=== PATIENT | female | born 1960 | race Caucasian/White ===

== ENCOUNTER 2019-06-21 18:28 | Emergency (ER) | payer OTHER ==
[~2019-06-21] VITALS: Ht 167 cm; Wt 99.0 kg
[2019-06-21] MEDS ORDERED: NS IV 500 ML 500 ML IV ONE (18:52)
[2019-06-21 18:59] LABS: BILIRUBIN,URINE NEGATIVE (NEGATIVE); CLARITY,URINE CLEAR; COLOR,URINE YELLOW; GLUCOSE, URINE (UA) NEGATIVE (NEGATIVE); KETONES,URINE NEGATIVE (NEGATIVE); LEUKOCYTE ESTERASE ,URINE NEGATIVE (NEGATIVE); NITRITE,URINE NEGATIVE (NEGATIVE); PROTEIN,URINE NEGATIVE (NEGATIVE)
[2019-06-21 19:03] LABS: BASOPHILS % (AUTO) 1 % (0-10); EOSINOPHILS # (AUTO) 0.2 10^3/uL (0.0-0.3); EOSINOPHILS % (AUTO) 3 % (0-10); HEMATOCRIT 40 % (35-52); HEMOGLOBIN 13.4 G/DL (11.5-16.0); LYMPHOCYTES # (AUTO) 0.7 X 10^3 (1.0-4.0); LYMPHOCYTES % (AUTO) 17 % (12-44); MEAN CORPUSCULAR HEMOGLOBIN 32 PG (25-34); MEAN CORPUSCULAR HGB CONC 34 G/DL (32-36); MEAN CORPUSCULAR VOLUME 93 FL (80-99); MEAN PLATELET VOLUME 10.3 FL (7.4-10.4); MONOCYTES # (AUTO) 0.5 X 10^3 (0.0-1.0); MONOCYTES % (AUTO) 11 % (0-12); NEUTROPHILS % (AUTO) 68 % (42-75); PLATELET COUNT 88 10^3/uL (130-400); RED CELL DISTRIBUTION WIDTH 15.9 % (10.0-14.5); WHITE BLOOD COUNT 4.4 10^3/uL (4.3-11.0)
[2019-06-21 19:09] LABS: BACTERIA,URINE TRACE /HPF; RBC,URINE RARE /HPF; SQUAMOUS EPITHELIAL CELL,UR 0-2 /HPF
--- NOTE | 2019-06-21 19:09 | NUR ---
Report given to Krista MENDIOLA.
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
[2019-06-21 19:22] LABS: ALANINE AMINOTRANSFERASE 51 U/L (0-55); ALBUMIN 3.2 GM/DL (3.2-4.5); ALKALINE PHOSPHATASE 191 U/L (40-136); BILIRUBIN,TOTAL 1.2 MG/DL (0.1-1.0); BUN/CREATININE RATIO 13; CALCIUM 8.2 MG/DL (8.5-10.1); CARBON DIOXIDE 24 MMOL/L (21-32); CHLORIDE 106 MMOL/L (98-107); CREATININE SERUM 0.63 MG/DL (0.60-1.30); GFR ESTIMATED > 60; GLUCOSE 98 MG/DL (70-105); LIPASE 89 U/L (8-78); MAGNESIUM 1.9 MG/DL (1.6-2.4); POTASSIUM 3.9 MMOL/L (3.6-5.0); SODIUM 141 MMOL/L (135-145); TOTAL PROTEIN 7.9 GM/DL (6.4-8.2)
[2019-06-21] MEDS ORDERED: HOLD METFORMIN - RECEIVED CONTRAST 20 ML VIAL IV SCH (20:00)
[2019-06-21] MEDS ORDERED: IOHEXOL 350 MG/ML 100 ML (OMNIPAQUE 350) VIAL IV ONE (20:00)
[2019-06-21] MEDS ORDERED: NS 100 ML (IVPB) BAG IV ONE (20:00)
--- NOTE | 2019-06-21 20:33 | Diagnostic Imaging Report ---
PROCEDURE: CT abdomen and pelvis with contrast. TECHNIQUE: Multiple contiguous axial images were obtained through the abdomen and pelvis after administration of intravenous contrast. Auto Exposure Controls were utilized during the CT exam to meet ALARA standards for radiation dose reduction. INDICATION: Abdominal swelling and bloating for 2 weeks, excessive weight gain over the past 6 weeks. There is a diffuse nodular appearance to the liver consistent with cirrhosis. There is splenomegaly. No focal liver or spleen lesions are seen. The bile ducts are not dilated. The pancreas and adrenals are normal. The kidneys, ureters and bladder are normal. There is no pelvic mass. There is diverticulosis of the colon with no acute bowel abnormality evident. There is a moderate amount of ascites in the abdomen and pelvis. There is no free air. There is no acute bony abnormality. IMPRESSION: There are changes consistent with cirrhosis. There is splenomegaly. There is ascites. Dictated by: Dictated on workstation # [id number]
[2019-06-21] MEDS ORDERED: SPIR25TA5 PO (20:57)
[2019-06-21] MEDS ORDERED: SPIRONOLACTONE 25 MG (ALDACTONE) TAB PO ONE (21:00)
[2019-06-21 21:24] VITALS: BP 154/89
--- OUTSIDE RECORDS SUMMARY | 2019-06-23 15:02 | XMS REPORT ---
Author Author Shirley HEALY Organization [facility] Address [address] [place] [address] Care Team Providers Care Purchasing Buyer Name Role Phone ALFREDITO HEALY Unavailable PROBLEMS Type Condition ICD9-CM Code [id number] Code Onset Dates Condition S tatus SNOMED Code Problem Cutaneous horn L85.8 Active 69986 1001 Problem Colon cancer screening Z12.11 Active 710604873 Problem Skin tag L91.8 Active 360931402 Problem Psoriasis L40.9 Active 3632820 Problem Gynecologic exam normal Z01.419 Active 562336692 Problem Herpes simplex vulvovaginitis A60.04 Active 62265126 Problem Dysthymia F34.1 Active 71442401 Problem High risk medication use Z79.899 Activ e [id number] Problem Mary-rectal abscess K61.1 Active 79747674 Problem Essential hypertension with goal blood pressure less t schrader 140\/90 I10 Active 60215595 Problem Hypertension I10 Active 5538978 3 Problem Breast cancer screening Z12.39 Active 380251546 Problem Melanocytic nevus of trunk D22.5 Act ilia 349163586 Problem Mixed hyperlipidemia E78.2 Active 551569034 Problem Acute bronchitis, unspecified organism J20.9 Active 38581666 Problem External hemorrhoid K64.4 Active 70173941 ALLERGIES No Information ENCOUNTERS Encounter Location Date Diagnosis [facility] [address] [facility] [id number] [address] [place] [address] Nov, [facility] [address] [id number] [id number] Jul, Seborrheic keratoses, inflamed L82.0 ; S erous otitis media H65.90 and Hypertension I10 [facility] [address] [id number][place] [id number] May, [facility] [address] [id number] [place] [id number] Feb, [facility] [address] [id number] [place] [id number] Jan, Mary-rectal abscess K61.1 and External h emorrhoid K64.4 [facility] [address] [id number][place] [id number] Jan, Essential hypertension with goal blood p ressure less than 140\/90 I10 ; Dysthymia F34.1 and Noncompliance Z91.19 [facility] [address] [id number] [place] [id number] Dec, Dysthymia F34.1 [facility] [address] [facility] [id number] [address] [place] [address] Oct, Dysthymia F34.1 [facility] [address] [id number][place] [id number] August, Essential hypertension with goal blood p ressure less than 140\/90 I10 ; Mixed hyperlipidemia E78.2 and Acute bronchitis, unspecified organism J20.9 [facility] [address] [id number][place] [id number] Jul, Dental examination Z01.20 and Dental car ies K02.9 [facility] [address] [id number][place] [id number] Jun, Essential hypertension with goal blood p ressure less than 140\/90 I10 and Melanocytic nevus of trunk D22.5 [facility] [address] [id number][place] [id number] Jun, [facility] [address] [facility] [id number] [address] [place] [address] Jun, Dysthymia F34.1 [facility] [address] [id number][place] [id number] May, [facility] [address] [id number] [place] [id number] Mar, [facility] [address] [id number] [place] [id number] Mar, Herpes simplex vulvovaginitis A60.[address] [facility] [address] [id number] [place] [id number] Mar, [facility] [address] [id number] [place] [id number] Mar, High risk medication use Z79.899 ; Dysth ymia F34.1 and Essential hypertension with goal blood pressure less than 140\/90 I[address] [facility] [address] [id number] [place] [id number] Jan, Dysthymia F34.[address] [facility] [address] [id number] [place] [id number] Jan, High risk medication use Z79.899 and Dys thymia F34.[address] [facility] [address] [id number] [place] [id number] Dec, [facility] [address] [id number] [place] [id number] Dec, [facility] [address] [id number] [place] [id number] Dec, High risk medication use Z79.899 ; Dysth ymia F34.1 and Essential hypertension with goal blood pressure less than 140\/90 I[address] [facility] [address] [id number] [place] [id number] Nov, [facility] [address] [id number] [place] [id number] Feb, Herpes simplex vulvovaginitis A60.[address] [facility] [address] [id number] [place] [id number] Oct, [facility] [address] [id number] [place] [id number] Oct, Poison verónica L23.7 and Benign essential hy pertension I10 [address] [id number], [place] [id number] Sep, [facility] [address] [id number][place] [id number] August, [address] [id number][place] [id number] August, Gynecologic exam normal Z01.419 ; Breast cancer screening Z12.39 ; Colon cancer screening Z12.11 ; Essential hypertension with goal blood pressure less than 140\/90 I10 and Psoriasis L40.[id number] [place] [id number] Jul, [address] [id number][place] [id number] Jun, Skin tag L91.8 ; Cutaneous horn L85.8 an d Essential hypertension with goal blood pressure less than 140\/90 I10 [facility] [address] [id number][place] [id number] May, Ear ache H92.09 ; Upper respiratory infe ction J06.9 and Impacted cerumen of right ear H61.[address] [id number], [place] [id number] Feb, Rhinitis J31.0 ; Hoarseness or changing voice R49.9 and Sinusitis J32.[address] [id number], [place] [id number] Jan, [address] [id number] [place] [id number] Jan, Physical exam, pre-employment Z02.1 and Encounter for PPD test Z11.1 [facility] [address] [id number] [address] [place] [phone] Jul, [facility] [address] [id number] [address] [place] [address] Jul, [facility] [address] [id number] [address] [place] [address], [place] [address] Jan, [facility] [address] [id number] [address] [place] [address], [place] [address] Jan, [facility] [address] [id number] [address] [place] [address], [place] [address] Jan, [facility] [address] [id number] [address] [place] [address], [place] [address] Jan, [facility] [address] [id number] [address] [place] [address], [place] [address] 17 Dec, 2013 [facility] [address] [id number] [address] [place] [address], [place] [address] 17 Dec, 2013 [facility] [address] [id number] [address] [place] [address], [place] [address] 05 Dec, 2013 [facility] [address] [id number] [address] [place] [address], [place] [address] 05 Dec, 2013 [facility] [address] [id number] [address] [place] [address], [place] [address] 04 Dec, 2013 [facility] [address] [id number] [address] [place] [address], [place] [address] 04 Dec, 2013 [facility] [address] [id number] [address] [place] [address], [place] [address] 02 Dec, 2013 [facility] [address] [id number] [address] [place] [address], [place] [address] Dec, 2013 [facility] [address] [id number] [address] [place] [address], [place] [address] Nov, [facility] [address] [id number] [address] [place] [address], [place] [address] Nov, [facility] [address] [id number] [address] [place] [address], [place] [address] Nov, [facility] [address] [id number] [facility] [place] [address] Nov, [facility] [address] [id number] [address] [place] [address], [place] [address] [address], [address] [facility] [address] [id number] [address] [place] [address], [place] [address] 18 Jul, 2012 [facility] [address] [id number] [address] [place] [address], [place] [address] 08 Jul, 2012 [facility] [address] [id number] [address] [place] [address], [place] [address] 04 Jul, 2012 [facility] [address] [id number] [address] [place] [address], [place] [address] [address], [address] [facility] [address] [id number] [address] [place] [address], [place] [address] [address], [address] [facility] [address] [id number] [address] [place] [address], [place] [address] [address], [address] [facility] [address] [id number] [address] [place] [address], [place] [address] 19 Jun, 2012 [facility] [address] [id number] [address] [place] [address], [place] [address] [address], [address] [facility] [address] [id number] [address] [place] [address], [place] [address] [address], [address] [facility] [address] [id number] [address] [place] [address], [place] [address] [address], [address] [facility] [address] [id number] [address] [place] [address], [place] [address] 12 Jun, 2012 [facility] [address] [id number] [address] [place] [address], [place] [address] [address], [address] [facility] [address] [id number] [address] [place] [address], [place] [address] 22 Jun, 2011 [facility] [address] [id number] [address] [place] [address], [place] [address] Jun, [facility] [address] [facility] [id number] [address] [place] [address] Jun, [facility] [address] [facility] [id number] [address] [place] [phone] Jun, [facility] [address] [facility] [id number] [address] [place] [address] Mar, [facility] [address] [facility] [id number] [address] [place] [address] Mar, IMMUNIZATIONS No Known Immunizations SOCIAL HISTORY Never Assessed REASON FOR VISIT PLAN OF CARE VITAL SIGNS MEDICATIONS Unknown Medications RESULTS No Results PROCEDURES No Known procedures INSTRUCTIONS MEDICATIONS ADMINISTERED No Known Medications MEDICAL (GENERAL) HISTORY Type Description Date Medical History Gastrointestinal disorder- 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 Gaytan for this in 2005, pt has hx of IV drug use Medical History Gynecologic disorder Vaginal herpes, usually outbreaks every 3-4 months if not on medication routinely Medical History Hyperlipidemia Medical History Skin disorder- psoriasis Medical History Psychiatric disorder- major depression Medical History Cancer left breast, last marian mogram was normal, completed radiation Medical History diverticulitis Medical History hypertension Medical History uterine fibroid tumor Medical History 13.8% CVD risk-refuses statin Surgical History Laminectomy with disc removal L5 1989 Surgical History Orthopedic surgery right wrist and right finger Surgical History Tubal Ligation Surgical History Hysterectomy, ovaries remain 1994 Surgical History lumpectomy, left breast 2009 Hospitalization History diverticulitis 06/22 Hospitalization History Surgery(s)/Childbirth(s)
--- OUTSIDE RECORDS SUMMARY | 2019-06-23 15:02 | XMS REPORT ---
Author Author Shirley HEALY Organization [facility] Address [address] [place] [address] Care Team Providers Care Pressure Control Supervisor Name Role Phone ALFREDITO HEALY Unavailable PROBLEMS Type Condition ICD9-CM Code LZI31-[id number] Code Onset Dates Condition S tatus SNOMED Code Problem Cutaneous horn L85.8 Active 66374 1001 Problem Colon cancer screening Z12.11 Active 563637878 Problem Skin tag L91.8 Active 921113527 Problem Psoriasis L40.9 Active 7421122 Problem Gynecologic exam normal Z01.419 Active 871103802 Problem Herpes simplex vulvovaginitis A60.04 Active 37759701 Problem Dysthymia F34.1 Active 27880187 Problem High risk medication use Z79.899 Activ e [id number] Problem Mary-rectal abscess K61.1 Active 83274154 Problem Essential hypertension with goal blood pressure less t schrader 140\/90 I10 Active 69152823 Problem Hypertension I10 Active 0323201 3 Problem Breast cancer screening Z12.39 Active 179073577 Problem Melanocytic nevus of trunk D22.5 Act ilia 775332405 Problem Mixed hyperlipidemia E78.2 Active 695434112 Problem Acute bronchitis, unspecified organism J20.9 Active 82063469 Problem External hemorrhoid K64.4 Active 39661376 ALLERGIES No Information ENCOUNTERS Encounter Location Date Diagnosis [facility] [address] [id number] [address] [place] [address] Nov, [facility] [address] [id number][place] [id number] Jul, Seborrheic keratoses, inflamed L82.0 ; S erous otitis media H65.[address] [facility] [address] [id number], [place] [id number] May, [facility] [address] [id number] [place] [id number] Feb, [facility] [address] [id number] [place] [id number] Jan, Mary-rectal abscess K61.1 and External h emorrhoid K64.4 [facility] [address] [id number], [place] [id number] Jan, Essential hypertension with goal blood p ressure less than 140\/90 I10 ; Dysthymia F34.1 and Noncompliance Z91.19 [facility] [address] [id number] [place] [id number] Dec, Dysthymia F34.1 [facility] [address] [id number] [address] [place] [address] Oct, Dysthymia F34.1 [facility] [address] [id number], [place] [id number] August, Essential hypertension with goal blood p ressure less than 140\/90 I10 ; Mixed hyperlipidemia E78.2 and Acute bronchitis, unspecified organism J20.9 [facility] [address] [id number], [place] [id number] Jul, Dental examination Z01.20 and Dental car ies K02.9 [facility] [address] [id number], [place] [id number] Jun, Essential hypertension with goal blood p ressure less than 140\/90 I10 and Melanocytic nevus of trunk D22.5 [facility] [address] [id number], [place] [id number] Jun, [facility] [address] [id number] [address] [place] [address] Jun, Dysthymia F34.1 [facility] [address] [id number], [place] [id number] May, [facility] [address] [id number] [place] [id number] Mar, [facility] [address] [id number] [place] [id number] Mar, Herpes simplex vulvovaginitis A60.[address] [facility] [address] [id number] [place] [id number] Mar, [facility] [address] [id number] [place] [id number] Mar, High risk medication use Z79.899 ; Dysth ymia F34.1 and Essential hypertension with goal blood pressure less than 140\/90 [address] [facility] [address] [id number] [place] [id number] Jan, Dysthymia F34.[address] [facility] [address] [id number] [place] 913005079 Jan, High risk medication use Z79.899 and Dys thymia F34.[address] [facility] [address] [id number] [place] [id number] Dec, [facility] [address] [id number] [place] [id number] Dec, [facility] [address] [id number] [place] [id number] Dec, High risk medication use Z79.899 ; Dysth ymia F34.1 and Essential hypertension with goal blood pressure less than 140\/90 I[address] [facility] [address] [id number] [place] [id number] Nov, [facility] [address] [id number] [place] [id number] Feb, Herpes simplex vulvovaginitis A60.[address] [facility] [address] [id number] [place] [id number] Oct, [facility] [address] [id number] [place] [id number] Oct, Poison verónica L23.7 and Benign essential hy pertension I10 [address] [id number], [place] [id number] Sep, [facility] [address] [id number], [place] [id number] August, [address] [id number], [place] [id number] August, Gynecologic exam normal Z01.419 ; Breast cancer screening Z12.39 ; Colon cancer screening Z12.11 ; Essential hypertension with goal blood pressure less than 140\/90 I10 and Psoriasis L40.[address] [id number] [place] [id number] Jul, [address] [id number], [place] [id number] Jun, Skin tag L91.8 ; Cutaneous horn L85.8 an d Essential hypertension with goal blood pressure less than 140\/90 I10 [facility] [address] [id number], [place] [id number] May, Ear ache H92.09 ; Upper respiratory infe ction J06.9 and Impacted cerumen of right ear H61.[address] [id number], [place] [id number] Feb, Rhinitis J31.0 ; Hoarseness or changing voice R49.9 and Sinusitis J32.[address] [id number], [place] [id number] Jan, [address] [id number] [place] [id number] Jan, Physical exam, pre-employment Z02.1 and Encounter for PPD test Z11.1 [facility] [address] [id number] [address] [place] [phone] Jul, [facility] [address] [id number] [address] [place] [address] Jul, [facility] [address] [id number] [address] [place] [address], [place] [address] Jan, [facility] [address] [id number] [address] [place] [address], [place] [address] Jan, [facility] [address] [id number] [address] [place] [address], [place] [address] Jan, [facility] [address] [id number] [address] [place] [address], [place] [address] Jan, [facility] [address] [id number] [address] [place] [address], [place] [address] 17 Dec, 2013 [facility] [address] [id number] [address] [place] [address], [place] [address] 17 Dec, 2013 [facility] [address] [id number] [address] [place] [address], [place] [address] 05 Dec, 2013 [facility] [address] [id number] [address] [place] [address], [place] [address] 05 Dec, 2013 [facility] [address] [id number] [address] [place] [address], [place] [address] 04 Dec, 2013 [facility] [address] [id number] [address] [place] [address], [place] [address] 04 Dec, 2013 [facility] [address] [id number] [address] [place] [address], [place] [address] 02 Dec, 2013 [facility] [address] [id number] [address] [place] [address], [place] [address] Dec, 2013 [facility] [address] [id number] [address] [place] [address], [place] [address] Nov, [facility] [address] [id number] [address] [place] [address], [place] [address] Nov, [facility] [address] [id number] [address] [place] [address], [place] [address] Nov, [facility] [address] [id number] [facility] [place] [address] Nov, [facility] [address] [id number] [address] [place] [address], [place] [address] 09 Nov, 2012 [facility] [address] [id number] [address] [place] [address], [place] [address] 18 Jul, 2012 [facility] [address] [id number] [address] [place] [address], [place] [address] 08 Jul, 2012 [facility] [address] [id number] [address] [place] [address], [place] [address] 04 Jul, 2012 [facility] [address] [id number] [address] [place] [address], [place] [address] 28 Jun, 2012 [facility] [address] [id number] [address] [place] [address], [place] [address] 22 Jun, 2012 [facility] [address] [id number] [address] [place] [address], [place] [address] 19 Jun, 2012 [facility] [address] [id number] [address] [place] [address], [place] [address] 19 Jun, 2012 [facility] [address] [id number] [address] [place] [address], [place] [address] 18 Jun, 2012 [facility] [address] [id number] [address] [place] [address], [place] [address] 14 Jun, 2012 [facility] [address] [id number] [address] [place] [address], [place] [address] 13 Jun, 2012 [facility] [address] [id number] [address] [place] [address], [place] [address] 12 Jun, 2012 [facility] [address] [id number] [address] [place] [address], [place] [address] 16 Aug, 2011 [facility] [address] [id number] [address] [place] [address], [place] [address] 22 Jun, 2011 [facility] [address] [id number] [address] [place] [address], [place] [address] Jun, [facility] [address] [id number] [address] [place] [address] Jun, [facility] [address] [id number] [address] [place] [address] Jun, [facility] [address] [id number] [address] [place] [address] Mar, [facility] [address] [id number] [address] [place] [address] Mar, IMMUNIZATIONS No Known Immunizations SOCIAL HISTORY Never Assessed REASON FOR VISIT PLAN OF CARE VITAL SIGNS Height 67.75 in 2013-12-10 Weight 213.38 lbs 2013-12-10 Temperature 96.1 degrees Fahrenheit 2013-12-10 Heart Rate 88 bpm 2013-12-10 Respiratory Rate 18 2013-12-10 Blood pressure systolic 130 mmHg 2013-12-10 Blood pressure diastolic 92 mmHg 2013-12-10 MEDICATIONS Unknown Medications RESULTS No Results PROCEDURES [...]
--- OUTSIDE RECORDS SUMMARY | 2019-06-23 15:02 | XMS REPORT ---
Author Author Shirley [facility]ION [facility] Organization [facility] Address [address] [place] [address] Care Team Providers Care Medical Information Specialist Name Role Phone NIRAJ SALINASCHRIS Unavailable PROBLEMS Type Condition ICD9-CM Code YKJ02-PE Code Onset Dates Condition S tatus SNOMED Code Problem Skin tag L91.8 Active 182129478 Problem Cutaneous horn L85.8 Active 48631 1001 Problem Gynecologic exam normal Z01.419 Active 304038974 Problem Colon cancer screening Z12.11 Active 627949429 Problem Breast cancer screening Z12.39 Active 302456164 Problem Psoriasis L40.9 Active 1111628 Problem Dysthymia F34.1 Active 63324156 Problem High risk medication use Z79.899 Activ e 560599422452418 Problem Melanocytic nevus of trunk D22.5 Act ilia 306882322 Problem Hypertension I10 Active 6451024 3 Problem Herpes simplex vulvovaginitis A60.04 Active 62641845 Problem Major depressive disorder, recurrent, moderate F33 .1 Active 983152896 Problem Essential hypertension with goal blood pressure less t schrader 140\/90 I10 Active 48889830 Problem Mixed hyperlipidemia E78.2 Active 220538410 Problem Acute bronchitis, unspecified organism J20.9 Active 88987308 Problem External hemorrhoid K64.4 Active 37068911 Problem Mary-rectal abscess K61.1 Active 24912062 ALLERGIES No Information ENCOUNTERS Encounter Location Date Diagnosis [facility] [address] [facility] [id number] [address] [place] [address] Jan, [facility] [address] [facility] [id number] [address] [place] [address] Nov, Major depressive disorder, r ecurrent, moderate F33.1 [facility] [address] [facility] [id number] [address] [place] [address] Nov, Non-recurrent acute suppurat ilia otitis media of left ear without spontaneous rupture of tympanic membrane H66.002 [facility] [address] [id number] [place], [place] [id number] Jul, Seborrheic keratoses, inflamed L82.0 ; S erous otitis media H65.90 and Hypertension I10 [facility] [address] [id number] [place] [id number] May, [facility] [address] [id number] [place] [id number] Feb, [facility] [facility] [address] [id number] [place], [place] [id number] Jan, Mary-rectal abscess K61.1 and External h emorrhoid K64.4 [facility] [address] [id number] [place], [place] [id number] Jan, Essential hypertension with goal blood p ressure less than 140\/90 I10 ; Dysthymia F34.[address] [facility] [address] [id number] [place], [place] [id number] Dec, Dysthymia F34.1 [facility] [address] [facility] [id number] [address] [place] [address] Oct, Dysthym[address] F34.[address] [facility] [address] [id number] [place], [place] [id number] August, Essential hypertension with goal blood p ressure less than 140\/90 I10 ; Mixed hyperlipidemia E78.2 and Acute bronchitis, unspecified organism J20.[address] [id number] [place], [place] [id number] Jul, Dental examination Z01.20 and Dental car ies K02.[address] [id number] [place], [place] [id number] Jun, Essential hypertension with goal blood p ressure less than 140\/90 I10 and Melanocytic nevus of trunk D22.[address] [facility] [address] [id number] [place] [id number] Jun, [facility] [address] [facility] [id number] [address] [address] Jun, Dysthymia F34.[address] [facility] [address] [id number] [place] [id number] May, [facility] [address] [id number] [place] [id number] Mar, [facility] [address] [id number] [place] [id number] Mar, Herpes simplex vulvovaginitis A60.[address] [facility] [address] [id number] [place] [id number] Mar, [facility] [address] [id number] [place] 833[address] Mar, High risk medication use Z79.899 ; Dysth ymia F34.1 and Essential hypertension with goal blood pressure less than 140\/90 I[address] [facility] [address] [id number] [place] [id number] Jan, Dysthymia F34.[address] [facility] [address] [id number] [place] [id number] Jan, High risk medication use Z79.899 and Dys thymia F34.[address] [facility] [address] [id number] [place] [id number] Dec, [facility] [address] [id number] [place] [id number] Dec, [facility] [address] [id number] [place] [id number] Dec, High risk medication use Z79.899 ; Dysth ymia F34.1 and Essential hypertension with goal blood pressure less than 140\/90 I[address] [facility] [address] [id number] [place], [place] [id number] Nov, [facility] [address] [id number] [place], [place] [id number] Feb, Herpes simplex vulvovaginitis A60.04 [facility] [address] [id number] [place], [place] [id number] Oct, [facility] [address] [id number] [place], [place] 677655135 Oct, Poison verónica L23.7 and Benign essential hy pertension I10 [facility] [address] [id number] [place], [place] [id number] Sep, [facility] [address] [id number] [place], [place] [id number] August, [facility] [address] [id number] [place], [place] [id number] August, Gynecologic exam normal Z01.419 ; Breast cancer screening Z12.39 ; Colon cancer screening Z12.11 ; Essential hypertension with goal blood pressure less than 140\/90 I10 and Psoriasis L40.9 [facility] [address] [id number] [place], [place] [id number] Jul, [facility] [address] [id number] [place], [place] [id number] Jun, Skin tag L91.8 ; Cutaneous horn L85.8 an d Essential hypertension with goal blood pressure less than 140\/90 I10 [facility] [address] [id number] [place], [place] [id number] May, Ear ache H92.09 ; Upper respiratory infe ction J06.9 and Impacted cerumen of right ear H61.21 [facility] [address] [id number] [place], [place] [id number] Feb, Rhinitis J31.0 ; Hoarseness or changing voice R49.9 and Sinusitis J32.9 [facility] [address] [id number] [place], [place] [id number] Jan, [facility] [address] [id number] [place], [place] [id number] Jan, Physical exam, pre-employment Z02.1 and Encounter for PPD test Z11.1 [facility] [address] [id number] [address] [place] [address] Jul, [facility] [address] [id number] [address] [place] [address] Jul, [facility] [address] [id number] [address] [place] [address] Jan, [facility] [address] [id number] [address] [place] [address] Jan, [facility] [address] [id number] [address] [place] [address] Jan, [facility] [address] [id number] [address] [place] [address] Jan, [facility] [address] [id number] [address] [place] [address] Dec, [facility] [address] [id number] [address] [place] [address] Dec, [facility] [address] [id number] [address] [place] [phone] 05 Dec, 2013 [facility] [address] [id number] [address] [place] [phone] 05 Dec, 2013 [facility] [address] [id number] [address] [place] [address] Dec, [facility] [address] [id number] [address] [place] [address] Dec, [facility] [address] [id number] [address] [place] [address] Dec, 2013 [facility] [address] [id number] [address] [place] [address], [place] [id number] Dec, [facility] [address] [id number] [address] [place] [address], [place] [id number] Nov, [facility] [address] [id number] [address] [place] [address], [place] [id number] Nov, [facility] [address] [id number] [address] [place] [address], [place] [id number] Nov, [facility] [address] [id number] [address] [place] [address], [place] [id number] Nov, [facility] [address] [id number] [address] [place] [address], [place] [id number] Nov, [facility] [address] [id number] [address] [place] [address], [place] [id number] Jul, [facility] [address] [id number] [address] [place] [address], [place] [id number] 08 Jul, [address] [facility] [address] [id number] [address] [place] [address], [place] [phone] 04 Jul, [address] [facility] [address] [id number] [address] [place] [address], [place] [id number] 28 Jun, [address] [facility] [address] [id number] [address] [place] [address], [place] [id number] 22 Jun, [address] [facility] [address] [id number] [address] [place] [address], [place] [id number] 19 Jun, 2012 [facility] [address] [id number] [address] [place] [address], [place] [id number] 19 Jun, 2012 [facility] [address] [id number] [address] [place] [address], [place] [id number] 18 Jun, 2012 [facility] [address] [id number] [address] [place] [address], [place] [id number] 14 Jun, 2012 [facility] [address] [id number] [address] [place] [address], [place] [id number] 13 Jun, 2012 [facility] [address] [id number] [address] [place] [phone] Jun, [facility] [address] [id number] [address] [place] [phone] August, [facility] [address] [id number] [address] [place] [id number] Jun, [facility] [address] [id number] [address] [place] [id number] Jun, [facility] [address] [id number] [address] [place] [id number] Jun, [facility] [address] [facility] [id number] [address] [place] [phone] Jun, [facility] [address] [facility] [id number] [address] [place] [phone] Mar, [facility] [address] [facility] [id number] [address] [place] [id number] Mar, IMMUNIZATIONS No Known Immunizations SOCIAL HISTORY Never Assessed REASON FOR VISIT PLAN OF CARE VITAL SIGNS Height 68 in 2013-12-25 Weight 212.2 lbs 2013-12-25 Temperature 98.4 degrees Fahrenheit 2013-12-25 Heart Rate 88 bpm 2013-12-25 Respiratory Rate 18 2013-12-25 Blood pressure systolic 120 mmHg 2013-12-25 Blood pressure diastolic 76 mmHg 2013-12-25 MEDICATIONS Unknown Medications RESULTS No Results PROCEDURES [...] Orthopedic surgery right wrist and right finger 1989' Surgical History Tubal Ligation Surgical History Hysterectomy, ovaries remain 1994 Surgical History lumpectomy, left breast 2009 Surgical History abcess removed from bowel 2016 Hospitalization History diverticulitis 06/22 Hospitalization History Surgery(s)/Childbirth(s)
--- OUTSIDE RECORDS SUMMARY | 2019-06-23 15:03 | XMS REPORT ---
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 Name Role Phone Migration, Doctor Unavailable Unavailable PROBLEMS Type Condition ICD9-CM Code XII84-DO Code Onset Dates Condition S tatus SNOMED Code Problem Cutaneous horn L85.8 Active 52202 1001 Problem Colon cancer screening Z12.11 Active 418857806 Problem Skin tag L91.8 Active 541360412 Problem Psoriasis L40.9 Active 3312196 Problem Gynecologic exam normal Z01.419 Active 642520922 Problem Herpes simplex vulvovaginitis A60.04 Active 24325778 Problem Dysthymia F34.1 Active 17863103 Problem High risk medication use Z79.899 Activ e 143108427424405 Problem Mary-rectal abscess K61.1 Active 56483378 Problem Essential hypertension with goal blood pressure less t schrader 140\/90 I10 Active 00951851 Problem Hypertension I10 Active 4002999 3 Problem Breast cancer screening Z12.39 Active 973513781 Problem Melanocytic nevus of trunk D22.5 Act ilia 368346804 Problem Mixed hyperlipidemia E78.2 Active 344274702 Problem Acute bronchitis, unspecified organism J20.9 Active 97594521 Problem External hemorrhoid K64.4 Active 42878522 ALLERGIES No Information ENCOUNTERS Encounter Location Date Diagnosis [address] [id number] [place] [id number] Jul, Seborrheic keratoses, inflamed L82.0 ; S erous otitis media H65.90 and Hypertension I10 [facility] [address] [id number] [place] [address] May, [address] [id number] [place] [address] Feb, [facility]ITAL[facility] SystemsTER [address] [id number], [place] [address]9811[address] Jan, Mary-rectal abscess K61.1 and External h emorrhoid K64.4 [facility] [address] [id number], [place] 12[address]250[address] Jan, Essential hypertension with goal blood p ressure less than 140\/90 I10 ; Dysthymia F34.1 and Noncompliance Z91.19 [facility] [address] [id number], [place] 367009031 Dec, Dysthymia F34.1 [facility] [address] [facility] [id number] [address] [place] [address] Oct, Dysthymia F34.1 [facility] [address] [id number], [place] 778553066 August, Essential hypertension with goal blood p ressure less than 140\/90 I10 ; Mixed hyperlipidemia E78.2 and Acute bronchitis, unspecified organism J20.9 [facility] [address] [id number], [place] 45[address]17564 Jul, Dental examination Z01.20 and Dental car ies K02.9 [facility] [address] [id number], [place] 123061598 Jun, Essential hypertension with goal blood p ressure less than 140\/90 I10 and Melanocytic nevus of trunk D22.5 [facility] [address] [id number], [place] 68[address] Jun, [facility] [address] [facility] [id number] [address] [place] [address] Jun, Dysthymia F34.1 [facility] [address] [id number], [place] [address] May, [facility] [address] [id number], [place] [address] Mar, [facility] [address] [id number], [place] 568290692 Mar, Herpes simplex vulvovaginitis A60.[address] [facility] [address] [id number] [place] [address] Mar, [facility] [address] [id number] [place] [address] Mar, High risk medication use Z79.899 ; Dysth ymia F34.1 and Essential hypertension with goal blood pressure less than 140\/90 I[address] [facility] [address] [id number] [place] [address] Jan, Dysthymia F34.[address] [facility] [address] [id number] [place] [address] Jan, High risk medication use Z79.899 and Dys thymia F34.[address] [facility] [address] [id number] [place] [address] Dec, [facility] [address] [id number] [place] [address] Dec, [facility] [address] [id number] [place] [address] Dec, High risk medication use Z79.899 ; Dysth ymia F34.1 and Essential hypertension with goal blood pressure less than 140\/90 I[address] [facility] [address] [id number] [place] [address] Nov, [facility] [address] [id number] [place] [address] Feb, Herpes simplex vulvovaginitis A60.[address] [facility] [address] [id number] [place] [address] Oct, [facility] [address] [id number] [place] [address] Oct, Poison verónica L23.7 and Benign essential hy pertension I10 [facility] [address] [id number] [place] [address] Sep, [facility] [address] [id number], [place] 591748[address] August, [address] [id number], [place] [address]047[address] August, Gynecologic exam normal Z01.419 ; Breast cancer screening Z12.39 ; Colon cancer screening Z12.11 ; Essential hypertension with goal blood pressure less than 140\/90 I10 and Psoriasis L40.[address] [id number], [place] 395348951 Jul, [address] [id number], [place] 426767605 Jun, Skin tag L91.8 ; Cutaneous horn L85.8 an d Essential hypertension with goal blood pressure less than 140\/[address] [id number], [place] [address]22[address] May, Ear ache H92.09 ; Upper respiratory infe ction J06.9 and Impacted cerumen of right ear H61.[address] [id number], [place] [address]697[address] Feb, Rhinitis J31.0 ; Hoarseness or changing voice R49.9 and Sinusitis J32.[address] [id number], [place] [id number] Jan, [address] [id number] [place] [id number] Jan, Physical exam, pre-employment Z02.1 and Encounter for PPD test Z11.1 [facility] [address] [place] [id number] [address] [place] [address] Jul, [facility] [address] [id number] [address] [place] [address] Jul, [facility] [address] [place] [id number] [address] [place] [address] Jan, [facility] [address] [place] [address] [place] [address] Jan, [facility] [address] [id number] [address] [place] [address], [place] [address] Jan, [facility] [address] [id number] [address] [place] [address], [place] [address] Jan, [facility] [address] [id number] [address] [place] [address], [place] [address] 17 Dec, 2013 [facility] [address] [id number] [address] [place] [address], [place] [address] 17 Dec, 2013 [facility] [address] [id number] [address] [place] [address], [place] [address] 05 Dec, 2013 [facility] [address] [id number] [address] [place] [address], [place] [address] 05 Dec, 2013 [facility] [address] [id number] [address] [place] [address], [place] [address] 04 Dec, 2013 [facility] [address] [id number] [address] [place] [address], [place] [address] 04 Dec, 2013 [facility] [address] [id number] [address] [place] [address], [place] [address] 02 Dec, 2013 [facility] [address] [id number] [address] [place] [address], [place] [address] 02 Dec, 2013 [facility] [address] [id number] [address] [place] [address], [place] [address] Nov, [facility] [address] [id number] [address] [place] [address], [place] [address] Nov, [facility] [address] [id number] [address] [place] [address], [place] [address] Nov, [facility] [address] [id number] [address] [place] [address], [place] [address] Nov, [facility] [address] [id number] [address] [place] [address], [place] [address] Nov, [facility] [address] [id number] [facility] [place] [address] 18 Jul, 2012 [facility] [address] [id number] [address] [place] [address], [place] [address] 08 Jul, 2012 [facility] [address] [id number] [address] [place] [address], [place] [address] 04 Jul, 2012 [facility] [address] [id number] [address] [place] [address], [place] [address] 28 Jun, 2012 [facility] [address] [id number] [address] [place] [address], [place] [address] 22 Jun, 2012 [facility] [address] [id number] [address] [place] [address], [place] [address] 19 Jun, 2012 [facility] [address] [id number] [address] [place] [address], [place] [address] 19 Jun, 2012 [facility] [address] [id number] [address] [place] [address], [place] [address] 18 Jun, 2012 [facility] [address] [id number] [address] [place] [address], [place] [address] 14 Jun, 2012 [facility] [address] [id number] [address] [place] [address], [place] [address] 13 Jun, 2012 [facility] [address] [id number] [address] [place] [address], [place] [address] 12 Jun, 2012 [facility] [address] [id number] [address] [place] [address], [place] [address] 16 Aug, 2011 [facility] [address] [id number] [address] [place] [address], [place] [address] 22 Jun, 2011 [facility] [address] [id number] [address] [place] [address], [place] [address] 07 Jun, 2011 [facility] [address] [id number] [address] [place] [address], [place] [address] 05 Jun, 2011 [facility] [address] [id number] [address] [place] [address], [place] [address] Jun, [facility] [address] [facility] [id number] [place] [address] Mar, [facility] [address] [facility] [id number] [place], [place] [address] Mar, IMMUNIZATIONS No Known Immunizations SOCIAL HISTORY Never Assessed REASON FOR VISIT EMR-[facility] [place] PLAN OF CARE VITAL SIGNS MEDICATIONS Unknown Medications RESULTS No Results PROCEDURES No Known procedures INSTRUCTIONS MEDICATIONS ADMINISTERED No Known Medications MEDICAL (GENERAL) HISTORY Type Description Date Medical History Gastrointestinal disorder- 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 Gatyan for this in 2005, pt has hx [...]
--- OUTSIDE RECORDS SUMMARY | 2019-06-23 15:03 | XMS REPORT ---
Author Author Shirley Gil Doctor Organization [facility] Address Unknown Phone Unavailable Care Team Providers Care Grab Hooker Name Role Phone Migration, Doctor Unavailable Unavailable PROBLEMS Type Condition ICD9-CM Code IIL15-NB Code Onset Dates Condition S tatus SNOMED Code Problem Cutaneous horn L85.8 Active 80754 1001 Problem Colon cancer screening Z12.11 Active 478081580 Problem Skin tag L91.8 Active 613651521 Problem Psoriasis L40.9 Active 7794667 Problem Gynecologic exam normal Z01.419 Active 335350679 Problem Herpes simplex vulvovaginitis A60.04 Active 28473486 Problem Dysthymia F34.1 Active 16427501 Problem High risk medication use Z79.899 Activ e 224893630131590 Problem Mary-rectal abscess K61.1 Active 97655103 Problem Essential hypertension with goal blood pressure less t schrader 140\/90 I10 Active 89043312 Problem Hypertension I10 Active 5372745 3 Problem Breast cancer screening Z12.39 Active 692249637 Problem Melanocytic nevus of trunk D22.5 Act ilia 955330037 Problem Mixed hyperlipidemia E78.2 Active 378137622 Problem Acute bronchitis, unspecified organism J20.9 Active 19964818 Problem External hemorrhoid K64.4 Active 29536028 ALLERGIES No Information ENCOUNTERS Encounter Location Date Diagnosis [address] [id number] [place] [id number] Jul, Seborrheic keratoses, inflamed L82.0 ; S erous otitis media H65.90 and Hypertension I10 [facility] [id number] [place] [address] May, [address] [id number] [place] [id number] Feb, [facility] [address] [id number] [place] 06[address]48[address] Jan, Mary-rectal abscess K61.1 and External h emorrhoid K64.4 [facility] [address] [id number] [place] 234315[address] Jan, Essential hypertension with goal blood p ressure less than 140\/90 I10 ; Dysthymia F34.1 and Noncompliance Z91.19 [facility] [address] [id number] [place] 597380889 Dec, Dysthymia F34.1 [facility] [address] [facility] [id number] [address] [place] [address] Oct, Dysthymia F34.1 [facility] [address] [id number] [place] [id number] August, Essential hypertension with goal blood p ressure less than 140\/90 I10 ; Mixed hyperlipidemia E78.2 and Acute bronchitis, unspecified organism J20.9 [facility] [address] [id number] [place] [id number] Jul, Dental examination Z01.20 and Dental car ies K02.9 [facility] [address] [id number] [place] 108173114 Jun, Essential hypertension with goal blood p ressure less than 140\/90 I10 and Melanocytic nevus of trunk D22.5 [facility] [address] [id number] [place], [place] [id number] Jun, [facility] [address] [facility] [id number] [address] [place] [address] Jun, Dysthymia F34.1 [facility] [address] [id number] [place] [address]67409438 May, [facility] [address] [id number] [place] [id number] Mar, [facility] [address] [id number] [place] 914280[address] Mar, Herpes simplex vulvovaginitis A60.[address] [facility] [address] [id number] [place] [address] Mar, [facility] [address] [id number] [place] 9[address]572497 Mar, High risk medication use Z79.899 ; Dysth ymia F34.1 and Essential hypertension with goal blood pressure less than 140\/90 I[address] [facility] [address] [id number] [place] [address] Jan, Dysthymia F34.[address] [facility] [address] [id number] [place] [address] Jan, High risk medication use Z79.899 and Dys thymia F34.[address] [facility] [address] [id number] [place] [address] Dec, [facility] [address] [id number] [place] [address] Dec, [facility] [address] [id number] [place] [address] Dec, High risk medication use Z79.899 ; Dysth ymia F34.1 and Essential hypertension with goal blood pressure less than 140\/90 I[address] [facility] [address] [id number] [place] 196598973 Nov, [facility] [address] [id number] [place] [id number] Feb, Herpes simplex vulvovaginitis A60.[address] [facility] [address] [id number] [place] [address]48[address] Oct, [facility] [address] [id number] [place] [address] Oct, Poison verónica L23.7 and Benign essential hy pertension I10 [facility] [address] [id number] [place] [address] Sep, [facility] [address] [id number] [place] [id number] August, [address] [id number] [place] [address] August, Gynecologic exam normal Z01.419 ; Breast cancer screening Z12.39 ; Colon cancer screening Z12.11 ; Essential hypertension with goal blood pressure less than 140\/90 I10 and Psoriasis L40.[address] [id number] [place] [id number] Jul, [address] [id number] [place] 809173242 Jun, Skin tag L91.8 ; Cutaneous horn L85.8 an d Essential hypertension with goal blood pressure less than 140\/[address] [id number] [place] 313732259 May, Ear ache H92.09 ; Upper respiratory infe ction J06.9 and Impacted cerumen of right ear H61.[address] [id number] VALLEY[place] 837[address] Feb, Rhinitis J31.0 ; Hoarseness or changing voice R49.9 and Sinusitis J32.[address] [id number] [place]LEY[place] [id number] Jan, [address] [id number] [place] [id number] Jan, Physical exam, pre-employment Z02.1 and Encounter for PPD test Z11.1 [facility] [address] [place] [id number] [address] [place] [address] Jul, [facility] [address] [place] [id number] [address] [place] [address] Jul, [facility] [address] [id number] [address] [place] [address] Jan, [facility] [address] [place] [address] [place] [address] Jan, [facility] [address] [id number] [address] [place] [address], [place] [address] Jan, [facility] [address] [id number] [address] [place] [address], [place] [address] Jan, [facility] [address] [id number] [address] [place] [address], [place] [address] 17 Dec, 2013 [facility] [address] [id number] [address] [place] [address], [place] [address] 17 Dec, 2013 [facility] [address] [id number] [address] [place] [address], [place] [address] 05 Dec, 2013 [facility] [address] [id number] [address] [place] [address], [place] [address] 05 Dec, 2013 [facility] [address] [id number] [address] [place] [address], [place] [address] 04 Dec, 2013 [facility] [address] [id number] [address] [place] [address], [place] [address] 04 Dec, 2013 [facility] [address] [id number] [address] [place] [address], [place] [address] 02 Dec, 2013 [facility] [address] [id number] [address] [place] [address], [place] [address] 02 Dec, 2013 [facility] [address] [id number] [address] [place] [address], [place] [address] Nov, [facility] [address] [id number] [address] [place] [address], [place] [address] Nov, [facility] [address] [id number] [address] [place] [address], [place] [address] Nov, [facility] [address] [id number] [address] [place] [address], [place] [address] Nov, [facility] [address] [id number] [address] [place] [address], [place] [address] Nov, [facility] [address] [id number] [facility] [place] [address] 18 Jul, 2012 [facility] [address] [id number] [address] [place] [address], [place] [address] 08 Jul, 2012 [facility] [address] [id number] [address] [place] [address], [place] [address] 04 Jul, 2012 [facility] [address] [id number] [address] [place] [address], [place] [address] 28 Jun, 2012 [facility] [address] [id number] [address] [place] [address], [place] [address] 22 Jun, 2012 [facility] [address] [id number] [address] [place] [address], [place] [address] 19 Jun, 2012 [facility] [address] [id number] [address] [place] [address], [place] [address] 19 Jun, 2012 [facility] [address] [id number] [address] [place] [address], [place] [address] 18 Jun, 2012 [facility] [address] [id number] [address] [place] [address], [place] [address] 14 Jun, 2012 [facility] [address] [id number] [address] [place] [address], [place] [address] 13 Jun, 2012 [facility] [address] [id number] [address] [place] [address], [place] [address] 12 Jun, 2012 [facility] [address] [id number] [address] [place] [address], [place] [address] 16 Aug, 2011 [facility] [address] [id number] [address] [place] [address], [place] [address] 22 Jun, 2011 [facility] [address] [id number] [address] [place] [address], [place] [address] 07 Jun, 2011 [facility] [address] [id number] [address] [place] [address], [place] [address] 05 Jun, 2011 [facility] [address] [id number] [address] [place] [address], [place] [address] Jun, [facility] [address] [facility] [id number] [place] [address] Mar, [facility] [address] [facility] [id number] [place] [address] Mar, IMMUNIZATIONS No Known Immunizations SOCIAL HISTORY Never Assessed REASON FOR VISIT [place] [place] VITAL SIGNS MEDICATIONS Unknown [...]
--- OUTSIDE RECORDS SUMMARY | 2019-06-23 15:03 | XMS REPORT ---
Author Author Shirley HEALY Organization [facility] Address [address] [place] [address] Care Team Providers Care Electromedical Equipment Technician Name Role Phone ALFREDITO HEALY Unavailable PROBLEMS Type Condition ICD9-CM Code ZPP62-GC Code Onset Dates Condition S tatus SNOMED Code Problem Colon cancer screening Z12.11 Active 690085330 Problem Dysthymia F34.1 Active 37119099 Problem Herpes simplex vulvovaginitis A60.04 Active 61556732 Problem Mary-rectal abscess K61.1 Active 80446911 Problem External hemorrhoid K64.4 Active 60049371 Problem Melanocytic nevus of trunk D22.5 Act ilia 570884267 Problem High risk medication use Z79.899 Activ e 792794226793519 Problem Mixed hyperlipidemia E78.2 Active 567255863 Problem Acute bronchitis, unspecified organism J20.9 Active 22648128 Problem Essential hypertension with goal blood pressure less t schrader 140\/90 I10 Active 69866700 Problem Gynecologic exam normal Z01.419 Active 495064251 Problem Skin tag L91.8 Active 217737696 Problem Psoriasis L40.9 Active 2064822 Problem Cutaneous horn L85.8 Active 46423 1001 Problem Breast cancer screening Z12.39 Active 092531137 ALLERGIES No Information ENCOUNTERS Encounter Location Date Diagnosis [facility] [address] [id number] [place] [id number] Feb, [facility] [address] [id number] [place] [id number] Feb, [facility] [address] [id number], [place] [id number] Feb, [facility] [address] [id number], [place] [address]0137 Jan, Mary-rectal abscess K61.1 and External h emorrhoid K64.4 [facility] [address] [id number] [place] [id number] Jan, Essential hypertension with goal blood p ressure less than 140\/90 I10 ; Dysthymia F34.1 and Noncompliance Z91.19 [facility] [address] [id number], [place] [address] Dec, Dysthymia F34.1 [facility] [address] [facility] [id number] [address] [place] [address] Oct, Dysthymia F34.1 [facility] [address] [id number], [place] [address]77[address] August, Essential hypertension with goal blood p ressure less than 140\/90 I10 ; Mixed hyperlipidemia E78.2 and Acute bronchitis, unspecified organism J20.9 [facility] [address] [id number], [place] [id number] Jul, Dental examination Z01.20 and Dental car ies K02.9 [facility] [address] [id number], [place] [id number] Jun, Essential hypertension with goal blood p ressure less than 140\/90 I10 and Melanocytic nevus of trunk D22.5 [facility] [address] [id number], [place] [id number] Jun, [facility] [address] [facility] [id number] [address] [place] [address] Jun, Dysthymia F34.1 [facility] [address] [id number], [place] [id number] May, [facility] [address] [id number], [place] [address] Mar, [facility] [address] [id number], [place] [address]216[address] Mar, Herpes simplex vulvovaginitis A60.[address] [facility] [address] [id number] [place] [address] Mar, [facility] [address] [id number] [place] [address] Mar, High risk medication use Z79.899 ; Dysth ymia F34.1 and Essential hypertension with goal blood pressure less than 140\/90 I[address] [facility] [address] [id number] [place] [address] Jan, Dysthymia F34.[address] [facility] [address] [id number] [place] [address] Jan, High risk medication use Z79.899 and Dys thymia F34.[address] [facility] [address] [id number] [place] [id number] Dec, [facility] [address] [id number] [place] [id number] Dec, [facility] [address] [id number] [place] 529328883 Dec, High risk medication use Z79.899 ; Dysth ymia F34.1 and Essential hypertension with goal blood pressure less than 140\/90 I[address] [facility] [address] [id number] [place] [address] Nov, [facility] [address] [id number] [place] [address] Feb, Herpes simplex vulvovaginitis A60.[address] [facility] [address] [id number] [place] [address] Oct, [facility] [address] [id number] [place] [id number] Oct, Poison verónica L23.7 and Benign essential hy pertension I10 [facility] [address] [id number] [place] [id number] Sep, [facility] [address] [id number], [place] [address] August, [address] [id number], [place] [id number] August, Gynecologic exam normal Z01.419 ; Breast cancer screening Z12.39 ; Colon cancer screening Z12.11 ; Essential hypertension with goal blood pressure less than 140\/90 I10 and Psoriasis L40.[address] [id number], [place] [id number] Jul, [address] [id number], [place] 747341763 Jun, Skin tag L91.8 ; Cutaneous horn L85.8 an d Essential hypertension with goal blood pressure less than 140\/[address] [id number], [place] [id number] May, Ear ache H92.09 ; Upper respiratory infe ction J06.9 and Impacted cerumen of right ear H61.[address] [id number], [place] [address]376955 Feb, Rhinitis J31.0 ; Hoarseness or changing voice R49.9 and Sinusitis J32.[address] [id number], [place] 135917350 Jan, [address] [id number], [place] 645779348 Jan, Physical exam, pre-employment Z02.1 and Encounter for PPD test Z11.1 [facility] [address] [id number] [address] [place] [address] Jul, [facility] [address] [id number] [address] [place] [address] Jul, [facility] [address] [id number] [address] [place] [address] Jan, [facility] [address] [id number] [address] [place] [address] Jan, [facility] [address] [id number] [address] [place] [address], [place] [address] Jan, [facility] [address] [id number] [address] [place] [address], [place] [address] Jan, [facility] [address] [id number] [address] [place] [address], [place] [address] Dec, 2013 [facility] [address] [id number] [address] [place] [address], [place] [address] Dec, 2013 [facility] [address] [id number] [address] [place] [address], [place] [address] 05 Dec, 2013 [facility] [address] [id number] [address] [place] [address], [place] [address] 05 Dec, 2013 [facility] [address] [id number] [address] [place] [address], [place] [address] Dec, 2013 [facility] [address] [id number] [address] [place] [address], [place] [address] Dec, 2013 [facility] [address] [id number] [address] [place] [address], [place] [address] Dec, 2013 [facility] [address] [id number] [address] [place] [address], [place] [address] Dec, 2013 [facility] [address] [id number] [address] [place] [address], [place] [address] Nov, [facility] [address] [id number] [address] [place] [address], [place] [address] Nov, [facility] [address] [id number] [address] [place] [address], [place] [address] Nov, [facility] [address] [id number] [address] [place] [address], [place] [address] Nov, [facility] [address] [id number] [address] [place] [address], [place] [address] Nov, [facility] [address] [id number] [facility] [place] [address] 18 Jul, 2012 [facility] [address] [id number] [address] [place] [address], [place] [address] 08 Jul, 2012 [facility] [address] [id number] [address] [place] [address], [place] [address] 04 Jul, 2012 [facility] [address] [id number] [address] [place] [address], [place] [address] 28 Jun, 2012 [facility] [address] [id number] [address] [place] [address], [place] [address] 22 Jun, 2012 [facility] [address] [id number] [address] [place] [address], [place] [address] 19 Jun, 2012 [facility] [address] [id number] [address] [place] [address], [place] [address] 19 Jun, 2012 [facility] [address] [id number] [address] [place] [address], [place] [address] 18 Jun, 2012 [facility] [address] [id number] [address] [place] [address], [place] [address] 14 Jun, 2012 [facility] [address] [id number] [address] [place] [address], [place] [address] 13 Jun, 2012 [facility] [address] [id number] [address] [place] [address], [place] [address] 12 Jun, 2012 [facility] [address] [id number] [address] [place] [address], [place] [address] 16 Aug, 2011 [facility] [address] [id number] [address] [place] [address], [place] [address] 22 Jun, 2011 [facility] [address] [id number] [address] [place] [address], [place] [address] 07 Jun, 2011 [facility] [address] [id number] [address] [place] [address], [place] [address] 05 Jun, 2011 [facility] [address] [id number] [address] [place] [address], [place] [address] Jun, [facility] [address] [facility] [id number] [address] [place] [address] Mar, [facility] [address] [facility] [id number] [address] [place] [address] Mar, IMMUNIZATIONS No Known Immunizations SOCIAL HISTORY Never Assessed REASON FOR VISIT refill request PLAN OF CARE VITAL SIGNS MEDICATIONS Medication Instructions Dosage Frequency Start Date End Date Duration S tatus Acyclovir 200MG TAKE ONE CAPSULE BY MOUTH ONCE DAILY 90 days Active RESULTS No Results PROCEDURES No Known procedures [...]
--- OUTSIDE RECORDS SUMMARY | 2019-06-23 15:03 | XMS REPORT ---
Author Author Shirley Gil Doctor Organization [facility] Address Unknown Phone Unavailable Care Team Providers Care Shell Molder Name Role Phone Migration, Doctor Unavailable Unavailable PROBLEMS Type Condition ICD9-CM Code ZPW07-UV Code Onset Dates Condition S tatus SNOMED Code Problem Cutaneous horn L85.8 Active 24067 1001 Problem Skin tag L91.8 Active 572261449 Problem Gynecologic exam normal Z01.419 Active 514685170 Problem Essential hypertension with goal blood pressure less t schrader 140\/90 I10 Active 86537662 Problem Colon cancer screening Z12.11 Active 415044418 Problem Herpes simplex vulvovaginitis A60.04 Active 52357586 Problem Dysthymia F34.1 Active 75779344 Problem External hemorrhoid K64.4 Active 30142533 Problem Breast cancer screening Z12.39 Active 935918948 Problem Mary-rectal abscess K61.1 Active 01681747 Problem Psoriasis L40.9 Active 4608861 Problem High risk medication use Z79.899 Activ e 195282636376926 Problem Melanocytic nevus of trunk D22.5 Act ilia 322692245 Problem Acute bronchitis, unspecified organism J20.9 Active 15690293 Problem Mixed hyperlipidemia E78.2 Active 486754445 ALLERGIES No Information ENCOUNTERS Encounter Location Date Diagnosis [facility] [employer] [address] [id number] [place] [id number] Jul, [facility] [address] [id number] [place] [id number] May, [facility] [address] [id number] [place] [id number] Feb, [facility] [address] [id number] [place] [id number] Jan, Mary-rectal abscess K61.1 and External h emorrhoid K64.4 [facility] [address] [id number] RID[place] [id number] Jan, Essential hypertension with goal blood p ressure less than 140\/90 I10 ; Dysthymia F34.1 and Noncompliance Z91.[address] [facility] [address] [id number] [place] [id number] Dec, Dysthymia F34.1 [facility] [address] [facility] [id number] [place], [place] [address] Oct, Dysthymia F34.1 [facility] [address] [id number] RID[place] [id number] August, Essential hypertension with goal blood p ressure less than 140\/90 I10 ; Mixed hyperlipidemia E78.2 and Acute bronchitis, unspecified organism J20.9 [facility] [address] [id number] [place] [id number] Jul, Dental examination Z01.20 and Dental car ies K02.9 [facility] [address] [id number] RIDGE, [place] [id number] Jun, Essential hypertension with goal blood p ressure less than 140\/90 I10 and Melanocytic nevus of trunk D22.5 [facility] [address] [id number] RID[place], [place] [id number] Jun, [facility] [address] [facility] [id number] [place] [address] Jun, Dysthymia F34.1 [facility] [address] [id number] RID[place], [place] [id number] May, [facility] [address] [id number] RID[place], [place] [id number] Mar, [facility] [address] [id number] [place]ID[place], [place] [id number] Mar, Herpes simplex vulvovaginitis A60.04 [facility] [address] [id number] RID[place], [place] [id number] Mar, [facility] [address] [id number] [place] [id number] Mar, High risk medication use Z79.899 ; Dysth ymia F34.1 and Essential hypertension with goal blood pressure less than 140\/90 I[address] [facility] [address] [id number] [place] [id number] Jan, Dysthymia F34.[address] [facility] [address] [id number] [place] [id number] Jan, High risk medication use Z79.899 and Dys thymia F34.[address] [facility] [address] [id number] [place] [id number] Dec, [facility] [address] [id number] [place] [id number] Dec, [facility] [address] [id number] RIDGE, [place] [id number] Dec, High risk medication use Z79.899 ; Dysth ymia F34.1 and Essential hypertension with goal blood pressure less than 140\/90 I[address] [facility] [address] [id number] [place] 1479[address] Nov, [facility] [address] [id number] [place]IDGE, [place] [id number] Feb, Herpes simplex vulvovaginitis A60.[address] [facility] [address] [id number] [place] [id number] Oct, [facility] [address] [id number] [place] [id number] Oct, Poison verónica L23.7 and Benign essential hy pertension I10 [facility] [address] [id number] [place] [id number] Sep, [facility] [address] [id number] [place] [id number] August, [facility] [address] [id number] RIDGE, [place] 088686484 August, Gynecologic exam normal Z01.419 ; Breast cancer screening Z12.39 ; Colon cancer screening Z12.11 ; Essential hypertension with goal blood pressure less than 140\/90 I10 and Psoriasis L40.[address] [id number] RIDGE, [place] [id number] Jul, [address] [id number] RID[place], [place] 039025150 Jun, Skin tag L91.8 ; Cutaneous horn L85.8 an d Essential hypertension with goal blood pressure less than 140\/[address] [id number] RIDGE, [place] [id number] May, Ear ache H92.09 ; Upper respiratory infe ction J06.9 and Impacted cerumen of right ear H61.[address] [id number] RID[place], [place] 656120211 Feb, Rhinitis J31.0 ; Hoarseness or changing voice R49.9 and Sinusitis J32.[address] [id number] RIDGE, [place] [id number] Jan, [address] [id number] RIDGE, [place] [id number] Jan, Physical exam, pre-employment Z02.1 and Encounter for PPD test Z11.1 [facility] [address] [id number] [address] [place] [address] Jul, [facility] [address] [id number] [address] [place] [address] Jul, [facility] [address] [id number] [address] [place] [address] Jan, [facility] [address] [id number] [address] [place] [address] Jan, [facility] [address] [id number] [address] [place] [address] Jan, [facility] [address] [id number] [address] [place] [address], [place] [address] Jan, [facility] [address] [id number] [address] [place] [address], [place] [address] Dec, 2013 [facility] [address] [id number] [address] [place] [address], [place] [address] Dec, 2013 [facility] [address] [id number] [address] [place] [address], [place] [address] Dec, 2013 [facility] [address] [id number] [address] [place] [address], [place] [address] Dec, 2013 [facility] [address] [id number] [address] [place] [address], [place] [address] Dec, 2013 [facility] [address] [id number] [address] [place] [address], [place] [address] Dec, 2013 [facility] [address] [id number] [address] [place] [address], [place] [address] Dec, [facility] [address] [id number] [address] [place] [address], [place] [address] Dec, [facility] [address] [id number] [address] [place] [address], [place] [address] Nov, [facility] [address] [id number] [address] [place] [address], [place] [address] Nov, [facility] [address] [id number] [address] [place] [address], [place] [address] Nov, [facility] [address] [id number] [address] [place] [address], [place] [address] Nov, [facility] [address] [id number] [address] [place] [address], [place] [address] Nov, [facility] [address] [id number] [address] [place] [address], [place] [address] 18 Jul, 2012 [facility] [address] [id number] [facility] [address] 08 Jul, 2012 [facility] [address] [id number] [address] [place] [address], [place] [address] 04 Jul, 2012 [facility] [address] [id number] [address] [place] [address], [place] [address] 28 Jun, 2012 [facility] [address] [id number] [address] [place] [address], [place] [address] 22 Jun, 2012 [facility] [address] [id number] [address] [place] [address], [place] [address] 19 Jun, 2012 [facility] [address] [id number] [address] [place] [address], [place] [address] 19 Jun, 2012 [facility] [address] [id number] [address] [place] [address], [place] [address] 18 Jun, 2012 [facility] [address] [id number] [address] [place] [address], [place] [address] 14 Jun, 2012 [facility] [address] [id number] [address] [place] [address], [place] [address] 13 Jun, 2012 [facility] [address] [id number] [address] [place] [address], [place] [address] 12 Jun, 2012 [facility] [address] [id number] [address] [place] [address], [place] [address] 16 Aug, 2011 [facility] [address] [id number] [address] [place] [address], [place] [address] 22 Jun, 2011 [facility] [address] [id number] [address] [place] [address], [place] [address] 07 Jun, 2011 [facility] [address] [id number] [address] [place] [address], [place] [address] 05 Jun, 2011 [facility] [address] [id number] [address] [place] [address], [place] [address] 02 Jun, 2011 [facility] [address] [id number] [address] [place] [address], [place] [address] Mar, [facility] [address] [facility] [id number] [address] [address] Mar, IMMUNIZATIONS No Known Immunizations SOCIAL HISTORY Never Assessed REASON FOR VISIT [facility]MR[facility] [place] PLAN OF CARE VITAL SIGNS MEDICATIONS Medication Instructions Dosage Frequency Start Date End Date Duration S neftaly sertraline 100 mg 2 tablet by Oral route 1 time per day Dec, Active Triamcinolone Acetonide 0.1 % apply a th in layer to the affected area(s) by Topical route 2 times per day 454 gram jar, 2 weeks on, 2 weeks off Dec, Active ProAir HFA 90 mcg/actuation inhale 2 puf fs by Inhalation route every 4 hours as needed PRN shortness of breath/cough Dec, Active Metoprolol Tartrate 50 mg 1 Tablet by Oral route 2 daily Dec, Active Flonase 50 mcg/actuation 1 sprays by Momo al route 2 times per day for 7 days in each nostril Dec, Active Triamcinolone Acetonide 0.5 % apply 1 Cr eam a thin layer to the affected area(s) by Topical route 2 times per day for 14 days dispense 400 gram tub Jun, Active Lorazepam 0.5 mg 1 Tablet by Oral route 1 time per day PRN severe anxiety Jan, Active Acyclovir 200 mg 1 capsule by Oral route every 24 hours Dec, Active Zithromax Z-Garo 250 mg 2 tablet by Oral route 1 time per day for 1 days then take 1 tab daily on days 2-5 Dec, Active MethylPREDNISolone 4 mg by Oral route ev ki day for 6 days Take each days dose at the same time daily Dec, Activ e ZyrTEC 10 mg 1 tablet by Oral route 1 time per day 2013 Active RESULTS No Results PROCEDURES No Known [...]
--- OUTSIDE RECORDS SUMMARY | 2019-06-23 15:03 | XMS REPORT ---
Author Author Shirley Gil Doctor Organization [facility] Address Unknown Phone Unavailable Care Team Providers Care Public Health Worker Name Role Phone Migration, Doctor Unavailable Unavailable PROBLEMS Type Condition ICD9-CM Code OLM89-DV Code Onset Dates Condition S tatus SNOMED Code Problem Cutaneous horn L85.8 Active 12496 1001 Problem Skin tag L91.8 Active 792775286 Problem Gynecologic exam normal Z01.419 Active 170202203 Problem Essential hypertension with goal blood pressure less t schrader 140\/90 I10 Active 21232492 Problem Colon cancer screening Z12.11 Active 395830952 Problem Herpes simplex vulvovaginitis A60.04 Active 36620885 Problem Dysthymia F34.1 Active 24407405 Problem External hemorrhoid K64.4 Active 00317528 Problem Breast cancer screening Z12.39 Active 865405715 Problem Mary-rectal abscess K61.1 Active 48548289 Problem Psoriasis L40.9 Active 1459780 Problem High risk medication use Z79.899 Activ e 778324191447096 Problem Melanocytic nevus of trunk D22.5 Act ilia 994961657 Problem Acute bronchitis, unspecified organism J20.9 Active 42613051 Problem Mixed hyperlipidemia E78.2 Active 829935503 ALLERGIES No Information ENCOUNTERS Encounter Location Date [facility] [id number] [place] [id number] May, [facility] [address] [id number] [place] [address] Feb, [address] [id number] [place] [address] Jan, Mary-rectal abscess K61.1 and External h emorrhoid K64.4 [facility] [address] [id number] [place] [address] Jan, Essential hypertension with goal blood p ressure less than 140\/90 I10 ; Dysthymia F34.1 and Noncompliance Z91.19 [facility] [address] [id number] [place] [address] Dec, Dysthymia F34.1 [facility] [address] [facility]NOTE 3] [id number] 100KS [place] [address] Oct, Dysthymia F34.1 [facility] [address] [id number] [place] [id number] August, Essential hypertension with goal blood p ressure less than 140\/90 I10 ; Mixed hyperlipidemia E78.2 and Acute bronchitis, unspecified organism J20.9 [facility] [address] [id number] [place] [id number] Jul, Dental examination Z01.20 and Dental car ies K02.9 [facility] [address] [id number] [place] [id number] Jun, Essential hypertension with goal blood p ressure less than 140\/90 I10 and Melanocytic nevus of trunk D22.5 [facility] [address] [id number] [place] 606[address] Jun, [facility] [address] [facility][NOTE 3] [id number] [address] [place] [address] Jun, Dysthymia F34.1 [facility] [address] [id number] [place] [id number] May, [facility] [address] [id number] [place] [id number] Mar, [facility] [address] [id number] [place] [id number] Mar, Herpes simplex vulvovaginitis A60.04 [facility] [address] [id number] [place] [address] Mar, [facility] [address] [id number] [place] [address] Mar, High risk medication use Z79.899 ; Dysth ymia F34.1 and Essential hypertension with goal blood pressure less than 140\/90 [address] [facility] [address] [id number] [place] [id number] Jan, Dysthymia F34.[address] [facility] [address] [id number] [place] 6[address] Jan, High risk medication use Z79.899 and Dys thymia F34.[address] [facility] [address] [id number] [place] [address] Dec, [facility] [address] [id number] [place] [address] Dec, [facility] [address] [id number] [place], [place] 15[address] Dec, High risk medication use Z79.899 ; Dysth ymia F34.1 and Essential hypertension with goal blood pressure less than 140\/90 I[address] [facility] [address] [id number] [place] 3094[address] Nov, [facility] [address] [id number] [place], [place] [id number] Feb, Herpes simplex vulvovaginitis A60.[address] [facility] [address] [id number] [place] [id number] Oct, [facility] [address] [id number] [place] [address] Oct, Poison verónica L23.7 and Benign essential hy pertension I10 [facility] [address] [id number] [place] [address] Sep, [facility] [address] [id number] [place], [place] [address] August, [facility] [address] [id number] [place], [place] [address] August, Gynecologic exam normal Z01.419 ; Breast cancer screening Z12.39 ; Colon cancer screening Z12.11 ; Essential hypertension with goal blood pressure less than 140\/90 I10 and Psoriasis L40.[address] [id number] [place] [address] Jul, [address] [id number] [place] [address] Jun, Skin tag L91.8 ; Cutaneous horn L85.8 an d Essential hypertension with goal blood pressure less than 140\/[address] [id number] [place] [address] May, Ear ache H92.09 ; Upper respiratory infe ction J06.9 and Impacted cerumen of right ear H61.[address] [id number] [place] [id number] Feb, Rhinitis J31.0 ; Hoarseness or changing voice R49.9 and Sinusitis J32.[address] [id number] [place] [id number] Jan, [address] [id number] [place] [id number] Jan, Physical exam, pre-employment Z02.1 and Encounter for PPD test Z11.1 [facility] [address] [place] [place] [id number] [address] [place] [address] Jul, [facility] [address] [id number] [address] [place] [address] Jul, [facility] [address] [id number] [address] [place] [address] Jan, [facility] [address] [id number] [address] [place] [address] Jan, [facility] [address] [id number] [address] [place] [address] Jan, [facility] [address] [id number] [address] [place] [address] Jan, [facility] [address] [id number] [address] [place] [address], [place] [address] 17 Dec, 2013 [facility] [address] [id number] [address] [place] [address], [place] [address] 17 Dec, 2013 [facility] [address] [id number] [address] [place] [address], [place] [address] 05 Dec, 2013 [facility] [address] [id number] [address] [place] [address], [place] [address] 05 Dec, 2013 [facility] [address] [id number] [address] [place] [address], [place] [address] Dec, 2013 [facility] [address] [id number] [address] [place] [address], [place] [address] Dec, 2013 [facility] [address] [id number] [address] [place] [address], [place] [address] Dec, 2013 [facility] [address] [id number] [address] [place] [address], [place] [address] Dec, 2013 [facility] [address] [id number] [address] [place] [address], [place] [address] Nov, [facility] [address] [id number] [address] [place] [address], [place] [address] Nov, [facility] [address] [id number] [address] [place] [address], [place] [address] Nov, [facility] [address] [id number] [address] [place] [address], [place] [address] Nov, [facility] [address] [id number] [address] [place] [address], [place] [address] Nov, [facility] [address] [id number] [address] [place] [address], [place] [address] 18 Jul, 2012 [facility] [address] [id number] [address] [place] [address], [place] [address] 08 Jul, 2012 [facility] [address] [id number] [facility] [address] 04 Jul, 2012 [facility] [address] [id number] [facility] [address] 28 Jun, 2012 [facility] [address] [id number] [facility] [address] 22 Jun, 2012 [facility] [address] [id number] [address] [place] [address], [place] [address] 19 Jun, 2012 [facility] [address] [id number] [facility] [place] [address] 19 Jun, 2012 [facility] [address] [id number] [address] [place] [address], [place] [address] 18 Jun, 2012 [facility] [address] [id number] [address] [place] [address], [place] [address] 14 Jun, 2012 [facility] [address] [id number] [address] [place] [address], [place] [address] 13 Jun, 2012 [facility] [address] [id number] [address] [place] [address], [place] [address] 12 Jun, 2012 [facility] [address] [id number] [address] [place] [address], [place] [address] 16 Aug, 2011 [facility] [address] [id number] [address] [place] [address], [place] [address] 22 Jun, 2011 [facility] [address] [id number] [address] [place] [address], [place] [address] 07 Jun, 2011 [facility] [address] [id number] [address] [place] [address], [place] [address] 05 Jun, 2011 [facility] [address] [id number] [address] [place] [address], [place] [address] 02 Jun, 2011 [facility] [address] [id number] [address] [place] [address], [place] [address] 05 Mar, 2011 [facility] [address] [id number] [address] [place] [address], [place] [address] Mar, IMMUNIZATIONS No Known Immunizations SOCIAL HISTORY Never Assessed REASON FOR VISIT EMR-[facility] PLAN OF CARE VITAL SIGNS MEDICATIONS Unknown [...]
--- OUTSIDE RECORDS SUMMARY | 2019-06-23 15:03 | XMS REPORT ---
Author Author Shirley HEALY Organization [facility] Address [address] [place] [address] Care Team Providers Care Supervising Producer Name Role Phone ALFREDITO HEALY Unavailable PROBLEMS Type Condition ICD9-CM Code VBX47-CQ Code Onset Dates Condition S tatus SNOMED Code Problem Colon cancer screening Z12.11 Active 013723090 Problem Dysthymia F34.1 Active 53559269 Problem Herpes simplex vulvovaginitis A60.04 Active 77415647 Problem Mary-rectal abscess K61.1 Active 30823569 Problem External hemorrhoid K64.4 Active 14569236 Problem Melanocytic nevus of trunk D22.5 Act ilia 798238114 Problem High risk medication use Z79.899 Activ e 686143920335624 Problem Mixed hyperlipidemia E78.2 Active 873529149 Problem Acute bronchitis, unspecified organism J20.9 Active 60523285 Problem Essential hypertension with goal blood pressure less t schrader 140\/90 I10 Active 94861962 Problem Gynecologic exam normal Z01.419 Active 947188207 Problem Skin tag L91.8 Active 587428983 Problem Psoriasis L40.9 Active 4873554 Problem Cutaneous horn L85.8 Active 92120 1001 Problem Breast cancer screening Z12.39 Active 681827796 ALLERGIES Substance Reaction Event Type Date Status surgical tape Unknown Non Drug Allergy Jan, Active ENCOUNTERS Encounter Location Date [facility] [address] [id number] [place] [id number] Feb, [facility] [address] [id number] [place] [id number] Feb, [facility] [address] [id number] [place] [id number] Jan, Mary-rectal abscess K61.1 and External h emorrhoid K64.4 [facility] [address] [id number] [place] [id number] Jan, Essential hypertension with goal blood p ressure less than 140\/90 I10 ; Dysthymia F34.1 and Noncompliance Z91.[address] [facility] [address] [id number] [place] [id number] Dec, Dysthymia F34.1 [facility] [address] [facility] [id number] 100[place], [place] [address] Oct, Dysthymia F34.1 [facility] [address] [id number] [place] [id number] August, Essential hypertension with goal blood p ressure less than 140\/90 I10 ; Mixed hyperlipidemia E78.2 and Acute bronchitis, unspecified organism J20.9 [facility] [address] [id number] [place] [id number] Jul, Dental examination Z01.20 and Dental car ies K02.9 [facility] [address] [id number] [place]INT[place] [id number] Jun, Essential hypertension with goal blood p ressure less than 140\/90 I10 and Melanocytic nevus of trunk D22.5 [facility] [address] [id number] [place]INT, [place] [id number] Jun, [facility] [address] [facility] [id number] [place] [address] Jun, Dysthymia F34.1 [facility] [address] [id number] [place]INT[place] [id number] May, [facility] [address] [id number] [place]INT[place] [id number] Mar, [facility] [address] [id number] [place]INT, [place] [id number] 05 Mar, 2017 Herpes simplex vulvovaginitis A60.04 [facility] [address] [id number] [place], [place] [id number] Mar, [facility] [address] [id number] [place] [address] Mar, High risk medication use Z79.899 ; Dysth ymia F34.1 and Essential hypertension with goal blood pressure less than 140\/90 [address] [facility] [address] [id number] [place] [address] Jan, Dysthymia F34.[address] [facility] [address] [id number] [place] [address] Jan, High risk medication use Z79.899 and Dys thymia F34.[address] [facility] [address] [id number] [place] [address] Dec, [facility] [address] [id number] POINT, [place] [address]36[address]26[address] Dec, [facility] [address] [id number] POINT, [place] 405999617 Dec, High risk medication use Z79.899 ; Dysth ymia F34.1 and Essential hypertension with goal blood pressure less than 140\/90 I[address] [facility] [address] [id number] [place] [address] Nov, [facility] [address] [id number] [place] [address] Feb, Herpes simplex vulvovaginitis A60.[address] [facility] [address] [id number] [place] [id number] Oct, [facility] [address] [id number] [place] [address] Oct, Poison verónica L23.7 and Benign essential hy pertension I10 [facility] [address] [id number] [place] 978[address] Sep, [facility] [address] [id number] [place] [address] August, [facility] [address] [id number] [place]INT[place] 79[address] August, Gynecologic exam normal Z01.419 ; Breast cancer screening Z12.39 ; Colon cancer screening Z12.11 ; Essential hypertension with goal blood pressure less than 140\/90 I10 and Psoriasis L40.[address] [id number] POINT, [place] 133014089 Jul, [facility] [address] [id number] POINT[place] [address] Jun, Skin tag L91.8 ; Cutaneous horn L85.8 an d Essential hypertension with goal blood pressure less than 140\/90 I10 [facility] [address] [id number] POINT, [place] [address] May, Ear ache H92.09 ; Upper respiratory infe ction J06.9 and Impacted cerumen of right ear H61.21 [facility] [address] [id number] [place]INT, [place] 482609[address] Feb, Rhinitis J31.0 ; Hoarseness or changing voice R49.9 and Sinusitis J32.9 [facility] [address] [id number] POINT, [place] 3449[address] Jan, [facility] [address] [id number] [place]INT, [place] [address] Jan, Physical exam, pre-employment Z02.1 and Encounter for PPD test Z11.1 [facility] [address] [place] [address] Jul, [facility] [address] [place] [address] Jul, [facility] [address] [id number] [address] [place] [address] Jan, [facility] [address] [place] [address] Jan, [facility] [address] [id number] [address] [place] [address], [place] [address] Jan, [facility] [address] [id number] [address] [place] [address], [place] [address] Jan, [facility] [address] [id number] [address] [place] [address], [place] [address] 17 Dec, 2013 [facility] [address] [id number] [address] [place] [address], [place] [address] 17 Dec, 2013 [facility] [address] [id number] [address] [place] [address], [place] [address] 05 Dec, 2013 [facility] [address] [id number] [address] [place] [address], [place] [address] 05 Dec, 2013 [facility] [address] [id number] [address] [place] [address], [place] [address] 04 Dec, 2013 [facility] [address] [id number] [address] [place] [address], [place] [address] 04 Dec, 2013 [facility] [address] [id number] [address] [place] [address], [place] [address] 02 Dec, 2013 [facility] [address] [id number] [address] [place] [address], [place] [address] Dec, 2013 [facility] [address] [id number] [address] [place] [address], [place] [address] Nov, [facility] [address] [id number] [address] [place] [address], [place] [address] Nov, [facility] [address] [id number] [address] [place] [address], [place] [address] Nov, [facility] [address] [id number] [address] [place] [address], [place] [address] Nov, [facility] [address] [id number] [address] [place] [address], [place] [address] Nov, [facility] [address] [id number] [address] [place] [address], [place] [address] Jul, [facility] [address] [id number] [facility] [place] [address] 08 Jul, 2012 [facility] [address] [id number] [address] [place] [address], [place] [address] 04 Jul, 2012 [facility] [address] [id number] [address] [place] [address], [place] [address] 28 Jun, 2012 [facility] [address] [id number] [address] [place] [address], [place] [address] 22 Jun, 2012 [facility] [address] [id number] [address] [place] [address], [place] [address] 19 Jun, 2012 [facility] [address] [id number] [address] [place] [address], [place] [address] 19 Jun, 2012 [facility] [address] [id number] [address] [place] [address], [place] [address] 18 Jun, 2012 [facility] [address] [id number] [address] [place] [address], [place] [address] 14 Jun, 2012 [facility] [address] [id number] [address] [place] [address], [place] [address] 13 Jun, 2012 [facility] [address] [id number] [address] [place] [address], [place] [address] 12 Jun, 2012 [facility] [address] [id number] [address] [place] [address], [place] [address] August, [facility] [address] [id number] [address] [place] [address], [place] [address] 22 Jun, 2011 [facility] [address] [id number] [address] [place] [address], [place] [address] 07 Jun, 2011 [facility] [address] [id number] [address] [place] [address], [place] [address] 05 Jun, 2011 [facility] [address] [id number] [address] [place] [address], [place] [address] 02 Jun, 2011 [facility] [address] [id number] [address] [place] [phone] Mar, [facility] [address] [facility] [id number] [address] [place] [id number] Mar, IMMUNIZATIONS No Known Immunizations SOCIAL HISTORY Never Assessed REASON FOR VISIT possible hemorrhoid. [place] [facility] PLAN OF CARE Activity Details Follow Up 4 Weeks Reason:HTN VITAL SIGNS Height 68 in 2018-02-01 Weight 197.2 lbs 2018-02-01 Temperature 97.2 degrees Fahrenheit 2018-02-01 Heart Rate 90 bpm 2018-02-01 Respiratory Rate 18 2018-02-01 BMI 29.98 kg/m2 2018-02-01 Blood pressure systolic 150 mmHg 2018-02-01 Blood pressure diastolic 92 mmHg 2018-02-01 MEDICATIONS Medication Instructions Dosage Frequency Start Date End Date Duration S tatus Metoprolol Succinate ER 50 mg Orally Once a day 1 tablet 24h 20 Dec, 2016 Active Fetzima 80 MG Orally Once a day 1 capsule 24h Active Bactrim DS 800-160 MG Orally Twice a day 1 tablet 12h Jan, 018 4 Feb, 2018 10 day(s) Active Lisinopril 20 MG Orally Once a day 1 tablet 24h Mar, Active Acyclovir 200MG TAKE ONE CAPSULE BY MOUTH ONCE DAILY 30 Active Sertraline HCl 100 mg Orally Once a day 1 tablet 24h Nov, Active Lorazepam 0.5 mg Orally 2 times a day as needed for anxie ty-severe anxiety only 1 tablet Jan, 30 days Active RESULTS Name Result Date Reference Range HEMOCCULT/FOBT (IN HOUSE) 2018-02-01 RESULTS negative Control + Lot # [id number] Exp date 10/27 PROCEDURES Procedure Date Ordered Result Body Site TEST FOR BLOOD, FECES Feb 01, 2018 INSTRUCTIONS MEDICATIONS ADMINISTERED No Known Medications MEDICAL [...]
--- OUTSIDE RECORDS SUMMARY | 2019-06-23 15:03 | XMS REPORT ---
Author Author Shirley Gil Doctor Organization [facility] Address Unknown Phone Unavailable Care Team Providers Care Musical Engineer Name Role Phone Migration, Doctor Unavailable Unavailable PROBLEMS Type Condition ICD9-CM Code VDO05-FE Code Onset Dates Condition S tatus SNOMED Code Problem Cutaneous horn L85.8 Active 46376 1001 Problem Colon cancer screening Z12.11 Active 989447183 Problem Skin tag L91.8 Active 574366184 Problem Psoriasis L40.9 Active 2226064 Problem Gynecologic exam normal Z01.419 Active 537569663 Problem Herpes simplex vulvovaginitis A60.04 Active 33914086 Problem Dysthymia F34.1 Active 13291420 Problem High risk medication use Z79.899 Activ e 664134160086066 Problem Mary-rectal abscess K61.1 Active 04564564 Problem Essential hypertension with goal blood pressure less t schrader 140\/90 I10 Active 26411736 Problem Hypertension I10 Active 1298535 3 Problem Breast cancer screening Z12.39 Active 036692694 Problem Melanocytic nevus of trunk D22.5 Act ilia 422894443 Problem Mixed hyperlipidemia E78.2 Active 043148407 Problem Acute bronchitis, unspecified organism J20.9 Active 48255735 Problem External hemorrhoid K64.4 Active 30273564 ALLERGIES No Information ENCOUNTERS Encounter Location Date Diagnosis [address] [address] [id number] [place] [id number] Jul, Seborrheic keratoses, inflamed L82.0 ; S erous otitis media H65.90 and Hypertension I10 [facility] [id number] [place] [id number] May, [facility] [id number] [place] [id number] Feb, [facility] [id number], [place] [address]258[address] Jan, Mary-rectal abscess K61.1 and External h emorrhoid K64.[address] [facility] [address] [address] [id number], [place] [id number] Jan, Essential hypertension with goal blood p ressure less than 140\/90 I10 ; Dysthymia F34.1 and Noncompliance Z91.19 [facility] [address] [id number], [place] [id number] Dec, Dysthymia F34.1 [facility] [address] [facility] [id number] [address] [place] [address] Oct, Dysthymia F34.1 [facility] [address] [id number], [place] [id number] August, Essential hypertension with goal blood p ressure less than 140\/90 I10 ; Mixed hyperlipidemia E78.2 and Acute bronchitis, unspecified organism J20.9 [place] [facility] [address] [id number], [place] [address] Jul, Dental examination Z01.20 and Dental car ies K02.9 [facility] [address] [id number], [place] [address] Jun, Essential hypertension with goal blood p ressure less than 140\/90 I10 and Melanocytic nevus of trunk D22.[address] [facility] [address] [id number], [place] [id number] Jun, [facility] [address] [facility] [id number] [address] [place] [address] Jun, Dysthymia F34.1 [facility] [address] [id number], [place] [id number] May, [facility] [address] [id number], [place] [id number] Mar, [facility] [address] [id number], [place] [id number] Mar, Herpes simplex vulvovaginitis A60.[address] [facility] [address] [id number] [place] [address] Mar, [facility] [address] [id number] [place] [address] Mar, High risk medication use Z79.899 ; Dysth ymia F34.1 and Essential hypertension with goal blood pressure less than 140\/90 I[address] [facility] [address] [id number] [place] [id number] Jan, Dysthymia F34.[address] [facility] [address] [id number] [place] [address] Jan, High risk medication use Z79.899 and Dys thymia F34.[address] [facility] [address] [id number] [place] [address] Dec, [facility] [address] [id number] [place] [address] Dec, [facility] [id number] [place] [address] Dec, High risk medication use Z79.899 ; Dysth ymia F34.1 and Essential hypertension with goal blood pressure less than 140\/90 I[address] [facility] [address] [id number] [place] [id number] Nov, [facility] [address] [id number] [place] [id number] Feb, Herpes simplex vulvovaginitis A60.[address] [facility] [address] [id number] [place] [id number] Oct, [facility] [address] [id number] [place] [id number] Oct, Poison verónica L23.7 and Benign essential hy pertension I10 [facility] [address] [id number] [place] [id number] Sep, [facility] [address] [id number], [place] [id number] August, [address] [id number], [place] 314[address]37[address] August, Gynecologic exam normal Z01.419 ; Breast cancer screening Z12.39 ; Colon cancer screening Z12.11 ; Essential hypertension with goal blood pressure less than 140\/90 I10 and Psoriasis L40.[address] [id number], [place] [address] Jul, [address] [id number], [place] 578304686 Jun, Skin tag L91.8 ; Cutaneous horn L85.8 an d Essential hypertension with goal blood pressure less than 140\/[address] [id number], [place] [address]757760 May, Ear ache H92.09 ; Upper respiratory infe ction J06.9 and Impacted cerumen of right ear H61.[address] [id number], [place] [address]37685[address] Feb, Rhinitis J31.0 ; Hoarseness or changing voice R49.9 and Sinusitis J32.[address] [id number], [place] [id number] Jan, [address] [id number] [place] [id number] Jan, Physical exam, pre-employment Z02.1 and Encounter for PPD test Z11.1 [facility] [address] [place] [id number] [address] [place] [address] Jul, [facility] [address] [place] [id number] [address] [place] [address] Jul, [facility] [address] [place] [id number] [address] [place] [address] Jan, [facility] [address] [place] [address] [place] [address] Jan, [facility] [address] [id number] [address] [place] [address], [place] [address] Jan, [facility] [address] [id number] [address] [place] [address], [place] [address] Jan, [facility] [address] [id number] [address] [place] [address], [place] [address] 17 Dec, 2013 [facility] [address] [id number] [address] [place] [address], [place] [address] 17 Dec, 2013 [facility] [address] [id number] [address] [place] [address], [place] [address] 05 Dec, 2013 [facility] [address] [id number] [address] [place] [address], [place] [address] 05 Dec, 2013 [facility] [address] [id number] [address] [place] [address], [place] [address] 04 Dec, 2013 [facility] [address] [id number] [address] [place] [address], [place] [address] 04 Dec, 2013 [facility] [address] [id number] [address] [place] [address], [place] [address] 02 Dec, 2013 [facility] [address] [id number] [address] [place] [address], [place] [address] 02 Dec, 2013 [facility] [address] [id number] [address] [place] [address], [place] [address] Nov, [facility] [address] [id number] [address] [place] [address], [place] [address] Nov, [facility] [address] [id number] [address] [place] [address], [place] [address] Nov, [facility] [address] [id number] [address] [place] [address], [place] [address] Nov, [facility] [address] [id number] [address] [place] [address], [place] [address] Nov, [facility] [address] [id number] [facility] [place] [address] 18 Jul, 2012 [facility] [address] [id number] [address] [place] [address], [place] [address] 08 Jul, 2012 [facility] [address] [id number] [address] [place] [address], [place] [address] 04 Jul, 2012 [facility] [address] [id number] [address] [place] [address], [place] [address] 28 Jun, 2012 [facility] [address] [id number] [address] [place] [address], [place] [address] 22 Jun, 2012 [facility] [address] [id number] [address] [place] [address], [place] [address] 19 Jun, 2012 [facility] [address] [id number] [address] [place] [address], [place] [address] 19 Jun, 2012 [facility] [address] [id number] [address] [place] [address], [place] [address] 18 Jun, 2012 [facility] [address] [id number] [address] [place] [address], [place] [address] 14 Jun, 2012 [facility] [address] [id number] [address] [place] [address], [place] [address] 13 Jun, 2012 [facility] [address] [id number] [address] [place] [address], [place] [address] 12 Jun, 2012 [facility] [address] [id number] [address] [place] [address], [place] [address] 16 Aug, 2011 [facility] [address] [id number] [address] [place] [address], [place] [address] 22 Jun, 2011 [facility] [address] [id number] [address] [place] [address], [place] [address] 07 Jun, 2011 [facility] [address] [id number] [address] [place] [address], [place] [address] 05 Jun, 2011 [facility] [address] [id number] [address] [place] [address], [place] [address] Jun, [facility] [address] [facility] [id number] [place] [address] Mar, [facility] [address] [facility] [id number] [address] [address] Mar, IMMUNIZATIONS No Known Immunizations SOCIAL HISTORY Never Assessed REASON FOR VISIT EMR-[facility] PLAN OF CARE VITAL SIGNS MEDICATIONS Unknown [...]
--- OUTSIDE RECORDS SUMMARY | 2019-06-23 15:03 | XMS REPORT ---
Author Author Shirley HEALY [facility] Address [address] [place] [address] Care Team Providers Care Customer Sales Consultant Name Role Phone ALFREDITO HEALY Unavailable PROBLEMS Type Condition ICD9-CM Code OGQ05-KW Code Onset Dates Condition S tatus SNOMED Code Problem Psoriasis L40.9 Active 2481744 Problem Colon cancer screening Z12.11 Active 526788432 Problem Breast cancer screening Z12.39 Active 465089133 Problem Skin tag L91.8 Active 315881716 Problem Cutaneous horn L85.8 Active 54636 1001 Problem Essential hypertension with goal blood pressure less t schrader 140\/90 I10 Active 55683714 Problem Gynecologic exam normal Z01.419 Active 962811556 Problem Mixed hyperlipidemia E78.2 Active 059551602 Problem Acute bronchitis, unspecified organism J20.9 Active 51579627 Problem Dysthymia F34.1 Active 21495999 Problem Herpes simplex vulvovaginitis A60.04 Active 15343452 Problem Melanocytic nevus of trunk D22.5 Act ilia 914118942 Problem High risk medication use Z79.899 Activ e [id number] ALLERGIES Substance Reaction Event Type Date Status surgical tape Unknown Non Drug Allergy Jan, Active ENCOUNTERS Encounter Location Date Diagnosis [facility] [address] [id number] [id number] Feb, [facility] [address] [id number], [place] [address]3612[address] Jan, Essential hypertension with goal blood p ressure less than 140\/90 I10 ; Dysthymia F34.1 and Noncompliance Z91.[address] [facility] [address] [id number] [place] [id number] Dec, Dysthymia F34.1 [facility] [address] [facility] [id number] [address] [place] [address] Oct, Dysthymia F34.[address] [facility] [address] [id number], [place] [id number] August, Essential hypertension with goal blood p ressure less than 140\/90 I10 ; Mixed hyperlipidemia E78.2 and Acute bronchitis, unspecified organism J20.9 [facility] [address] [id number][place] [id number] Jul, Dental examination Z01.20 and Dental car ies K02.9 [facility] [address] [id number], [place] [id number] Jun, Essential hypertension with goal blood p ressure less than 140\/90 I10 and Melanocytic nevus of trunk D22.5 [facility] [address] [id number], [place] [address]45244886 Jun, [facility] [address] [facility] [id number] [address] [place] [address] Jun, Dysthymia F34.1 [facility] [address] [id number], [place] [id number] May, [facility] [address] [id number], [place] [id number] Mar, [facility] [address] [id number], [place] 7984426[address] Mar, Herpes simplex vulvovaginitis A60.04 [facility] [address] [id number], [place] [address]8225[address] Mar, [facility] [address] [id number] [address]30[address] Mar, High risk medication use Z79.899 ; Dysth ymia F34.1 and Essential hypertension with goal blood pressure less than 140\/90 I10 [facility] [address] [id number], [place] 623768914 Jan, Dysthymia F34.[address] [facility] [address] [id number] [place] [address] Jan, High risk medication use Z79.899 and Dys thymia F34.[address] [facility] [address] [id number] [place] [id number] Dec, [facility] [address] [id number] [place] [address]4038[address] Dec, [facility] [address] [id number], [place] 799983424 Dec, High risk medication use Z79.899 ; Dysth ymia F34.1 and Essential hypertension with goal blood pressure less than 140\/90 I[address] [facility] [address] [id number], [place] [id number] Nov, [facility] [address] [id number], [place] [id number] Feb, Herpes simplex vulvovaginitis A60.[address] [facility] [address] [id number], [place] 824808737 Oct, [facility] [address] [id number], [place] [id number] Oct, Poison verónica L23.7 and Benign essential hy pertension I10 [facility] [address] [id number], [place] 863948174 Sep, [facility] [address] [id number], [place] [id number] August, [facility] [address] [id number], [place] 752719247 August, Gynecologic exam normal Z01.419 ; Breast cancer screening Z12.39 ; Colon cancer screening Z12.11 ; Essential hypertension with goal blood pressure less than 140\/90 I10 and Psoriasis L40.[address] [facility] [address] [id number], [place] 582275234 Jul, [facility] [address] [id number], [place] 430630093 Jun, Skin tag L91.8 ; Cutaneous horn L85.8 an d Essential hypertension with goal blood pressure less than 140\/90 I10 [facility] [address] [address] [id number], [place] [id number] May, Ear ache H92.09 ; Upper respiratory infe ction J06.9 and Impacted cerumen of right ear H61.[address] [id number], [place] 383792307 Feb, Rhinitis J31.0 ; Hoarseness or changing voice R49.9 and Sinusitis J32.[address] [id number], [place] [address]79[address]60[address] Jan, [address] [id number], [place] 439964282 Jan, Physical exam, pre-employment Z02.1 and Encounter for PPD test Z11.1 [facility] [address] [place] [id number] [address] [place] [address] Jul, [facility] [address] [facility] [id number] [address] [place] [address] Jul, [facility] [address] [place] [address] [id number] [address] [place] [address] Jan, [facility] [address] [facility] [id number] [address] [place] [address] Jan, [facility] [address] [facility] [id number] [address] [place] [address] Jan, [facility] [address] [facility] [id number] [address] [place] [address] Jan, [facility] [address] [facility] [id number] [address] [place] [address] Dec, [facility] [address] [facility] [id number] [address] [place] [address] 17 Dec, 2013 [facility] [address] [id number] [address] [place] [address], [place] [address] 05 Sep, 2013 [facility] [address] [id number] [address] [place] [address], [place] [address] 05 Dec, 2013 [facility] [address] [id number] [address] [place] [address], [place] [address] 04 Dec, 2013 [facility] [address] [id number] [address] [place] [address], [place] [address] 04 Dec, 2013 [facility] [address] [id number] [address] [place] [address], [place] [address] 02 Dec, 2013 [facility] [address] [id number] [address] [place] [address], [place] [address] Dec, 2013 [facility] [address] [id number] [address] [place] [address], [place] [address] Nov, [facility] [address] [id number] [address] [place] [address], [place] [address] Nov, [facility] [address] [id number] [address] [place] [address], [place] [address] Nov, [facility] [address] [id number] [address] [place] [address], [place] [address] Nov, [facility] [address] [id number] [address] [place] [address], [place] [address] Nov, [facility] [address] [id number] [address] [place] [address], [place] [address] Jul, [facility] [address] [id number] [address] [place] [address], [place] [address] Jul, [facility] [address] [id number] [address] [place] [address], [place] [address] Jul, [facility] [address] [id number] [address] [place] [address], [place] [address] Jun, [facility] [address] [id number] [address] [place] [address] 22 Jun, 2012 [facility] [address] [id number] [address] [place] [address] 19 Jun, 2012 [facility] [address] [id number] [address] [place] [address] 19 Jun, 2012 [facility] [address] [id number] [address] [place] [address] 18 Jun, 2012 [facility] [address] [id number] [address] [place] [address] 14 Jun, 2012 [facility] [address] [id number] [address] [place] [address] 13 Jun, 2012 [facility] [address] [id number] [address] [place] [address] Jun, [facility] [address] [id number] [address] [place] [address] August, [facility] [address] [id number] [address] [place] [address] Jun, [facility] [address] [id number] [address] [place] [address] Jun, [facility] [address] [id number] [address] [place] [address] Jun, [facility] [address] [id number] [address] [place] [address] Jun, [facility] [address] [id number] [address] [place] [address] Mar, [facility] [address] [id number] [address] [place] [address] Mar, IMMUNIZATIONS No Known Immunizations SOCIAL HISTORY Never Assessed REASON FOR VISIT blood pressure. [facility], pt states she has not consistently taken her medicine . , pt states she has been having a lot of anxiety about work. PLAN OF CARE Activity Details Follow Up 6 Weeks Reason:HTN VITAL SIGNS Height 68 in 2018-01-18 Weight 196.6 lbs 2018-01-18 Temperature 98.6 degrees Fahrenheit 2018-01-18 Heart Rate 88 bpm 2018-01-18 Respiratory Rate 18 2018-01-18 Oximetry 99 % 2018-01-18 BMI 29.89 kg/m2 2018-01-18 Blood pressure systolic 162 mmHg 2018-01-18 Blood pressure diastolic 100 mmHg 2018-01-18 MEDICATIONS Medication Instructions Dosage Frequency Start Date End Date Duration S neftaly Metoprolol Succinate ER 50 mg Orally Once a day 1 tablet 24h 20 Dec, 2016 Active Acyclovir 200MG TAKE ONE CAPSULE BY MOUTH ONCE DAILY 30 Active Lisinopril 20 MG Orally Once a day 1 tablet 24h Mar, Active Fetzima 80 MG Orally Once a day 1 capsule 24h Active Sertraline HCl 100 mg Orally Once a day 1 tablet 24h Nov, Active Lorazepam 0.5 mg Orally 2 times a day as needed for anxie ty-severe anxiety only 1 tablet Jan, 30 days Active Tessalon Perles 100 mg Orally Three times a day 1 capsule as nee ded for cough 8h August, Active RESULTS No Results PROCEDURES No Known [...]
--- OUTSIDE RECORDS SUMMARY | 2019-06-23 15:04 | XMS REPORT ---
Author Author Shirley HEALY Organization [facility] Address [address] [place] [address] Care Team Providers Care Gift Basket Packer Name Role Phone ALFREDITO HEALY Unavailable PROBLEMS Type Condition ICD9-CM Code WOV37-TD Code Onset Dates Condition S tatus SNOMED Code Problem Psoriasis L40.9 Active 1493541 Problem Colon cancer screening Z12.11 Active 443294287 Problem Breast cancer screening Z12.39 Active 060711004 Problem Skin tag L91.8 Active 234628399 Problem Cutaneous horn L85.8 Active 23724 1001 Problem Essential hypertension with goal blood pressure less t schrader 140\/90 I10 Active 05133414 Problem Gynecologic exam normal Z01.419 Active 271671933 Problem Mixed hyperlipidemia E78.2 Active 513529845 Problem Acute bronchitis, unspecified organism J20.9 Active 53014437 Problem Dysthymia F34.1 Active 29924312 Problem Herpes simplex vulvovaginitis A60.04 Active 26038627 Problem Melanocytic nevus of trunk D22.5 Act ilia 924187317 Problem High risk medication use Z79.899 Activ e [id number] ALLERGIES Substance Reaction Event Type Date Status surgical tape Unknown Non Drug Allergy August, Active ENCOUNTERS Encounter Location Date Diagnosis [facility] [address] [facility] [id number] [address] [place] [address] Oct, Dysthymia F34.[address] [facility] [address] [id number] [place] [id number] August, Essential hypertension with goal blood p ressure less than 140\/90 I10 ; Mixed hyperlipidemia E78.2 and Acute bronchitis, unspecified organism J20.9 [facility] [address] [id number] [place] [id number] Jul, Dental examination Z01.20 and Dental car ies K02.[address] [facility] [address] [id number] [place] [id number] Jun, Essential hypertension with goal blood p ressure less than 140\/90 I10 and Melanocytic nevus of trunk D22.[address] [facility] [address] [id number] [place] [id number] Jun, [facility] [address] [facility] [id number] [address] [place] [address] Jun, Dysthymia F34.[address] [facility] [address] [id number] [place] [id number] May, [facility] [address] [id number] [place] [id number] Mar, [facility] [address] [id number] [place] [address] Mar, Herpes simplex vulvovaginitis A60.[address] [facility] [address] [id number] [place] [address] Mar, [facility] [address] [id number] [place] [address] Mar, High risk medication use Z79.899 ; Dysth ymia F34.1 and Essential hypertension with goal blood pressure less than 140\/90 I[address] [facility] [address] [id number] [place] [id number] Jan, Dysthymia F34.[address] [facility] [address] [id number] [place] [address] Jan, High risk medication use Z79.899 and Dys thymia F34.[address] [facility] [address] [id number] [place] [id number] Dec, [facility] [address] [id number] [place] [id number] Dec, [facility] [address] [id number] [place] [address] Dec, High risk medication use Z79.899 ; Dysth ymia F34.1 and Essential hypertension with goal blood pressure less than 140\/90 I10 [facility] [address] [id number] [id number] Nov, [facility] [address] [id number] [place] [id number] Feb, Herpes simplex vulvovaginitis A60.[address] [facility] [id number] [place] [address] Oct, [facility] [address] [id number] [place] [address] Oct, Poison verónica L23.7 and Benign essential hy pertension I10 [facility] [address] [id number] [place] [address] Sep, [facility] [address] [id number] [place] [id number] August, [facility] [address] [id number] [place] [address] August, Gynecologic exam normal Z01.419 ; Breast cancer screening Z12.39 ; Colon cancer screening Z12.11 ; Essential hypertension with goal blood pressure less than 140\/90 I10 and Psoriasis L40.9 [facility] [address] [id number] [place] [address] Jul, [facility] [address] [id number] [place] [id number] Jun, Skin tag L91.8 ; Cutaneous horn L85.8 an d Essential hypertension with goal blood pressure less than 140\/90 I[address] [facility] [address] [id number] [place] [address] May, Ear ache H92.09 ; Upper respiratory infe ction J06.9 and Impacted cerumen of right ear H61.[address] [facility] [address] [id number] [place] [id number] Feb, Rhinitis J31.0 ; Hoarseness or changing voice R49.9 and Sinusitis J32.[address] [facility] [address] [id number] [place] [address] Jan, [facility] [address] [id number] [place] [id number] Jan, Physical exam, pre-employment Z02.1 and Encounter for PPD test Z11.1 [facility] [address] [id number] [address] [place] [address] Jul, [facility] [address] [id number] [address] [place] [address] Jul, [facility] [address] [facility] [id number] [address] [place] [address] Jan, [facility] [address] [id number] [address] [place] [address] Jan, [facility] [address] [id number] [address] [place] [address] Jan, [facility] [address] [id number] [address] [place] [address] Jan, [facility] [address] [facility] [id number] [address] [place] [address] Dec, [facility] [address] [id number] [address] [place] [address] Dec, [facility] [address] [id number] [address] [place] [address] Dec, [facility] [address] [id number] [address] [place] [address] Dec, [facility] [address] [id number] [address] [place] [address] Dec, [facility] [address] [id number] [address] [place] [address] Dec, [facility] [address] [id number] [address] [place] [address] Dec, [facility] [address] [id number] [address] [place] [address], [place] [address] Dec, [facility] [address] [id number] [address] [place] [address], [place] [address] Nov, [facility] [address] [id number] [address] [place] [address], [place] [address] Nov, [facility] [address] [id number] [address] [place] [address], [place] [address] Nov, [facility] [address] [id number] [address] [place] [address], [place] [address] Nov, [facility] [address] [id number] [address] [place] [address], [place] [address] Nov, [facility] [address] [id number] [address] [place] [address], [place] [address] Jul, [facility] [address] [id number] [address] [place] [address], [place] [address] Jul, [facility] [address] [id number] [address] [place] [address], [place] [address] Jul, [facility] [address] [id number] [address] [place] [address], [place] [address] 28 Jun, 2012 [facility] [address] [id number] [address] [place] [address], [place] [address] Jun, [facility] [address] [id number] [address] [place] [address], [place] [address] Jun, [facility] [address] [id number] [address] [place] [address], [place] [address] Jun, [facility] [address] [id number] [address] [place] [address], [place] [address] 18 Jun, 2012 [facility] [address] [id number] [address] [place] [address] 14 Jun, 2012 [facility] [address] [id number] [address] [place] [address] 13 Jun, 2012 [facility] [address] [id number] [address] [place] [address] 12 Jun, 2012 [facility] [address] [id number] [address] [place] [address] August, [facility] [address] [id number] [address] [place] [address] Jun, [facility] [address] [id number] [address] [place] [address] Jun, [facility] [address] [id number] [address] [place] [address] Jun, [facility] [address] [id number] [address] [place] [address] Jun, [facility] [address] [id number] [address] [place] [address] Mar, [facility] [address] [id number] [address] [place] [address] Mar, IMMUNIZATIONS No Known Immunizations SOCIAL HISTORY Never Assessed REASON FOR VISIT HTN check up, cough causing incontinence, dry nose, sinus pressure, ears feel cl ogged but left is worse---castro, RN PLAN OF CARE Activity Details Follow Up 2 Months Reason:b/p VITAL SIGNS Height 68 in 2017-08-16 Weight 204.2 lbs 2017-08-16 Temperature 97.0 degrees Fahrenheit 2017-08-16 Heart Rate 92 bpm 2017-08-16 Respiratory Rate 16 2017-08-16 BMI 31.05 kg/m2 2017-08-16 Blood pressure systolic 144 mmHg 2017-08-16 Blood pressure diastolic 94 mmHg 2017-08-16 MEDICATIONS Medication Instructions Dosage Frequency Start Date End Date Duration S neftaly Metoprolol Succinate ER 50 mg Orally Once a day 1 tablet 24h 20 Dec, 2016 Active Lorazepam 0.5 mg Orally 2 times a day as needed for anxiety 1 table t Jan, Active Sertraline HCl 100 mg Orally Once a day 1 tablet 24h 24 Nov, 2016 Active Doxycycline Hyclate 100 mg Orally twice a day 1 capsule 12h 0 August, August, 10 day(s) Active Lisinopril 20 MG Orally Once a day 1 tablet 24h Mar, Active Fetzima 80 MG Orally Once a day 1 capsule 24h Active Acyclovir 200MG TAKE ONE CAPSULE BY MOUTH ONCE DAILY 30 Active Tessalon Perles 100 mg Orally Three [...]
--- OUTSIDE RECORDS SUMMARY | 2019-06-23 15:04 | XMS REPORT ---
Author Author Shirley HEALY Organization [facility] Address [address] [place] [address] Care Team Providers Care Coach Mechanic Name Role Phone ALFREDITO HEALY Unavailable PROBLEMS Type Condition ICD9-CM Code OZS25-AL Code Onset Dates Condition S tatus SNOMED Code Problem Psoriasis L40.9 Active 4023571 Problem Colon cancer screening Z12.11 Active 592685960 Problem Breast cancer screening Z12.39 Active 917119653 Problem Skin tag L91.8 Active 326402488 Problem Cutaneous horn L85.8 Active 46081 1001 Problem Essential hypertension with goal blood pressure less t schrader 140\/90 I10 Active 04293295 Problem Gynecologic exam normal Z01.419 Active 117918472 Problem Mixed hyperlipidemia E78.2 Active 590280106 Problem Acute bronchitis, unspecified organism J20.9 Active 47469901 Problem Dysthymia F34.1 Active 98137336 Problem Herpes simplex vulvovaginitis A60.04 Active 62578362 Problem Melanocytic nevus of trunk D22.5 Act ilia 673247508 Problem High risk medication use Z79.899 Activ e [id number] ALLERGIES Substance Reaction Event Type Date Status surgical tape Unknown Non Drug Allergy Jun, Active ENCOUNTERS Encounter Location Date Diagnosis [facility] [address] [facility] [address] [id number] [id number] Nov, [facility] [address] [facility] [id number] [address] [place] [address] Oct, Dysthymia F34.1 [facility] [address] [facility] [address] [id number][place] [id number] August, Essential hypertension with goal blood p ressure less than 140\/90 I10 ; Mixed hyperlipidemia E78.2 and Acute bronchitis, unspecified organism J20.[address] [facility] [address] [id number] [place] [id number] Jul, Dental examination Z01.20 and Dental car ies K02.9 [facility] [address] [id number] [place] [address] Jun, Essential hypertension with goal blood p ressure less than 140\/90 I10 and Melanocytic nevus of trunk D22.[address] [facility] [address] [id number], [place] [id number] Jun, [facility] [address] [facility] [id number] [address] [place] [address] Jun, Dysthymia F34.1 [facility] [address] [id number], [place] [id number] May, [facility] [address] [id number], [place] [id number] Mar, [facility] [address] [id number], [place] [id number] Mar, Herpes simplex vulvovaginitis A60.04 [facility] [address] [id number], [place] [address] Mar, [facility] [address] [id number], [place] [id number] Mar, High risk medication use Z79.899 ; Dysth ymia F34.1 and Essential hypertension with goal blood pressure less than 140\/90 I10 [facility] [address] [id number], [place] [id number] Jan, Dysthymia F34.[address] [facility] [address] [id number], [place] [id number] Jan, High risk medication use Z79.899 and Dys thymia F34.[address] [facility] [address] [id number], [place] [id number] Dec, [facility] [address] [id number] [facility] [id number] Dec, [facility] [address] [id number] [place] [address] Dec, High risk medication use Z79.899 ; Dysth ymia F34.1 and Essential hypertension with goal blood pressure less than 140\/90 I[address] [facility] [address] [id number] [place] [id number] Nov, [facility] [address] [id number] [place] [address] Feb, Herpes simplex vulvovaginitis A60.[address] [facility] [address] [id number] [place] [id number] Oct, [facility] [id number], [place] [id number] Oct, Poison verónica L23.7 and Benign essential hy pertension I10 [facility] [id number], [place] [id number] Sep, [facility] [id number], [place] [id number] August, [facility] [address] [id number], [place] [id number] August, Gynecologic exam normal Z01.419 ; Breast cancer screening Z12.39 ; Colon cancer screening Z12.11 ; Essential hypertension with goal blood pressure less than 140\/90 I10 and Psoriasis L40.[address] [facility] [address] [id number] [place] [id number] Jul, [facility] [id number] [place] [id number] Jun, Skin tag L91.8 ; Cutaneous horn L85.8 an d Essential hypertension with goal blood pressure less than 140\/90 I[address] [facility] [id number] [place] [id number] May, Ear ache H92.09 ; Upper respiratory infe ction J06.9 and Impacted cerumen of right ear H61.[address] [facility] [address] [id number], [place] [id number] Feb, Rhinitis J31.0 ; Hoarseness or changing voice R49.9 and Sinusitis J32.9 [facility] [address] [facility] [address] [id number], [place] [address] Jan, [facility] [address] [id number], [place] [id number] Jan, Physical exam, pre-employment Z02.1 and Encounter for PPD test Z11.1 [facility] [address] [facility] [id number] [address] [place] [address] Jul, [facility] [address] [facility] [id number] [address] [place] [address] Jul, [facility] [address] [facility] [id number] [address] [place] [address] Jan, [facility] [address] [facility] [id number] [address] [place] [address] Jan, [facility] [address] [facility] [id number] [address] [place] [address] Jan, [facility] [address] [facility] [id number] [address] [place] [address] Jan, [facility] [address] [id number] [address] [place] [address] Dec, [facility] [address] [facility] [id number] [address] [place] [address] Dec, [facility] [address] [facility] [id number] [address] [place] [address] Dec, [facility] [address] [id number] [address] [place] [address] Dec, [facility] [address] [facility] [id number] [address] [place] [address] Dec, [facility] [address] [id number] [address] [place] [address], [place] [address] Dec, [facility] [address] [id number] [address] [place] [address], [place] [address] Dec, [facility] [address] [id number] [address] [place] [address], [place] [address] Dec, [facility] [address] [id number] [address] [place] [address], [place] [address] Nov, [facility] [address] [id number] [address] [place] [address], [place] [address] Nov, [facility] [address] [id number] [address] [place] [address], [place] [address] Nov, [facility] [address] [id number] [address] [place] [address], [place] [address] Nov, [facility] [address] [id number] [address] [place] [address], [place] [address] Nov, [facility] [address] [id number] [address] [place] [address], [place] [address] Jul, [facility] [address] [id number] [address] [place] [address], [place] [address] Jul, [facility] [address] [id number] [address] [place] [address], [place] [address] Jul, [facility] [address] [id number] [address] [place] [address], [place] [address] Jun, [facility] [address] [id number] [address] [place] [address], [place] [address] Jun, [facility] [address] [id number] [address] [place] [address], [place] [address] Jun, [facility] [address] [id number] [address] [place] [address], [place] [address] Jun, [facility] [address] [id number] [address] [place] [address] 18 Jun, 2012 [facility] [address] [id number] [address] [place] [address] 14 Jun, 2012 [facility] [address] [id number] [address] [place] [address] 13 Jun, 2012 [facility] [address] [id number] [address] [place] [address] 12 Jun, 2012 [facility] [address] [id number] [address] [place] [address] August, [facility] [address] [id number] [address] [place] [address] Jun, [facility] [address] [id number] [address] [place] [address] Jun, [facility] [address] [id number] [address] [place] [address] 05 Jun, 2011 [facility] [address] [id number] [address] [place] [address] Jun, [facility] [address] [id number] [address] [place] [address] Mar, [facility] [address] [id number] [address] [place] [address] Mar, IMMUNIZATIONS No Known Immunizations SOCIAL HISTORY Never Assessed REASON FOR VISIT Blood Pressure and follow up on blood work for liver issues, anxiety follow up.H as not taken blood pressure meds since Apr due to felt like they were not workmatt Avendano lpn PLAN OF CARE Activity Details Follow Up 6 Weeks Reason:HTN VITAL SIGNS Height 68 in 2017-07-06 Weight 207.6 lbs 2017-07-06 Temperature 97.9 degrees Fahrenheit 2017-07-06 Heart Rate 90 bpm 2017-07-06 Respiratory Rate 18 2017-07-06 Oximetry 96 % 2017-07-06 BMI 31.56 kg/m2 2017-07-06 MEDICATIONS Medication Instructions Dosage Frequency Start Date End Date Duration S tatus Acyclovir 200MG TAKE ONE CAPSULE BY MOUTH ONCE DAILY 30 Active Fetzima 80 MG Orally Once a day 1 capsule 24h Unknown Sertraline HCl 100 mg Orally Once a day 1 tablet 24h 24 Nov, 2016 Active ZyrTEC 10 mg 1 tablet by Oral route 1 time per day 2013 Unknown Acyclovir 400 mg Orally Three times a day 1 tablet 8h 20 Sep, 2015 Active Metoprolol Succinate ER 50 mg Orally Once a day 1 tablet 24h Dec, Active Lisinopril 20 MG Orally Once a day 1 tablet 24h Mar, Active Lorazepam 0.5 mg Orally 2 times a day as needed for anxiety 1 table t Jan, Active ProAir HFA 90 mcg/actuation inhale 2 puf fs by Inhalation route every 4 hours as needed PRN shortness of breath/cough Dec, Unknown Flonase 50 mcg/actuation 1 sprays by Momo al route 2 times per day for 7 days in each nostril Dec, Unknown RESULTS Name Result Date Reference Range PATHOLOGY REPORT (TISSUE PATHOLOGY) 2017-07-06 CLINICAL INFORMATION PATHOLOGIST TISSUE, SPECIMEN A 2017-07-06 A SOURCE A GROSS DESCRIPTION A DIAGNOSIS A COMMENT PROCEDURES Procedure Date Ordered Result Body Site SHAVE SKIN LESION 0.6-1cm, TRUNK ONLY 2017-07-06 N/A SHAVE TRUNK 0.6-1 CM July 06, 2017 INSTRUCTIONS MEDICATIONS ADMINISTERED No Known Medications MEDICAL [...]
--- OUTSIDE RECORDS SUMMARY | 2019-06-23 15:04 | XMS REPORT ---
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 Name Role Phone ALFREDITO HEALY Unavailable PROBLEMS Type Condition ICD9-CM Code SLT24-DJ Code Onset Dates Condition S tatus SNOMED Code Problem Psoriasis L40.9 Active 8135419 Problem Colon cancer screening Z12.11 Active 479035237 Problem Breast cancer screening Z12.39 Active 392149020 Problem Skin tag L91.8 Active 917031357 Problem Cutaneous horn L85.8 Active 05776 1001 Problem Essential hypertension with goal blood pressure less t schrader 140\/90 I10 Active 14328512 Problem Gynecologic exam normal Z01.419 Active 778515922 Problem Mixed hyperlipidemia E78.2 Active 194714930 Problem Acute bronchitis, unspecified organism J20.9 Active 13747738 Problem Dysthymia F34.1 Active 95774601 Problem Herpes simplex vulvovaginitis A60.04 Active 61228360 Problem Melanocytic nevus of trunk D22.5 Act ilia 805973864 Problem High risk medication use Z79.899 Activ e [id number] ALLERGIES No Information ENCOUNTERS Encounter Location Date Diagnosis [facility] [address] [id number] [id number] Jan, [facility] [address] [id number], [place] [address] Dec, Dysthymia F34.1 [facility] [address] [facility] [id number] [address] [address] Oct, Dysthymia F34.1 [facility] [address] [id number], [place] [id number] August, Essential hypertension with goal blood p ressure less than 140\/90 I10 ; Mixed hyperlipidemia E78.2 and Acute bronchitis, unspecified organism J20.9 [facility] [address] [id number] [place] [id number] Jul, Dental examination Z01.20 and Dental car ies K02.9 [facility] [address] [id number] [place] [id number] Jun, Essential hypertension with goal blood p ressure less than 140\/90 I10 and Melanocytic nevus of trunk D22.[address] [facility] [address] [id number] [place] [id number] Jun, [facility] [address] [facility] [id number] [address] [address] Jun, Dysthymia F34.1 [facility] [address] [id number], [place] [id number] May, [facility] [address] [id number], [place] [id number] Mar, [facility] [address] [id number], [place] [id number] Mar, Herpes simplex vulvovaginitis A60.04 [facility] [address] [id number], [place] [address] Mar, [facility] [address] [id number], [place] [id number] Mar, High risk medication use Z79.899 ; Dysth ymia F34.1 and Essential hypertension with goal blood pressure less than 140\/90 I10 [facility] [address] [id number], [place] [address] Jan, Dysthymia F34.[address] [facility] [address] [id number], [place] [id number] Jan, High risk medication use Z79.899 and Dys thymia F34.[address] [facility] [address] [id number], [place] [id number] Dec, [facility] [address] [id number] [place] [id number] Dec, [facility] [address] [id number] [place] [address] Dec, High risk medication use Z79.899 ; Dysth ymia F34.1 and Essential hypertension with goal blood pressure less than 140\/90 I[address] [facility] [address] [id number] [place] [id number] Nov, [facility] [address] [id number] [place] [id number] Feb, Herpes simplex vulvovaginitis A60.[address] [facility] [address] [id number], [place] [id number] Oct, [facility] [address] [id number], [place] [id number] Oct, Poison verónica L23.7 and Benign essential hy pertension I10 [facility] [address] [id number], [place] [id number] Sep, [facility] [address] [id number], [place] [id number] August, [facility] [address] [id number], [place] [id number] August, Gynecologic exam normal Z01.419 ; Breast cancer screening Z12.39 ; Colon cancer screening Z12.11 ; Essential hypertension with goal blood pressure less than 140\/90 I10 and Psoriasis L40.[address] [facility] [address] [id number] [place] [address] Jul, [facility] [address] [id number], [place] [id number] Jun, Skin tag L91.8 ; Cutaneous horn L85.8 an d Essential hypertension with goal blood pressure less than 140\/90 [address] [facility] [address] [id number], [place] [id number] May, Ear ache H92.09 ; Upper respiratory infe ction J06.9 and Impacted cerumen of right ear H61.21 [facility] [address] Tommy[address] [facility] [address] [id number], [place] [id number] Feb, Rhinitis J31.0 ; Hoarseness or changing voice R49.9 and Sinusitis J32.9 [facility] [address] [place] [address] AVE [id number], [place] [id number] Jan, [facility] [address] [place] [address] AVE [id number], [place] [address] Jan, Physical exam, pre-employment Z02.1 and Encounter for PPD test Z11.1 [facility] [address] [id number] [address] [place] [address] Jul, [facility] [address] [address] Jul, [facility] [address] [id number] [address] [place] [address] Jan, [facility] [address] [id number] [address] [place] [address] Jan, [facility] [address] [id number] [address] [place] [address] Jan, [facility] [address] [id number] [address] [place] [address] Jan, [facility] [address] [id number] [address] [place] [address] Dec, [facility] [address] [id number] [address] [place] [address] Dec, [facility] [address] [id number] [address] [place] [address] Dec, [facility] [address] [facility] [id number] [address] [place] [address] Dec, [facility] [address] [id number] [facility] [place] [address] 04 Dec, 2013 [facility] [address] [id number] [address] [place] [address], [place] [address] 04 Dec, 2013 [facility] [address] [id number] [address] [place] [address], [place] [address] Dec, [facility] [address] [id number] [address] [place] [address], [place] [address] Dec, [facility] [address] [id number] [address] [place] [address], [place] [address] Nov, [facility] [address] [id number] [address] [place] [address], [place] [address] Nov, [facility] [address] [id number] [address] [place] [address], [place] [address] Nov, [facility] [address] [id number] [address] [place] [address], [place] [address] Nov, [facility] [address] [id number] [address] [place] [address], [place] [address] Nov, [facility] [address] [id number] [address] [place] [address], [place] [address] Jul, [facility] [address] [id number] [address] [place] [address], [place] [address] Jul, [facility] [address] [id number] [address] [place] [address], [place] [address] Jul, [facility] [address] [id number] [address] [place] [address], [place] [address] Jun, [facility] [address] [id number] [address] [place] [address], [place] [address] Jun, [facility] [address] [id number] [address] [place] [address], [place] [address] Jun, [facility] [address] [id number] 100[place] [address] 19 Jun, 2012 [facility] [address] [id number] [address] [place] [address] [address] Jun, [address] [facility] [address] [id number] [address] [place] [address] [address] Jun, [address] [facility] [address] [id number] [address] [place] [address] [address], [address] [facility] [address] [id number] [address] [place] [address] [address], [address] [facility] [address] [id number] [address] [place] [address] August, [facility] [address] [id number] [address] [place] [address] Jun, [facility] [address] [id number] [address] [place] [address] Jun, [facility] [address] [id number] [address] [place] [address] 05 Jun, 2011 [facility] [address] [id number] [address] [place] [address] Jun, [facility] [address] [id number] [address] [place] [address] Mar, [facility] [address] [id number] [address] [place] [address] Mar, IMMUNIZATIONS No Known Immunizations SOCIAL HISTORY Never Assessed REASON FOR VISIT anxiety PLAN OF CARE VITAL SIGNS MEDICATIONS Medication Instructions Dosage Frequency Start Date End Date Duration S tatus Lorazepam 0.5 mg Orally 2 times a day as needed for anxiety 1 table t Jan, Active RESULTS No Results PROCEDURES No Known [...]
--- OUTSIDE RECORDS SUMMARY | 2019-06-23 15:04 | XMS REPORT ---
Author Author Shirley HEALY Organization 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 Box Finisher Name Role Phone ALFREDITO HEALY Unavailable PROBLEMS Type Condition ICD9-CM Code HHY16-BJ Code Onset Dates Condition S tatus SNOMED Code Problem Psoriasis L40.9 Active 8093379 Problem Colon cancer screening Z12.11 Active 364836914 Problem Breast cancer screening Z12.39 Active 972368294 Problem Skin tag L91.8 Active 990130109 Problem Cutaneous horn L85.8 Active 43850 1001 Problem Essential hypertension with goal blood pressure less t schrader 140\/90 I10 Active 58740810 Problem Gynecologic exam normal Z01.419 Active 214998054 Problem Mixed hyperlipidemia E78.2 Active 529102098 Problem Acute bronchitis, unspecified organism J20.9 Active 92934240 Problem Dysthymia F34.1 Active 85786705 Problem Herpes simplex vulvovaginitis A60.04 Active 27912128 Problem Melanocytic nevus of trunk D22.5 Act ilia 304661342 Problem High risk medication use Z79.899 Activ e [id number] ALLERGIES No Information ENCOUNTERS Encounter Location Date Diagnosis [address] [id number] [id number] August, Essential hypertension with goal blood p ressure less than 140\/90 I10 ; Mixed hyperlipidemia E78.2 and Acute bronchitis, unspecified organism J20.9 [facility] [address] [id number], [place] [id number] Jul, Dental examination Z01.20 and Dental car ies K02.[address] [id number], [place] [id number] Jun, Essential hypertension with goal blood p ressure less than 140\/90 I10 and Melanocytic nevus of trunk D22.[address] [facility] [address] [id number] [place] [id number] Jun, [facility] [address] [address] [facility] [id number] [address] [address] Jun, Dysthymia F34.[address] [facility] [address] [id number] [place] [id number] May, [facility] [address] [id number] [place] [id number] Mar, [facility] [address] [id number] [place] [id number] Mar, Herpes simplex vulvovaginitis A60.[address] [facility] [address] [id number] [place] [id number] Mar, [facility] [address] [id number], [place] [id number] Mar, High risk medication use Z79.899 ; Dysth ymia F34.1 and Essential hypertension with goal blood pressure less than 140\/90 I[address] [facility] [address] [id number] [place] [id number] Jan, Dysthymia F34.[address] [facility] [address] [id number] [place] [id number] Jan, High risk medication use Z79.899 and Dys thymia F34.[address] [facility] [address] [id number] [place] [id number] Dec, [facility] [address] [id number] [place] [id number] Dec, [facility] [address] [id number] [place] [id number] Dec, High risk medication use Z79.899 ; Dysth ymia F34.1 and Essential hypertension with goal blood pressure less than 140\/90 I[address] [facility] [address] [id number], [place] [id number] Nov, [facility] [address] [id number], [place] [id number] Feb, Herpes simplex vulvovaginitis A60.04 [facility] [address] [id number], [place] [id number] Oct, [facility] [address] [id number], [place] [id number] Oct, Poison verónica L23.7 and Benign essential hy pertension I10 [facility] [address] [id number], [place] [id number] Sep, [facility] [address] [id number], [place] [id number] August, [facility] [address] [facility] [address] [id number], [place] [id number] August, Gynecologic exam normal Z01.419 ; Breast cancer screening Z12.39 ; Colon cancer screening Z12.11 ; Essential hypertension with goal blood pressure less than 140\/90 I10 and Psoriasis L40.9 [facility] [address] [id number], [place] [id number] Jul, [facility] [address] [id number], [place] [id number] Jun, Skin tag L91.8 ; Cutaneous horn L85.8 an d Essential hypertension with goal blood pressure less than 140\/90 I10 [facility] [address] [id number], [place] [id number] May, Ear ache H92.09 ; Upper respiratory infe ction J06.9 and Impacted cerumen of right ear H61.21 [facility] [address] [id number], [place] [id number] Feb, Rhinitis J31.0 ; Hoarseness or changing voice R49.9 and Sinusitis J32.9 [facility] [address] [id number], [place] [id number] 14 Jan, 2015 [facility] [address] [id number], [place] [id number] Jan, Physical exam, pre-employment Z02.1 and Encounter for PPD test Z11.1 [facility] [address] [id number] [address] [place] [address] Jul, [facility] [address] [id number] [address] [place] [address] Jul, [facility] [address] [id number] [address] [place] [address] Jan, [facility] [address] [id number] [address] [place] [address] Jan, [facility] [address] [id number] [address] [place] [address] Jan, [facility] [address] [id number] [address] [place] [address] Jan, [facility] [address] [id number] [address] [place] [address] Dec, [facility] [address] [id number] [address] [place] [address] Dec, [facility] [address] [id number] [address] [place] [address] Dec, [facility] [address] [id number] [address] [place] [id number] 05 Dec, 2013 [facility] [address] [id number] [address] [place] [address] Dec, [facility] [address] [id number] [address] [place] [address] Dec, [facility] [address] [id number] [address] [place] [phone] Dec, [facility] [address] [id number] [address] [place] [address], [place] [address] Dec, [facility] [address] [id number] [address] [place] [address], [place] [address] Nov, [facility] [address] [id number] [address] [place] [address], [place] [address] Nov, [facility] [address] [id number] [address] [place] [address], [place] [address] Nov, [facility] [address] [id number] [address] [place] [address], [place] [address] Nov, [facility] [address] [id number] [address] [place] [address], [place] [address] Nov, [facility] [address] [id number] [address] [place] [address], [place] [address] Jul, [facility] [address] [id number] [address] [place] [address], [place] [address] 08 Jul, 2012 [facility] [address] [id number] [address] [place] [address], [place] [address] 04 Jul, 2012 [facility] [address] [id number] [address] [place] [address], [place] [address] 28 Jun, 2012 [facility] [address] [id number] [address] [place] [address], [place] [address] 22 Jun, 2012 [facility] [address] [id number] [address] [place] [address], [place] [address] 19 Jun, 2012 [facility] [address] [id number] [address] [place] [address], [place] [address] 19 Jun, 2012 [facility] [address] [id number] [address] [place] [address], [place] [address] 18 Jun, 2012 [facility] [address] [id number] [address] [place] [address], [place] [address] 14 Jun, 2012 [facility] [address] [id number] [address] [place] [address], [place] [address] 13 Jun, 2012 [facility] [address] [id number] [address] [place] [address] Jun, [facility] [address] [id number] [address] [place] [address] August, [facility] [address] [id number] [address] [place] [address] Jun, [facility] [address] [facility] [address] [facility] [id number] [address] [place] [address] Jun, [facility] [address] [id number] [address] [place] [address] Jun, [facility] [address] [facility] [address] [facility] [id number] [address] [place] [address] Jun, [facility] [address] [address] [facility] [id number] [address] [place] [address] Mar, [facility] [address] [facility] [address] [facility] [id number] [address] [place] [address] Mar, IMMUNIZATIONS No Known Immunizations SOCIAL HISTORY Never Assessed REASON FOR VISIT Controlled refill request PLAN OF CARE VITAL SIGNS [...]
--- OUTSIDE RECORDS SUMMARY | 2019-06-23 15:04 | XMS REPORT ---
Author Author Shirley JOHNSON Organization [facility] Address [address] [place] [address] Care Team Providers Care Reject Opener Name Role Phone ENOCH JOHNSONO Unavailable PROBLEMS Type Condition ICD9-CM Code KDD01-QR Code Onset Dates Condition S tatus SNOMED Code Problem Psoriasis L40.9 Active 1089706 Problem Colon cancer screening Z12.11 Active 320859915 Problem Breast cancer screening Z12.39 Active 643588389 Problem Skin tag L91.8 Active 258996197 Problem Cutaneous horn L85.8 Active 59765 1001 Problem Essential hypertension with goal blood pressure less t schrader 140\/90 I10 Active 23586376 Problem Gynecologic exam normal Z01.419 Active 406618864 Problem Mixed hyperlipidemia E78.2 Active 655756694 Problem Acute bronchitis, unspecified organism J20.9 Active 44019994 Problem Dysthymia F34.1 Active 72627408 Problem Herpes simplex vulvovaginitis A60.04 Active 86188101 Problem Melanocytic nevus of trunk D22.5 Act ilia 455866020 Problem High risk medication use Z79.899 Activ e [id number] ALLERGIES Substance Reaction Event Type Date Status surgical tape Unknown Non Drug Allergy Jul, Active ENCOUNTERS Encounter Location Date Diagnosis [facility] [address] [facility] [id number] [id number] Nov, [facility] [address] [facility] [id number] [address] [place] [address] Oct, Dysthymia F34.[address] [id number] [id number] August, Essential hypertension with goal blood p ressure less than 140\/90 I10 ; Mixed hyperlipidemia E78.2 and Acute bronchitis, unspecified organism J20.[address] [id number] [place] [address] Jul, Dental examination Z01.20 and Dental car ies K02.[address] [facility] [address] [id number] [place] [id number] Jun, Essential hypertension with goal blood p ressure less than 140\/90 I10 and Melanocytic nevus of trunk D22.[address] [facility] [address] [id number], [place] [id number] Jun, [facility] [address] [facility] [address] [id number] [address] [place] [address] Jun, Dysthymia F34.[address] [facility] [address] [id number], [place] [address] May, [facility] [address] [id number], [place] [address] Mar, [facility] [address] [id number], [place] [id number] Mar, Herpes simplex vulvovaginitis A60.[address] [facility] [address] [id number], [place] [address] Mar, [facility] [address] [id number], [place] [address] Mar, High risk medication use Z79.899 ; Dysth ymia F34.1 and Essential hypertension with goal blood pressure less than 140\/[address] [facility] [address] [id number], [place] [address]668[address] Jan, Dysthymia F34.[address] [facility] [address] [id number], [place] [address] Jan, High risk medication use Z79.899 and Dys thymia F34.[address] [facility] [address] [id number], [place] [id number] Dec, [facility] [address] [id number] [place] [address] Dec, [facility] [address] [id number] [place] [address] Dec, High risk medication use Z79.899 ; Dysth ymia F34.1 and Essential hypertension with goal blood pressure less than 140\/90 I[address] [facility] [address] [id number] [place] [id number] Nov, [facility] [address] [id number] [place] [address] Feb, Herpes simplex vulvovaginitis A60.[address] [facility] [address] [id number] [place] [id number] Oct, [facility] [address] [id number], [place] [id number] Oct, Poison verónica L23.7 and Benign essential hy pertension I10 [facility] [address] [id number], [place] [id number] Sep, [facility] [address] [id number], [place] [address] August, [facility] [address] [id number], [place] [address] August, Gynecologic exam normal Z01.419 ; Breast cancer screening Z12.39 ; Colon cancer screening Z12.11 ; Essential hypertension with goal blood pressure less than 140\/90 I10 and Psoriasis L40.[address] [facility] [address] [id number] [place] [id number] Jul, [facility] [address] [id number] [place] [id number] Jun, Skin tag L91.8 ; Cutaneous horn L85.8 an d Essential hypertension with goal blood pressure less than 140\/[address] [facility] [address] [id number] [place] [id number] May, Ear ache H92.09 ; Upper respiratory infe ction J06.9 and Impacted cerumen of right ear H61.21 [facility] [address] [id number], [place] [id number] Feb, Rhinitis J31.0 ; Hoarseness or changing voice R49.9 and Sinusitis J32.9 [facility] [address] [id number], [place] [id number] Jan, [facility] [address] [id number], [place] [id number] Jan, Physical exam, pre-employment Z02.1 and Encounter for PPD test Z11.1 [facility] [id number] [place] [address] Jul, [facility] [address] [id number] [place] [address] Jul, [facility] [address] [id number] [place] [address] Jan, [facility] [address] [id number] [place] [address] Jan, [facility] [address] [id number] [place] [address] Jan, [facility] [address] [facility] [id number] [place] [address] Jan, [facility] [address] [id number] [place] [address] Dec, [facility] [address] [id number] [place] [address] Dec, [facility] [address] [facility] [id number] [place] [address] Dec, [facility] [address] [id number] [address] [place] [address] Dec, [facility] [address] [id number] [place] [phone] 04 Dec, 2013 [facility] [address] [id number] [address] [place] [address], [place] [address] 04 Dec, 2013 [facility] [address] [id number] [address] [place] [address], [place] [address] Dec, [facility] [address] [id number] [address] [place] [address], [place] [address] Dec, [facility] [address] [id number] [address] [place] [address], [place] [address] Nov, [facility] [address] [id number] [address] [place] [address], [place] [address] Nov, [facility] [address] [id number] [address] [place] [address], [place] [address] Nov, [facility] [address] [id number] [address] [place] [address], [place] [address] Nov, [facility] [address] [id number] [address] [place] [address], [place] [address] Nov, [facility] [address] [id number] [address] [place] [address], [place] [address] Jul, [facility] [address] [id number] [address] [place] [address], [place] [address] Jul, [facility] [address] [id number] [address] [place] [address], [place] [address] Jul, [facility] [address] [id number] [address] [place] [address], [place] [address] Jun, [facility] [address] [id number] [address] [place] [address], [place] [address] Jun, [facility] [address] [id number] [address] [place] [address], [place] [address] Jun, [facility] [address] [id number] [address] [place] [address], [place] [address] Jun, [facility] [address] [id number] [address] [place] [phone] 18 Jun, 2012 [facility] [address] [id number] [address] [place] [address] 14 Jun, 2012 [facility] [address] [id number] [address] [place] [address] 13 Jun, 2012 [facility] [address] [id number] [address] [place] [address] 12 Jun, 2012 [facility] [address] [id number] [address] [place] [address] August, [facility] [address] [id number] [address] [place] [address] 22 Jun, 2011 [facility] [address] [id number] [address] [place] [address] Jun, [facility] [address] [id number] [address] [place] [address] Jun, [facility] [address] [id number] [address] [place] [address] Jun, [facility] [address] [id number] [address] [place] [address] Mar, [facility] [address] [id number] [address] [place] [address] Mar, IMMUNIZATIONS No Known Immunizations SOCIAL HISTORY Never Assessed REASON FOR VISIT [facility] PLAN OF CARE Activity Details Follow Up prn Reason:MEGAN w/ hygiene VITAL SIGNS Height 68 in 2017-07-10 Blood pressure systolic 169 mmHg 2017-07-10 Blood pressure diastolic 99 mmHg 2017-07-10 MEDICATIONS Medication Instructions Dosage Frequency Start Date End Date Duration S tatus Lisinopril 20 MG Orally Once a day 1 tablet 24h Mar, Active Fetzima 80 MG Orally Once a day 1 capsule 24h Not-Taking Flonase 50 mcg/actuation 1 sprays by Momo al route 2 times per day for 7 days in each nostril Dec, Not-Taking Lorazepam 0.5 mg Orally 2 times a day as needed for anxiety 1 table t Jan, Active ProAir HFA 90 mcg/actuation inhale 2 puf fs by Inhalation route every 4 hours as needed PRN shortness of breath/cough Dec, Not-Taking Acyclovir 200MG TAKE ONE CAPSULE BY MOUTH ONCE DAILY 30 Active Sertraline HCl 100 mg Orally Once a day 1 tablet 24h Nov, Active ZyrTEC 10 mg 1 tablet by Oral route 1 time per day 17 2013 Not-Taking Metoprolol Succinate ER 50 mg Orally Once a day 1 tablet 24h Dec, Active Acyclovir 400 mg Orally Three times a day 1 tablet 8h 20 Sep, 2015 Active RESULTS No Results PROCEDURES Procedure Date Ordered Result Body Site LTD ORAL EVALUATION - PROBLEM FOCUS July 10, 2017 INTRAORL-PERIAPICAL 1 FILM 97431 July 10, 2017 EXTRAC ERUPTED TOOTH/EXPOSED ROOT July 10, 2017 BITEWING - SINGLE FILM July 10, 2017 INTRAORL-PERIAPICAL EA ADD FILM July 10, 2017 EXTRAC ERUPTED TOOTH/EXPOSED ROOT July 10, 2017 EXTRAC ERUPTED TOOTH/EXPOSED ROOT July 10, 2017 INSTRUCTIONS MEDICATIONS ADMINISTERED No Known Medications [...]
--- OUTSIDE RECORDS SUMMARY | 2019-06-23 15:04 | XMS REPORT ---
Author Author Shirley ENGEL Organization [facility] Address Unknown Phone Unavailable Care Team Providers Care Paste Plant Supervisor Name Role Phone JOEL ENGEL Unavailable Unavailable PROBLEMS Type Condition ICD9-CM Code YDP65-FL Code Onset Dates Condition S tatus SNOMED Code Problem Psoriasis L40.9 Active 4674706 Problem Colon cancer screening Z12.11 Active 859041268 Problem Breast cancer screening Z12.39 Active 503256024 Problem Skin tag L91.8 Active 552819648 Problem Cutaneous horn L85.8 Active 98140 1001 Problem Essential hypertension with goal blood pressure less t schrader 140\/90 I10 Active 78298153 Problem Gynecologic exam normal Z01.419 Active 995050317 Problem Mixed hyperlipidemia E78.2 Active 132339902 Problem Acute bronchitis, unspecified organism J20.9 Active 52380806 Problem Dysthymia F34.1 Active 75224541 Problem Herpes simplex vulvovaginitis A60.04 Active 80827102 Problem Melanocytic nevus of trunk D22.5 Act ilia 673181075 Problem High risk medication use Z79.899 Activ e [id number] ALLERGIES No Information ENCOUNTERS Encounter Location Date Diagnosis [facility] [address] [id number] [place] [id number] Nov, [facility] [address] [facility] [id number] [address] [place] [address] Oct, [address] [facility] [address] [id number] [place] [id number] August, Essential hypertension with goal blood p ressure less than 140\/90 I10 ; Mixed hyperlipidemia E78.2 and Acute bronchitis, unspecified organism J20.9 [facility] [address] [id number] [place] [id number] Jul, Dental examination Z01.20 and Dental car ies K02.9 [facility] [address] [id number] [place] [id number] Jun, Essential hypertension with goal blood p ressure less than 140\/90 I10 and Melanocytic nevus of trunk D22.[address] [facility] [address] [id number] [place] [id number] Jun, [facility] [address] [facility] [id number] [address] [address] Jun, Dysthymia F34.[address] [facility] [address] [id number] [place] [id number] May, [facility] [address] [id number], [place] [id number] Mar, [facility] [address] [id number], [place] [id number] Mar, Herpes simplex vulvovaginitis A60.[address] [facility] [address] [id number] [place] [address] Mar, [facility] [address] [id number], [place] [address] Mar, High risk medication use Z79.899 ; Dysth ymia F34.1 and Essential hypertension with goal blood pressure less than 140\/90 [address] [facility] [address] [id number] [place] [id number] Jan, Dysthymia F34.[address] [facility] [address] [id number] [place] [address] Jan, High risk medication use Z79.899 and Dys thymia F34.[address] [facility] [address] [id number] [place] [address] Dec, [facility] [address] [id number], [place] [id number] Dec, [facility] [address] [id number] [place] [id number] Dec, High risk medication use Z79.899 ; Dysth ymia F34.1 and Essential hypertension with goal blood pressure less than 140\/90 I10 [facility] [address] [id number], [place] [address] Nov, [facility] [address] [id number], [place] [id number] Feb, Herpes simplex vulvovaginitis A60.04 [facility] [address] [id number] [place] [id number] Oct, [facility] [id number], [place] [address] Oct, Poison verónica L23.7 and Benign essential hy pertension I10 [facility] [address] [id number], [place] [address] Sep, [facility] [address] [id number], [place] [id number] August, [facility] [id number], [place] [address]224[address] August, Gynecologic exam normal Z01.419 ; Breast cancer screening Z12.39 ; Colon cancer screening Z12.11 ; Essential hypertension with goal blood pressure less than 140\/90 I10 and Psoriasis L40.9 [facility] [id number], [place] [id number] Jul, [facility] [address] [id number], [place] [id number] Jun, Skin tag L91.8 ; Cutaneous horn L85.8 an d Essential hypertension with goal blood pressure less than 140\/90 I10 [facility] [address] [id number], [place] [address] May, Ear ache H92.09 ; Upper respiratory infe ction J06.9 and Impacted cerumen of right ear H61.21 [facility] [id number], [place] [id number] Feb, Rhinitis J31.0 ; Hoarseness or changing voice R49.9 and Sinusitis J32.9 [facility] [address] [id number], [place] [id number] Jan, [facility] [address] [id number], [place] [id number] Jan, Physical exam, pre-employment Z02.1 and Encounter for PPD test Z11.1 [facility] [address] [id number] [address] [place] [address] Jul, [facility] [address] [id number] [address] [place] [address] Jul, [facility] [address] [id number] [address] [place] [address] Jan, [facility] [address] [id number] [address] [place] [address] Jan, [facility] [address] [id number] [address] [place] [address] Jan, [facility] [address] [id number] [address] [place] [address] Jan, [facility] [address] [id number] [address] [place] [address] Dec, [facility] [address] [id number] [address] [place] [address] Dec, [facility] [address] [id number] [address] [place] [address] Dec, [facility] [address] [id number] [address] [place] [address] Dec, [facility] [address] [id number] [address] [place] [address] Dec, [facility] [address] [id number] [address] [place] [address] Dec, [facility] [address] [id number] [facility] [place] [address] Dec, [facility] [address] [id number] [address] [place] [address], [place] [address] Dec, [facility] [address] [id number] [address] [place] [address], [place] [address] Nov, [facility] [address] [id number] [address] [place] [address], [place] [address] Nov, [facility] [address] [id number] [address] [place] [address], [place] [address] Nov, [facility] [address] [id number] [address] [place] [address], [place] [address] Nov, [facility] [address] [id number] [address] [place] [address], [place] [address] Nov, [facility] [address] [id number] [address] [place] [address], [place] [address] Jul, [facility] [address] [id number] [address] [place] [address], [place] [address] Jul, [facility] [address] [id number] [address] [place] [address], [place] [address] Jul, [facility] [address] [id number] [address] [place] [address], [place] [address] 28 Jun, 2012 [facility] [address] [id number] [address] [place] [address], [place] [address] Jun, [facility] [address] [id number] [address] [place] [address], [place] [address] Jun, [facility] [address] [id number] [address] [place] [address], [place] [address] Jun, [facility] [address] [id number] [address] [place] [address], [place] [address] 18 Jun, 2012 [facility] [address] [id number] [place] [address] 14 Jun, 2012 [facility] [address] [id number] [address] [place] [address] 13 Jun, 2012 [facility] [address] [id number] [address] [place] [address] 12 Jun, 2012 [facility] [address] [id number] [address] [place] [address] August, [facility] [address] [id number] [address] [place] [address] Jun, [facility] [address] [id number] [address] [place] [address] Jun, [facility] [address] [id number] [address] [place] [address] Jun, [facility] [address] [id number] [address] [place] [address] Jun, [facility] [address] [id number] [address] [place] [address] Mar, [facility] [address] [id number] [address] [place] [address] Mar, IMMUNIZATIONS No Known Immunizations SOCIAL HISTORY Never Assessed REASON FOR VISIT [facility] Contact PLAN OF CARE Activity Details Follow Up prn Reason:hx. of depression and anxiety VITAL SIGNS MEDICATIONS Unknown Medications RESULTS No [...]
--- OUTSIDE RECORDS SUMMARY | 2019-06-23 15:04 | XMS REPORT ---
Author Author Shirley HEALY Organization [facility] Address [address] [place] [address] Care Team Providers Care Manager Of Purchasing Name Role Phone ALFREDITO HEALY Unavailable PROBLEMS Type Condition ICD9-CM Code ACC59-XU Code Onset Dates Condition S tatus SNOMED Code Problem Psoriasis L40.9 Active 1430722 Problem Colon cancer screening Z12.11 Active 970904635 Problem Breast cancer screening Z12.39 Active 221585578 Problem Skin tag L91.8 Active 726234724 Problem Cutaneous horn L85.8 Active 83245 1001 Problem Essential hypertension with goal blood pressure less t schrader 140\/90 I10 Active 93955632 Problem Gynecologic exam normal Z01.419 Active 075828253 Problem Mixed hyperlipidemia E78.2 Active 611833928 Problem Acute bronchitis, unspecified organism J20.9 Active 82607421 Problem Dysthymia F34.1 Active 85553343 Problem Herpes simplex vulvovaginitis A60.04 Active 37223388 Problem Melanocytic nevus of trunk D22.5 Act ilia 235520705 Problem High risk medication use Z79.899 Activ e [id number] ALLERGIES No Information ENCOUNTERS Encounter Location Date Diagnosis [address] [id number] [id number] August, Essential hypertension with goal blood p ressure less than 140\/90 I10 ; Mixed hyperlipidemia E78.2 and Acute bronchitis, unspecified organism J20.9 [facility] [address] [id number] [address] Jul, Dental examination Z01.20 and Dental car ies K02.[address] [id number] [place] [id number] Jun, Essential hypertension with goal blood p ressure less than 140\/90 I10 and Melanocytic nevus of trunk D22.[address] [facility] [address] [id number] [place] [id number] Jun, [facility] [address] [facility] [id number] [address] [place] [address] Jun, Dysthymia F34.[address] [facility] [address] [id number] [place] [id number] May, [facility] [address] [id number] [place] [id number] Mar, [facility] [address] [id number] [place] [id number] Mar, Herpes simplex vulvovaginitis A60.[address] [facility] [address] [id number] [place] [id number] Mar, [facility] [address] [id number] [place] [id number] Mar, High risk medication use Z79.899 ; Dysth ymia F34.1 and Essential hypertension with goal blood pressure less than 140\/[address] [facility] [address] [id number] [place] [address] Jan, Dysthymia F34.[address] [facility] [address] [id number] [place] [id number] Jan, High risk medication use Z79.899 and Dys thymia F34.[address] [facility] [address] [id number] [place] [id number] Dec, [facility] [address] [id number] [place] [id number] Dec, [facility] [address] [id number] [place] [id number] Dec, High risk medication use Z79.899 ; Dysth ymia F34.1 and Essential hypertension with goal blood pressure less than 140\/90 [address] [facility] [address] [id number] [place] [address] Nov, [facility] [address] [address] [id number] [place] [address] Feb, Herpes simplex vulvovaginitis A60.04 [facility] [address] [id number] [place] [id number] Oct, [facility] [address] [address] [id number] [place] [id number] Oct, Poison verónica L23.7 and Benign essential hy pertension I10 [facility] [address] [address] [id number] [place] [id number] Sep, [facility] [address] [address] [id number] [place] [id number] August, [facility] [address] [id number] [place] [address] August, Gynecologic exam normal Z01.419 ; Breast cancer screening Z12.39 ; Colon cancer screening Z12.11 ; Essential hypertension with goal blood pressure less than 140\/90 I10 and Psoriasis L40.9 [facility] [address] [address] [id number] [place] [id number] Jul, [facility] [address] [address] [id number] [place] [id number] Jun, Skin tag L91.8 ; Cutaneous horn L85.8 an d Essential hypertension with goal blood pressure less than 140\/90 I10 [facility] [address] [address] [id number] [place] [id number] May, Ear ache H92.09 ; Upper respiratory infe ction J06.9 and Impacted cerumen of right ear H61.21 [facility] [address] [address] [id number] [place] [id number] Feb, Rhinitis J31.0 ; Hoarseness or changing voice R49.9 and Sinusitis J32.9 [facility] [address] [address] [id number] [place] [address] 14 Jan, 2015 [facility] [address] [id number] [place] [id number] Jan, Physical exam, pre-employment Z02.1 and Encounter for PPD test Z11.1 [facility] [address] [id number] [address] [place] [address] Jul, [facility] [address] [id number] [address] [place] [address] Jul, [facility] [address] [id number] [address] [place] [address] Jan, [facility] [address] [id number] [address] [place] [address] Jan, [facility] [address] [id number] [address] [place] [address] Jan, [facility] [address] [id number] [address] [place] [address] Jan, [facility] [address] [id number] [address] [place] [address] Dec, [facility] [address] [id number] [address] [place] [address] Dec, [facility] [address] [id number] [address] [place] [address] Dec, [facility] [address] [id number] [address] [place] [address] 05 Dec, [address] [facility] [address] [id number] [address] [place] [address] Dec, [facility] [address] [id number] [address] [place] [address] Dec, [facility] [address] [id number] [address] [place] [address] Dec, [facility] [address] [id number] [address] [place] [address], [place] [address] Dec, [facility] [address] [id number] [address] [place] [address], [place] [address] Nov, [facility] [address] [id number] [address] [place] [address], [place] [address] Nov, [facility] [address] [id number] [address] [place] [address], [place] [address] Nov, [facility] [address] [id number] [address] [place] [address], [place] [address] Nov, [facility] [address] [id number] [address] [place] [address], [place] [address] Nov, [facility] [address] [id number] [address] [place] [address], [place] [address] Jul, [facility] [address] [id number] [address] [place] [address], [place] [address] 08 Jul, 2012 [facility] [address] [id number] [address] [place] [address], [place] [address] 04 Jul, 2012 [facility] [address] [id number] [address] [place] [address], [place] [address] 28 Jun, 2012 [facility] [address] [id number] [address] [place] [address], [place] [address] 22 Jun, 2012 [facility] [address] [id number] [address] [place] [address], [place] [address] 19 Jun, 2012 [facility] [address] [id number] [address] [place] [address], [place] [address] 19 Jun, 2012 [facility] [address] [id number] [address] [place] [address], [place] [address] 18 Jun, 2012 [facility] [address] [id number] [address] [place] [address], [place] [address] 14 Jun, 2012 [facility] [address] [id number] [address] [place] [address], [place] [address] 13 Jun, 2012 [facility] [address] [id number] [address] [place] [address] Jun, [facility] [address] [id number] [address] [place] [address] August, [facility] [address] [id number] [address] [place] [address] Jun, [facility] [address] [id number] [address] [place] [address] Jun, [facility] [address] [id number] [address] [place] [address] Jun, [facility] [address] [id number] [address] [place] [address] Jun, [facility] [address] [facility] [id number] [address] [place] [address] Mar, [facility] [address] [facility] [id number] [address] [place] [address] Mar, IMMUNIZATIONS No Known Immunizations SOCIAL HISTORY Never Assessed REASON FOR VISIT requesting call back PLAN OF CARE VITAL SIGNS MEDICATIONS Unknown [...]
--- OUTSIDE RECORDS SUMMARY | 2019-06-23 15:04 | XMS REPORT ---
Author Author Shirley HEALY Organization [facility] Address [address] [place] [address] Care Team Providers Care Renal Technician Name Role Phone ALFREDITO HEALY Unavailable PROBLEMS Type Condition ICD9-CM Code CTC77-FO Code Onset Dates Condition S tatus SNOMED Code Problem Psoriasis L40.9 Active 5610094 Problem Colon cancer screening Z12.11 Active 200616653 Problem Breast cancer screening Z12.39 Active 445769605 Problem Skin tag L91.8 Active 629853454 Problem Cutaneous horn L85.8 Active 02936 1001 Problem Essential hypertension with goal blood pressure less t schrader 140\/90 I10 Active 27540024 Problem Gynecologic exam normal Z01.419 Active 262598189 Problem Mixed hyperlipidemia E78.2 Active 204725396 Problem Acute bronchitis, unspecified organism J20.9 Active 82161760 Problem Dysthymia F34.1 Active 64286754 Problem Herpes simplex vulvovaginitis A60.04 Active 96056043 Problem Melanocytic nevus of trunk D22.5 Act ilia 440978847 Problem High risk medication use Z79.899 Activ e [id number] ALLERGIES No Information ENCOUNTERS Encounter Location Date Diagnosis [facility] [address] [facility] [id number] [address] [address] Oct, Dysthymia F34.1 [facility] [address] [id number] [place] [address] August, Essential hypertension with goal blood p ressure less than 140\/90 I10 ; Mixed hyperlipidemia E78.2 and Acute bronchitis, unspecified organism J20.9 [facility] [address] [id number] [place] [id number] Jul, Dental examination Z01.20 and Dental car ies K02.[address] [facility] [address] [id number] [place] [id number] Jun, Essential hypertension with goal blood p ressure less than 140\/90 I10 and Melanocytic nevus of trunk D22.[address] [facility] [address] [id number] [place] [address] Jun, [facility] [address] [facility] [id number] [address] [place] [address] Jun, Dysthymia F34.[address] [facility] [address] [id number] [place] [id number] May, [facility] [address] [id number] [place] [id number] Mar, [facility] [address] [id number][place] [id number] Mar, Herpes simplex vulvovaginitis A60.[address] [facility] [address] [id number] [place] [id number] Mar, [facility] [address] [id number], [place] [id number] Mar, High risk medication use Z79.899 ; Dysth ymia F34.1 and Essential hypertension with goal blood pressure less than 140\/[address] [facility] [address] [id number] [place] [id number] Jan, Dysthymia F34.[address] [facility] [address] [id number], [place] [id number] Jan, High risk medication use Z79.899 and Dys thymia F34.[address] [facility] [address] [id number] [place] [address] Dec, [facility] [address] [id number] [place] [id number] Dec, [facility] [address] [id number] [place] [id number] Dec, High risk medication use Z79.899 ; Dysth ymia F34.1 and Essential hypertension with goal blood pressure less than 140\/90 I[address] [facility] [address] [id number], [place] [id number] Nov, [facility] [address] [id number], [place] [id number] Feb, Herpes simplex vulvovaginitis A60.04 [facility] [address] [id number][place] [id number] Oct, [facility] [address] [id number], [place] [id number] Oct, Poison verónica L23.7 and Benign essential hy pertension I10 [facility] [address] [id number], [place] [id number] Sep, [facility] [address] [id number], [place] [id number] August, [facility] [address] [id number][place] [id number] August, Gynecologic exam normal Z01.419 ; Breast cancer screening Z12.39 ; Colon cancer screening Z12.11 ; Essential hypertension with goal blood pressure less than 140\/90 I10 and Psoriasis L40.9 [facility] [address] [id number], [place] [id number] Jul, [facility] [address] [id number], [place] [id number] Jun, Skin tag L91.8 ; Cutaneous horn L85.8 an d Essential hypertension with goal blood pressure less than 140\/90 I10 [facility] [address] [id number], [place] [id number] May, Ear ache H92.09 ; Upper respiratory infe ction J06.9 and Impacted cerumen of right ear H61.21 [facility] [address] [id number][place] [id number] Feb, Rhinitis J31.0 ; Hoarseness or changing voice R49.9 and Sinusitis J32.9 [facility] [address] [facility] [address] [id number][place] [id number] Jan, [facility] [address] [facility] [address] [id number], [place] [id number] Jan, Physical exam, pre-employment Z02.1 and Encounter for PPD test Z11.1 [facility] [address] [id number] [address] [place] [address] Jul, [facility] [address] [id number] [address] [place] [address] Jul, [facility] [address] [id number] [address] [place] [address] Jan, [facility] [address] [id number] [address] [place] [address] Jan, [facility] [address] [id number] [address] [place] [address] Jan, [facility] [address] [id number] [address] [place] [address] Jan, [facility] [address] [facility] [id number] [address] [place] [address] Dec, [facility] [address] [facility] [id number] [address] [place] [address] Dec, [facility] [address] [id number] [address] [place] [address] Dec, [facility] [address] [id number] [address] [place] [address] Dec, [facility] [address] [facility] [id number] [address] [place] [address] Dec, [facility] [address] [facility] [id number] [address] [place] [address] Dec, [facility] [address] [id number] [address] [place] [address], [place] [address] Dec, [facility] [address] [id number] [address] [place] [address], [place] [address] Dec, [facility] [address] [id number] [address] [place] [address], [place] [address] Nov, [facility] [address] [id number] [address] [place] [address], [place] [address] Nov, [facility] [address] [id number] [address] [place] [address], [place] [address] Nov, [facility] [address] [id number] [address] [place] [address], [place] [address] Nov, [facility] [address] [id number] [address] [place] [address], [place] [address] Nov, [facility] [address] [id number] [address] [place] [address], [place] [address] 18 Jul, 2012 [facility] [address] [id number] [address] [place] [address], [place] [address] 08 Jul, 2012 [facility] [address] [id number] [address] [place] [address], [place] [address] 04 Jul, 2012 [facility] [address] [id number] [address] [place] [address], [place] [address] 28 Jun, 2012 [facility] [address] [id number] [address] [place] [address], [place] [address] 22 Jun, 2012 [facility] [address] [id number] [address] [place] [address], [place] [address] 19 Jun, 2012 [facility] [address] [id number] [address] [place] [address], [place] [address] 19 Jun, 2012 [facility] [address] [id number] [address] [place] [address], [place] [address] 18 Jun, 2012 [facility] [address] [id number] [address] [place] [address], [place] [address] 14 Jun, 2012 [facility] [address] [id number] [address] [place] [address] 13 Jun, 2012 [facility] [address] [id number] [address] [place] [address] Jun, [facility] [address] [id number] [address] [place] [address] August, [facility] [address] [id number] [address] [place] [address] Jun, [facility] [address] [id number] [address] [place] [address] Jun, [facility] [address] [id number] [address] [place] [address] Jun, [facility] [address] [id number] [address] [place] [address] Jun, [facility] [address] [id number] [address] [place] [address] Mar, [facility] [address] [id number] [address] [place] [address] Mar, IMMUNIZATIONS No Known Immunizations SOCIAL HISTORY Never Assessed REASON FOR VISIT Requests return call PLAN OF CARE VITAL SIGNS MEDICATIONS Medication Instructions Dosage Frequency Start Date End Date Duration S neftaly Sertraline HCl 100 mg Orally Once a day 1 tablet 24h Nov, Active RESULTS No Results PROCEDURES No Known [...]
--- OUTSIDE RECORDS SUMMARY | 2019-06-23 15:05 | XMS REPORT ---
Author Author Shirley HEALY Organization [employer] Address Unknown Phone Unavailable Care Team Providers Care Engine Builder Name Role Phone ALFREDITO HEALY CP Unavailable Allergies No Known Allergies Problems Problem Type Condition Code Onset Dates Condition Statu s Problem Breast cancer screening Z12.39 Acti ve Problem Colon cancer screening Z12.11 Activ e Problem Gynecologic exam normal Z01.419 Acti ve Problem Skin tag L91.8 Active Problem Cutaneous horn L85.8 Active Problem Essential hypertension with goal blood pressure less t schrader 140\/90 I10 Active Problem Psoriasis L40.9 Active Medications Medication Code System Code Instructions Start Date End Date Status Dosage Metoprolol Tartrate [facility] [address]-39 50 mg Orally 2 times a d ay Dec 13, 2013 1 tablet Results No Known Results Summary Purpose [employer] Submission
--- OUTSIDE RECORDS SUMMARY | 2019-06-23 15:05 | XMS REPORT ---
Author Author Shirley HEALY [facility] [employer] Address Unknown Phone Unavailable Care Team Providers Care Shop Worker Name Role Phone ALFREDITO HEALY CP Unavailable Allergies No Known Allergies Problems Problem Type Condition Code Onset Dates Condition Statu s Problem Cutaneous horn L85.8 Active Assessment Herpes simplex vulvovaginitis A60.04 Active Problem Gynecologic exam normal Z01.419 Acti ve Problem Breast cancer screening Z12.39 Acti ve Problem Herpes simplex vulvovaginitis A60.04 Active Problem Psoriasis L40.9 Active Problem Skin tag L91.8 Active Problem Colon cancer screening Z12.11 Activ e Problem Essential hypertension with goal blood pressure less t schrader 140\/90 I10 Active Medications Medication Code System Code Instructions Start Date End Date Status Dosage Acyclovir [facility] [address]-89 400 MG Orally Three times a day September 28, 2015 1 tablet Results No Known Results Summary Purpose [employer] Submission
--- OUTSIDE RECORDS SUMMARY | 2019-06-23 15:05 | XMS REPORT ---
Author Author Shirley HEALY Organization [employer] Address Unknown Phone Unavailable Care Team Providers Care Flare Stitcher Name Role Phone ALFREDITO HEALY CP Unavailable Allergies, Adverse Reactions, Alerts Substance Reaction Event Type surgical tape Info Not Available Non Drug Allergy Problems Problem Type Condition Code Onset Dates Condition Statu s Assessment Encounter for PPD test Z11.1 Activ e Assessment Physical exam, pre-employment Z02.1 Active Medications Medication Code System Code Instructions Start Date End Date Status Dosage Fetzima [facility] [address]-59 80 MG Orally Once a day 1 capsule Metoprolol Tartrate [facility] [address]-87 50 mg Dec 13, 2013 1 Tablet by Oral route 2 daily Acyclovir [facility] [address]-44 200 mg Dec 10, 2013 1 capsule by Oral route every 24 hours Procedures Procedure Coding System Code Date Preventive Care Est Pt. Age 40-64 CPT-4 23654 Jan 20, 2015 TB INTRADERMAL TEST CPT-4 73336 Jan 20, 2015 Vital Signs Date/Time: Jan 20, 2015 Temperature 97.9 F Weight 199.6 lbs Height 68 in BMI 30.35 Index Blood Pressure Diastolic 82 mmHg Blood Pressure Systolic 130 mmHg Cardiac Monitoring Heart Rate 92 bpm Results No Known Results Summary Purpose [employer] Submission
--- OUTSIDE RECORDS SUMMARY | 2019-06-23 15:05 | XMS REPORT ---
Author Author Shirley ENGEL Organization [facility] Address Unknown Phone Unavailable Care Team Providers Care Planning Consultant Name Role Phone JOEL ENGEL Unavailable Unavailable PROBLEMS Type Condition ICD9-CM Code ZEE32-TA Code Onset Dates Condition S tatus SNOMED Code Problem Psoriasis L40.9 Active 6961128 Problem Colon cancer screening Z12.11 Active 236150763 Problem Breast cancer screening Z12.39 Active 729747738 Problem Skin tag L91.8 Active 289645861 Problem Cutaneous horn L85.8 Active 15781 1001 Problem Essential hypertension with goal blood pressure less t schrader 140\/90 I10 Active 45322917 Problem Gynecologic exam normal Z01.419 Active 592213800 Problem Mixed hyperlipidemia E78.2 Active 615788546 Problem Acute bronchitis, unspecified organism J20.9 Active 11442712 Problem Dysthymia F34.1 Active 61143801 Problem Herpes simplex vulvovaginitis A60.04 Active 51208888 Problem Melanocytic nevus of trunk D22.5 Act ilia 622233695 Problem High risk medication use Z79.899 Activ e [id number] ALLERGIES No Information ENCOUNTERS Encounter Location Date [facility] [address] [id number] [place], [place] [id number] August, Essential hypertension with goal blood p ressure less than 140\/90 I10 ; Mixed hyperlipidemia E78.2 and Acute bronchitis, unspecified organism J20.9 [facility] [address] [id number] [place] [address] Jul, Dental examination Z01.20 and Dental car ies K02.9 [facility] [address] [id number] [place] [address] Jun, Essential hypertension with goal blood p ressure less than 140\/90 I10 and Melanocytic nevus of trunk D22.5 [facility] [address] [id number] [place] [id number] Jun, [facility] [address] [facility] [id number] 100KS [place] [address] Jun, Dysthymia F34.[address] [facility] [address] [id number] [place] [id number] May, [facility] [address] [id number] [place] [address] Mar, [facility] [address] [id number] [place] [address] Mar, Herpes simplex vulvovaginitis A60.[address] [facility] [address] [id number] [place] [id number] Mar, [facility] [address] [id number], [place] [address] Mar, High risk medication use Z79.899 ; Dysth ymia F34.1 and Essential hypertension with goal blood pressure less than 140\/[address] [facility] [address] [id number] [place] [id number] Jan, Dysthymia F34.[address] [facility] [address] [id number] [place] [id number] Jan, High risk medication use Z79.899 and Dys thymia F34.[address] [facility] [address] [id number] [place] [id number] Dec, [facility] [address] [id number] [place], [place] [id number] Dec, [facility] [address] [id number] [place] [address] Dec, High risk medication use Z79.899 ; Dysth ymia F34.1 and Essential hypertension with goal blood pressure less than 140\/90 I[address] [facility] [address] [id number] [place], [place] [address] Nov, [facility] [address] [id number], [place] [address]8485 Feb, Herpes simplex vulvovaginitis A60.[address] [facility] [address] [id number], [place] [address] Oct, [facility] [address] [id number], [place] [address] Oct, Poison verónica L23.7 and Benign essential hy pertension I10 [facility] [address] [id number], [place] [id number] Sep, [facility] [address] [id number], [place] [id number] August, [facility] [address] [id number], [place] [id number] August, Gynecologic exam normal Z01.419 ; Breast cancer screening Z12.39 ; Colon cancer screening Z12.11 ; Essential hypertension with goal blood pressure less than 140\/90 I10 and Psoriasis L40.9 [facility] [address] [id number], [place] [id number] Jul, [facility] [address] [id number], [place] [id number] Jun, Skin tag L91.8 ; Cutaneous horn L85.8 an d Essential hypertension with goal blood pressure less than 140\/90 I10 [facility] [address] [id number], [place] [id number] May, Ear ache H92.09 ; Upper respiratory infe ction J06.9 and Impacted cerumen of right ear H61.21 [facility] [address] [id number], [place] [address]48[address] Feb, Rhinitis J31.0 ; Hoarseness or changing voice R49.9 and Sinusitis J32.9 [facility] [address] [id number], [place] [id number] Jan, [facility] [id number] [place] [id number] Jan, Physical exam, pre-employment Z02.1 and Encounter for PPD test Z11.1 [facility] [address] [id number] [address] [place] [phone] 14 Jul, 2014 [facility] [address] [id number] [address] [place] [address] Jul, [facility] [address] [id number] [address] [place] [phone] Jan, [facility] [address] [id number] [address] [place] [address] Jan, [facility] [address] [id number] [address] [place] [phone] Jan, [facility] [address] [id number] [address] [place] [phone] Jan, [facility] [address] [id number] [address] [place] [address] Dec, [facility] [address] [id number] [address] [place] [phone] 17 Dec, 2013 [facility] [address] [id number] [address] [place] [phone] 05 Dec, 2013 [facility] [address] [id number] [address] [place] [phone] 05 Dec, 2013 [facility] [address] [id number] [address] [place] [phone] 04 Dec, 2013 [facility] [address] [id number] [address] [place] [phone] 04 Dec, 2013 [facility] [address] [id number] [address] [place] [phone] 02 Dec, 2013 [facility] [address] [id number] [address] [place] [phone] 02 Dec, 2013 [facility] [address] [id number] [facility] [address] Nov, [facility] [address] [id number] [address] [place] [address], [place] [address] Nov, [facility] [address] [id number] [address] [place] [address], [place] [address] Nov, [facility] [address] [id number] [address] [place] [address], [place] [address] Nov, [facility] [address] [id number] [address] [place] [address], [place] [address] Nov, [facility] [address] [id number] [address] [place] [address], [place] [address] Jul, [facility] [address] [id number] [address] [place] [address], [place] [address] 08 Jul, 2012 [facility] [address] [id number] [address] [place] [address], [place] [address] Jul, [facility] [address] [id number] [address] [place] [address], [place] [address] 28 Jun, 2012 [facility] [address] [id number] [address] [place] [address], [place] [address] 22 Jun, 2012 [facility] [address] [id number] [address] [place] [address], [place] [address] 19 Jun, 2012 [facility] [address] [id number] [address] [place] [address], [place] [address] 19 Jun, 2012 [facility] [address] [id number] [address] [place] [address], [place] [address] 18 Jun, 2012 [facility] [address] [id number] [address] [place] [address], [place] [address] 14 Jun, 2012 [facility] [address] [id number] [address] [place] [address], [place] [address] 13 Jun, 2012 [facility] [address] [id number] [address] [place] [address], [place] [address] Jun, [facility] [address] [facility] [id number] [address] [place] [address] August, [facility] [address] [id number] [address] [place] [phone] Jun, [facility] [address] [facility] [id number] [address] [place] [phone] Jun, [facility] [address] [facility] [id number] [address] [place] [phone] Jun, [facility] [address] [facility] [id number] [address] [place] [phone] Jun, [facility] [address] [facility] [id number] [address] [place] [phone] Mar, [facility] [address] [facility] [id number] [address] [place] [phone] Mar, IMMUNIZATIONS No Known Immunizations SOCIAL HISTORY Never Assessed REASON FOR VISIT [facility] Contact PLAN OF CARE Activity Details Follow Up prn Reason:depression VITAL SIGNS MEDICATIONS Unknown Medications RESULTS No [...]
--- OUTSIDE RECORDS SUMMARY | 2019-06-23 15:05 | XMS REPORT ---
Author Author Shirley HEALY Organization [facility] Address [address] [place] [address] Care Team Providers Care Print Line Operator Name Role Phone ALFREDITO HEALY Unavailable PROBLEMS Type Condition ICD9-CM Code SMU54-YE Code Onset Dates Condition S tatus SNOMED Code Problem Gynecologic exam normal Z01.419 Active 939448630 Problem Psoriasis L40.9 Active 8628479 Problem Colon cancer screening Z12.11 Active 438601251 Problem Skin tag L91.8 Active 929931419 Problem Cutaneous horn L85.8 Active 42929 1001 Problem Melanocytic nevus of trunk D22.5 Act ilia 418466568 Problem High risk medication use Z79.899 Activ e 932129552664412 Problem Essential hypertension with goal blood pressure less t schrader 140\/90 I10 Active 32467176 Problem Breast cancer screening Z12.39 Active 908517239 Problem Dysthymia F34.1 Active 00290516 Problem Herpes simplex vulvovaginitis A60.04 Active 15791353 ALLERGIES Substance Reaction Event Type Date Status surgical tape Unknown Non Drug Allergy Dec, Active ENCOUNTERS Encounter Location Date Diagnosis [facility] [address] [id number], [place] [id number] August, [place] [address] [id number], [place] [address] Jul, Dental examination Z01.20 and Dental car ies K02.[address] [id number], [place] 474348[address] Jun, Essential hypertension with goal blood p ressure less than 140\/90 I10 and Melanocytic nevus of trunk D22.5 [facility] [address] [id number], [place] [address] Jun, [facility] [address] [facility] [id number] 100[address] [place] [address] Jun, Dysthymia F34.[address] [facility] [address] [id number] [place] [id number] May, [facility] [address] [id number] [place] [id number] Mar, [facility] [address] [id number] [place] [id number] Mar, Herpes simplex vulvovaginitis A60.[address] [facility] [address] [id number] [place] [id number] Mar, [facility] [address] [id number] [place] [address] Mar, High risk medication use Z79.899 ; Dysth ymia F34.1 and Essential hypertension with goal blood pressure less than 140\/90 I[address] [facility] [address] [id number] [place] [id number] Jan, Dysthymia F34.[address] [facility] [address] [id number] [place] [address] Jan, High risk medication use Z79.899 and Dys thymia F34.[address] [facility] [address] [id number] [place] [id number] Dec, [facility] [address] [id number] [place] [id number] Dec, [facility] [address] [id number] [place] [address] Dec, High risk medication use Z79.899 ; Dysth ymia F34.1 and Essential hypertension with goal blood pressure less than 140\/90 I[address] [facility] [address] [id number] [place] [address] Nov, [facility] [address] [id number], [place] [address] Feb, Herpes simplex vulvovaginitis A60.04 [facility] [address] [id number], [place] [id number] Oct, [facility] [address] [id number], [place] [id number] Oct, Poison verónica L23.7 and Benign essential hy pertension I10 [facility] [address] [id number], [place] [id number] Sep, [facility] [address] [id number], [place] [id number] August, [facility] Partner[facility] [address] [facility] [address] [id number], [place] [address] August, Gynecologic exam normal Z01.419 ; Breast cancer screening Z12.39 ; Colon cancer screening Z12.11 ; Essential hypertension with goal blood pressure less than 140\/90 I10 and Psoriasis L40.9 [facility] A[address] [id number], [place] [id number] Jul, [facility] [address] [place] [address] AVE [id number], [place] [id number] Jun, Skin tag L91.8 ; Cutaneous horn L85.8 an d Essential hypertension with goal blood pressure less than 140\/90 I10 [facility] Corporation[facility] [address] [place] [address] AVE [id number], [place] [id number] May, Ear ache H92.09 ; Upper respiratory infe ction J06.9 and Impacted cerumen of right ear H61.21 [facility] [address] [id number], [place] [address]75[address] Feb, Rhinitis J31.0 ; Hoarseness or changing voice R49.9 and Sinusitis J32.9 [facility] [address] [id number], [place] [address] Jan, [facility] [address] [id number], [place] [id number] Jan, Physical exam, pre-employment Z02.1 and Encounter for PPD test Z11.1 [facility] [address] [id number] [address] [place] [address], [place] [address] Jul, [facility] [address] [id number] [address] [place] [address] Jul, [facility] [address] [id number] [address] [place] [phone] Jan, [facility] [address] [id number] [address] [place] [phone] Jan, [facility] [address] [id number] [address] [place] [address], [place] [address] Jan, [facility] [address] [id number] [address] [place] [address] Jan, [facility] [address] [id number] [address] [place] [phone] Dec, 2013 [facility] [address] [id number] [address] [place] [phone] 17 Dec, 2013 [facility] [address] [id number] [address] [place] [phone] 05 Dec, 2013 [facility] [address] [id number] [address] [place] [phone] 05 Dec, 2013 [facility] [address] [id number] [address] [place] [address] Dec, 2013 [facility] [address] [id number] [address] [place] [phone] 04 Dec, 2013 [facility] [address] [id number] [address] [place] [phone] Dec, 2013 [facility] [address] [id number] [address] [place] [phone] Dec, 2013 [facility] [address] [id number] [address] [place] [phone] Nov, [facility] [address] [id number] [address] [place] [address], [place] [address] Nov, [facility] [address] [id number] [address] [place] [address], [place] [address] Nov, [facility] [address] [id number] [address] [place] [address], [place] [address] Nov, [facility] [address] [id number] [address] [place] [address], [place] [address] Nov, [facility] [address] [id number] [address] [place] [address], [place] [address] Jul, [facility] [address] [id number] [address] [place] [address], [place] [address] Jul, [facility] [address] [id number] [address] [place] [address], [place] [address] Jul, [facility] [address] [id number] [address] [place] [address], [place] [address] 28 Jun, 2012 [facility] [address] [id number] [address] [place] [address], [place] [address] 22 Jun, 2012 [facility] [address] [id number] [address] [place] [address], [place] [address] Jun, [facility] [address] [id number] [address] [place] [address], [place] [address] 19 Jun, 2012 [facility] [address] [id number] [address] [place] [address], [place] [address] 18 Jun, 2012 [facility] [address] [id number] [address] [place] [address], [place] [address] 14 Jun, 2012 [facility] [address] [id number] [address] [place] [address], [place] [address] 13 Jun, 2012 [facility] [address] [id number] [address] [place] [address], [place] [address] 12 Jun, 2012 [facility] [address] [id number] [address] [place] [address] August, [facility] [address] [facility] [id number] [address] [place] [phone] Jun, [facility] [address] [facility] [id number] [address] [place] [address] Jun, [facility] [address] [facility] [id number] [address] [place] [phone] Jun, [facility] [address] [facility] [id number] [address] [place] [address] Jun, [facility] [address] [facility] [id number] [address] [place] [phone] Mar, [facility] [address] [facility] [id number] [address] [place] [address] Mar, IMMUNIZATIONS No Known Immunizations SOCIAL HISTORY Never Assessed REASON FOR VISIT Anxiety,- Pt voices she is having anxiety and depression. needs med refills Cordelia CALL PLAN OF CARE Activity Details Follow Up 4 Weeks Reason:b/p/depressio n VITAL SIGNS Height 68 in 2016-12-28 Weight 195 lbs 2016-12-28 Temperature 97.4 degrees Fahrenheit 2016-12-28 Heart Rate 88 bpm 2016-12-28 Respiratory Rate 16 2016-12-28 BMI 29.65 kg/m2 2016-12-28 Blood pressure systolic 158 mmHg 2016-12-28 Blood pressure diastolic 104 mmHg 2016-12-28 MEDICATIONS Medication Instructions Dosage Frequency Start Date End Date Duration S tatus Fetzima 80 MG Orally Once a day 1 capsule 24h Active Lorazepam 0.5 mg Orally 2 times a day 1 Tablet by Oral ro [facility] [place] [facility] 1 time per day PRN severe anxiety 12h Jan, Active Sertraline HCl 100 MG Orally Once a day 1 tablet 24h Nov, Active Metoprolol Succinate ER 50 mg Orally Once a day 1 tablet 24h 20 Dec, 2016 Active Acyclovir 200MG TAKE ONE CAPSULE BY MOUTH ONCE DAILY 30 Active RESULTS No Results PROCEDURES No Known [...] History hypertension Medical History uterine fibroid tumor Surgical History Laminectomy with disc removal L5 1989 Surgical History Orthopedic surgery right wrist and right finger Surgical History Tubal Ligation Surgical History Hysterectomy, ovaries remain 1994 Surgical History lumpectomy, left breast 2009 Hospitalization History diverticulitis 06/22 Hospitalization History Surgery(s)/Childbirth(s)
--- OUTSIDE RECORDS SUMMARY | 2019-06-23 15:05 | XMS REPORT ---
Author Author Shirley HEALY Organization [employer] Address Unknown Phone Unavailable Care Team Providers Care Personal Care Worker Name Role Phone ALFREDITO HEALY CP Unavailable Allergies No Known Allergies Problems No Known Problems Medications No Known Medications Results No Known Results Summary Purpose [employer] Submission
--- OUTSIDE RECORDS SUMMARY | 2019-06-23 15:05 | XMS REPORT ---
Author Author Shirley MARTE Y Organization [employer] Address Unknown Phone Unavailable Care Team Providers Care Bridge Crane Operator Name Role Phone CHRIS MARTE CP Unavailable Allergies, Adverse Reactions, Alerts Substance Reaction Event Type surgical tape Info Not Available Non Drug Allergy Problems Problem Type Condition Code Onset Dates Condition Statu s Assessment Hoarseness or changing voice R49.9 Active Assessment Sinusitis J32.9 Active Assessment Rhinitis J31.0 Active Medications Medication Code System Code Instructions Start Date End Date Status Dosage PredniSONE [facility] [address]-50 20 MG Orally Once a day Feb 09 5 Feb 14, 2015 1 tablet with food or milk Fetzima [facility] [address]-22 80 MG Orally Once a day 1 capsule Acyclovir [facility] [address]-75 200 mg Dec 10, 2013 1 capsule by Oral route every 24 hours Zithromax Z-Garo [facility] [address]-12 250 MG Orally Once a day Feb 09, 2015 Feb 14, 2015 2 tablets on the first day, then 1 tablet daily for 4 days Procedures Procedure Coding System Code Date Office Visit, Est Pt., Level 3 CPT-4 94546 N 2014 Vital Signs Date/Time: Feb 09, 2015 Temperature 98.1 F Weight 196.1 lbs Height 68 in BMI 29.81 Index Blood Pressure Diastolic 102 mmHg Blood Pressure Systolic 152 mmHg Cardiac Monitoring Heart Rate 120 bpm Results No Known Results Summary Purpose [employer] Submission
--- OUTSIDE RECORDS SUMMARY | 2019-06-23 15:05 | XMS REPORT ---
Author Author Shirley KENNEDY Organization [facility] Address [address] [place] [address] Care Team Providers Care Diagnostics Sales Developer Name Role Phone OPAL KENNEDY Unavailable PROBLEMS Type Condition ICD9-CM Code OXR45-FI Code Onset Dates Condition S tatus SNOMED Code Problem Gynecologic exam normal Z01.419 Active 794023400 Problem Psoriasis L40.9 Active 7462439 Problem Colon cancer screening Z12.11 Active 253501241 Problem Skin tag L91.8 Active 008728536 Problem Cutaneous horn L85.8 Active 53862 1001 Problem Melanocytic nevus of trunk D22.5 Act ilia 408643770 Problem High risk medication use Z79.899 Activ e [id number] Problem Essential hypertension with goal blood pressure less t schrader 140\/90 I10 Active 36912321 Problem Breast cancer screening Z12.39 Active 757221227 Problem Dysthymia F34.1 Active 06219849 Problem Herpes simplex vulvovaginitis A60.04 Active 63680851 ALLERGIES No Information ENCOUNTERS Encounter Location Date Diagnosis [facility] [address] [id number] [place] [id number] August, [facility] [address] [id number], [place] [address] Jul, Dental examination Z01.20 and Dental car ies K02.9 [facility] [address] [id number] [place] [address] Jun, Essential hypertension with goal blood p ressure less than 140\/90 I10 and Melanocytic nevus of trunk D22.5 [facility] [address] [id number], [place] [address] Jun, [facility] [address] [place] [address] [id number] 100[place] [address] Jun, Dysthymia F34.[address] [facility] [address] [id number] [place] [id number] May, [facility] [address] [id number] [place] [id number] Mar, [facility] [address] [id number] [place] [id number] Mar, Herpes simplex vulvovaginitis A60.[address] [facility] [address] [id number] [place] [id number] Mar, [facility] [address] [id number] [place] [address] Mar, High risk medication use Z79.899 ; Dysth ymia F34.1 and Essential hypertension with goal blood pressure less than 140\/90 [address] [facility] [address] [id number] [place] [address] Jan, Dysthymia F34.[address] [facility] [address] [id number] [place] [address] Jan, High risk medication use Z79.899 and Dys thymia F34.[address] [facility] [address] [id number], [place] [id number] Dec, [facility] [address] [id number] [place] [address] Dec, [facility] [address] [id number] [place] [address] Dec, High risk medication use Z79.899 ; Dysth ymia F34.1 and Essential hypertension with goal blood pressure less than 140\/90 I[address] [facility] [address] [id number] [place] [id number] Nov, [facility] [address] [id number], [place] [address]66[address] Feb, Herpes simplex vulvovaginitis A60.04 [facility] [address] [place] [address] AVE [id number], [place] [id number] Oct, [facility] [address] [place] [address] AVE [id number], [place] [id number] Oct, Poison verónica L23.7 and Benign essential hy pertension I10 [facility] MedicalBUCIO [address] [place] [address] AVE [id number], [place] [id number] Sep, [facility] [address] [place] [address] AVE [id number], [place] [id number] August, [facility] [address] [id number], [place] [address] August, Gynecologic exam normal Z01.419 ; Breast cancer screening Z12.39 ; Colon cancer screening Z12.11 ; Essential hypertension with goal blood pressure less than 140\/90 I10 and Psoriasis L40.9 [facility] [address] [id number], [place] [address] Jul, [facility] [address] [id number], [place] [id number] Jun, Skin tag L91.8 ; Cutaneous horn L85.8 an d Essential hypertension with goal blood pressure less than 140\/90 I10 [facility] [address] [place] [address] AVE [id number], [place] [id number] May, Ear ache H92.09 ; Upper respiratory infe ction J06.9 and Impacted cerumen of right ear H61.21 [facility] MedicalBUC[facility] [address] [place] [address] AVE [id number], [place] [id number] Feb, Rhinitis J31.0 ; Hoarseness or changing voice R49.9 and Sinusitis J32.9 [facility] MedicalBUCIO [address] [place] [address] AVE [id number], [place] [id number] Jan, [facility] MedicalBU[facility] [address] [place] [address] AVE [id number], [place] [id number] Jan, Physical exam, pre-employment Z02.1 and Encounter for PPD test Z11.1 [facility] [address] [id number] [address] [place] [address] 14 Jul, 2014 [facility] [address] [id number] [address] [place] [address] Jul, [facility] [address] [id number] [address] [place] [address] 30 Jan, 2014 [facility] [address] [id number] [address] [place] [address] Jan, [facility] [address] [id number] [address] [place] [address] Jan, [facility] [address] [id number] [address] [place] [address] Jan, [facility] [address] [id number] [address] [place] [address] Dec, [facility] [address] [id number] [address] [place] [address] 17 Dec, 2013 [facility] [address] [id number] [address] [place] [address] 05 Dec, 2013 [facility] [address] [id number] [address] [place] [address] 05 Dec, 2013 [facility] [address] [id number] [address] [place] [address] 04 Dec, 2013 [facility] [address] [id number] [address] [place] [address] 04 Dec, 2013 [facility] [address] [id number] [address] [place] [address] Dec, [facility] [address] [id number] [address] [place] [address] Dec, [facility] [address] [id number] [address] [place] [phone] Nov, [facility] [address] [id number] 100[facility] [place] [address] Nov, [facility] [address] [id number] [address] [place] [address], [place] [address] Nov, [facility] [address] [id number] [address] [place] [address], [place] [address] Nov, [facility] [address] [id number] [address] [place] [address], [place] [address] Nov, [facility] [address] [id number] [address] [place] [address], [place] [address] Jul, [facility] [address] [id number] [address] [place] [address], [place] [address] Jul, [facility] [address] [id number] [address] [place] [address], [place] [address] Jul, [facility] [address] [id number] [address] [place] [address], [place] [address] 28 Jun, 2012 [facility] [address] [id number] [address] [place] [address], [place] [address] 22 Jun, 2012 [facility] [address] [id number] [address] [place] [address], [place] [address] 19 Jun, 2012 [facility] [address] [id number] [address] [place] [address], [place] [address] 19 Jun, 2012 [facility] [address] [id number] [address] [place] [address], [place] [address] 18 Jun, 2012 [facility] [address] [id number] [address] [place] [address], [place] [address] 14 Jun, 2012 [facility] [address] [id number] [address] [place] [address], [place] [address] 13 Jun, 2012 [facility] [address] [id number] [address] [place] [address], [place] [address] 12 Jun, 2012 [facility] [address] [id number] [address] [place] [address], [place] [address] August, [facility] [address] [facility] [id number] [address] [place] [address] Jun, [facility] [address] [facility] [id number] [address] [place] [address] Jun, [facility] [address] [facility] [id number] [address] [place] [address] Jun, [facility] [address] [facility] [id number] [address] [place] [address] Jun, [facility] [address] [facility] [id number] [address] [place] [address] Mar, [facility] [address] [facility] [id number] [address] [place] [address] Mar, IMMUNIZATIONS No Known Immunizations SOCIAL HISTORY [...]
--- OUTSIDE RECORDS SUMMARY | 2019-06-23 15:05 | XMS REPORT ---
Author Author Shirley HEALY Organization [employer] Address Unknown Phone Unavailable Care Team Providers Care Edi Developer Name Role Phone ALFREDITO HEALY CP Unavailable Allergies, Adverse Reactions, Alerts Substance Reaction Event Type surgical tape Info Not Available Non Drug Allergy Problems Problem Type Condition Code Onset Dates Condition Statu s Assessment Colon cancer screening Z12.11 Activ e Assessment Gynecologic exam normal Z01.419 Acti ve Assessment Breast cancer screening Z12.39 Acti ve Assessment Psoriasis L40.9 Active Assessment Essential hypertension with goal blood p ressure less than 140\/90 I10 Active Problem Breast cancer screening Z12.39 Acti ve Problem Colon cancer screening Z12.11 Activ e Problem Gynecologic exam normal Z01.419 Acti ve Problem Skin tag L91.8 Active Problem Cutaneous horn L85.8 Active Problem Essential hypertension with goal blood pressure less t schrader 140\/90 I10 Active Problem Psoriasis L40.9 Active Medications Medication Code System Code Instructions Start Date End Date Status Dosage Metoprolol Tartrate [facility] [address]-58 50 mg Dec 13, 2013 1 Tablet by Oral route 2 daily Procedures Procedure Coding System Code Date Preventive Care Est Pt. Age 40-64 CPT-4 12811 August 11, 2015 Vital Signs Date/Time: August 11, 2015 Temperature 98.6 F Weight 195.1 lbs Height 68 in BMI 29.66 Index Blood Pressure Diastolic 90 mmHg Blood Pressure Systolic 158 mmHg Cardiac Monitoring Heart Rate 77 bpm Results No Known Results Summary Purpose [employer] Submission
--- OUTSIDE RECORDS SUMMARY | 2019-06-23 15:05 | XMS REPORT ---
Author Author Shirley HEALY Organization [facility] Address [address] [place] [address] Care Team Providers Care Radio Operator Name Role Phone ALFREDITO HEALY Unavailable PROBLEMS Type Condition ICD9-CM Code [id number] Code Onset Dates Condition S tatus SNOMED Code Problem Gynecologic exam normal Z01.419 Active 621603309 Problem Psoriasis L40.9 Active 6201063 Problem Colon cancer screening Z12.11 Active 637013545 Problem Skin tag L91.8 Active 807016195 Problem Cutaneous horn L85.8 Active 31911 1001 Problem Melanocytic nevus of trunk D22.5 Act ilia 347894672 Problem High risk medication use Z79.899 Activ e 893302828098092 Problem Essential hypertension with goal blood pressure less t schrader 140\/90 I10 Active 55260902 Problem Breast cancer screening Z12.39 Active 494101796 Problem Dysthymia F34.1 Active 92028656 Problem Herpes simplex vulvovaginitis A60.04 Active 54781484 ALLERGIES No Information ENCOUNTERS Encounter Location Date Diagnosis [facility] [address] [id number] [place] [id number] August, [facility] [address] [id number] [place]ALLS, [place] [address] Jul, Dental examination Z01.20 and Dental car ies K02.[address] [facility] [address] [id number] FALLS, [place] [id number] Jun, Essential hypertension with goal blood p ressure less than 140\/90 I10 and Melanocytic nevus of trunk D22.[address] [facility] [address] [id number] [place]ALLS, [place] [id number] Jun, [facility] [address] [facility] [id number] [address] [place] [address] Jun, Dysthymia F34.[address] [facility] [address] [id number] [place] [id number] May, [facility] [address] [id number] [place] [id number] Mar, [facility] [address] [id number] [place] [address] Mar, Herpes simplex vulvovaginitis A60.[address] [facility] [address] [id number] [place] [id number] Mar, [facility] [address] [id number] [place]ALLS[place] [address] Mar, High risk medication use Z79.899 ; Dysth ymia F34.1 and Essential hypertension with goal blood pressure less than 140\/90 I[address] [facility] [address] [id number] [place] [address] Jan, Dysthymia F34.[address] [facility] [address] [id number] FALLS[place] [address] Jan, High risk medication use Z79.899 and Dys thymia F34.[address] [facility] [address] [id number] [place] [id number] Dec, [facility] [address] [id number] [place] [address] Dec, [facility] [address] [id number] [place]ALLS, [place] [id number] Dec, High risk medication use Z79.899 ; Dysth ymia F34.1 and Essential hypertension with goal blood pressure less than 140\/90 I[address] [facility] [address] [id number] [place] [id number] Nov, [facility] [address] [id number] FALLS, [place] [address] Feb, Herpes simplex vulvovaginitis A60.04 [facility] NationTER [address] [place] [address] AVE [id number] [place]ALLS, [place] [id number] Oct, [facility] [address] [place] [address] AVE [id number] FALLS, [place] [id number] Oct, Poison verónica L23.7 and Benign essential hy pertension I10 [facility] [address] [place] [address] AVE [id number] FALLS, [place] [address] Sep, [facility] [address] [place] [address] AVE [id number] FALLS, [place] [id number] August, [facility] [id number] FALLS[place] [address] August, Gynecologic exam normal Z01.419 ; Breast cancer screening Z12.39 ; Colon cancer screening Z12.11 ; Essential hypertension with goal blood pressure less than 140\/90 I10 and Psoriasis L40.9 [facility] [id number] [place]ALLS[place] [id number] Jul, [facility] A[address] [id number] [place]ALLS[place] [address] Jun, Skin tag L91.8 ; Cutaneous horn L85.8 an d Essential hypertension with goal blood pressure less than 140\/90 I10 [facility] NationTER [employer] [place] [address] AVE [id number] [place]ALLS, [place] [id number] May, Ear ache H92.09 ; Upper respiratory infe ction J06.9 and Impacted cerumen of right ear H61.21 [facility] [address] [place] [address] AVE [id number] [place]ALLS, [place] [address]159549 Feb, Rhinitis J31.0 ; Hoarseness or changing voice R49.9 and Sinusitis J32.9 [facility] [employer] A[address] [id number] FALLS, [place] [address] Jan, [facility] [address] [id number] FALLS, [place] [address] Jan, Physical exam, pre-employment Z02.1 and Encounter for PPD test Z11.1 [facility] [address] [id number] [address] [place] [address], [place] [address] 14 Jul, 2014 [facility] [address] [id number] [address] [place] [address] Jul, [facility] [address] [id number] [address] [place] [address] Jan, [facility] [address] [id number] [address] [place] [address] Jan, [facility] [address] [id number] [address] [place] [address], [place] [address] Jan, [facility] [address] [id number] [address] [place] [address] Jan, [facility] [address] [id number] [address] [place] [address] Dec, [facility] [address] [id number] [address] [place] [address] 17 Dec, 2013 [facility] [address] [id number] [address] [place] [address] 05 Dec, 2013 [facility] [address] [id number] [address] [place] [address] 05 Dec, 2013 [facility] [address] [id number] [address] [place] [address] 04 Dec, 2013 [facility] [address] [id number] [address] [place] [address] 04 Dec, 2013 [facility] [address] [id number] [address] [place] [address] 02 Dec, 2013 [facility] [address] [id number] [address] [place] [address] Dec, [facility] [address] [id number] [address] [place] [address] Nov, [facility] [address] [id number] [facility] [place] [address] Nov, [facility] [address] [id number] [address] [place] [address], [place] [address] Nov, [facility] [address] [id number] [address] [place] [address], [place] [address] Nov, [facility] [address] [id number] [address] [place] [address], [place] [address] Nov, [facility] [address] [id number] [address] [place] [address], [place] [address] Jul, [facility] [address] [id number] [address] [place] [address], [place] [address] Jul, [facility] [address] [id number] [address] [place] [address], [place] [address] Jul, [facility] [address] [id number] [address] [place] [address], [place] [address] 28 Jun, 2012 [facility] [address] [id number] [address] [place] [address], [place] [address] 22 Jun, 2012 [facility] [address] [id number] [address] [place] [address], [place] [address] 19 Jun, 2012 [facility] [address] [id number] [address] [place] [address], [place] [address] 19 Jun, 2012 [facility] [address] [id number] [address] [place] [address], [place] [address] 18 Jun, 2012 [facility] [address] [id number] [address] [place] [address], [place] [address] 14 Jun, 2012 [facility] [address] [id number] [address] [place] [address], [place] [address] 13 Jun, 2012 [facility] [address] [id number] [address] [place] [address], [place] [address] 12 Jun, 2012 [facility] [address] [id number] [address] [place] [address], [place] [address] August, [facility] [address] [facility] [id number] [address] [place] [address] Jun, [facility] [address] [facility] [id number] [address] [place] [address] Jun, [facility] [address] [facility] [id number] [address] [place] [address] Jun, [facility] [address] [facility] [id number] [address] [place] [address] Jun, [facility] [address] [facility] [id number] [address] [place] [address] Mar, [facility] [address] [facility] [id number] [address] [place] [address] Mar, IMMUNIZATIONS No Known Immunizations SOCIAL HISTORY Never Assessed REASON FOR VISIT jury duty letter PLAN OF CARE VITAL SIGNS MEDICATIONS Unknown [...]
--- OUTSIDE RECORDS SUMMARY | 2019-06-23 15:05 | XMS REPORT ---
Author Author Shirley HEALY [facility] [employer] Address Unknown Phone Unavailable Care Team Providers Care Hair Rooting Machine Operator Name Role Phone ALFREDITO HEALY CP Unavailable Allergies No Known Allergies Problems Problem Type Condition Code Onset Dates Condition Statu s Problem Cutaneous horn L85.8 Active Problem Skin tag L91.8 Active Medications No Known Medications Results No Known Results Summary Purpose [employer] Submission
--- OUTSIDE RECORDS SUMMARY | 2019-06-23 15:05 | XMS REPORT ---
Author Author Shirley KENNEDY [facility] [employer] Address Unknown Phone Unavailable Care Team Providers Care Hand Tube Bender Name Role Phone OPAL KENNEDY CP Unavailable Allergies, Adverse Reactions, Alerts Substance Reaction Event Type surgical tape Info Not Available Non Drug Allergy Problems Problem Type Condition Code Onset Dates Condition Statu s Assessment Poison verónica L23.7 Active Assessment Benign essential hypertension I10 Active Problem Breast cancer screening Z12.39 Acti ve Problem Colon cancer screening Z12.11 Activ e Problem Gynecologic exam normal Z01.419 Acti ve Problem Skin tag L91.8 Active Problem Cutaneous horn L85.8 Active Problem Essential hypertension with goal blood pressure less t schrader 140\/90 I10 Active Problem Psoriasis L40.9 Active Medications Medication Code System Code Instructions Start Date End Date Status Dosage ZyrTEC NDC 0 10 mg Dec 25, 2013 1 tablet b y Oral route 1 time per day ProAir [facility] 2001 [address]-53 90 mcg/actuation Dec 25, 2013 inhale 2 puffs by Inhalation route every 4 hours as needed PRN shortness of breath/cough Lorazepam [facility] [address]-89 0.5 mg Feb 05, 2014 1 Tablet by Oral route 1 time per day PRN severe anxiety Acyclovir [facility] 2001 [id number] 200MG TAKE ONE C APSULE BY MOUTH ONCE DAILY Fetzima [facility] [address]-14 80 MG Orally Once a day 1 capsule Flonase [facility] [address]-47 50 mcg/actuation Dec 25, 2013 1 sprays by Nasal route 2 times per day for 7 days in each nostril Procedures Procedure Coding System Code Date Office Visit, Est Pt., Level 3 CPT-4 54197 J [facility] 2015 Vital Signs Date/Time: October 23, 2015 Cardiac Monitoring Heart Rate 103 bpm Weight 197.6 lbs Height 68 in Blood Pressure Diastolic 90 mmHg Blood Pressure Systolic 164 mmHg Results No Known Results Summary Purpose eClinicalWorks Submission
--- OUTSIDE RECORDS SUMMARY | 2019-06-23 15:05 | XMS REPORT ---
Author Author Shirley HEALY Organization 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 Name Role Phone ALFREDITO HEALY Unavailable PROBLEMS Type Condition ICD9-CM Code LKH12-ID Code Onset Dates Condition S tatus SNOMED Code Problem Skin tag L91.8 Active 147917618 Problem Cutaneous horn L85.8 Active 38894 1001 Problem Gynecologic exam normal Z01.419 Active 299440235 Problem Colon cancer screening Z12.11 Active 646876857 Problem Breast cancer screening Z12.39 Active 956569407 Problem Psoriasis L40.9 Active 1887736 Problem Dysthymia F34.1 Active 52009273 Problem High risk medication use Z79.899 Activ e 911410009267692 Problem Melanocytic nevus of trunk D22.5 Act ilia 947733462 Problem Hypertension I10 Active 8890989 3 Problem Herpes simplex vulvovaginitis A60.04 Active 49708438 Problem Major depressive disorder, recurrent, moderate F33 .1 Active 410740532 Problem Essential hypertension with goal blood pressure less t schrader 140\/90 I10 Active 84035504 Problem Mixed hyperlipidemia E78.2 Active 077036647 Problem Acute bronchitis, unspecified organism J20.9 Active 68173650 Problem External hemorrhoid K64.4 Active 86781650 Problem Mary-rectal abscess K61.1 Active 18136836 ALLERGIES No Information ENCOUNTERS Encounter Location Date Diagnosis [facility] [place] [address] [facility] [id number] [address] [place] [address] Jan, [facility] [place] [address] [facility] [id number] [address] [place] [address] Nov, Major depressive disorder, r ecurrent, moderate F33.1 [facility] [address] [facility] [id number] [address] [place] [address] Nov, Non-recurrent acute suppurat ilia otitis media of left ear without spontaneous rupture of tympanic membrane H66.002 [facility] [address] [id number][place] [id number] Jul, Seborrheic keratoses, inflamed L82.0 ; S erous otitis media H65.90 and Hypertension I10 [facility] [address] [id number], [place] [id number] May, [facility] [address] [facility] [address] [id number], [place] [id number] Feb, [facility] [address] [id number], [place] [id number] Jan, Mary-rectal abscess K61.1 and External h emorrhoid K64.[address] [id number], [place] [id number] Jan, Essential hypertension with goal blood p ressure less than 140\/90 I10 ; Dysthymia F34.1 and Noncompliance Z91.[address] [id number], [place] [id number] Dec, Dysthymia F34.1 [facility] [place] [address] [facility] [id number] [place] [address] Oct, Dysthymia F34.1 [facility] [address] [id number], [place] [address]1722 August, Essential hypertension with goal blood p ressure less than 140\/90 I10 ; Mixed hyperlipidemia E78.2 and Acute bronchitis, unspecified organism J20.[address] [id number], [place] [id number] Jul, Dental examination Z01.20 and Dental car ies K02.9 [facility] [address] [id number], [place] [address] Jun, Essential hypertension with goal blood p ressure less than 140\/90 I10 and Melanocytic nevus of trunk D22.[address] [facility] [address] [id number] [place] [id number] Jun, [facility] [address] [facility] [id number] [address] [address] Jun, Dysthymia F34.[address] [facility] [address] [id number] [place] [id number] May, [facility] [address] [id number] [place] [id number] Mar, [facility] [address] [id number] [place] [id number] Mar, Herpes simplex vulvovaginitis A60.[address] [facility] [address] [id number] [place] [id number] Mar, [facility] [address] [id number], [place] 686295285 Mar, High risk medication use Z79.899 ; Dysth ymia F34.1 and Essential hypertension with goal blood pressure less than 140\/90 I[address] [facility] [address] [id number] [place] [address] Jan, Dysthymia F34.[address] [facility] [address] [id number] [place] 533[address]246 Jan, High risk medication use Z79.899 and Dys thymia F34.[address] [facility] [address] [id number] [place] [id number] Dec, [facility] [address] [id number] [place] [address] Dec, [facility] [address] [id number] [place] 914216507 Dec, High risk medication use Z79.899 ; Dysth ymia F34.1 and Essential hypertension with goal blood pressure less than 140\/90 I[address] [facility] [address] [id number], [place] [id number] Nov, [facility] [address] [id number], [place] [id number] Feb, Herpes simplex vulvovaginitis A60.04 [facility] [address] [id number], [place] [id number] Oct, [facility] [address] [id number], [place] 545459602 Oct, Poison verónica L23.7 and Benign essential hy pertension I10 [facility] [address] [id number], [place] [id number] Sep, [facility] [address] [id number], [place] [address]68[address] August, [facility] [address] [facility] [address] [id number], [place] [id number] August, Gynecologic exam normal Z01.419 ; Breast cancer screening Z12.39 ; Colon cancer screening Z12.11 ; Essential hypertension with goal blood pressure less than 140\/90 I10 and Psoriasis L40.9 [facility] [address] [id number], [place] 159220197 Jul, [facility] [address] [id number], [place] [address] Jun, Skin tag L91.8 ; Cutaneous horn L85.8 an d Essential hypertension with goal blood pressure less than 140\/90 I10 [facility] [address] [id number], [place] [id number] May, Ear ache H92.09 ; Upper respiratory infe ction J06.9 and Impacted cerumen of right ear H61.21 [facility] [address] [id number], [place] 017953339 Feb, Rhinitis J31.0 ; Hoarseness or changing voice R49.9 and Sinusitis J32.9 [facility] [address] [id number], [place] [id number] 14 Jan, 2015 [facility] [address] [facility] [address] [id number], [place] [address] Jan, Physical exam, pre-employment Z02.1 and Encounter for PPD test Z11.1 [facility] [address] [id number] [address] [place] [address] Jul, [facility] [address] [id number] [address] [place] [address] Jul, [facility] [address] [id number] [address] [place] [phone] Jan, [facility] [address] [id number] [address] [place] [address] Jan, [facility] [address] [id number] [address] [place] [address] Jan, [facility] [address] [id number] [address] [place] [address] Jan, [facility] [address] [id number] [address] [place] [address] Dec, [facility] [address] [id number] [address] [place] [address] Dec, [facility] [address] [id number] [address] [place] [address] Dec, [facility] [address] [id number] [address] [place] [phone] 05 Dec, 2013 [facility] [address] [id number] [address] [place] [address] Dec, [facility] [address] [id number] [address] [place] [address] Dec, [facility] [address] [id number] [address] [place] [address] Dec, [facility] [address] [id number] [address] [place] [address] [place] [address] Dec, [facility] [address] [id number] [address] [place] [address], [place] [address] Nov, [facility] [address] [id number] [address] [place] [address], [place] [address] Nov, [facility] [address] [id number] [address] [place] [address], [place] [address] Nov, [facility] [address] [id number] [address] [place] [address], [place] [address] Nov, [facility] [address] [id number] [address] [place] [address], [place] [address] Nov, [facility] [address] [id number] [address] [place] [address], [place] [address] Jul, [facility] [address] [id number] [address] [place] [address], [place] [address] 08 Jul, 2012 [facility] [address] [id number] [address] [place] [address], [place] [address] 04 Jul, 2012 [facility] [address] [id number] [address] [place] [address], [place] [address] 28 Jun, 2012 [facility] [address] [id number] [address] [place] [address], [place] [address] 22 Jun, 2012 [facility] [address] [id number] [address] [place] [address], [place] [address] 19 Jun, 2012 [facility] [address] [id number] [address] [place] [address], [place] [address] 19 Jun, 2012 [facility] [address] [id number] [address] [place] [address], [place] [address] 18 Jun, 2012 [facility] [address] [id number] [address] [place] [address], [place] [address] 14 Jun, 2012 [facility] [address] [id number] [address] [place] [address], [place] [address] 13 Jun, 2012 [facility] [place] [address] [id number] [address] [place] [address] Jun, [facility] [place] [address] [id number] [address] [place] [address] August, [facility] [place] [address] [id number] [address] [place] [phone] Jun, [facility] [place] [address] [facility] [id number] [address] [place] [phone] Jun, [facility] [place] [address] [facility] [id number] [address] [place] [address] Jun, [facility] [place] [address] [facility] [id number] [address] [place] [address] Jun, [facility] [place] [address] [facility] [id number] [address] [place] [address] Mar, [facility] [place] [address] [facility] [id number] [address] [place] [address] Mar, IMMUNIZATIONS No Known Immunizations SOCIAL HISTORY [...]
--- OUTSIDE RECORDS SUMMARY | 2019-06-23 15:05 | XMS REPORT ---
Author Author Shirley HEALY Organization [facility] Address [address] [place] [address] Care Team Providers Care [employer] Leader Name Role Phone ALFREDITO HEALY Unavailable PROBLEMS Type Condition ICD9-CM Code UHU16-MD Code Onset Dates Condition S tatus SNOMED Code Problem Skin tag L91.8 Active 373448389 Problem Cutaneous horn L85.8 Active 48259 1001 Problem Gynecologic exam normal Z01.419 Active 756521331 Problem Colon cancer screening Z12.11 Active 821583896 Problem Breast cancer screening Z12.39 Active 532844347 Problem Psoriasis L40.9 Active 1422385 Problem Dysthymia F34.1 Active 98982604 Problem High risk medication use Z79.899 Activ e 495288126675461 Problem Melanocytic nevus of trunk D22.5 Act ilia 958587254 Problem Hypertension I10 Active 1056771 3 Problem Herpes simplex vulvovaginitis A60.04 Active 39375604 Problem Major depressive disorder, recurrent, moderate F33 .1 Active 338560362 Problem Essential hypertension with goal blood pressure less t schrader 140\/90 I10 Active 91237274 Problem Mixed hyperlipidemia E78.2 Active 833957197 Problem Acute bronchitis, unspecified organism J20.9 Active 35353803 Problem External hemorrhoid K64.4 Active 03952397 Problem Mary-rectal abscess K61.1 Active 51225370 ALLERGIES No Information ENCOUNTERS Encounter Location Date Diagnosis [facility] [address] [facility] [id number] [address] [place] [address] Jan, [facility] [address] [facility] [id number] [address] [place] [address] Nov, Major depressive disorder, r ecurrent, moderate F33.1 [facility] [address] [facility] [id number] [address] [place] [address] Nov, Non-recurrent acute suppurat ilia otitis media of left ear without spontaneous rupture of tympanic membrane H66.002 [facility] [address] [id number] [place] [id number] Jul, Seborrheic keratoses, inflamed L82.0 ; S erous otitis media H65.90 and Hypertension I10 [facility] [address] [id number] [place] [id number] May, [facility] [address] [facility] [address] [id number] [place] [id number] Feb, [facility] [address] [id number] [place] [address] Jan, Mary-rectal abscess K61.1 and External h emorrhoid K64.[address] [id number] [place] [id number] Jan, Essential hypertension with goal blood p ressure less than 140\/90 I10 ; Dysthymia F34.1 and Noncompliance Z91.[address] [id number] [place] [id number] Dec, Dysthymia F34.1 [facility] [address] [facility] [id number] [place] [address] Oct, Dysthymia F34.1 [facility] [address] [id number] [place] [id number] August, Essential hypertension with goal blood p ressure less than 140\/90 I10 ; Mixed hyperlipidemia E78.2 and Acute bronchitis, unspecified organism J20.[address] [id number] [place] [id number] Jul, Dental examination Z01.20 and Dental car ies K02.9 [facility] [address] [id number] [place] [id number] Jun, Essential hypertension with goal blood p ressure less than 140\/90 I10 and Melanocytic nevus of trunk D22.[address] [facility] [address] [id number] [place] [id number] Jun, [facility] [address] [facility] [id number] [address] [address] Jun, Dysthymia F34.[address] [facility] [address] [id number] [place] [id number] May, [facility] [address] [id number] [place] [id number] Mar, [facility] [address] [id number] [place] [id number] Mar, Herpes simplex vulvovaginitis A60.[address] [facility] [address] [id number] [place] [address]55[address] Mar, [facility] [address] [id number] [place] [id number] Mar, High risk medication use Z79.899 ; Dysth ymia F34.1 and Essential hypertension with goal blood pressure less than 140\/90 [address] [facility] [address] [id number] [place] [id number] Jan, Dysthymia F34.[address] [facility] [address] [id number] [place] [id number] Jan, High risk medication use Z79.899 and Dys thymia F34.[address] [facility] [address] [id number] [place] [address]976555[address] Dec, [facility] [address] [id number] [place] [id number] Dec, [facility] [address] [id number] [place] [id number] Dec, High risk medication use Z79.899 ; Dysth ymia F34.1 and Essential hypertension with goal blood pressure less than 140\/90 I[address] [facility] [address] [id number] [place] [id number] Nov, [facility] [address] [id number] [place] 101[address] Feb, Herpes simplex vulvovaginitis A60.04 [facility] [address] [id number] [place] [id number] Oct, [facility] [address] [id number] [place] [address] Oct, Poison verónica L23.7 and Benign essential hy pertension I10 [facility] [address] [id number] [place] [address] Sep, [facility] [address] [id number] [place] [id number] August, [facility] [address] [facility] [address] [id number] [place] [address] August, Gynecologic exam normal Z01.419 ; Breast cancer screening Z12.39 ; Colon cancer screening Z12.11 ; Essential hypertension with goal blood pressure less than 140\/90 I10 and Psoriasis L40.9 [facility] [address] [id number] [place] [id number] Jul, [facility] [address] [id number] [place] [id number] Jun, Skin tag L91.8 ; Cutaneous horn L85.8 an d Essential hypertension with goal blood pressure less than 140\/90 I10 [facility] [address] [id number] [place] [address] May, Ear ache H92.09 ; Upper respiratory infe ction J06.9 and Impacted cerumen of right ear H61.21 [facility] [address] [id number] [place] [id number] Feb, Rhinitis J31.0 ; Hoarseness or changing voice R49.9 and Sinusitis J32.9 [facility] [address] [id number] [place] [id number] 14 Jan, 2015 [facility] [address] [address] [facility] [address] [id number] [place] [id number] Jan, Physical exam, pre-employment Z02.1 and Encounter for PPD test Z11.1 [facility] [address] [id number] [address] [place] [address] Jul, [facility] [address] [id number] [address] [place] [address] Jul, [facility] [address] [id number] [address] [place] [address] Jan, [facility] [address] [id number] [address] [place] [address] Jan, [facility] [address] [id number] [address] [place] [address] Jan, [facility] [address] [id number] [address] [place] [address] Jan, [facility] [address] [id number] [address] [place] [address] Dec, [facility] [address] [id number] [address] [place] [address] Dec, [facility] [address] [id number] [address] [place] [address] Dec, [facility] [address] [id number] [address] [place] [address] 05 Dec, 2013 [facility] [address] [id number] [address] [place] [address] Dec, [facility] [address] [id number] [address] [place] [address] Dec, [facility] [address] [id number] [address] [place] [address] Dec, [facility] [address] [id number] [address] [place] [address] [place] [address] Dec, [facility] [address] [id number] [address] [place] [address], [place] [address] Nov, [facility] [address] [id number] [address] [place] [address], [place] [address] Nov, [facility] [address] [id number] [address] [place] [address], [place] [address] Nov, [facility] [address] [id number] [address] [place] [address], [place] [address] Nov, [facility] [address] [id number] [address] [place] [address], [place] [address] Nov, [facility] [address] [id number] [address] [place] [address], [place] [address] Jul, [facility] [address] [id number] [address] [place] [address], [place] [address] 08 Jul, 2012 [facility] [address] [id number] [address] [place] [address], [place] [address] 04 Jul, 2012 [facility] [address] [id number] [address] [place] [address], [place] [address] 28 Jun, 2012 [facility] [address] [id number] [address] [place] [address], [place] [address] 22 Jun, 2012 [facility] [address] [id number] [address] [place] [address], [place] [address] 19 Jun, 2012 [facility] [address] [id number] [address] [place] [address], [place] [address] 19 Jun, 2012 [facility] [address] [id number] [address] [place] [address], [place] [address] 18 Jun, 2012 [facility] [address] [id number] [address] [place] [address], [place] [address] 14 Jun, 2012 [facility] [address] [id number] [address] [place] [address], [place] [address] 13 Jun, 2012 [facility] [address] [id number] [address] [place] [id number] Jun, [facility] [address] [id number] [address] [place] [id number] August, [facility] [address] [id number] [address] [place] [id number] Jun, [facility] [address] [facility] [id number] [address] [place] [id number] Jun, [facility] [address] [facility] [id number] [address] [place] [id number] Jun, [facility] [address] [facility] [id number] [address] [place] [id number] Jun, [facility] [address] [facility] [id number] [address] [place] [id number] Mar, [facility] [address] [facility] [id number] [address] [place] [id number] Mar, IMMUNIZATIONS No Known Immunizations SOCIAL HISTORY [...]
--- OUTSIDE RECORDS SUMMARY | 2019-06-23 15:06 | XMS REPORT ---
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 Name Role Phone ALFREDITO HEALY Unavailable PROBLEMS Type Condition ICD9-CM Code PEP79-BI Code Onset Dates Condition S tatus SNOMED Code Problem Gynecologic exam normal Z01.419 Active 170868076 Problem Psoriasis L40.9 Active 9311453 Problem Colon cancer screening Z12.11 Active 722079356 Problem Skin tag L91.8 Active 955048226 Problem Cutaneous horn L85.8 Active 72081 1001 Problem Melanocytic nevus of trunk D22.5 Act ilia 870533503 Problem High risk medication use Z79.899 Activ e [id number] Problem Essential hypertension with goal blood pressure less t schrader 140\/90 I10 Active 15308041 Problem Breast cancer screening Z12.39 Active 572485688 Problem Dysthymia F34.1 Active 64302298 Problem Herpes simplex vulvovaginitis A60.04 Active 52872668 ALLERGIES No Information ENCOUNTERS Encounter Location Date Diagnosis [facility] [address] [id number] [id number] August, [facility] [address] [id number] [id number] Jul, Dental examination Z01.20 and Dental car ies K02.9 [facility] [address] [id number] [id number] Jun, Essential hypertension with goal blood p ressure less than 140\/90 I10 and Melanocytic nevus of trunk D22.5 [facility] [address] [id number] [id number] Jun, [facility] [address] [facility] [id number] [address] [place] [address] Jun, Dysthymia F34.[address] [facility] [address] [id number] [place] [id number] May, [facility] [address] [id number] [place] [id number] Mar, [facility] [address] [id number] [place] [id number] Mar, Herpes simplex vulvovaginitis A60.[address] [facility] [address] [id number] [place] [id number] Mar, [facility] [address] [id number] [id number] Mar, High risk medication use Z79.899 ; Dysth ymia F34.1 and Essential hypertension with goal blood pressure less than 140\/90 [address] [facility] [address] [id number] [place] [address] Jan, Dysthymia F34.[address] [facility] [address] [id number], [place] [address]54[address] Jan, High risk medication use Z79.899 and Dys thymia F34.[address] [facility] [address] [id number] [place] [id number] Dec, [facility] [address] [id number] [place] [id number] Dec, [facility] [address] [id number], [place] [id number] Dec, High risk medication use Z79.899 ; Dysth ymia F34.1 and Essential hypertension with goal blood pressure less than 140\/90 I[address] [facility] [address] [id number] [place] [id number] Nov, [facility] [address] [id number], [place] [id number] Feb, Herpes simplex vulvovaginitis A60.04 [facility] [address] [place] [address] AVE [id number], [place] [id number] Oct, [facility] [address] [place] [address] AVE [id number], [place] [id number] Oct, Poison verónica L23.7 and Benign essential hy pertension I10 [facility] SHAWEverpixBUCIO [employer] [place] [address] AVE [id number], [place] [id number] Sep, [facility] [address] [place] [address] AVE [id number], [place] [id number] August, [facility] SHAWEverpixBUCIO[address] [id number], [place] [id number] August, Gynecologic exam normal Z01.419 ; Breast cancer screening Z12.39 ; Colon cancer screening Z12.11 ; Essential hypertension with goal blood pressure less than 140\/90 I10 and Psoriasis L40.9 [facility] SHAWEverpixBUCIO[address] [id number], [place] [id number] Jul, [facility] SHAWEverpixBUCIO[address] [id number], [place] [id number] Jun, Skin tag L91.8 ; Cutaneous horn L85.8 an d Essential hypertension with goal blood pressure less than 140\/90 I10 [facility] Florida[facility] [employer] [place] [address] AVE [id number], [place] [id number] May, Ear ache H92.09 ; Upper respiratory infe ction J06.9 and Impacted cerumen of right ear H61.21 [facility] SHAWEverpixBUCIO [employer] [place] [address] AVE [id number], [place] [id number] Feb, Rhinitis J31.0 ; Hoarseness or changing voice R49.9 and Sinusitis J32.9 [facility] SHAWEverpixBUC[address] [id number], [place] [id number] Jan, [facility] SHAWEverpixBUCIO [employer] A[address] [id number], [place] [id number] Jan, Physical exam, pre-employment Z02.1 and Encounter for PPD test Z11.1 [facility] [address] [id number] [address] [place] [address], [place] [address] 14 Jul, 2014 [facility] [address] [id number] [address] [place] [address] Jul, [facility] [address] [id number] [address] [place] [address] Jan, [facility] [address] [id number] [address] [place] [address] Jan, [facility] [address] [id number] [address] [place] [address], [place] [address] Jan, [facility] [address] [id number] [address] [place] [address] Jan, [facility] [address] [id number] [address] [place] [address] Dec, [facility] [address] [id number] [address] [place] [address] 17 Dec, 2013 [facility] [address] [id number] [address] [place] [phone] 05 Dec, 2013 [facility] [address] [id number] [address] [place] [address] 05 Dec, 2013 [facility] [address] [id number] [address] [place] [address] 04 Dec, 2013 [facility] [address] [id number] [address] [place] [phone] 04 Dec, 2013 [facility] [address] [id number] [address] [place] [phone] 02 Dec, 2013 [facility] [address] [id number] [address] [place] [address] Dec, [facility] [address] [id number] [address] [place] [phone] Nov, [facility] [address] [id number] [facility] [place] [address] Nov, [facility] [address] [id number] [address] [place] [address], [place] [address] Nov, [facility] [address] [id number] [address] [place] [address], [place] [address] Nov, [facility] [address] [id number] [address] [place] [address], [place] [address] Nov, [facility] [address] [id number] [address] [place] [address], [place] [address] Jul, [facility] [address] [id number] [address] [place] [address], [place] [address] Jul, [facility] [address] [id number] [address] [place] [address], [place] [address] Jul, [facility] [address] [id number] [address] [place] [address], [place] [address] 28 Jun, 2012 [facility] [address] [id number] [address] [place] [address], [place] [address] 22 Jun, 2012 [facility] [address] [id number] [address] [place] [address], [place] [address] 19 Jun, 2012 [facility] [address] [id number] [address] [place] [address], [place] [address] 19 Jun, 2012 [facility] [address] [id number] [address] [place] [address], [place] [address] 18 Jun, 2012 [facility] [address] [id number] [address] [place] [address], [place] [address] 14 Jun, 2012 [facility] [address] [id number] [address] [place] [address], [place] [address] 13 Jun, 2012 [facility] [address] [id number] [address] [place] [address], [place] [address] 12 Jun, 2012 [facility] [address] [id number] [address] [place] [address], [place] [address] August, [facility] [address] [facility] [id number] [address] [place] [address] Jun, [facility] [address] [facility] [id number] [address] [place] [address] Jun, [facility] [address] [facility] [id number] [address] [place] [phone] Jun, [facility] [address] [facility] [id number] [address] [place] [address] Jun, [facility] [address] [facility] [id number] [address] [place] [address] Mar, [facility] [address] [facility] [id number] [address] [place] [address] Mar, IMMUNIZATIONS No Known Immunizations SOCIAL HISTORY Never Assessed REASON FOR VISIT Medication refill request PLAN OF CARE VITAL SIGNS MEDICATIONS Medication Instructions Dosage Frequency Start Date End Date Duration S tatus Sertraline HCl 50 mg Orally 1/2 tablet daily for 1 week, the n 1 tablet daily as directed Nov, Active RESULTS No Results PROCEDURES No [...]
--- OUTSIDE RECORDS SUMMARY | 2019-06-23 15:06 | XMS REPORT ---
Author Author Shirley HEALY Organization [facility] Address [address] [place] [address] Care Team Providers Care Bad Credit Collector Name Role Phone ALFREDITO HEALY Unavailable PROBLEMS Type Condition ICD9-CM Code PFZ17-ZL Code Onset Dates Condition S tatus SNOMED Code Problem Psoriasis L40.9 Active 8243926 Problem Colon cancer screening Z12.11 Active 400829641 Problem Breast cancer screening Z12.39 Active 491115683 Problem Skin tag L91.8 Active 536914271 Problem Cutaneous horn L85.8 Active 52459 1001 Problem Essential hypertension with goal blood pressure less t schrader 140\/90 I10 Active 43358236 Problem Gynecologic exam normal Z01.419 Active 229914504 Problem Mixed hyperlipidemia E78.2 Active 828566426 Problem Acute bronchitis, unspecified organism J20.9 Active 12374932 Problem Dysthymia F34.1 Active 09484035 Problem Herpes simplex vulvovaginitis A60.04 Active 86800239 Problem Melanocytic nevus of trunk D22.5 Act ilia 756339327 Problem High risk medication use Z79.899 Activ e [id number] ALLERGIES Substance Reaction Event Type Date Status surgical tape Unknown Non Drug Allergy Mar, Active ENCOUNTERS Encounter Location Date Diagnosis [place] [id number] [facility] [address] [id number] [id number] August, Essential hypertension with goal blood p ressure less than 140\/90 I10 ; Mixed hyperlipidemia E78.2 and Acute bronchitis, unspecified organism J20.[address] [id number], [place] [id number] Jul, Dental examination Z01.20 and Dental car ies K02.[address] [id number], [place] 5378828[address] Jun, Essential hypertension with goal blood p ressure less than 140\/90 I10 and Melanocytic nevus of trunk D22.[address] [facility] [address] [id number] [place] [id number] Jun, [facility] [address] [facility] [id number] 100[place] [address] Jun, Dysthymia F34.[address] [facility] [address] [id number] [place] [id number] May, [facility] [address] [id number] [place] [id number] Mar, [facility] [address] [id number] [place] [id number] Mar, Herpes simplex vulvovaginitis A60.[address] [facility] [address] [id number] [place] [address] Mar, [facility] [address] [id number], [place] [id number] Mar, High risk medication use Z79.899 ; Dysth ymia F34.1 and Essential hypertension with goal blood pressure less than 140\/90 I[address] [facility] [address] [id number] [place] [id number] Jan, Dysthymia F34.[address] [facility] [address] [id number] [place] [address] Jan, High risk medication use Z79.899 and Dys thymia F34.[address] [facility] [address] [address] [id number] [place] [id number] Dec, [facility] [address] [id number] [place] [id number] Dec, [facility] [address] [id number] [place] [id number] Dec, High risk medication use Z79.899 ; Dysth ymia F34.1 and Essential hypertension with goal blood pressure less than 140\/90 I10 [facility] [address] [id number], [place] [id number] Nov, [facility] [address] [id number], [place] [id number] Feb, Herpes simplex vulvovaginitis A60.04 [facility] [address] [id number], [place] [id number] Oct, [facility] [address] [id number], [place] [id number] Oct, Poison verónica L23.7 and Benign essential hy pertension I10 [facility] [address] [id number], [place] [id number] Sep, [facility] [id number], [place] [id number] August, [facility] [id number], [place] [address] August, Gynecologic exam normal Z01.419 ; Breast cancer screening Z12.39 ; Colon cancer screening Z12.11 ; Essential hypertension with goal blood pressure less than 140\/90 I10 and Psoriasis L40.9 [facility] [address] [id number], [place] [id number] Jul, [facility] [id number], [place] [id number] Jun, Skin tag L91.8 ; Cutaneous horn L85.8 an d Essential hypertension with goal blood pressure less than 140\/90 I10 [facility] [address] [id number], [place] [address]3548[address] May, Ear ache H92.09 ; Upper respiratory infe ction J06.9 and Impacted cerumen of right ear H61.21 [facility] [address] [id number], [place] [address]272675 Feb, Rhinitis J31.0 ; Hoarseness or changing voice R49.9 and Sinusitis J32.9 [facility] [address] [id number], [place] [id number] Jan, [facility] [address] [id number], [place] [id number] Jan, Physical exam, pre-employment Z02.1 and Encounter for PPD test Z11.1 [facility] [address] [id number] [address] [place] [address] Jul, [facility] [address] [id number] [address] [place] [address] Jul, [facility] [address] [id number] [address] [place] [address] Jan, [facility] [address] [id number] [address] [place] [address] Jan, [facility] [address] [id number] [address] [place] [address] Jan, [facility] [address] [id number] [address] [place] [address] Jan, [facility] [address] [id number] [address] [place] [address] Dec, [facility] [address] [id number] [address] [place] [address] Dec, [facility] [address] [id number] [address] [place] [address] Dec, 2013 [facility] [address] [id number] [address] [place] [address] 05 Dec, 2013 [facility] [address] [id number] [address] [place] [address] Dec, [facility] [address] [id number] [address] [place] [address] Dec, 2013 [facility] [address] [id number] [address] [place] [address] Dec, [facility] [address] [id number] [address] [place] [address], [place] [address] Dec, [facility] [address] [id number] [address] [place] [address], [place] [address] Nov, [facility] [address] [id number] [address] [place] [address], [place] [address] Nov, [facility] [address] [id number] [address] [place] [address], [place] [address] Nov, [facility] [address] [id number] [address] [place] [address], [place] [address] Nov, [facility] [address] [id number] [address] [place] [address], [place] [address] Nov, [facility] [address] [id number] [address] [place] [address], [place] [address] Jul, [facility] [address] [id number] [address] [place] [address], [place] [address] 08 Jul, 2012 [facility] [address] [id number] [address] [place] [address], [place] [address] 04 Jul, 2012 [facility] [address] [id number] [address] [place] [address], [place] [address] 28 Jun, 2012 [facility] [address] [id number] [address] [place] [address], [place] [address] 22 Jun, 2012 [facility] [address] [id number] [address] [place] [address], [place] [address] 19 Jun, 2012 [facility] [address] [id number] [address] [place] [address], [place] [address] 19 Jun, 2012 [facility] [address] [id number] [address] [place] [address], [place] [address] 18 Jun, 2012 [facility] [address] [id number] [address] [place] [address], [place] [address] 14 Jun, 2012 [facility] [address] [id number] [address] [place] [address] 13 Jun, 2012 [facility] [address] [id number] [address] [place] [address] Jun, [facility] [address] [id number] [address] [place] [address] August, [facility] [address] [id number] [address] [place] [address] Jun, [facility] [address] [id number] [address] [place] [address] Jun, [facility] [address] [id number] [address] [place] [address] Jun, [facility] [address] [id number] [address] [place] [address] Jun, [facility] [address] [id number] [address] [place] [address] Mar, [facility] [address] [id number] [address] [place] [address] Mar, IMMUNIZATIONS No Known Immunizations SOCIAL HISTORY Never Assessed REASON FOR VISIT Anxiety- Cordelia CALL PLAN OF CARE Activity Details Follow Up 6 Weeks-40 minute appt Reaso n:mole removal VITAL SIGNS Height 68 in 2017-03-14 Weight 203.5 lbs 2017-03-14 Temperature 97.9 degrees Fahrenheit 2017-03-14 Heart Rate 72 bpm 2017-03-14 Respiratory Rate 18 2017-03-14 BMI 30.94 kg/m2 2017-03-14 Blood pressure systolic 158 mmHg 2017-03-14 Blood pressure diastolic 98 mmHg 2017-03-14 MEDICATIONS Medication Instructions Dosage Frequency Start Date End Date Duration S tatus Lisinopril 10 mg Orally Once a day 1 tablet 24h Mar, Active Metoprolol Succinate ER 50 mg Orally Once a day 1 tablet 24h Dec, Active Acyclovir 200MG TAKE ONE CAPSULE BY MOUTH ONCE DAILY 30 Active Lorazepam 0.5 mg Orally 2 times a day as needed for anxiety 1 table t Jan, Active Fetzima 80 MG Orally Once a day 1 capsule 24h Not-Taking ProAir HFA 90 mcg/actuation inhale 2 puf fs by Inhalation route every 4 hours as needed PRN shortness of breath/cough Dec, Not-Taking Sertraline HCl 100 mg Orally Once a day 1 tablet 24h Nov, Active ZyrTEC 10 mg 1 tablet by Oral route 1 time per day 2013 Not-Taking Flonase 50 mcg/actuation 1 sprays by Momo al route 2 times per day for 7 days in each nostril Dec, Not-Taking Acyclovir 400 MG Orally Three times a day 1 tablet 8h 20 Sep, 2015 Not-Taking RESULTS No Results PROCEDURES Procedure Date Ordered Result Body Site LIPID PANEL Mar 14, 2017 ASSAY THYROID STIM HORMONE Mar 14, 2017 VENIPUNCT, ROUTINE* Mar 14, 2017 COMPREHEN METABOLIC PANEL Mar 14, 2017 ASSAY OF FREE THYROXINE Mar 14, 2017 COMPLETE CBC W/AUTO DIFF WBC Mar 14, 2017 INSTRUCTIONS MEDICATIONS ADMINISTERED No Known Medications [...]
--- OUTSIDE RECORDS SUMMARY | 2019-06-23 15:06 | XMS REPORT ---
Author Author Shirley HEALY Organization [facility] Address [address] [place] [address] Care Team Providers Care Model Builder Name Role Phone ALFREDITO HEALY Unavailable PROBLEMS Type Condition ICD9-CM Code [id number] Code Onset Dates Condition S tatus SNOMED Code Problem Psoriasis L40.9 Active 9880979 Problem Colon cancer screening Z12.11 Active 097971824 Problem Breast cancer screening Z12.39 Active 788141600 Problem Skin tag L91.8 Active 836519236 Problem Cutaneous horn L85.8 Active 54855 1001 Problem Essential hypertension with goal blood pressure less t schrader 140\/90 I10 Active 73324009 Problem Gynecologic exam normal Z01.419 Active 907591153 Problem Mixed hyperlipidemia E78.2 Active 714231461 Problem Acute bronchitis, unspecified organism J20.9 Active 22037251 Problem Dysthymia F34.1 Active 68542995 Problem Herpes simplex vulvovaginitis A60.04 Active 23371313 Problem Melanocytic nevus of trunk D22.5 Act ilia 560724754 Problem High risk medication use Z79.899 Activ e [id number] ALLERGIES No Information ENCOUNTERS Encounter Location Date Diagnosis [id number] [id number] [id number] August, Essential hypertension with goal blood p ressure less than 140\/90 I10 ; Mixed hyperlipidemia E78.2 and Acute bronchitis, unspecified organism J20.9 [facility] [address] [id number], [place] [address] Jul, Dental examination Z01.20 and Dental car ies K02.[address] [id number], [place] [address] Jun, Essential hypertension with goal blood p ressure less than 140\/90 I10 and Melanocytic nevus of trunk D22.[address] [facility] [address] [id number] [place] [id number] Jun, [facility] [address] [facility] [id number] 100[address] [place] [address] Jun, Dysthymia F34.[address] [facility] [address] [id number] [place] [address] May, [facility] [address] [id number] [place] [address] Mar, [facility] [address] [id number] [place] [id number] Mar, Herpes simplex vulvovaginitis A60.[address] [facility] [address] [id number] [place] [id number] Mar, [facility] [address] [id number], [place] [id number] Mar, High risk medication use Z79.899 ; Dysth ymia F34.1 and Essential hypertension with goal blood pressure less than 140\/[address] [facility] [address] [id number] [place] [id number] Jan, Dysthymia F34.[address] [facility] [address] [id number] [place] [address] Jan, High risk medication use Z79.899 and Dys thymia F34.[address] [facility] [address] [id number] [place] [address] Dec, [facility] [address] [id number] [place] [address] Dec, [facility] [address] [id number] [place] [address] Dec, High risk medication use Z79.899 ; Dysth ymia F34.1 and Essential hypertension with goal blood pressure less than 140\/90 [address] [facility] [address] [id number], [place] [address] Nov, [facility] [address] [id number], [place] [address] Feb, Herpes simplex vulvovaginitis A60.04 [facility] [address] [id number], [place] [id number] Oct, [facility] [address] [id number], [place] [id number] Oct, Poison verónica L23.7 and Benign essential hy pertension I10 [facility] [address] [id number], [place] [id number] Sep, [facility] [address] [id number], [place] [id number] August, [facility] [address] [facility] [address] [id number], [place] [address] August, Gynecologic exam normal Z01.419 ; Breast cancer screening Z12.39 ; Colon cancer screening Z12.11 ; Essential hypertension with goal blood pressure less than 140\/90 I10 and Psoriasis L40.9 [facility] [address] [id number], [place] [id number] Jul, [facility] [address] [id number], [place] [address] Jun, Skin tag L91.8 ; Cutaneous horn L85.8 an d Essential hypertension with goal blood pressure less than 140\/90 I10 [facility] [address] [id number], [place] [address] May, Ear ache H92.09 ; Upper respiratory infe ction J06.9 and Impacted cerumen of right ear H61.21 [facility] [address] [id number], [place] [address] Feb, Rhinitis J31.0 ; Hoarseness or changing voice R49.9 and Sinusitis J32.9 [facility] [address] [id number], [place] [id number] 14 Jan, 2015 [facility] [address] [id number], [place] [id number] Jan, Physical exam, pre-employment Z02.1 and Encounter for PPD test Z11.1 [facility] [address] [id number] [address] [place] [address] Jul, [facility] [address] [id number] [address] [place] [address] Jul, [facility] [address] [id number] [address] [place] [address] Jan, [facility] [address] [id number] [address] [place] [address] Jan, [facility] [address] [id number] [address] [place] [address] Jan, [facility] [address] [id number] [address] [place] [address] Jan, [facility] [address] [id number] [address] [place] [address] Dec, [facility] [address] [id number] [address] [place] [address] Dec, [facility] [address] [id number] [address] [place] [address] Dec, [facility] [address] [id number] [address] [place] [phone] 05 Dec, 2013 [facility] [address] [id number] [address] [place] [address] Dec, [facility] [address] [id number] [address] [place] [address] Dec, [facility] [address] [id number] [address] [place] [phone] Dec, [facility] [address] [id number] [address] [place] [address], [place] [address] Dec, [facility] [address] [id number] [address] [place] [address], [place] [address] Nov, [facility] [address] [id number] [address] [place] [address], [place] [address] Nov, [facility] [address] [id number] [address] [place] [address], [place] [address] Nov, [facility] [address] [id number] [address] [place] [address], [place] [address] Nov, [facility] [address] [id number] [address] [place] [address], [place] [address] Nov, [facility] [address] [id number] [address] [place] [address], [place] [address] Jul, [facility] [address] [id number] [address] [place] [address], [place] [address] 08 Jul, 2012 [facility] [address] [id number] [address] [place] [address], [place] [address] 04 Jul, 2012 [facility] [address] [id number] [address] [place] [address], [place] [address] 28 Jun, 2012 [facility] [address] [id number] [address] [place] [address], [place] [address] 22 Jun, 2012 [facility] [address] [id number] [address] [place] [address], [place] [address] 19 Jun, 2012 [facility] [address] [id number] [address] [place] [address], [place] [address] 19 Jun, 2012 [facility] [address] [id number] [address] [place] [address], [place] [address] 18 Jun, 2012 [facility] [address] [id number] [address] [place] [address], [place] [address] 14 Jun, 2012 [facility] [address] [id number] [address] [place] [address], [place] [address] 13 Jun, 2012 [facility] [address] [id number] [address] [place] [address] Jun, [facility] [address] [id number] [address] [place] [address] August, [facility] [address] [id number] [address] [place] [phone] Jun, [facility] [address] [facility] [id number] [address] [place] [address] Jun, [facility] [address] [id number] [address] [place] [address] Jun, [facility] [address] [facility] [id number] [address] [place] [address] Jun, [facility] [address] [facility] [id number] [address] [place] [address] Mar, [facility] [address] [facility] [id number] [address] [place] [address] Mar, IMMUNIZATIONS No Known Immunizations SOCIAL HISTORY Never Assessed REASON FOR VISIT Test results PLAN OF CARE VITAL SIGNS MEDICATIONS Unknown [...]
== END 2019-06-21 21:25 | disposition home or self-care (01) ==
LOC: EDUNIT# 18:28 → ER 18:30
DX: K74.60 Unspecified cirrhosis of liver (principal); R18.8 Other ascites; F17.210 Nicotine dependence, cigarettes, uncomplicated; Z80.3 Family history of malignant neoplasm of breast; Z90.710 Acquired absence of both cervix and uterus
CPT/HCPCS: 36415; 74177; 80053; 81000; 83690; 83735; 83880; 85025; 86141

== ENCOUNTER 2019-08-23 07:59 | Outpatient (RCR) | payer OTHER ==
[~2019-08-23] VITALS: Ht 172 cm; Wt 90.0 kg
[~2019-08-23 07:59] MED LIST: SPIR25TA5 PO
[2019-08-23] MEDS ORDERED: FURO20TA4 PO (09:00)
[2019-08-23] MEDS ORDERED: RIBA200C13 PO (09:00)
[2019-08-23] MEDS ORDERED: SOFO1TAB PO (09:00)
[2019-08-23] MEDS ORDERED: DULO60CA6 PO (09:00)
[2019-08-23] MEDS ORDERED: ACYC200C PO (09:00)
== END 2019-08-23 16:00 | disposition home or self-care (01) ==
LOC: PREOP 07:59
PROVIDERS: ATTEND Surgery
DX: Z01.812 Encounter for preprocedural laboratory examination (principal)
CPT/HCPCS: 87635

== ENCOUNTER → 2019-08-29 | Day surgery (SDC) | payer OTHER ==
[~2019-08-29] VITALS: Ht 172.7 cm; Wt 90.0 kg
[~2019-08-29] MED LIST changes: +ACYC200C PO; +DULO60CA6 PO; +FURO20TA4 PO; +HURRICAINE EXT TUBE (BENZOCAINE) XX PRN; +LACTATED RINGERS 1,000 ML IV ONE; +LACTATED RINGERS 1,000 ML IV PRN; +LACTATED RINGERS 1,000 ML IV STA; +RIBA200C13 PO; +SOFO1TAB PO
[2019-08-29 10:30] VITALS: BP 125/71
--- OUTSIDE RECORDS SUMMARY | 2019-08-29 10:37 | XMS REPORT ---
Author Author Shirley HEALY Organization [facility] Address [address] [place] [address] Care Team Providers Care Photoresist Contact Printer Name Role Phone ALFREDITO HEALY Unavailable PROBLEMS Type Condition ICD9-CM Code [id number] Code Onset Dates Condition S tatus SNOMED Code Problem Colon cancer screening Z12.11 Active 142547449 Problem Essential hypertension with goal blood pressure less t schrader 140\/90 I10 Active 94032096 Problem Breast cancer screening Z12.39 Active 020497927 Problem Psoriasis L40.9 Active 8800229 Problem Herpes simplex vulvovaginitis A60.04 Active 30650190 Problem Gynecologic exam normal Z01.419 Active 034892031 Problem High risk medication use Z79.899 Activ e 712704969168560 Problem Dysthymia F34.1 Active 03674895 Problem Acute bronchitis, unspecified organism J20.9 Active 75402174 Problem External hemorrhoid K64.4 Active 87843514 Problem Mary-rectal abscess K61.1 Active 65866316 Problem Chronic hepatitis C without hepatic coma B18.2 Active 372450713 Problem Mixed hyperlipidemia E78.2 Active 782448179 Problem Cutaneous horn L85.8 Active 10627 1001 Problem Unspecified cirrhosis of liver K74.60 Active 15748936 Problem Melanocytic nevus of trunk D22.5 Act ilia 024644296 Problem Skin tag L91.8 Active 269759080 Problem Hypertension I10 Active 9738586 3 Problem Generalized anxiety disorder F41.1 A ctive 41985335 Problem Major depressive disorder, recurrent, moderate F33 .1 Active 893752933 Problem Other ascites R18.8 Active 866467 000 ALLERGIES No Information ENCOUNTERS Encounter Location Date Diagnosis [facility] [address] [facility] [id number] [place] [address] Jul, Chronic hepatitis C without hepatic coma B18.[address] [facility] [address] [id number], [place] [id number] 13 Jul, 2019 Major depressive disorder, recurrent, mo derate F33.1 [facility] [address] [facility] [id number] [address] [place] [address] Jul, [facility] [address] [facility] [id number] [address] [place] [address] Jul, [facility] [address] [facility] [id number] [place] [address] Jul, Chronic hepatitis C without hepatic coma B18.2 and Psoriasis L40.9 [facility] [address] [facility] [id number] [address] [place] [address] Jun, [facility] [address] [facility] [id number] [place] [address] Jun, Chronic hepatitis C without hepatic coma B18.2 ; Unspecified cirrhosis of liver K74.60 and Other ascites R18.8 [facility] [address] [facility] [id number] [address] [place] [address] Jun, Other ascites R18.8 [place] [address] [facility] [id number] [address] [place] [address] Mar, [facility] [address] [facility] [id number] [address] [place] [address] Feb, Major depressive disorder, r ecurrent, moderate F33.1 and Generalized anxiety disorder F41.1 [facility] [address] [facility] [id number] [address] [place] [address] Feb, [facility] [address] [facility] [id number] [address] [place] [address] Jan, Left upper quadrant pain R10 .12 [facility] [address] [facility] [id number] [address] [place] [address] Jan, Urinary tract infection, sit e not specified N39.0 and Dysuria R30.0 [place] [address] [facility] [id number] [address] [place] [address] Nov, Major depressive disorder, r ecurrent, moderate F33.1 and Generalized anxiety disorder F41.1 [facility] [address] [facility] [id number] [address] [place] [address] Nov, Non-recurrent acute suppurat ilia otitis media of left ear without spontaneous rupture of tympanic membrane H66.002 [facility] [address] [id number], [place] [id number] Jul, Seborrheic keratoses, inflamed L82.0 ; S erous otitis media H65.90 and Hypertension I10 [facility] [id number], [place] [id number] May, [facility] [address] [id number], [place] [address] Feb, [facility] [address] [id number], [place] [id number] Jan, Mary-rectal abscess K61.1 and External h emorrhoid K64.4 [facility] [address] [id number], [place] [id number] Jan, Essential hypertension with goal blood p ressure less than 140\/90 I10 ; Dysthymia F34.1 and Noncompliance Z91.19 [facility] [address] [id number], [place] [id number] Dec, Dysthymia F34.1 [facility] [address] [facility] [id number] [address] [place] [address] Oct, Dysthymia F34.1 [facility] [address] [id number], [place] [id number] August, Essential hypertension with goal blood p ressure less than 140\/90 I10 ; Mixed hyperlipidemia E78.2 and Acute bronchitis, unspecified organism J20.9 [facility] [id number], [place] [address] Jul, Dental examination Z01.20 and Dental car ies K02.[address] [facility] [address] [id number] [place] [id number] Jun, Essential hypertension with goal blood p ressure less than 140\/90 I10 and Melanocytic nevus of trunk D22.[address] [facility] [address] [id number] [place] [address] Jun, [facility] [address] [facility] [id number] 100[address] [place] [address] Jun, Dysthymia F34.[address] [facility] [address] [id number], [place] [id number] May, [facility] [address] [id number], [place] [id number] Mar, [facility] [address] [id number], [place] [address]1036 Mar, Herpes simplex vulvovaginitis A60.[address] [facility] [address] [id number], [place] [id number] Mar, [facility] [address] [id number], [place] [address] Mar, High risk medication use Z79.899 ; Dysth ymia F34.1 and Essential hypertension with goal blood pressure less than 140\/90 I[address] [facility] [address] [id number], [place] [id number] Jan, Dysthymia F34.[address] [facility] [address] [id number], [place] [address] Jan, High risk medication use Z79.899 and Dys thymia F34.[address] [facility] [address] [id number], [place] [address] Dec, [facility] [address] [id number], [place] [address] Dec, [facility] [address] [id number] [place] [address] Dec, High risk medication use Z79.899 ; Dysth ymia F34.1 and Essential hypertension with goal blood pressure less than 140\/90 I[address] [facility] [address] [id number] [place] [id number] Nov, [facility] [address] [id number] [place] [id number] Feb, Herpes simplex vulvovaginitis A60.[address] [facility] [address] [id number] [place] [id number] Oct, [facility] [address] [id number], [place] [id number] Oct, Poison verónica L23.7 and Benign essential hy pertension I10 [facility] [address] [id number], [place] [id number] Sep, [facility] [address] [id number], [place] [id number] August, [facility] [address] [id number], [place] [id number] August, Gynecologic exam normal Z01.419 ; Breast cancer screening Z12.39 ; Colon cancer screening Z12.11 ; Essential hypertension with goal blood pressure less than 140\/90 I10 and Psoriasis L40.9 [facility] [address] [id number], [place] [address] Jul, [facility] [address] [id number], [place] [id number] Jun, Skin tag L91.8 ; Cutaneous horn L85.8 an d Essential hypertension with goal blood pressure less than 140\/90 I[address] [facility] [address] [id number], [place] [id number] May, Ear ache H92.09 ; Upper respiratory infe ction J06.9 and Impacted cerumen of right ear H61.[address] [facility] [address] [id number], [place] 12[address] Feb, Rhinitis J31.0 ; Hoarseness or changing voice R49.9 and Sinusitis J32.9 [facility] [address] [id number], [place] [address] Jan, [facility] [address] [id number], [place] 870859[address] Jan, Physical exam, pre-employment Z02.1 and Encounter for PPD test Z11.1 [facility] [address] [id number] [address] [place] [address] Jul, [facility] [address] [id number] [address] [place] [address] Jul, [facility] [address] [id number] [address] [place] [address] Jan, [facility] [address] [id number] [address] [place] [address] Jan, [facility] [address] [id number] [address] [place] [address] Jan, [facility] [address] [id number] [address] [place] [address] Jan, [facility] [address] [id number] [address] [place] [address] Dec, [facility] [address] [id number] [address] [place] [address] Dec, [facility] [address] [id number] [address] [place] [address] Dec, [facility] [address] [id number] [address] [place] [address] Dec, [facility] [address] [id number] [address] [place] [address] Dec, [facility] [address] [id number] [address] [place] [address], [place] [address] 04 Dec, 2013 [facility] [address] [id number] [address] [place] [address], [place] [address] Dec, [facility] [address] [id number] [address] [place] [address], [place] [address] Dec, [facility] [address] [id number] [address] [place] [address], [place] [address] Nov, [facility] [address] [id number] [address] [place] [address], [place] [address] Nov, [facility] [address] [id number] [address] [place] [address], [place] [address] Nov, [facility] [address] [id number] [address] [place] [address], [place] [address] Nov, [facility] [address] [id number] [address] [place] [address], [place] [address] Nov, [facility] [address] [id number] [address] [place] [address], [place] [address] Jul, [facility] [address] [id number] [address] [place] [address], [place] [address] Jul, [facility] [address] [id number] [address] [place] [address], [place] [address] Jul, [facility] [address] [id number] [address] [place] [address], [place] [address] 28 Jun, 2012 [facility] [address] [id number] [address] [place] [address], [place] [id number] Jun, [facility] [address] [id number] [address] [place] [address], [place] [id number] Jun, [facility] [address] [id number] [address] [place] [address], [place] [id number] Jun, [facility] [address] [id number] [address] [place] [address], [place] [id number] 18 Jun, 2012 [facility] [address] [id number] [address] [place] [id number] 14 Jun, 2012 [facility] [address] [id number] [address] [place] [id number] 13 Jun, 2012 [facility] [address] [id number] [address] [place] [phone] Jun, [facility] [address] [id number] [address] [place] [id number] August, [facility] [address] [id number] [address] [place] [phone] Jun, [facility] [address] [id number] [address] [place] [phone] Jun, [facility] [address] [facility] [id number] [address] [place] [id number] Jun, [facility] [address] [id number] [address] [place] [id number] Jun, [facility] [address] [facility] [id number] [address] [place] [id number] Mar, [facility] [address] [facility] [id number] [address] [place] [id number] Mar, IMMUNIZATIONS No Known Immunizations SOCIAL HISTORY [...]
[2019-08-29 11:45] VITALS: BP 130/61
[2019-08-29 11:50] VITALS: BP 150/76
[2019-08-29 11:55] VITALS: BP 129/60
--- NOTE | 2019-08-29 11:59 | Progress Note-Post Operative ---
Post-Operative Progess Note Surgeon (s)/Actuarial Science Teacher (s) Surgeon INA MELO DO Actuarial Science Teacher: none Pre-Operative Diagnosis Abdominal pain, Liver failure, Hx of Diverticulitis Post-Operative Diagnosis Gastritis Hiatal hernia Colon polyps Appendiceal mass diverticula internal hemorrhoids Procedure & Operative Findings Date of Procedure 08/29/19 Procedure Performed/Findings EGD with bx Colon with snare Colon with hot bx Anesthesia Type IV sedation by DISTRESSER Estimated Blood Loss Estimated blood loss (mL): scant Specimens/Packing Specimens Removed antral bx body of stomach bx GE jxn bx sigmoid polyp x 2 appendiceal mass desc polyp rectal polyp INA MELO DO August 29, 2019 11:59
--- NOTE | 2019-08-29 12:00 | Endoscopy Discharge Instruct ---
Endo Procedure/Findings Findings 1.: Hiatal Hernia, Gastritis 2.: Polyp 3.: Diverticulosis 4.: Internal Hemorrhoids Discharge Instructions - Activity: You might feel a little sleepy until tomorrow. This is due to the medicine you received to relax you. Until tomorrow, you should: NOT drive a car, operate machinery or power tools. NOT drink any alcoholic beverages. NOT make any important decisions or sign importortant papers. Do not return to work until tomorrow, unless otherwise instructed. Resume previous activities tomorrow. Diet: Start by taking liquids. If you tolerate liquids, advance to solid food. make an appointment for one week 1.: Colonscopy in 5 years, EGD in 1 year Notify Physician - If you experience excessive bleeding, unusual abdominal pain, fever, or chest pain, contact your doctor immediately. INA MELO DO August 29, 2019 12:00
[2019-08-29 12:05] VITALS: BP 129/60
[2019-08-29 12:37] VITALS: BP 125/65
--- NOTE | 2019-08-29 15:47 | Anesthesia-General Post-Op ---
MAC Patient Condition Mental Status/LOC: Same as Preop Cardiovascular: Satisfactory Nausea/Vomiting: Absent Respiratory: Satisfactory Pain: Controlled Complications: Absent Post Op Complications Complications None Follow Up Care/Instructions Patient Instructions None needed. Anesthesiology Discharge Order Discharge Order Patient is doing well, no complaints, stable vital signs, no apparent adverse anesthesia problems. No complications reported per nursing. EMMETT ENCISO CRNA August 29, 2019 15:47
--- NOTE | 2019-08-29 16:37 | OPERATIVE REPORT ---
DATE OF SERVICE: PREOPERATIVE DIAGNOSES: Epigastric pain, history of liver failure, history of diverticulitis and need for screening colonoscopy. POSTOPERATIVE DIAGNOSES: 1. Gastritis. 2. Hiatal hernia. 3. Colon polyps. 4. Diverticula. 5. Internal hemorrhoids. PROCEDURES: 1. EGD with biopsy. 2. Colonoscopy with snare polypectomy. 3. Colonoscopy with hot biopsy. SURGEON: Keaton Collado DO ADJUDICATION SPECIALIST: None. ANESTHESIA: IV sedation by PARTS EXPEDITER. SPECIMEN: Biopsy from the antrum, biopsy of body of stomach, biopsy of the GE junction, sigmoid polyp x2, descending polyp, rectal polyp and an appendiceal mass biopsy. BLOOD LOSS: Scant. FLUIDS: Per anesthesia. POSTOPERATIVE CONDITION: Stable. INDICATION FOR PROCEDURE: The patient is a 59-year-old female who is having some epigastric pain. She has a history of liver failure and had a diverticulitis episode. She needed a workup so that she cannot get on the liver transplant list. FINDINGS: The patient had some mild gastritis. She had a small hiatal hernia and then she had multiple polyps in the colon as well as some diverticula and some internal hemorrhoids. PROCEDURE NOTE: After informed consent was obtained, the patient was brought to the endoscopy suite, placed in bed in the left lateral decubitus position. She was administered IV sedation by the PARTS EXPEDITER who then monitored her vitals the entire time, heart rate, blood pressure and pulse ox and the scope was then inserted, started with the EGD, placing scope down the mouth through the esophagus into the stomach. Upon entering the stomach, noted some mild gastritis, pushed into the duodenum. Duodenum looked good. Pulled back, took a picture of the antrum, then did a biopsy here, then retroflexed the scope, saw a small hiatal hernia, did a biopsy of body of stomach and then pulled the scope up into the GE junction, did a biopsy, pushed the scope back into the stomach and suctioned the air out of the stomach and then pulled the scope up the esophagus, did not see any varices or problems in the esophagus. Pulled the scope up out of the mouth and then switched camera, switched gloves, went down below start of the colonoscopy. On way in, noted a polyp in the sigmoid colon, did a snare polypectomy, also saw some diverticula, took a picture of this, able to get all the way to cecum, took a picture of appendiceal orifice and noted what looked almost like mass or inflammation, so I elected to do a hot biopsy of this, able to get into the terminal ileum and took a picture and then slowly withdrew the scope insufflating to look circumferentially suarez looking the cecum, up the ascending colon to the hepatic flexure, then down the transverse colon, splenic flexure, into the descending colon and descending colon, saw another polyp, did a hot biopsy of this flat polyp and then down in the sigmoid, saw another polyp, did another hot biopsy of this and then in the rectum, saw another flat polyp, was a larger and so we did a snare polypectomy of this and then retroflexed in the rectal vault, saw some internal hemorrhoids, took a picture and then removed the scope. The patient tolerated the procedure, she was recovered in endoscopy suite. Job ID: [id number] DocumentID: [id number] Dictated Date: 08/29/2019 11:54:39 Chocolate Molder Date: 08/29/2019 16:36:23 Dictated By: KEATON COLLADO DO MTDMaureen
== END ==
LOC: ENDO 09:56
PROVIDERS: ATTEND Surgery
DX: Z12.11 Encounter for screening for malignant neoplasm of colon (principal); D12.4 Benign neoplasm of descending colon; K63.5 Polyp of colon; K62.1 Rectal polyp; K63.89 Other specified diseases of intestine; K29.70 Gastritis, unspecified, without bleeding; K44.9 Diaphragmatic hernia without obstruction or gangrene; K57.30 Diverticulosis of large intestine without perforation or abscess without bleeding; K64.8 Other hemorrhoids; K72.90 Hepatic failure, unspecified without coma; Z87.19 Personal history of other diseases of the digestive system; Z87.891 Personal history of nicotine dependence; F31.9 Bipolar disorder, unspecified; B19.20 Unspecified viral hepatitis C without hepatic coma; E66.9 Obesity, unspecified; Z79.899 Other long term (current) drug therapy; Z68.31 Body mass index [BMI] 31.0-31.9, adult
CPT/HCPCS: 88305

== ENCOUNTER → 2020-07-17 | Outpatient (CLI) | payer MEDICAID ==
[~2020-07-17] MED LIST changes: -HURRICAINE EXT TUBE (BENZOCAINE) XX PRN; -LACTATED RINGERS 1,000 ML IV ONE; -LACTATED RINGERS 1,000 ML IV PRN; -LACTATED RINGERS 1,000 ML IV STA
--- NOTE | 2020-07-17 08:58 | Diagnostic Imaging Report ---
EXAMINATION: US Abdomen complete. TECHNIQUE: Multiple real-time grayscale images were obtained over the right upper quadrant in various projections. HISTORY: Cirrhosis COMPARISON: CT abdomen and pelvis 06/21/2019, abdominal ultrasound 07/10/2012. FINDINGS: Pancreas: The pancreas is nonvisualized secondary to overlying bowel gas. Liver: Heterogeneous echogenicity and nodular contour of the liver. No focal lesions are seen. The portal vein is patent with hepatopetal flow. Gallbladder and biliary tree: There is a fixed echogenic, shadowing calculus along the gallbladder wall. Gallbladder wall is thickened measuring up to 7 mm. There is no intrahepatic biliary ductal dilation. The common duct measures 0.8 cm. Kidneys: The right kidney is normal without hydronephrosis. The left kidney is normal without hydronephrosis. Spleen: The spleen is large measuring up to 16.9 cm. Aorta and IVC: The aorta and IVC are nonvisualized secondary to overlying bowel gas. Fluid: A mild amount of ascites is present. IMPRESSION: 1. Cirrhosis without findings of hepatocellular carcinoma. 2. Splenomegaly and ascites. 3. Echogenic fixed lesion along the gallbladder wall could represent stone, tumefactive sludge, or cholesterol polyp. Attention on followup imaging. 4. Diffuse gallbladder wall thickening is likely reactive secondary to underlying cirrhosis and ascites. 5. Mild dilatation of the common bile duct up to 0.8 cm. No intrahepatic biliary ductal dilatation. This could be further evaluated with MRCP. Dictated by: Dictated on workstation # [id number]
== END ==
LOC: RAD 07:00
PROVIDERS: ATTEND Pediatrics
DX: K74.60 Unspecified cirrhosis of liver (principal); R16.1 Splenomegaly, not elsewhere classified; R18.8 Other ascites; K82.8 Other specified diseases of gallbladder; K83.8 Other specified diseases of biliary tract
CPT/HCPCS: 76700

== ENCOUNTER 2020-08-18 10:58 | Outpatient (RCR) | payer MEDICAID, OTHER ==
[~2020-08-18 10:58] MED LIST changes: +ACYC-108 PO; -ACYC200C PO
== END 2020-10-12 | disposition home or self-care (01) ==
LOC: ONC 10:58
PROVIDERS: ATTEND Radiology Radiation Oncology
DX: C50.111 Malignant neoplasm of central portion of right female breast (principal); I10 Essential (primary) hypertension; Z90.12 Acquired absence of left breast and nipple; Z87.891 Personal history of nicotine dependence
CPT/HCPCS: 77290; 77295; 77300; 77307; 77334; 77336; 77417; 99204

== ENCOUNTER → 2020-09-17 | Outpatient (CLI) | payer MEDICAID ==
[~2020-09-17] VITALS: Ht 172.7 cm; Wt 93.6 kg
[~2020-09-17] MED LIST changes: +ALBUMIN 25% 25 GM/100 ML 100 ML IV ONE
--- NOTE | 2020-09-17 16:26 | Progress Note-Post Operative ---
Post-Operative Progess Note Surgeon (s)/Steelscope Operator (s) Surgeon INA MELO DO Steelscope Operator: none Pre-Operative Diagnosis Ascites, Cirrhosis Post-Operative Diagnosis Same Procedure & Operative Findings Date of Procedure 09/17/20 Procedure Performed/Findings The patient was taken to the procedure room. Ultrasound was used to isolate the largest pocket for placement of Euzm-H-Kbuwmxnm needle and catheter. The area was then prepped and draped and timeout was performed. Local anesthetic was infiltrated and 11 blade scalpel was used to make a small skin incision. Wnhy-I-Azeatits needle and catheter were then advanced until straw-colored fluid was withdrawn. The catheter was advanced and the needle was removed. A total of 8100 mL of straw-colored fluid was withdrawn. Once done draining, the catheter was removed and sterile bandage was applied. Pt refused to receive albumin per protocol. The patient tolerated procedure well without any complications. Anesthesia Type local lidocaine Estimated Blood Loss Estimated blood loss (mL): scant Specimens/Packing Specimens Removed 8100ml of ascitic fluid INA MELO DO Sep 17, 2020 16:26
--- NOTE | 2020-09-17 19:34 | Diagnostic Imaging Report ---
Ultrasound-guided paracentesis. Indication: Ascites Abdominal ultrasound exam performed on 07/17/2020 noted a mild amount of ascites. On this study there is a large amount of free fluid within the abdomen and pelvis. Using ultrasound guidance a large collection of fluid was identified in the right lower quadrant. The skin over the fluid was marked for paracentesis to be performed by Dr. Keaton Collado. Reportedly 8 L of fluid were removed. The patient tolerated procedure well. Impression: There has been a successful ultrasound-guided paracentesis. Dictated by: Dictated on workstation # [id number]
== END ==
LOC: RAD 13:00
PROVIDERS: ATTEND Surgery
DX: R18.8 Other ascites (principal)
CPT/HCPCS: 49083

== ENCOUNTER 2020-10-08 10:12 | Outpatient (CLI) | payer MEDICAID ==
[~2020-10-08] VITALS: Ht 165 cm; Wt 93.6 kg
[~2020-10-08 10:12] MED LIST changes: -ALBUMIN 25% 25 GM/100 ML 100 ML IV ONE
[2020-10-08 10:30] VITALS: BP 137/94
--- NOTE | 2020-10-08 11:09 | Progress Note-Pre Operative ---
Pre-Operative Progress Note H&P Reviewed The H&P was reviewed, patient examined and no changes noted. Time Seen by Provider: 10:21 Date H&P Reviewed: Oct 08, 2020 Time H&P Reviewed: 10:21 Pre-Operative Diagnosis: Ascites INA MELO DO Oct 08, 2020 11:09
--- NOTE | 2020-10-08 11:11 | Progress Note-Post Operative ---
Post-Operative Progess Note Surgeon (s)/Commutator Presser (s) Surgeon INA MELO DO Commutator Presser: none Pre-Operative Diagnosis Ascites Post-Operative Diagnosis same Procedure & Operative Findings Date of Procedure 10/08/20 Procedure Performed/Findings The patient was in same day surgery room. Ultrasound was used to isolate the largest pocket for placement of Arnd-W-Elhtdxoi needle and catheter. The area was then prepped and draped and timeout was performed. Local anesthetic was infiltrated and #11 blade scalpel was used to make a small skin incision. Mwql-Z-Fhbllhqt needle and catheter were then advanced until straw-colored fluid was withdrawn. The catheter was advanced and the needle was removed. A total of 8400 mL of straw-colored fluid was withdrawn. Once done draining, the catheter was removed and sterile bandage was applied. Pt allowed us to paradichlorobenzene machine operator her albumin per protocol. The patient tolerated procedure well without any complications. Anesthesia Type local lidocaine Estimated Blood Loss Estimated blood loss (mL): less than 3ml Specimens/Packing Specimens Removed ascitic fluid INA MELO DO Oct 08, 2020 11:11
--- NOTE | 2020-10-08 12:09 | Diagnostic Imaging Report ---
Indication: Ascites. Sonographic guidance was provided for Dr. Collado for paracentesis. All 4 quadrants were evaluated. Largest volume of fluid appears to be in the right lower quadrant. IMPRESSION: Sonographic guidance for Dr. Collado for paracentesis. Dictated by: Dictated on workstation # [id number]
[2020-10-08] MEDS ORDERED: ALBUMIN 25% 25 GM/100 ML 100 ML IV ONE (12:30)
== END 2020-10-08 14:50 ==
LOC: RAD 10:12
PROVIDERS: ATTEND Surgery
DX: R18.8 Other ascites (principal)
CPT/HCPCS: 49082; 49083; 96365; 96366

== ENCOUNTER → 2020-10-15 | Outpatient (CLI) | payer MEDICAID | LOC: EDSTATUS 10-13 11:01 → ONC 11:02 | PROVIDERS: ATTEND Radiology Radiation Oncology | DX: C50.111 Malignant neoplasm of central portion of right female breast (principal); I10 Essential (primary) hypertension; E78.5 Hyperlipidemia, unspecified; Z90.12 Acquired absence of left breast and nipple; Z87.891 Personal history of nicotine dependence; Z80.3 Family history of malignant neoplasm of breast | CPT/HCPCS: 99213 ==

== ENCOUNTER 2020-10-23 12:02 | Outpatient (CLI) | payer MEDICAID ==
[~2020-10-23] VITALS: Wt 93.6 kg
[2020-10-23 12:25] VITALS: BP 138/87
[2020-10-23] MEDS ORDERED: ALBUMIN 25% 25 GM/100 ML 100 ML IV ONE (14:45)
--- NOTE | 2020-10-23 15:34 | Diagnostic Imaging Report ---
INDICATION: Ascites. Sonographic interrogation of the right and left upper and lower quadrants was performed. All 4 quadrants demonstrate moderate amount of ascites. The left lower quadrant was marked. Paracentesis was performed by Dr. Collado. IMPRESSION: Sonographic guidance for Dr. Collado for performance of a paracentesis. Dictated by: Dictated on workstation # [id number]
--- NOTE | 2020-10-25 04:13 | Progress Note-Post Operative ---
Post-Operative Progess Note Surgeon (s)/Canvas Goods Supervisor (s) Surgeon INA MELO DO Canvas Goods Supervisor: None Pre-Operative Diagnosis Ascites Post-Operative Diagnosis same Procedure & Operative Findings Date of Procedure 10/25/20 Procedure Performed/Findings The patient was in same day surgery room. Ultrasound was used to isolate the largest pocket for placement of Opny-X-Wyucqjgr needle and catheter. The area was then prepped and draped and timeout was performed. Local anesthetic was infiltrated and #11 blade scalpel was used to make a small skin incision. Aicj-Z-Ewqaotvl needle and catheter were then advanced until straw-colored fluid was withdrawn. The catheter was advanced and the needle was removed. A total of 9700 mL of straw-colored fluid was withdrawn. Once done draining, the catheter was removed and sterile bandage was applied. Pt allowed us to give her albumin per protocol. The patient tolerated procedure well without any complications. Anesthesia Type Local lidocaine Estimated Blood Loss Estimated blood loss (mL): none Specimens/Packing Specimens Removed none INA MELO DO Oct 25, 2020 04:13
== END 2020-10-23 16:54 | disposition home or self-care (01) ==
LOC: RAD 12:02
PROVIDERS: ATTEND Surgery
DX: R18.8 Other ascites (principal)
CPT/HCPCS: 49082; 76942

== ENCOUNTER 2020-11-03 14:35 | Outpatient (CLI) | payer MEDICAID | END 2020-11-05 10:13 | disposition home or self-care (01) | LOC: PREOP 14:35 | PROVIDERS: ATTEND Surgery | DX: Z01.818 Encounter for other preprocedural examination (principal) ==

== ENCOUNTER 2020-11-06 08:37 | Day surgery (SDC) | payer MEDICAID ==
[~2020-11-06] VITALS: Ht 170.2 cm; Wt 93.6 kg
[2020-11-06] VITALS (8 sets, daily range): BP systolic 101–146; BP diastolic 65–101
[2020-11-06] MEDS ORDERED: ceFAZolin 2 GM IV Premixed 50 ML IV ONE (09:15)
[2020-11-06] MEDS ORDERED: LACTATED RINGERS 1,000 ML IV PRN (09:15)
[2020-11-06] MEDS ORDERED: MIDAZOLAM 2 MG/2 ML (VERSED) VIAL ONE (09:37)
[2020-11-06] MEDS ORDERED: PROPOFOL INJECTION 50 ML IV ONE (09:37)
--- NOTE | 2020-11-06 10:12 | Progress Note-Pre Operative ---
Pre-Operative Progress Note H&P Reviewed The H&P was reviewed, patient examined and no changes noted. Time Seen by Provider: :44 Date H&P Reviewed: Nov 06, 2020 Time H&P Reviewed: :44 Pre-Operative Diagnosis: Ascites, Liver failure INA MELO DO Nov 06, 2020 10:12
--- NOTE | 2020-11-06 10:49 | Progress Note-Post Operative ---
Post-Operative Progess Note Surgeon (s)/Bereavement Coordinator (s) Surgeon INA MELO DO Bereavement Coordinator: none Pre-Operative Diagnosis Ascites, Liver failure Post-Operative Diagnosis same Procedure & Operative Findings Date of Procedure 11/06/20 Procedure Performed/Findings PROCEDURE NOTE: After informed consent was obtained, the patient was brought to the operating room, placed on the operating table in supine position. She was sterilely prepped and draped in normal fashion. We then used a sterile cover on the ultrasound probe, looking left lower quadrant, could see where it had gone in before, there was a lot of fluid. So, at this point, we then infiltrated at this spot and then about 5 cm above it local lidocaine and then along the tract between the two, made a stab incision with #11 blade and then carefully tunneled from the upper incision into the lower incision, then using a needle and ultrasound, watched as the needle went into the abdomen, good flash of ascitic fluid, removed the needle. There was a catheter, placed guidewire down the catheter and then removed the catheter. Then over the guidewire using the Seldinger technique, placed the dilator and then pulled this out and then placed the second dilator with a sheath, then pulled the catheter through, removed the wire and the catheter sheath and the dilator and then placed the PleurX catheter through the sheath, went all the way in, then removed this sheath, then closed the lower incision with 3-0 Vicryl vertical mattress suture, sutured the catheter in place above, suturing to the skin and into the catheter and then tying the catheter down with a 3-0 silk German needle. At this point, we then hooked up to ware gravity bag and got out appx 2 liters in the OR and then she was transferred to recovery to get the rest out. She tolerated the procedure. I could see the catheter in with the ultrasound. Sponge, instrument and needle count correct at the end of the case. Anesthesia Type IV sedation by BILLET CUTTER Estimated Blood Loss Estimated blood loss (mL): scant Specimens/Packing Specimens Removed ascites INA MELO DO Nov 06, 2020 10:49
--- NOTE | 2020-11-06 10:51 | Discharge Inst-Surgical ---
Discharge Inst-Surgical Depart Medication/Instructions New, Converted or Re-Newed RX: Other (take OTC meds) Patient Instructions Follow up Appt: Make appointment for 1 week. [phone] Instructions: No lifting greater than 20 pounds. No strenuous activity. May shower in 24 hours, no tub bath or soaking. Use incentive spirometer at home as directed. No Smoking Skin/Wound Care: May remove bandages in am. You need to leave the sutures in place and come in to have them removed Symptoms to Report: Appetite Changes, Extremity Discoloration, Numbness/Tingling, Swelling Increased, Bleeding Excessive, Eyesight Changes, Pain Increased, Urine Color Change, Constipation(Persistent), Fever over 101 degree F, Pain/Pressure in chest, Urinating Difficulty, Cough Up/Vomit Blood, Heart Beat Irreg/Pounding, Pain/Pressure in jaw, Cramps in feet or legs, Lightheadedness, Pain/Pressure in shoulder, Diarrhea(Persistent), Memory Changes Suddenly, Questions/Concerns, Weight gain consecutive days, Dizziness/Fainting, Nausea/Vomiting, Shortness of Breath, Weight gain over 2 pounds If questions or concerns contact your physician Or seek help at emergency department. Activity Activity as Tolerated: Yes Activity Instructions: Avoid Stress to Incision Driving Instructions: You May Drive Diet Discharge Diet: No Restrictions Diet After 24 Hours: Clear Liquid if Nauseous If Any Problems/Questions/Issu: Contact Your Physician, Go to Emergency Room Skin/Wound Care Infection Signs and Symptoms: Increased Redness, Foul Odor of Wound, Increased Drainage, Skin Itchy or Has a Rash, Increased Swelling, Temperature Above 101 F Bathing Instructions: Sponge Stitches/Cristiane/Dermabond Dis: Care of Stitches INA MELO DO Nov 06, 2020 10:51
[2020-11-06] MEDS ORDERED: ALBUMIN 25% 25 GM/100 ML 100 ML IV SCH (12:00)
--- NOTE | 2020-11-06 12:28 | Anesthesia-General Post-Op ---
MAC Patient Condition Mental Status/LOC: Same as Preop Cardiovascular: Satisfactory Nausea/Vomiting: Absent Respiratory: Satisfactory Pain: Controlled Complications: Absent Post Op Complications Complications None Follow Up Care/Instructions Patient Instructions None needed. Anesthesiology Discharge Order Discharge Order Patient is doing well, no complaints, stable vital signs, no apparent adverse anesthesia problems. No complications reported per nursing. JONATHON PORTER CRNA Nov 06, 2020 12:28
[2020-11-06] MEDS: ALBUMIN 25% 25 GM/100 ML 100 ML IV SCH ×2 (12:47→14:20)
[2020-11-06] MEDS ORDERED: HYDROcodone/APAP 5 MG/325 MG (LORTAB) TAB ONE (13:04)
[2020-11-06] MEDS ORDERED: HYDROcodone/APAP 5 MG/325 MG (LORTAB) TAB PO ONE (13:15)
--- OUTSIDE RECORDS SUMMARY | 2020-11-10 16:06 | XMS REPORT | Clinical Summary ---
Author Author [facility] Organization [facility] Address Unknown Phone Unavailable Care Team Providers Care Activity Aid Name Role Phone Mirella Forbes MD PCP Source Comments Some departments are not documenting in the electronic medical record. If you d o not see the information that you expected, contact Release of Information in [facility] [employer] Information Management department at [phone] for further assistan ce in locating additional records.[facility] Allergies Comments Active Allergy Reactions Severity Noted Date Contact dermatitis Adhesive Tape (Rosins) SEE COMMENTS Low 021 Medications End Date Status Medication Sig Dispensed Refills Start Date Active duloxetine DR (CYMBALTA) Take 60 mg by 0 60 mg capsule mouth daily. Active spironolactone Take 100 mg 0 (ALDACTONE) 100 mg tablet by mouth daily. Take with food. Active furosemide (LASIX) 20 mg Take 20 mg by 0 tablet mouth every morning. Active Problems No known active problems Encounters Care Team Description Date Type Specialty Lucille Butler MD Other 10/19/2020 Telephone Transplant Surgery Lucille Butler MD Cirrhosis of liver without ascites, unsp ecified hepatic cirrhosis type (HCC) (Primary Dx) 08/24/2020 Office Visit Transplant Surgery 08/24/2020 Travel from Last 3 Months Social History Date Tobacco Use Types Packs/Day Years Used Current Every Day Smoker Smokeless Tobacco: Never Used Sex Assigned at Date Recorded Not on file Last Filed Vital Signs Reading Time Taken Comments Vital Sign 158/107 08/24/2020 10:30 AM CDT Blood Pressure 85 08/24/2020 10:30 AM CDT Pulse - - Temperature - - Respiratory Rate 94% 08/24/2020 10:30 AM CDT Oxygen Saturation - - Inhaled Oxygen Concentration 93 kg (205 lb) 08/24/2020 10:30 AM CDT Weight 172.7 cm (5' 8") 08/24/2020 10:30 AM CDT Height 31.17 08/24/2020 10:30 AM CDT Body Mass Index Plan of Treatment Health Maintenance Due Date Last Done Comments HIV SCREENING 1974 DTAP/TDAP VACCINES (1 - 1977 Tdap) HEPATITIS C SCREENING 1977 PHYSICAL (COMPREHENSIVE) 1977 EXAM CERVICAL CANCER SCREENING 1980 BREAST CANCER SCREENING 1999 COLORECTAL CANCER 2009 SCREENING SHINGLES RECOMBINANT 2009 VACCINE (1 of 2) INFLUENZA VACCINE 01/08/2021 Results Not on filefrom Last 3 Months Insurance Type Payer Benefit Subscriber ID Effective Phone Address Plan / Dates Group AETNA MEDICAID AETNA [id number] 2020- BETTER Present [place] [place] 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
--- OUTSIDE RECORDS SUMMARY | 2020-11-10 16:06 | XMS REPORT | Encounter Summary ---
Author Author [facility] Organization [facility] Address Unknown Phone Unavailable Care Team Providers Care Shoe Cobbler Name Role Phone Mirella Forbes MD PCP Reason for Referral * Radiology Services (Routine) Referred By Contact Referred To Contact Status Reason Specialty Diagnoses / Procedures Lucille Butler MD [address] [place], [place] [address] [place] [address] New Request Diagnoses Cirrhosis of liver without ascites, unspecified hepatic cirrhosis type (HCC) P rocedures US ABDOMEN LIMITED Electronically signed by Lucille Butler MD at Reason for Visit * Reason Onset Date Comments Other 10/19/2020 Encounter Details Care Team Description Date Type Department Lucille Butler MD [address] [place], [place] [address] [place] [address] Other 10/19/2020 Telephone Transplant: [facility], [address], [address] [place] [address] Social History Date Tobacco Use Types Packs/Day Years Used Current Every Day Smoker Smokeless Tobacco: Never Used Sex Assigned at Date Recorded Not on file documented as of this encounter Functional Status Date of Assessment Functional Status Response 08/24/2020 Does the patient have a hearing impairment: No 08/24/2020 Does the patient have a visual impairment: No 08/24/2020 Does the patient have impaired ambulation: No 08/24/2020 Does the patient have an activity of daily living No (ADL) impairment: 08/24/2020 Does the patient have an instrumental activity of No daily living (IADL) impairment: Date of Assessment Cognitive Status Response 08/24/2020 Does the patient have a cognitive impairment: No documented as of this encounter Miscellaneous Notes * Telephone Encounter - Sonia Antoine RN - 10/19/2020 12:41 PM CDT Returned call to patient. Wondering what she can do to get listed on the transpl ant list. Explained that current MELD is 8 (calculated from 09/30/20 labs in [place]) and that her MELD score does not qualify for going through a transplant evaluati on at this time. Explained that we will continue to monitor her labs. Next US due in January. Faxed to PCP office. * Telephone Encounter - Adina Granger - 10/19/2020 9:46 AM CDT Patient called in regarding getting put on the transplant list documented in this encounter Plan of Treatment Order Schedule Name Type Priority Associated Diag noses Expected: 01/08/2021 (Approximate), Expi res: 10/19/2021 US ABDOMEN LIMITED Imaging Routine Cirrhosis o f liver without ascites, unspecified hepatic cirrhosis type (HCC) documented as of this encounter Visit Diagnoses Diagnosis Cirrhosis of liver without ascites, uns pecified hepatic cirrhosis type (HCC) - Primary documented in this encounter Additional Health Concerns Assessment Noted Time A fall risk assessment has been completed for the pat ient 08/24/2020 10:33 AM CDT PHQ-2 Depression Total Score: 2 08/24/2020 10:33 AM CDT documented as of this encounter
== END 2020-11-06 16:45 | disposition home or self-care (01) ==
LOC: SDC 08:37
PROVIDERS: ATTEND Surgery
DX: R18.8 Other ascites (principal); K72.90 Hepatic failure, unspecified without coma; E66.9 Obesity, unspecified; Z68.32 Body mass index [BMI] 32.0-32.9, adult; I10 Essential (primary) hypertension; K74.60 Unspecified cirrhosis of liver; K40.20 Bilateral inguinal hernia, without obstruction or gangrene, not specified as recurrent; K75.9 Inflammatory liver disease, unspecified; Z72.0 Tobacco use
CPT/HCPCS: 87081

== ENCOUNTER → 2020-11-25 | Outpatient (CLI) | payer MEDICAID | END | disposition home or self-care (01) | LOC: PREOP 05:42 | PROVIDERS: ATTEND Surgery | DX: Z01.818 Encounter for other preprocedural examination (principal) ==

== ENCOUNTER 2020-12-04 11:14 | Outpatient (CLI) | payer MEDICAID ==
[2020-12-04 12:31] VITALS: BP 121/88
--- NOTE | 2020-12-04 12:34 | Progress Note-Pre Operative ---
Pre-Operative Progress Note H&P Reviewed The H&P was reviewed, patient examined and no changes noted. Time Seen by Provider: 11:06 Date H&P Reviewed: Dec 04, 2020 Time H&P Reviewed: 11:06 Pre-Operative Diagnosis: Ascites, abd pain, SOB INA MELO DO Dec 04, 2020 12:34
--- NOTE | 2020-12-04 12:37 | Progress Note-Post Operative ---
Post-Operative Progess Note Surgeon (s)/Beef Selector (s) Surgeon INA MELO DO Beef Selector: none Pre-Operative Diagnosis Ascites, abd pain, SOB Post-Operative Diagnosis same Procedure & Operative Findings Date of Procedure 12/04/20 Procedure Performed/Findings The patient was in same day surgery room. Ultrasound was used to isolate the largest pocket for placement of Uccs-U-Akgonfaf needle and catheter. The area was then prepped and draped and timeout was performed. Local anesthetic was infiltrated and #11 blade scalpel was used to make a small skin incision. Qeum-X-Gxgvneoe needle and catheter were then advanced until straw-colored fluid was withdrawn. The catheter was advanced and the needle was removed. A total of 8500 mL of straw-colored fluid was withdrawn. Once done draining, the catheter was removed and sterile bandage was applied. Pt allowed was given albumin per protocol. The patient tolerated procedure well without any complications. Anesthesia Type local lidocaine Estimated Blood Loss Estimated blood loss (mL): none Specimens/Packing Specimens Removed ascitic fluid INA MELO DO Dec 04, 2020 12:37
[2020-12-04] MEDS ORDERED: ALBUMIN 25% 25 GM/100 ML 100 ML IV ONE (13:15)
--- NOTE | 2020-12-04 13:18 | Discharge Inst-Surgical ---
Discharge Inst-Surgical Depart Medication/Instructions New, Converted or Re-Newed RX: Other (no rx needed) Patient Instructions Follow up Appt: Make appointment for 1 week. [phone] Instructions: No lifting greater than 20 pounds. No strenuous activity. May shower in 24 hours, no tub bath or soaking. Use incentive spirometer at home as directed. No Smoking Skin/Wound Care: May remove bandages in am. You need to leave the Dermabond on incision it will fall off on it's own. Symptoms to Report: Appetite Changes, Extremity Discoloration, Numbness/Tingling, Swelling Increased, Bleeding Excessive, Eyesight Changes, Pain Increased, Urine Color Change, Constipation(Persistent), Fever over 101 degree F, Pain/Pressure in chest, Urinating Difficulty, Cough Up/Vomit Blood, Heart Beat Irreg/Pounding, Pain/Pressure in jaw, Cramps in feet or legs, Lightheadedness, Pain/Pressure in shoulder, Diarrhea(Persistent), Memory Changes Suddenly, Questions/Concerns, Weight gain consecutive days, Dizziness/Fainting, Nausea/Vomiting, Shortness of Breath, Weight gain over 2 pounds If questions or concerns contact your physician Or seek help at emergency department. Activity Activity Instructions: Avoid Stress to Incision Driving Instructions: No Driving/Refer to Dr. Bolivar Discharge Diet: Low Sodium Diet If Any Problems/Questions/Issu: Contact Your Physician, Go to Emergency Room Skin/Wound Care Infection Signs and Symptoms: Increased Redness, Foul Odor of Wound, Increased Drainage, Skin Itchy or Has a Rash, Increased Swelling, Temperature Above 101 F Bathing Instructions: INA Woody DO Dec 04, 2020 13:18
== END 2020-12-04 15:32 | disposition home or self-care (01) ==
LOC: SDC 11:14
PROVIDERS: ATTEND Surgery
DX: R18.8 Other ascites (principal)
CPT/HCPCS: 49082; 96365; 96366

== ENCOUNTER 2020-12-18 10:54 | Outpatient (CLI) | payer MEDICAID ==
[~2020-12-18] VITALS: Ht 170.2 cm; Wt 93.6 kg
[2020-12-18 11:42] VITALS: BP 120/79
[2020-12-18] MEDS ORDERED: ALBUMIN 25% 25 GM/100 ML 100 ML IV ONE (13:00)
--- NOTE | 2020-12-18 15:32 | Progress Note-Pre Operative ---
Pre-Operative Progress Note H&P Reviewed The H&P was reviewed, patient examined and no changes noted. Time Seen by Provider: 12:42 Date H&P Reviewed: Dec 18, 2020 Time H&P Reviewed: 12:42 Pre-Operative Diagnosis: Ascites, abd pain, SOB INA EMLO DO Dec 18, 2020 15:32
--- NOTE | 2020-12-18 15:34 | Progress Note-Post Operative ---
Post-Operative Progess Note Surgeon (s)/Metal Sprayer Production (s) Surgeon INA MELO DO Metal Sprayer Production: LISA Hawkins Pre-Operative Diagnosis Ascites, abd pain, SOB Post-Operative Diagnosis Same Procedure & Operative Findings Date of Procedure 12/18/20 Procedure Performed/Findings Paracentesis The patient was in same day surgery room. Ultrasound was used to isolate the largest pocket for placement of Daga-I-Dwkmghtw needle and catheter. The area was then prepped and draped and timeout was performed. Local anesthetic was infiltrated and #11 blade scalpel was used to make a small skin incision. Bzji-K-Whfxosic needle and catheter were then advanced until straw-colored fluid was withdrawn. The catheter was advanced and the needle was removed. A total of 10 L of straw-colored fluid was withdrawn. Once done draining, the catheter was removed and sterile bandage was applied. Pt allowed was given albumin per protocol. The patient tolerated procedure well without any complications. Anesthesia Type local lidocaine Estimated Blood Loss Estimated blood loss (mL): none Specimens/Packing Specimens Removed ascitic fluid INA MELO DO Dec 18, 2020 15:34
== END 2020-12-18 16:02 | disposition home or self-care (01) ==
LOC: SDC 10:54
PROVIDERS: ATTEND Surgery
DX: R18.8 Other ascites (principal); R06.02 Shortness of breath
CPT/HCPCS: 49082; 96365; 96366

== ENCOUNTER → 2020-12-29 | Outpatient (CLI) | payer MEDICAID | LOC: CARD 12:14 | PROVIDERS: ATTEND Internal Medicine | DX: I51.7 Cardiomegaly (principal); K74.60 Unspecified cirrhosis of liver | CPT/HCPCS: 93306 ==

== ENCOUNTER 2020-12-30 11:04 | Outpatient (CLI) | payer MEDICAID ==
[2020-12-30 12:15] VITALS: BP 143/105
[2020-12-30] MEDS ORDERED: ALBUMIN 25% 25 GM/100 ML 100 ML IV ONE (12:45)
--- NOTE | 2020-12-30 13:17 | Progress Note-Pre Operative ---
Pre-Operative Progress Note H&P Reviewed The H&P was reviewed, patient examined and no changes noted. Time Seen by Provider: 11:43 Date H&P Reviewed: Dec 30, 2020 Time H&P Reviewed: 11:43 Pre-Operative Diagnosis: Ascites, liver failure INA MELO DO Dec 30, 2020 13:17
--- NOTE | 2020-12-30 13:18 | Progress Note-Post Operative ---
Post-Operative Progess Note Surgeon (s)/Tuna Purse Seiner (s) Surgeon INA MELO DO Tuna Purse Seiner: none Pre-Operative Diagnosis Ascites, liver failure Post-Operative Diagnosis same Procedure & Operative Findings Date of Procedure 12/30/20 Procedure Performed/Findings The patient was in same day surgery room. Ultrasound was used to isolate the largest pocket for placement of Yizl-D-Awczlmyp needle and catheter. The area was then prepped and draped and timeout was performed. Local anesthetic was infiltrated and #11 blade scalpel was used to make a small skin incision. Bzjm-B-Gvnfsnxs needle and catheter were then advanced until straw-colored fluid was withdrawn. The catheter was advanced and the needle was removed. A total of 10 L of straw-colored fluid was withdrawn. Once done draining, the catheter was removed and sterile bandage was applied. Pt allowed was given albumin per protocol. The patient tolerated procedure well without any complications. Anesthesia Type local lidocaine Estimated Blood Loss Estimated blood loss (mL): scant Specimens/Packing Specimens Removed 10L ascitic fluid INA MELO DO Dec 30, 2020 13:18
== END 2020-12-30 15:15 ==
LOC: SDC 11:04
PROVIDERS: ATTEND Surgery
DX: R18.8 Other ascites (principal)
CPT/HCPCS: 49082; 96365; 96366

== ENCOUNTER → 2021-01-14 | Outpatient (CLI) | payer MEDICAID ==
[~2021-01-14] VITALS: Ht 175.3 cm; Wt 93.6 kg
[~2021-01-14] MED LIST changes: +ALBUMIN 25% 25 GM/100 ML 100 ML IV ONE
[2021-01-14 10:55] VITALS: BP 121/94
--- NOTE | 2021-01-14 11:00 | Progress Note-Pre Operative ---
Pre-Operative Progress Note H&P Reviewed The H&P was reviewed, patient examined and no changes noted. Time Seen by Provider: 10:54 Date H&P Reviewed: Jan 14, 2021 Time H&P Reviewed: 10:54 Pre-Operative Diagnosis: Ascites INA MELO DO Jan 14, 2021 11:00
--- NOTE | 2021-01-14 11:18 | Progress Note-Post Operative ---
Post-Operative Progess Note Surgeon (s)/Organic Section Technical Lead (s) Surgeon INA MELO DO Organic Section Technical Lead: none Pre-Operative Diagnosis Ascites Post-Operative Diagnosis same Procedure & Operative Findings Date of Procedure 01/14/21 Procedure Performed/Findings The patient was in same day surgery room. Ultrasound was used to isolate the largest pocket for placement of Hryj-C-Iidlvpis needle and catheter. The area was then prepped and draped and timeout was performed. Local anesthetic was infiltrated and #11 blade scalpel was used to make a small skin incision. Bghu-V-Wwaipurb needle and catheter were then advanced until straw-colored fluid was withdrawn. The catheter was advanced and the needle was removed. A total of 10 L of straw-colored fluid was withdrawn. Once done draining, the catheter was removed and sterile bandage was applied. Pt allowed was given albumin per protocol. The patient tolerated procedure well without any complications. Anesthesia Type local lidocaine Estimated Blood Loss Estimated blood loss (mL): scant Specimens/Packing Specimens Removed 10L of ascites INA MELO DO Jan 14, 2021 11:18
[2021-01-14 15:21] VITALS: BP 121/94
== END ==
LOC: SDC 10:33
PROVIDERS: ATTEND Surgery
DX: R18.8 Other ascites (principal)
CPT/HCPCS: 49082; 96365; 96366

== ENCOUNTER 2021-01-20 12:01 | Emergency (ER) | payer MEDICAID ==
[~2021-01-20] VITALS: Ht 172.7 cm; Wt 84.0 kg
[~2021-01-20 12:01] MED LIST changes: -ALBUMIN 25% 25 GM/100 ML 100 ML IV ONE
--- OUTSIDE RECORDS SUMMARY | 2021-01-20 12:07 | XMS REPORT | Encounter Summary ---
Author Author [facility] Organization [facility] Address Unknown Phone Unavailable Care Team Providers Care Linderman Operator Name Role Phone Mirella Forbes MD PCP Encounter Details Care Team Description Date Type Department Sherri Hammond RN 01/19/2021 Pre/Post Interventional Radi ology: Procedure [facility], [address], [address] [place] [address] Social History Date Tobacco Use [...] impairment: No documented as of this encounter Progress Notes * Sherri Hammond RN - 01/19/2021 4:23 PM CDT Received IR referral for TIPS from Dr. Butler. Patient with history of decompens ated cirrhosis, refractory ascites, hep c, treated with SVR and history of breas t cancer. Echocardiogram done 12/29/20 - report in outside records - Right ventricle - low normal EF - 55-60% MELD based on 12/10/20 labs - 10 Checking on recent outside CT Case to be reviewed by Dr. Hamilton Miller prior to scheduling. Patient will require c onsult, PAT appointment, COVID swab and updated bloodwork (within 30 days). Will contact patient to schedule once it is reviewed and approved. documented in this encounter Plan of Treatment Not on filedocumented as of this encounter Visit Diagnoses Not on filedocumented in this encounter Additional Health Concerns Assessment Noted Time A fall risk assessment has been completed for the pat ient 08/24/2020 10:33 AM CDT PHQ-2 Depression Total Score: 2 08/24/2020 10:33 AM CDT documented as of this encounter
--- OUTSIDE RECORDS SUMMARY | 2021-01-20 12:07 | XMS REPORT | Encounter Summary ---
Author Author [facility] Organization [facility] Address Unknown Phone Unavailable Care Team Providers Care Manager Of Distribution Name Role Phone Mirella Forbes MD PCP Encounter Details Care Team Description Date Type Department Lucille Butler MD [address] [facility] [id number] [place], [place] [id number] 12/10/2020 Documentation Hepatology: Main [facility] mpus, [facility] [address] [facility] [address] [place] [address] Social History Date Tobacco Use Types Packs/Day Years Used Current Every Day Smoker Smokeless Tobacco: Never Used Sex Assigned at Date Recorded Not on file Date Recorded COVID-19 Exposure Response 12/10/2020 9:43 AM CDT In the last month, have you been in contact with No / Unsure someone who was confirmed or suspected to have Coronavirus / COVID-19? documented as of this encounter Functional Status [...] as of this encounter Progress Notes * Kendra Amaya RN - 12/10/2020 1:55 PM CDT Ultrasound and echo order faxed to [facility] Scheduling at [phone]. Ultrasound due January. Echo due as soon as possible for TIPS evaluation. documented in this encounter Plan of Treatment [...]
--- OUTSIDE RECORDS SUMMARY | 2021-01-20 12:07 | XMS REPORT | Encounter Summary ---
Author Author [facility] Organization [facility] Address Unknown Phone Unavailable Care Team Providers Care User Experience Researcher Name Role Phone Mirella Forbes MD PCP Reason for Visit * Reason Onset Date Comments Other 12/18/2020 Encounter Details Care Team Description Date Type Department Lucille Butler MD [address] [facility] [id number] [place] [address] Other 12/18/2020 Telephone Hepatology: Main [facility] mpus, [facility] [address] [facility] [address] [place] [address] Social History Date Tobacco Use [...] impairment: No documented as of this encounter Ordered Prescriptions Start Date End Date Prescription Sig Dispensed Refills 12/18/2020 vitamin A 10,000 unit Take one 90 capsule 0 capsule capsule by mouth daily. 12/18/2020 03/11/2021 ergocalciferol (vitamin Take one 36 capsule 0 D2) (DRISDOL) 1,250 mcg capsule by (50,000 unit) capsule mouth three times weekly for 36 doses. documented in this encounter Miscellaneous Notes * Telephone Encounter - Sonia Antoine RN - 12/18/2020 9:42 AM CDT Returned call. Reviewed labs. MELD 10. Vitamin A and D low, scripts sent to [facility]. Pt states she is going to have para today at [facility]. Remind ed pt of plan to get ECHO scheduled which is needed for TIPS eval and to schedul e US due in January. Orders previously sent to [facility]. Pt plans t o call. Encouraged her to let us know if she has problems scheduling. * Telephone Encounter - Radha Lake - 12/18/2020 9:24 AM CDT Call from Shirley regarding lab results. Please return her call. documented in this encounter Plan of Treatment [...]
--- OUTSIDE RECORDS SUMMARY | 2021-01-20 12:07 | XMS REPORT | Encounter Summary ---
Author Author [facility] Organization [facility] Address Unknown Phone Unavailable Care Team Providers Care Client Relation Specialist Name Role Phone Mirella Forbes MD PCP Reason for Visit * Reason Onset Date Comments Error 12/18/2020 Encounter Details Care Team Description Date Type Department Lucille Butler MD [address] [facility] [id number] [place] [address] Error 12/18/2020 Telephone Transplant: Main [facility] mpus, [facility] [address] [facility] [address], [address] [place] [address] Social History Date Tobacco Use [...] impairment: No documented as of this encounter Plan of Treatment Not on filedocumented as of this encounter Visit Diagnoses Not on filedocumented in this encounter Additional Health Concerns Assessment Noted Time A fall risk assessment has been completed for the pat ient 08/24/2020 10:33 AM CDT PHQ-2 Depression Total Score: 2 08/24/2020 10:33 AM CDT documented as of this encounter
--- OUTSIDE RECORDS SUMMARY | 2021-01-20 12:07 | XMS REPORT | Encounter Summary ---
Author Author [facility] Organization [facility] Address Unknown Phone Unavailable Care Team Providers Care Institutional Nutrition Consultant Name Role Phone Mirella Forbes MD PCP Reason for Visit * Reason Onset Date Comments Other 01/04/2021 Encounter Details Care Team Description Date Type Department Lucille Butler MD [address] [facility] [id number] [place] [address] Other 01/04/2021 Telephone Transplant: Main Ca mpus, [facility] [address] [facility] [address], [address] [place] [address] Social History Date Tobacco Use [...] encounter Miscellaneous Notes * Telephone Encounter - Rolanda Rincon RN - 01/05/2021 12:34 PM CDT call returned to patient who states echo was completed at outside facility ([facility]), staff message sent to [place] to to request records. Advised kael brink MELD score and echo will be reviewed by provider next week to determine ne xt steps, she v/u. * Telephone Encounter - Adina Granger - 01/04/2021 9:56 AM CDT Patient left a voicemail regarding getting an order for a procedure and info as to what she needs to do to get her surgery. documented in this encounter Plan of Treatment [...]
--- OUTSIDE RECORDS SUMMARY | 2021-01-20 12:07 | XMS REPORT | Encounter Summary ---
Author Author [facility] Organization [facility] Address Unknown Phone Unavailable Care Team Providers Care Renewals Manager Name Role Phone Mirella Forbes MD PCP Reason for Referral * Radiology Services (Routine) Referred By Contact Referred To Contact Status Reason Specialty Diagnoses / Procedures Lucille Butler MD [address] [place], [place] [address] [place] [address] New Request Radiology Diagnoses Cirrhosis of liver without ascites, unspecified hepatic cirrhosis type (HCC) P rocedures IR TRANSJUGULAR INTRAHEPATIC PORTOSYSTEMIC SHUNT PLACEMENT Electronically signed by Lucille Butler MD at Reason for Visit * Reason Onset Date Comments Other 01/13/2021 Encounter Details Care Team Description Date Type Department Lucille Butler MD [address] [place] [address] [place] [address] Other 01/13/2021 Telephone Transplant: Main [facility], [address], [address] [place] [address] Social History Date Tobacco Use [...] as of this encounter Miscellaneous Notes * Addendum Note - Pattie Saldana RN - 01/19/2021 1:29 PM CDT Addended by: PATTIE SALDANA on: 01/19/2021 01:29 PM Modules accepted: Orders, SmartSet * Telephone Encounter - Pattie Saldana RN - 01/19/2021 1:26 PM CDT call returned. Per Dr. Butler, patient to proceed with TIPS. orders placed. * Telephone Encounter - Raphael Jarquin - 01/19/2021 12:48 PM CDT Pt LVM wanting to know the status of her scheduling a TIPS procedure. Please giv e her a call back. * Telephone Encounter - Pattie Saldana RN - 01/15/2021 10:09 AM CDT call returned to patient. Discussed that echo will be reviewed with Dr. Butler, r ecords have been received. Patient states need for cara have increased. Patient admits to "trying" to follow a low salt diet, education given. Patient v/u that provider will review care plan with team and confirmation of plan will be discu ssed with patient next week. She v/u and was appreciative of call. * Telephone Encounter - Raphael Jarquin - 01/14/2021 2:04 PM CDT Pt called in regards to getting orders for TIPS so that she can schedule that ap pt around her paracentsis appts. Please give her a call. * Telephone Encounter - Stacey Lamb - 01/14/2021 9:31 AM CDT Pt called to talk to you about getting the TIPS procedure scheduled. She said maren keith had an echo done on 01/09 or 01/10 at [facility]. * Telephone Encounter - Raphael Jarquin - 01/13/2021 10:39 AM CDT Pt called needing to speak with [place] in regards to scheduling an appt for TIPS pro cedure. Please give her a call back. documented in this encounter Plan of Treatment Order Schedule Name Type Priority Associated Diag noses Expected: 01/19/2021 (Approximate), Expi res: 01/19/2022 IR TRANSJUGULAR Imaging Routine Cirrhosis of l iver INTRAHEPATIC without ascites, PORTOSYSTEMIC SHUNT unspecified hepatic PLACEMENT cirrhosis type (HCC) Expected: 01/19/2021 (Approximate), Expi res: 01/19/2022 CBC Lab Routine Cirrhosis of li cristina without ascites, unspecified hepatic cirrhosis type (HCC) Expected: 01/19/2021 (Approximate), Expi res: 01/19/2022 PROTIME INR (PT) Lab Routine Cirrhosis of liver without ascites, unspecified hepatic cirrhosis type (HCC) Expected: 01/19/2021 (Approximate), Expi res: 01/19/2022 COMPREHENSIVE METABOLIC Lab Routine Cirrho sis of liver PANEL without ascites, unspecified hepatic cirrhosis type (HCC) [...]
--- OUTSIDE RECORDS SUMMARY | 2021-01-20 12:07 | XMS REPORT | Encounter Summary ---
Author Author [facility] Organization [facility] Address Unknown Phone Unavailable Care Team Providers Care Teletypesetter Operator Name Role Phone Mirella Forbes MD PCP Encounter Details Care Team Description Date Type Department Lucille Butler MD [address] [facility] [id number] [place], [place] [id number] 01/20/2021 Telephone Transplant: Main [facility] mpus, [facility] [address] [facility] [address] [place] [address] Social History Date Tobacco Use [...] encounter Miscellaneous Notes * Telephone Encounter - Radha Lake - 01/20/2021 10:00 AM CDT Call from Shirley, relaying information that her last US was done at [facility] in [place], [place] on 07/17/20 in radiology. If there are questions, please call kevyn fritz documented in this encounter Plan of Treatment [...]
--- OUTSIDE RECORDS SUMMARY | 2021-01-20 12:07 | XMS REPORT | Clinical Summary ---
Author Author [facility] Organization [facility] Address Unknown Phone Unavailable Care Team Providers Care Regional Driver Name Role Phone Mirella Forbes MD PCP Source Comments Some departments are not documenting in the electronic medical record. If you d o not see the information that you expected, contact Release of Information in [facility] [employer] Information Management department at [phone] for further assistan ce in locating additional records.[facility] Allergies Comments Active Allergy Reactions Severity Noted [...] mg by 0 tablet mouth every morning. 03/11/2021 Active ergocalciferol (vitamin Take one 36 capsule 0 D2) (DRISDOL) 1,250 mcg capsule by 1 (50,000 unit) capsule mouth three times weekly for 36 doses. Active vitamin A 10,000 unit Take one 90 capsule 0 12/09 capsule capsule by 1 mouth daily. Active Problems No known active problems Encounters Care Team Description Date Type Specialty Lucille Butler MD 01/20/2021 Telephone Transplant Surgery Sherri Hammond RN 01/19/2021 Pre/Post Radiology Procedure Megan Beckett MA Cirrhosis of liver without ascites, unsp ecified hepatic cirrhosis type (HCC) 01/14/2021 Orders Only Transplant Surgery Lucille Butler MD Other 01/13/2021 Telephone Transplant Surgery Lucille Butler MD Other 01/04/2021 Telephone Transplant Surgery Lucille Butler MD Imaging (Echo) 12/21/2020 Telephone Transplant Surgery Lucille Butler MD Error 12/18/2020 Telephone Transplant Surgery Lucille Butler MD Other 12/18/2020 Telephone Hepatology Lucille Butler MD 12/10/2020 Hospital Lab Encounter Lucille Butler MD Cirrhosis of liver without ascites, unsp ecified hepatic cirrhosis type (HCC) (Primary Dx) 12/10/2020 Office Visit Transplant Surgery Lucille Butler MD 12/10/2020 Documentation Hepatology 12/10/2020 Travel from Last 3 Months Social History Date Tobacco Use Types Packs/Day Years Used Current Every Day Smoker Smokeless Tobacco: Never Used Sex Assigned at Date Recorded Not on file Last Filed Vital Signs Reading Time Taken Comments Vital Sign 134/93 12/10/2020 9:55 AM CDT Blood Pressure 101 12/10/2020 9:55 AM CDT Pulse - - Temperature - - Respiratory Rate 98% 12/10/2020 9:55 AM CDT Oxygen Saturation - - Inhaled Oxygen Concentration 89.4 kg (197 lb) 12/10/2020 9:55 AM CDT Weight 172.7 cm (5' 8") 12/10/2020 9:55 AM CDT Height 29.95 12/10/2020 9:55 AM CDT Body Mass Index Plan of Treatment Health Maintenance Due Date Last Done Comments HIV SCREENING 1974 DTAP/TDAP VACCINES (1 - 1977 Tdap) HEPATITIS C SCREENING 1977 PHYSICAL (COMPREHENSIVE) 1977 EXAM CERVICAL CANCER SCREENING 1980 BREAST CANCER SCREENING 1999 COLORECTAL CANCER 2009 SCREENING SHINGLES RECOMBINANT 2009 VACCINE (1 of 2) INFLUENZA VACCINE 11/08/2020 Procedures Comments Procedure Name Priority Date/Time Associated Diag nosis 2D + DOPPLER ECHO Routine 12/29/2020 Cirrhosis of liver without ascites, unspecified hepatic cirrhosis type (HCC) HC CBC W/ AUTOMATED DIFF Routine 12/10/2020 Cirrh osis of liver 11:08 AM CDT without ascites, unspecified hepatic cirrhosis type (HCC) HC COMPREHENSIVE Routine 12/10/2020 Cirrhosis of liver METABOLIC PANEL 11:08 AM CDT without ascites, unspecified hepatic cirrhosis type (HCC) HC PT(INR) Routine 12/10/2020 Cirrhosis of li cristina 11:08 AM CDT without ascites, unspecified hepatic cirrhosis type (HCC) HC ALPHA FETO PROTEIN, Routine 12/10/2020 Cirrhos is of liver SERUM 11:08 AM CDT without ascites, unspecified hepatic cirrhosis type (HCC) HC 25-OH VITAMIN D Routine 12/10/2020 Cirrhosis o f liver 11:08 AM CDT without ascites, unspecified hepatic cirrhosis type (HCC) HC VITAMIN A Routine 12/10/2020 Cirrhosis of li cristina 11:08 AM CDT without ascites, unspecified hepatic cirrhosis type (HCC) from Last 3 Months Results * 2D + DOPPLER ECHO (12/29/2020) Specimen Narrative Performed At This result has an attachment that is n ot available. Performing Organization Address [facility] P mayank Number IN CLINIC * VITAMIN A (12/10/2020 11:08 AM CDT) Vitamin A 9.3 (L) REFERENCE LAB Comment: Reference range: 32.5 to 78.0 Unit: mcg/dL In this sample, the retinol (vitamin A) level indicates a severe deficiency. ADDITIONAL INFORMATION This test was developed and its performance characteristics determined by [facility] in a manner consistent with CLIA requirements. This test has not been cleared or approved by the U.S. Food and Drug Administration. [place] [facility], [address], [place] [address] Specimen Blood Performing Organization Address City/[facility] Code P mayank Number REFERENCE LAB REFERENCE LAB See results for address. * ALPHA FETO PROTEIN (AFP) (12/10/2020 11:08 AM CDT) Alpha Feto 3.8 0.0 - 15.0 NG/ML [facility] Protein Specimen Blood Performing Organization Address City/[facility] P mayank Number [facility] [address] [place] [address] * 25-OH VITAMIN D (D2 + D3) (12/10/2020 11:08 AM CDT) Vitamin 8.2 (L) 30 - 80 NG/ML [facility] D(25-OH)Total Specimen Blood Performing Organization Address [facility]/ZIP Code P mayank Number [facility] [address] [place] [address] * PROTIME INR (PT) (12/10/2020 11:08 AM CDT) INR 1.2 0.8 - 1.2 [facility] Specimen Blood Performing Organization Address [facility]/ZIP Code P mayank Number [facility] [address] [place] [address] * CBC AND DIFF (12/10/2020 11:08 AM CDT) White Blood 6.0 4.5 - 11.0 K/UL [facility] Cells RBC 4.22 4.0 - 5.0 M/UL [facility] Hemoglobin 13.5 12.0 - 15.0 GM/DL [facility] Hematocrit 40.1 36 - 45 % [facility] MCV 95.1 80 - 100 FL [facility] MCH 32.0 26 - 34 PG [facility] MCHC 33.7 32.0 - 36.0 G/DL [facility] RDW 16.3 (H) 11 - 15 % [facility] Platelet Count 105 (L) 150 - 400 K/UL [facility] MPV 8.1 7 - 11 FL [facility] Neutrophils 81 (H) 41 - 77 % [facility] Lymphocytes 6 (L) 24 - 44 % [facility] Monocytes 11 4 - 12 % [facility] Eosinophils 1 0 - 5 % [facility] Basophils 1 0 - 2 % [facility] Absolute 4.88 1.8 - 7.0 K/UL [facility] Neutrophil Count Absolute Lymph 0.39 (L) 1.0 - 4.8 K/UL [facility] Count Absolute 0.66 0 - 0.80 K/UL [facility] Monocyte Count Absolute 0.08 0 - 0.45 K/UL [facility] Eosinophil Count Absolute 0.04 0 - 0.20 K/UL [facility] Basophil Count Specimen Blood Performing Organization Address City/State/ZIP Code P mayank Number [facility] [address] [place] [address] * COMPREHENSIVE METABOLIC PANEL (12/10/2020 11:08 AM CDT) Sodium 132 (L) 137 - 147 MMOL/L [facility] Potassium 5.0 3.5 - 5.1 MMOL/L [facility] Chloride 105 98 - 110 MMOL/L [facility] Glucose 108 (H) 70 - 100 MG/DL [facility] Blood Urea 25 7 - 25 MG/DL [facility] Nitrogen Creatinine 0.97 0.4 - 1.00 MG/DL [facility] Calcium 8.1 (L) 8.5 - 10.6 MG/DL [facility] Total Protein 6.5 6.0 - 8.0 G/DL [facility] Total Bilirubin 1.7 (H) 0.3 - 1.2 MG/DL [facility] Albumin 2.7 (L) 3.5 - 5.0 G/DL [facility] Alk Phosphatase 113 (H) 25 - 110 U/L [facility] AST (SGOT) 49 (H) 7 - 40 U/L [facility] CO2 22 21 - 30 MMOL/L [facility] ALT (SGPT) 24 7 - 56 U/L [facility] Anion Gap 5 3 - 12 [facility] eGFR Non 58 (L) >60 mL/min [facility] Comment: [place]aur[place] The eGFR is not validated f or use in drug dosing adjustments. Continue to use estimated creatinine clearance per dosing reference text. Please contact the Clinical Pharmacist for questions. eGFR >60 >60 mL/min [facility] N[place]uan Comment: The eGFR is not validated for use in drug dosing adjustments. Continue to use estimated creatinine clearance per dosing reference text. Please contact the Clinical Pharmacist for questions. Specimen Blood Performing Organization Address City/[facility]/ZIP Code P mayank Number [facility] [address] [place] [address] from Last 3 Months Insurance Type Payer Benefit Subscriber ID Effective Phone Address Plan / Dates Group AETNA MEDICAID AETNA [id number] 2020- BETTER Present [facility] [place] Advance Directives Patient Hyperbaric Technologist Explanation Type Date Recorded Advance Directive/DPOA
--- OUTSIDE RECORDS SUMMARY | 2021-01-20 12:07 | XMS REPORT | Encounter Summary ---
Author Author [facility] Organization [facility] Address Unknown Phone Unavailable Care Team Providers Care Ep Specialist Name Role Phone Mirella Forbes MD PCP Encounter Details Care Team Description Date Type Department Megan Beckett MA Cirrhosis of liver without ascites, unsp ecified hepatic cirrhosis type (HCC) 01/14/2021 Orders Only Transplant: Main [facility], [facility] [address], [address] [place] [address] Social History Date Tobacco Use [...] Not on filedocumented as of this encounter Procedures Comments Procedure Name Priority Date/Time Associated Diag nosis 2D + DOPPLER ECHO Routine 12/29/2020 Cirrhosis of liver without ascites, unspecified hepatic cirrhosis type (HCC) documented in this encounter Results * 2D + DOPPLER ECHO (12/29/2020) Specimen Narrative Performed At This result has an attachment that is n ot available. Performing Organization Address City/State/ZIP Code P mayank Number IN CLINIC documented in this encounter Visit Diagnoses Diagnosis Cirrhosis of liver without ascites, uns pecified hepatic cirrhosis type (HCC) documented in this encounter Additional Health Concerns Assessment Noted Time A fall risk assessment has been completed for the pat ient 08/24/2020 10:33 AM CDT PHQ-2 Depression Total Score: 2 08/24/2020 10:33 AM CDT documented as of this encounter
--- OUTSIDE RECORDS SUMMARY | 2021-01-20 12:07 | XMS REPORT | Encounter Summary ---
Author Author [facility] Organization [facility] Address Unknown Phone Unavailable Care Team Providers Care Global Mobility Specialist Name Role Phone Mirella Forebs MD PCP Reason for Visit * Reason Onset Date Comments Imaging 12/21/2020 Echo Encounter Details Care Team Description Date Type Department Lucille Butler MD [address] [facility] [id number] [place] [address] Imaging (Echo) 12/21/2020 Telephone Transplant: Main [facility] mp[facility], [facility] [address], [address] [place] [address] Social History Date Tobacco Use [...] Encounter - Rolanda Rincon RN - 01/05/2021 7:41 PM CDT please see telephone encounter 01/04. * Telephone Encounter - Stacey Lamb - 12/30/2020 4:20 PM CDT Pt left VM letting you know she had her echo done at [facility] [place], [place] . She is needing orders for TIPS. * Telephone Encounter - Sowmya Larsen RN - 12/23/2020 12:04 PM CDT Returned call to patient regarding Echo needed for possible TIPS procedure, stat es the facility needs a referral to schedule in addition to the order. Patient r equesting this be sent to the [facility] [place], [place] ([place] Scheduling/Registration: [phone] Spoke to staff at scheduling/registration, the need the faxed order from our off ice, then will contact patient to schedule. Echo orders faxed to direct number abdon blunt. * Telephone Encounter - Radha Lake - 12/23/2020 11:50 AM CDT Call from Shirley regarding referral for tests. Please return her call. documented in this [...]
--- OUTSIDE RECORDS SUMMARY | 2021-01-20 12:08 | XMS REPORT | Encounter Summary ---
Author Author [facility] Address Unknown Phone Unavailable Care Team Providers Care Cvt Rn Name Role Phone Mirella Forbes MD PCP Reason for Referral * Test (Routine) Referred By Contact Referred To Contact Status Reason Specialty Diagnoses / Procedures Lucille Butler MD [address] [place] [phone] New Request Diagnoses Cirrhosis of liver without ascites, unspecified hepatic cirrhosis type (HCC) P rocedures 2D + DOPPLER ECHO Electronically signed by Lucille Butler MD at * Radiology Services (Routine) Referred By Contact Referred To Contact Status Reason Specialty Diagnoses / Procedures Lucille Butler MD [address] [place] [address] New Request Diagnoses Cirrhosis of liver without ascites, unspecified hepatic cirrhosis type (HCC) P rocedures US ABDOMEN LIMITED Electronically signed by Lucille Butler MD at Reason for Visit * Reason Comments Cirrhosis Encounter Details Care Team Description Date Type Department Lucille Butler MD [address] [place] [id number] [phone] Cirrhosis of liver without ascites, unsp ecified hepatic cirrhosis type (HCC) (Primary Dx) 12/10/2020 Office Visit Transplant: Main [facility], [address], [address] [place] [address] Social History Date Tobacco Use [...] / COVID-19? documented as of this encounter Last Filed Vital Signs Reading Time Taken [...] 12/10/2020 9:55 AM CDT Body Mass Index documented in this encounter Functional Status Date of Assessment [...] impairment: No documented as of this encounter Patient Instructions * Patient Instructions* Kendra Amaya RN - 12/10/2020 9:20 AM CDT Schedule: 1. No scheduling needs 2. Labs today Patient Information: 1. Please continue to follow up with your Primary Care Physician with any gener al needs or concerns. 2. Cirrhosis puts you at higher risk for developing liver cancer. Finding cancer early increases treatment options. You will need imaging every 6 months to scre en for this. You are due for an updated ultrasound in January! 3. Your MELD SCORE is a numerical scale, ranging from 6 (less ill) to 40 (gravel y ill), used for liver transplant candidates and also to know how healthy or sic k your liver is. A patients score may go up or down over time depending on th e status of your liver. Your most recent MELD score was 10. We will get labs tod ay to calculate an updated MELD score. 4. We discussed a TIPS procedure today. This is an outpatient procedure complete d through our Interventional Radiology Department. The goal of this procedure is to help reduce your ascites. You will need updated labs and an echocardiogram to evaluate if you are a candidate for this procedure. 5. Dr. Butler will discuss your diuretic regimen with Dr. Forbes and we will get back to you about our recommendations. Please let us know if you have questions, concerns, or updates! Back office: Your Treatment Team: MD Shruti Fields APRN Kelsie Swope BSN, RN [facility], MATERIAL STRESS TESTER Thank you for allowing us to participate in your care. Please call if you have any questions- , option #2 documented in this encounter Progress Notes * Lucille Butler MD - 12/10/2020 9:20 AM CDT CHIEF COMPLAINT/PURPOSE OF VISIT: Followup patient with history of decompensate d cirrhosis. HISTORY OF PRESENT ILLNESS: Ms. Cid is a 60-year-old female, who is follow ed in our office and with Dr. Mirella Forbes in [place], [place]. Ms. Cid has decompensated cirrhosis, primarily manifested by difficult to control ascite s. She has a history of hepatitis C infection, which was treated with SVR. She also had a history of breast cancer, both in the left breast and in the right b reast, which has been treated with x-ray therapy and lumpectomy. Since our last visit, she has continued to require intermittent paracentesis. S he has been somewhat refractory to diuretic up titration. She has expressed con siderable frustration to Dr. Forbes about definitive answers for her condition. Specifically, she has been frustrated that we are not offering transplantation in her case, see discussion below. On today's visit, she is present with her sister as well as her daughter who is available by telephone. With the exceptions noted above, there have been no other significant changes to her health. REVIEW OF SYSTEMS: A 10-point review of systems is notable for abnormalities as listed in the HPI. PHYSICAL EXAMINATION: General: The patient is interactive and appropriate, no acute distress. HEENT: Pupils equal, round, and reactive. Respiratory: Normal breath sounds noted in all lung hernandez. Cardiovascular: Heart, regular rate and rhythm. Abdomen : Mildly distended. Extremities: Full range of motion. No clubbing or cyanosis, and mild lower ext remity edema. Neurologic: Grossly unremarkable. No asterixis. No tremor. IMPRESSION/REPORT/PLAN: #1. Decompensated cirrhosis. #2. Persistent ascites: At this time, Ms. Cid has persistent ascites and this is her number one complaint. I discussed with her again that liver transpl ant is not a viable option in her case for more than one reason. At this time, the primary reason is that of a persistently low MELD score, which does not qual messi for consideration of liver transplantation at this time. I spent an extende d amount of time with Ms. Cid and her sister and her daughter discussing th is point today and the allocation process for this in the [facility]. The second consideration regarding transplantation would be her breast cancer hi story. While it is not clear that her breast cancer history would automatically rule her out for consideration, we would clearly need updated evaluation from o Medical Oncology team to determine if she still has significant risk for fili st cancer recurrence. However, again, that is a secondary consideration at this time given that she does not have an indication for transplantation based on her current state of disease. Given the difficult to control ascites, we have discussed with her the considera tion of TIPS placement. We will consider this after we have obtained some addit ional testing, which includes an updated MELD score from today as well as an ech ocardiogram to determine if this would be safe. Should this be safe, we would t hen consider moving forward with TIPS. I spent an extended amount of time today discussing the potential benefits and risks of TIPS, which includes development of hepatic encephalopathy in up to 30% of patients. At the end of the visit, Ms. Cid and her family have all questions answered . Followup will be dictated by results of pending testing. A total of 50 minutes were spent on the same day of the visit in activities whic h includes some or all of the following: chart review in preparation to see the patient, obtaining and/or reviewing separately obtained history and outside lucila rds, counseling and educating the patient/family/caregiver, ordering medications , tests, or procedures, referring and communication with other health care profe ssionals, documenting clinical information in the electronic medical record, ind ependently interpreting results and communicating results to the patient/family/ caregiver, and ongoing care coordination. documented in this encounter Plan of Treatment Order Schedule Name Type Priority Associated Diag noses Expected: 01/08/2021 (Approximate), Expi res: 12/10/2021 US ABDOMEN LIMITED Imaging Routine Cirrhosis o f liver without ascites, unspecified hepatic cirrhosis type (HCC) documented as of this encounter Results * 2D + DOPPLER ECHO (12/29/2020) Specimen Narrative Performed At This result has an attachment that is n ot available. Performing Organization Address [facility] Code P mayank Number IN CLINIC * VITAMIN A (12/10/2020 11:08 AM CDT) Vitamin A 9.3 (L) REFERENCE LAB Comment: Reference range: 32.5 to 78.0 Unit: mcg/dL In this sample, the retinol (vitamin A) level indicates a severe deficiency. ADDITIONAL INFORMATION This test was developed and its performance characteristics determined by [facility] in a manner consistent with CLIA requirements. This test has not been cleared or approved by the U.S. Food and Drug Administration. [facility], [address] [place] [address] Specimen Blood Performing Organization Address City/[facility]/ZIP Code P mayank Number REFERENCE LAB REFERENCE LAB See results for address. * 25-OH VITAMIN D (D2 + D3) (12/10/2020 11:08 AM CDT) Vitamin 8.2 (L) 30 - 80 NG/ML [facility] D(25-OH)Total Specimen Blood Performing Organization Address City/State/ZIP Code P mayank Number [facility] [address] [facility] [address] * ALPHA FETO PROTEIN (AFP) (12/10/2020 11:08 AM CDT) Alpha Feto 3.8 0.0 - 15.0 NG/ML [facility] Protein Specimen Blood Performing Organization Address City/[facility]/ZIP Code P mayank Number [facility] [address] [place] [address] * PROTIME INR (PT) (12/10/2020 11:08 AM CDT) INR 1.2 0.8 - 1.2 [facility] Specimen Blood Performing Organization Address City/[facility]/ZIP Code P mayank Number [facility] [address] [place] [address] * COMPREHENSIVE METABOLIC PANEL (12/10/2020 11:08 AM [...] (L) >60 mL/min [facility] Comment: [place] The eGFR is not validated f or use in drug dosing adjustments. Continue to use estimated creatinine clearance per dosing reference text. Please contact the Clinical Pharmacist for questions. eGFR >60 >60 mL/min [facility] [place] Comment: The eGFR is not validated for use in drug dosing adjustments. Continue to use estimated creatinine clearance per dosing reference text. Please contact the Clinical Pharmacist for questions. Specimen Blood Performing Organization Address City/[facility]/ZIP Code P mayank Number [facility] [address] [place] [address] * CBC AND DIFF (12/10/2020 11:08 AM [...] P mayank Number [facility] [address] [place] [address] documented in this encounter Visit Diagnoses Diagnosis [...]
--- OUTSIDE RECORDS SUMMARY | 2021-01-20 12:08 | XMS REPORT | Encounter Summary ---
Author Author [facility] Organization [facility] Address Unknown Phone Unavailable Care Team Providers Care Solid Tire Finisher Name Role Phone Mirella Forbes MD PCP Encounter Details Care Team Description Date Type Department Lucille Butler MD [address] [facility] [id number] [place] [address] [phone] 12/10/2020 Hospital Laboratory: Main Ca mpus, Encounter [facility] [address] [facility] [address], [address] [place] [address] Social History Date Tobacco Use Types Packs/Day [...] impairment: No documented as of this encounter Medications at Time of Discharge Start Date End Date Medication Sig Dispensed Refills duloxetine DR (CYMBALTA) Take 60 mg by 0 60 mg capsule mouth daily. furosemide (LASIX) 20 mg Take 20 mg by 0 tablet mouth every morning. spironolactone Take 100 mg 0 (ALDACTONE) 100 mg tablet by mouth daily. Take with food. documented as of this encounter Discharge Disposition Code Departure Means Destination Disposition Home Home or Self Care documented in this encounter Plan of Treatment Not on filedocumented as of this encounter Procedures Comments Procedure Name Priority Date/Time Associated Diag nosis HC VITAMIN A Routine 12/10/2020 Cirrhosis of [...] (HCC) documented in this encounter Results * CBC AND DIFF (12/10/2020 11:08 AM [...] P mayank Number [facility] [address] [place] [address] * COMPREHENSIVE METABOLIC PANEL (12/10/2020 11:08 AM [...] (L) >60 mL/min [facility] Comment: [place] The eGFR is not validated f or use in drug dosing adjustments. Continue to use estimated creatinine clearance per dosing reference text. Please contact the Clinical Pharmacist for questions. eGFR >60 >60 mL/min [facility] [place] Comment: The eGFR is not validated for use in drug dosing adjustments. Continue to use estimated creatinine clearance per dosing reference text. Please contact the Clinical Pharmacist for questions. Specimen Blood Performing Organization Address City/[facility]/ZIP Code P mayank Number MAIN LAB [address] [place] [address] * PROTIME INR (PT) (12/10/2020 11:08 AM CDT) INR 1.2 0.8 - 1.2 MAIN LAB Specimen Blood Performing Organization Address [facility] P mayank Number MAIN LAB [address] [place] [address] * ALPHA FETO PROTEIN (AFP) (12/10/2020 11:08 AM CDT) Alpha Feto 3.8 0.0 - 15.0 NG/ML [facility] Protein Specimen Blood Performing Organization Address [facility] P mayank Number MAIN LAB [address] [place] [address] * 25-OH VITAMIN D (D2 + D3) (12/10/2020 11:08 AM CDT) Vitamin 8.2 (L) 30 - 80 NG/ML MAIN LAB D(25-OH)Total Specimen Blood Performing Organization Address [facility] P mayank Number MAIN LAB [address] [place] [address] * VITAMIN A (12/10/2020 11:08 AM CDT) Vitamin A 9.3 (L) REFERENCE LAB Comment: Reference range: 32.5 to 78.0 Unit: mcg/dL In this sample, the retinol (vitamin A) level indicates a severe deficiency. ADDITIONAL INFORMATION This test was developed and its performance characteristics determined by [facility] in a manner consistent with CLIA requirements. This test has not been cleared or approved by the U.S. Food and Drug Administration. [facility], [address] [place] [address], [place] [address] Specimen Blood Performing Organization Address [facility]/ZIP [facility] P mayank Number REFERENCE LAB REFERENCE LAB See results for address. documented in this encounter Visit Diagnoses Diagnosis [...]
--- OUTSIDE RECORDS SUMMARY | 2021-01-20 12:08 | XMS REPORT | Encounter Summary ---
Author Author [facility] Organization [facility] Address Unknown Phone Unavailable Care Team Providers Care Reed Maker Name Role Phone Mirella Forbes MD PCP Encounter Details Care Team Description Date Type Department 12/10/2020 Travel Social History Date Tobacco Use Types Packs/Day [...]
--- NOTE | 2021-01-20 12:10 | ED General ---
General Stated Complaint: MEDICATION REFILL CYMBALTA History of Present Illness Date Seen by Provider: Jan 20, 2021 Time Seen by Provider: 12:05 Initial Comments 60-year-old female presents for refill of her Cymbalta. Patient reports that she had been seen in Dr. Forbes and felt that she needed a different provider so she "fired her" patient reports that she does not have an appointment up until 02/03/2021 to establish care with another provider. Patient reports that she ran out of her Cymbalta on 01/08/2021, that she got an initial 4-day refill but they will no longer refill her prescription. Patient presents today to see if she can get a refill until she establishes care with her new provider. Patient has no other acute complaints or concerns at this time Allergies and Home Medications Allergies Coded Allergies: adhesive tape (Verified Allergy, Mild, RASH, 10/08/20) Patient Home Medication List Home Medication List Reviewed: Yes Acyclovir (Acyclovir) 200 Mg Capsule, 200 MG PO PRN, (Reported) Entered as Reported by: OSWALD CARDENAS on 08/23/19899 Duloxetine HCl (Cymbalta) 60 Mg Capsule.dr, 60 MG PO DAILY, (Reported) Entered as Reported by: OSWALD CARDENAS on 08/23/19899 Duloxetine HCl (Cymbalta) 60 Mg Capsule.dr, 60 MG PO DAILY Prescribed by: TEDDY MORENO on 01/20/21 1213 Furosemide (Furosemide) 20 Mg Tablet, 20 MG PO DAILY PRN, (Reported) Entered as Reported by: OSWALD CARDENAS on 08/23/19899 Ribavirin (Ribavirin) 200 Mg Capsule, 600 MG PO BID, (Reported) Entered as Reported by: OSWALD CARDENAS on 08/23/19899 Sofosbuvir/Velpatasvir (Epclusa 400 mg-100 mg Tablet) 1 Each Tablet, 1 EACH PO DAILY, (Reported) Entered as Reported by: OSWALD CARDENAS on 08/23/19899 Review of Systems Review of Systems Constitutional: see HPI EENTM: no symptoms reported Respiratory: no symptoms reported Cardiovascular: no symptoms reported Gastrointestinal: no symptoms reported Genitourinary: see HPI Musculoskeletal: no symptoms reported Skin: see HPI Psychiatric/Neurological: See HPI Past Xjgbhtp-Ctnszf-Rqlfxx Hx Seasonal Allergies Seasonal Allergies: Yes Past Medical History Surgeries: Yes (LEFT BREAST LUMPECTOMY, ARM FX, FINGER, ) Breast, Hysterectomy Respiratory: No Cardiac: Yes Chronic Edema/Swelling Neurological: No STENCIL CUTTER History: Hysterectomy Sexually Transmitted Disease: No HIV/AIDS: No Genitourinary: No Gastrointestinal: Yes Diverticulosis, Hepatitis Musculoskeletal: No Endocrine: No HEENT: Yes (READING GLASSES) Loss of Vision: Denies Hearing Impairment: Denies Cancer: Yes Breast Did You Recieve Any Treatments: Yes What Type of Treatment Did You: Radiation, Surgical Intervention Psychosocial: Yes Anxiety, Bipolar, Depression Integumentary: Yes Eczema Blood Disorders: No Adverse Reaction/Blood Tranf: No (N/A) Physical Exam Vital Signs Vital Signs - First Documented 01/20/21 12:04 Temp 36.0 Pulse 100 Resp 18 B/P (MAP) 167/100 (122) Pulse Ox 100 O2 Delivery Room Air Capillary Refill : Height, Weight, BMI Height: '" Weight: lbs. oz. kg; 32.31 BMI Method: General Appearance: No Apparent Distress, WD/WN HEENT: Normal ENT Inspection Neck: Normal Inspection, Non Tender Respiratory: Lungs Clear, Normal Breath Sounds Cardiovascular: Regular Rate, Rhythm, No Edema Extremity: Normal Capillary Refill, Normal Inspection, Normal Range of Motion Neurologic/Psychiatric: Alert, Oriented x3 Skin: Normal Color, Warm/Dry Progress/Results/Core Measures Suspected Sepsis SIRS Temperature: Pulse: Respiratory Rate: Blood Pressure / Mean: Results/Orders Vital Signs/I&O 01/20/21 01/20/21 12:04 12:22 Temp 36.0 36.0 Pulse 100 100 Resp 18 18 B/P (MAP) 167/100 (122) 167/100 Pulse Ox 100 100 O2 Delivery Room Air Room Air Capillary Refill : Departure Impression Primary Impression: Medication refill Disposition: HOME, SELF-CARE Condition: Stable Departure-Patient Inst. Referrals: [facility] (PCP/Family) Primary Care Physician Patient Instructions: NO INSTRUCTIONS GIVEN Add. Discharge Instructions: Keep already scheduled appointment for new primary care provider initial visit Scripts Duloxetine HCl (Cymbalta) 60 Mg Capsule.dr 60 MG PO DAILY, #15 CAP Prov: TEDDY MORENO DO 01/20/21 TEDDY MORENO DO Jan 20, 2021 12:10
[2021-01-20] MEDS ORDERED: DULO60CA6 PO (12:13)
[2021-01-20 12:22] VITALS: BP 167/100
== END 2021-01-20 12:21 | disposition home or self-care (01) ==
LOC: EDUNIT# 12:01 → ER 12:03
DX: Z76.0 Encounter for issue of repeat prescription (principal); F41.9 Anxiety disorder, unspecified; F32.9 Major depressive disorder, single episode, unspecified; Z79.899 Other long term (current) drug therapy
CPT/HCPCS: 99281

== ENCOUNTER 2021-01-22 09:49 | Outpatient (CLI) | payer MEDICAID ==
[~2021-01-22] VITALS: Ht 170 cm; Wt 84.0 kg
[2021-01-22 10:45] VITALS: BP 130/97
--- NOTE | 2021-01-22 10:53 | Progress Note-Pre Operative ---
Pre-Operative Progress Note H&P Reviewed The H&P was reviewed, patient examined and no changes noted. Time Seen by Provider: 10:24 Date H&P Reviewed: Jan 22, 2021 Time H&P Reviewed: 10:24 Pre-Operative Diagnosis: Ascites INA MELO DO Jan 22, 2021 10:53
--- NOTE | 2021-01-22 10:54 | Progress Note-Post Operative ---
Post-Operative Progess Note Surgeon (s)/Photolith Operator (s) Surgeon INA MELO DO Photolith Operator: none Pre-Operative Diagnosis Ascites Post-Operative Diagnosis same Procedure & Operative Findings Date of Procedure 01/22/21 Procedure Performed/Findings The patient was in same day surgery room. Ultrasound was used to isolate the largest pocket for placement of Bjpk-O-Wekcbpxn needle and catheter. The area was then prepped and draped and timeout was performed. Local anesthetic was infiltrated and #11 blade scalpel was used to make a small skin incision. Ngfp-I-Fuhueald needle and catheter were then advanced until straw-colored fluid was withdrawn. The catheter was advanced and the needle was removed. A total of 10 L of straw-colored fluid was withdrawn. Once done draining, the catheter was removed and sterile bandage was applied. Pt allowed was given albumin per protocol. The patient tolerated procedure well without any complications. Anesthesia Type Local lidocaine Estimated Blood Loss Estimated blood loss (mL): scant Specimens/Packing Specimens Removed 10L ascitic fluid INA MELO DO Jan 22, 2021 10:54
[2021-01-22] MEDS ORDERED: ALBUMIN 25% 25 GM/100 ML 100 ML IV ONE ×2 (11:00→12:30)
== END 2021-01-22 13:00 | disposition home or self-care (01) ==
LOC: SDC 09:49
PROVIDERS: ATTEND Surgery
DX: R18.8 Other ascites (principal)
CPT/HCPCS: 49082; 96365; 96366

== ENCOUNTER 2021-02-17 11:39 | Outpatient (CLI) | payer MEDICAID ==
[~2021-02-17] VITALS: Wt 84.0 kg
[~2021-02-17 11:39] MED LIST changes: -DULO60CA6 PO; +DULO60CA7 PO
[2021-02-17] MEDS ORDERED: ALBUMIN 25% 25 GM/100 ML 100 ML IV ONE (12:00)
--- NOTE | 2021-02-17 14:10 | Progress Note-Pre Operative ---
Pre-Operative Progress Note H&P Reviewed The H&P was reviewed, patient examined and no changes noted. Time Seen by Provider: 13:55 Date H&P Reviewed: Feb 17, 2021 Time H&P Reviewed: 13:55 Pre-Operative Diagnosis: ascites INA MELO DO Feb 17, 2021 14:10
--- NOTE | 2021-02-17 14:11 | Progress Note-Post Operative ---
Post-Operative Progess Note Surgeon (s)/Evp Global Product Leadership (s) Surgeon INA MELO DO [employer]p Global Product Leadership: none Pre-Operative Diagnosis ascites Post-Operative Diagnosis same Procedure & Operative Findings Date of Procedure 02/17/21 Procedure Performed/Findings Paracentesis The patient was in same day surgery room. Ultrasound was used to isolate the largest pocket for placement of Hazi-B-Dpjnerzw needle and catheter. The area was then prepped and draped and timeout was performed. Local anesthetic was infiltrated and #11 blade scalpel was used to make a small skin incision. Huxu-M-Bqurdtgp needle and catheter were then advanced until straw-colored fluid was withdrawn. The catheter was advanced and the needle was removed. A total of 10 L of straw-colored fluid was withdrawn. Once done draining, the catheter was removed and sterile bandage was applied. Pt allowed was given albumin per protocol. The patient tolerated procedure well without any complications. Anesthesia Type local lidocaine Estimated Blood Loss Estimated blood loss (mL): none Specimens/Packing Specimens Removed ascitic fluid INA MELO DO Feb 17, 2021 14:11
[2021-02-17 14:45] VITALS: BP 134/87
== END 2021-02-17 16:05 ==
LOC: SDC 11:39
PROVIDERS: ATTEND Surgery
DX: R18.8 Other ascites (principal)
CPT/HCPCS: 49082; 96365; 96366

== ENCOUNTER → 2021-02-19 | Outpatient (CLI) | payer MEDICAID ==
--- NOTE | 2021-02-19 13:05 | Diagnostic Imaging Report ---
PROCEDURE: US DOPPLER ABD/COMPLETE TECHNIQUE: Multiple real-time grayscale images were obtained over the kidneys in various projections. Duplex evaluation of renal arteries was also attempted. INDICATION: Cirrhosis with TIPS and ascites. Liver is 17 cm in length. Spleen is enlarged at 17 cm in length. The liver again shows nodular contour consistent with cirrhosis. No discrete liver mass is identified. There is a large volume of perihepatic ascites. The patient does have a TIPS. The TIPS appears to be patent. TIPS velocity at the portal venous end is 100 cm/s. Mid TIPS velocity is 201 cm/s. Hepatic venous end is 147 cm/s. The pancreas is unremarkable. IMPRESSION: Features consistent with cirrhosis and portal hypertension with large volume ascites and splenomegaly. There is a TIPS present. Tips does appear to be patent. No other significant abnormality is seen. Dictated by: Dictated on workstation # [id number]
== END ==
LOC: RAD 07:45
PROVIDERS: ATTEND Radiology Vascular & Interventional Radiology
DX: K74.60 Unspecified cirrhosis of liver (principal); Z95.828 Presence of other vascular implants and grafts
CPT/HCPCS: 76830; 76856; 93975

== ENCOUNTER 2021-02-26 11:09 | Day surgery (SDC) | payer MEDICAID ==
[~2021-02-26 11:09] MED LIST changes: -RIBA200C13 PO; +[UNRECOGNIZED DRUG - CODE] PO
[2021-02-26 11:15] VITALS: BP 128/84
[2021-02-26] MEDS ORDERED: ALBUMIN 25% 25 GM/100 ML 100 ML IV ONE (12:15)
--- NOTE | 2021-02-26 15:31 | Progress Note-Post Operative ---
Post-Operative Progess Note Surgeon (s)/Electronic System Engineer (s) Surgeon INA MELO DO Electronic System Engineer: none Pre-Operative Diagnosis ascites Post-Operative Diagnosis same Procedure & Operative Findings Date of Procedure 02/26/21 Procedure Performed/Findings Paracentesis The patient was in same day surgery room. The abdomen was then prepped and draped and timeout was performed. Local anesthetic was infiltrated and #11 blade scalpel was used to make a small skin incision. Upwg-A-Kexovcvc needle and catheter were then advanced until straw-colored fluid was withdrawn. The catheter was advanced and the needle was removed. A total of 10 L of straw-colored fluid was withdrawn. Once done draining, the catheter was removed and sterile bandage was applied. Pt allowed was given albumin per protocol. The patient tolerated procedure well without any complications. Anesthesia Type local lidocaine Estimated Blood Loss Estimated blood loss (mL): none Specimens/Packing Specimens Removed 10L of ascitic fluid INA MELO DO Feb 26, 2021 15:31
--- NOTE | 2021-02-26 15:32 | Discharge Inst-Surgical ---
Discharge Inst-Surgical Depart Medication/Instructions New, Converted or Re-Newed RX: Other (no meds needed) Activity Activity as Tolerated: Yes Driving Instructions: You May Drive Diet Discharge Diet: No Restrictions Diet After 24 Hours: Clear Liquid if Nauseous If Any Problems/Questions/Issu: Contact Your Physician, Go to Emergency Room Skin/Wound Care Infection Signs and Symptoms: Increased Redness, Foul Odor of Wound, Increased Drainage, Skin Itchy or Has a Rash, Increased Swelling, Temperature Above 101 F INA MELO DO Feb 26, 2021 15:32
--- OUTSIDE RECORDS SUMMARY | 2021-03-01 11:11 | XMS REPORT | Encounter Summary ---
Author Author [facility] Organization [facility] Address Unknown Phone Unavailable Care Team Providers Care Promotions Executive Producer Name Role Phone Mirella Forbes MD PCP Reason for Visit * Reason Onset Date Comments Follow-up Phone Call 02/05/2021 S/P TIPS 02/03 Encounter Details Care Team Description Date Type Department Ana Meier RN Follow-up Phone Call (S/P TIPS 02/03) 02/05/2021 Telephone Interventional Radi ology: [facility], [address], [address] [place] [phone] Social History Date Tobacco Use Types Packs/Day Years Used Current Every Day Smoker Cigarettes 1 45 Smokeless Tobacco: Never Used Comments Alcohol Use Standard Drinks/Week Never 0 (1 standard drink = 0.6 o z pure alcohol) Alcohol Habits Answer Date Recorded How often do you have a drink containing alcohol? Never 02/01/2021 How many drinks containing alcohol do you have on No t asked a typical day when you are drinking? How often do you have six or more drinks on one Not asked occasion? Comment: Not asked Sex Assigned at Date Recorded Not on file Date Recorded COVID-19 Exposure Response 02/03/2021 11:33 AM CDT In the last month, have you been in contact with No / Unsure someone who was confirmed or suspected to have Coronavirus / COVID-19? documented as of this encounter Functional Status Date of Assessment Functional Status Response 01/26/2021 Does the patient have a hearing impairment: No 01/26/2021 Does the patient have a visual impairment: No 01/26/2021 Does the patient have impaired ambulation: No 01/26/2021 Does the patient have an activity of daily living No (ADL) impairment: 01/26/2021 Does the patient have an instrumental activity of No daily living (IADL) impairment: Date of Assessment Cognitive Status Response 01/26/2021 Does the patient have a cognitive impairment: No documented as of this encounter Miscellaneous Notes * Telephone Encounter - Ana Meier RN - 02/05/2021 11:10 AM CDT Call placed to patient for follow up post TIPS placement. Denies any concerns. I s able to get her jeans on now and doesn't feel like she has started getting asc ites again. Educated on the need for follow up U/S in 2 weeks and order was faxe d to [facility]. She is to call them if they haven't called to sched [facility] by Monday or Monday next week. States understanding. Denies any questions a t this time. Ana Meier RN BSN documented in this encounter Plan of Treatment Not on filedocumented as of this encounter Visit Diagnoses Not on filedocumented in this encounter Additional Health Concerns Noted Time Assessment 02/04/2021 7:34 AM CDT A fall risk assessment has been complet ed for the patient 08/24/2020 10:33 AM CDT PHQ-2 Depression Total Score: 2 documented as of this encounter Care Teams Start Date End Date Promotions Executive Producer Relationship Specialty 07/29/20 Mirella Forbes MD PCP - General Internal [address] [place] [phone] documented as of this encounter
--- OUTSIDE RECORDS SUMMARY | 2021-03-01 11:11 | XMS REPORT | Encounter Summary ---
Author Author [facility] Organization [facility] Address Unknown Phone Unavailable Care Team Providers Care Community Center Coordinator Name Role Phone Mirella Forbes MD PCP Reason for Visit * Reason Onset Date Comments Other 02/12/2021 Encounter Details Care Team Description Date Type Department Lucille Butler MD [address] [facility] [id number] [place], [place] [phone] Other 02/12/2021 Telephone Transplant: Main Ca mpus, [facility] [address] [facility] [address], [address] [place] [address] Social History Date Tobacco Use [...] Telephone Encounter - Rolanda Rincon RN - 02/12/2021 8:55 PM CDT see previous telephone encounter * Telephone Encounter - Raphael Jarquin - 02/12/2021 11:55 AM CDT Pt called wanting to speak to [place] about getting orders for post surgery procedure sent to [facility]. Please give her a call to discuss. documented in this encounter Plan of Treatment Not on filedocumented as of this encounter Visit Diagnoses Not on filedocumented in this encounter Additional Health Concerns Noted Time Assessment 02/04/2021 7:34 AM CDT A fall risk assessment has been complet ed for the patient 08/24/2020 10:33 AM CDT PHQ-2 Depression Total Score: 2 documented as of this encounter Care Teams Start Date End Date Community Center Coordinator Relationship Specialty 07/29/20 Mirella Forbes MD PCP - General Internal [address] [place] [phone] documented as of this encounter
--- OUTSIDE RECORDS SUMMARY | 2021-03-01 11:11 | XMS REPORT | Encounter Summary ---
Author Author [facility] Organization [facility] Address Unknown Phone Unavailable Care Team Providers Care Warehouse Packer Name Role Phone Mirella Forbes MD PCP Encounter Details Care Team Description Date Type Department Sherri Hammond RN 02/01/2021 Pre/Post Interventional Radi ology: Procedure Main [place], [address], [address] [place] [address] Social History Date Tobacco Use [...] of this encounter Progress Notes * Sherri Hammond, MAURY - 02/01/2021 1:58 PM CDT New MELD score based on 02/01/21 labs - 11. documented in this encounter Plan of Treatment Not on filedocumented as of this encounter Visit Diagnoses Not on filedocumented in this encounter Additional Health Concerns Noted Time Assessment 02/01/2021 8:36 AM CDT A fall risk assessment has been complet ed for the patient 08/24/2020 10:33 AM CDT PHQ-2 Depression Total Score: 2 documented as of this encounter Care Teams Start Date End Date Warehouse Packer Relationship Specialty 07/29/20 Mirella Forbes MD PCP - General Internal [address] [place] [phone] documented as of this encounter
--- OUTSIDE RECORDS SUMMARY | 2021-03-01 11:11 | XMS REPORT | Encounter Summary ---
Author Author [facility] Organization [facility] Address Unknown Phone Unavailable Care Team Providers Care Date Night Caregiver Name Role Phone Mirella Forbes MD PCP Encounter Details Care Team Description Date Type Department 02/01/2021 Travel Social History Date Tobacco Use Types [...] on file Date Recorded COVID-19 Exposure Response 02/01/2021 10:06 AM CDT In the last month, have [...] encounter Care Teams Start Date End Date Date Night Caregiver Relationship Specialty 07/29/20 Mirella Forbes MD PCP - General Internal [address] [place] [phone] documented as of this encounter
--- OUTSIDE RECORDS SUMMARY | 2021-03-01 11:11 | XMS REPORT | Encounter Summary ---
Author Author [facility] Organization [facility] Address Unknown Phone Unavailable Care Team Providers Care Runner Worker Name Role Phone Mirella Forbes MD PCP Reason for Visit * Reason Onset Date Comments Other 02/10/2021 symptoms Encounter Details Care Team Description Date Type Department Lucille Butler MD [address] [facility] [id number] [place], [place] [id number] Other (symptoms) 02/10/2021 Telephone Transplant: Main Ca mpus, [facility] [address] [facility] [address], [address] [place] [address] Social History Date Tobacco Use [...] encounter Miscellaneous Notes * Telephone Encounter - Jaya Radha - 02/18/2021 4:27 PM REGISTERED NURSE PRACTITIONER Call from Shirley regarding TIPS and para. Stated had another para on 02/17 and 10 liters taken off belly. Says TIPS did not lessen ascites and would like a re turn call to discuss what she needs to do next. Please call her. STERED NURSE PRACTITIONER * Telephone Encounter - Rolanda Rincon RN - 02/12/2021 8:47 PM CDT returned call, LVM. Advised patient US abd ordered faxed via [employer] system to [facility] by IR team. Patient will need to call to s [facility] if facility has not reached out to her. Advised to return call w ith any questions. * Telephone Encounter - Angelita Young - 02/11/2021 10:14 AM CDT Pt returned call, requesting call back. * Telephone Encounter - Rolanda Rincon RN - 02/10/2021 3:44 PM CDT RN LVM for patient to return call * Telephone Encounter - Stacey Lamb - 02/10/2021 12:08 PM CDT Pt called wanting to know what procedure Dr. Butler is wanting her to do so she c an get it scheduled at [facility] [place] documented in this encounter Plan of Treatment Not on filedocumented as of this encounter Visit Diagnoses Not on filedocumented in this encounter Additional Health Concerns Noted Time Assessment 02/04/2021 7:34 AM CDT A fall risk assessment has been complet ed for the patient 08/24/2020 10:33 AM CDT PHQ-2 Depression Total Score: 2 documented as of this encounter Care Teams Start Date End Date Runner Worker Relationship Specialty 07/29/20 Mirella Forbes MD PCP - General Internal [address] [place] [phone] documented as of this encounter
--- OUTSIDE RECORDS SUMMARY | 2021-03-01 11:11 | XMS REPORT | Encounter Summary ---
Author Author [facility] Organization [facility] Address Unknown Phone Unavailable Care Team Providers Care Payroll Machine Operator Name Role Phone Mirella Forbes MD PCP Reason for Visit * Reason Onset Date Comments Results 02/23/2021 U/S results Encounter Details Care Team Description Date Type Department Ana Meier RN Results (U/S results) 02/23/2021 Telephone Interventional Radi ology: [facility], [address], [address] [facility] [place] [phone] Social History Date Tobacco Use Types [...] Telephone Encounter - Ana Meier RN - 02/23/2021 9:06 AM PROGRAM MANAGEMENT MANAGER Reviewed U/S results with Dr Miller. TIPS is patent. Reports it can take up to a c ouple of months for ascites to be reduced but not a guarantee it will work. Call placed to patient to discuss results. Advised her the TIPS is open and work ing but it can take some time up to a couple of months for the ascites to be red uced but there is no guarantee. States understanding and is going to try to have another paracentesis done the end of the week. Ana Meier RN BSN RAM MANAGEMENT MANAGER documented in this encounter Plan of Treatment Not on filedocumented as of this encounter Visit Diagnoses Not on filedocumented in this encounter Additional Health Concerns Noted Time Assessment 02/04/2021 7:34 AM CDT A fall risk assessment has been complet ed for the patient 08/24/2020 10:33 AM CDT PHQ-2 Depression Total Score: 2 documented as of this encounter Care Teams Start Date End Date Payroll Machine Operator Relationship Specialty 07/29/20 Mirella Forbes MD PCP - General Internal [address] [place] [phone] documented as of this encounter
--- OUTSIDE RECORDS SUMMARY | 2021-03-01 11:11 | XMS REPORT | Encounter Summary ---
Author Author [facility] Organization [facility] Address Unknown Phone Unavailable Care Team Providers Care Petroleum Inspector Name Role Phone Mirella Forbes MD PCP Encounter Details Care Team Description Date Type Department 02/03/2021 Travel Social History Date Tobacco Use Types [...] encounter Additional Health Concerns Noted Time Assessment 02/03/2021 8:00 PM CDT A fall risk assessment has been complet ed for the patient 08/24/2020 10:33 AM CDT PHQ-2 Depression Total Score: 2 documented as of this encounter Care Teams Start Date End Date Petroleum Inspector Relationship Specialty 07/29/20 Mirella Forbes MD PCP - General Internal [address] [place] [address] [phone] documented as of this encounter
--- OUTSIDE RECORDS SUMMARY | 2021-03-01 11:11 | XMS REPORT | Encounter Summary ---
Author Author [facility] Organization [facility] Address Unknown Phone Unavailable Care Team Providers Care Admissions Manager Rn Name Role Phone Mirella Forbes MD PCP Reason for Visit * Reason Comments Preop Exam Encounter Details Care Team Description [place] [address] [place] [address] Encounter for screening laboratory testi ng for COVID-19 virus in asymptomatic patient 02/01/2021 Nurse Only Specialty Screening : [facility] [address] [place] [address] Social History Date Tobacco Use Types Packs/Day [...] as of this encounter Progress Notes * Radha Newell RN - 02/01/2021 5:30 PM CDT Spoke with patient and confirmed name and . Patient advised that COVID-19 vielka t results are NEGATIVE. Advised that patient can continue with the procedure and should follow pre-procedure instructions. Advised patient to continue with home quarantine until procedure. Advised that if they develop any concerning symptoms prior to the procedure to contact their procedure team, specialist, and/or PCP for assistance. Radha Newell RN * Indira Lamb - 02/01/2021 5:30 PM CDT Patient arrived to COVID clinic for COVID-19 testing 02/01/21 1147. Patient iden tity confirmed via photo I.D. Nasopharyngeal procedure explained to the patient. Nasopharyngeal swab completed right Patient education provided given and instructed patient self isolate until conta cted w/ results and further instructions. CDC handout on COVID-19 given to rissa fraser. https://www.cdc.gov/coronavirus/2019-ncov/downloads/10Things.pdf Swab collected by Ana Malagon RN. Reason for testing: IR pre procedure 02/03 documented in this encounter Plan of Treatment Not on filedocumented as of this encounter Procedures Comments Procedure Name Priority Date/Time Associated Diag nosis COVID-19 (SARS-COV-2) PCR Routine 02/01/2021 [place] unter for screening 11:47 AM CDT laboratory testing for COVID-19 virus in asymptomatic patient documented in this encounter Results * COVID-19 (SARS-COV-2) PCR (02/01/2021 11:47 AM CDT) COVID-19 FLOCKED SWAB [facility] (SARS-CoV-2) NASOPHARYNGEAL PCR Source COVID-19 NOT DETECTED DN-NOT DETECTED [facility] (SARS-CoV-2) Comment: PCR This assay is designed to detect the N and/or RdRp genes of SARS-CoV-2 using nucleic acid amplification. A "Not Detected" result does not preclude the possibility of SARS-CoV-2 infection since the adequacy of sample collection and/or low viral burden may result in the presence of viral nucleic acids below the analytical sensitivity of this test method. Test results should be used along with other clinical and laboratory data in making the diagnosis. Test parameters have not been validated for screening in asymptomatic patients. This test is authorized for use under the [facility] Emergency Use Authorization. Performance characteristics have been verified by the [facility]. Fact sheet for providers: https://www.fda.gov/media/5095 78/download Fact sheet for patients: https://www.fda.gov/media/5787 81/download Specimen Flocked Swab - Nasopharyngeal Performing Organization Address City/State/ZIP Code P mayank Number [facility] [address] [place] [address] documented in this encounter Visit Diagnoses Diagnosis Encounter for screening laboratory test ing for COVID-19 virus in asymptomatic patient documented in this encounter Additional Health Concerns Noted Time Assessment 02/01/2021 8:36 AM CDT A fall risk assessment has been complet ed for the patient 08/24/2020 10:33 AM CDT PHQ-2 Depression Total Score: 2 documented as of this encounter Care Teams Start Date End Date Admissions Manager Rn Relationship Specialty 07/29/20 Mirella Forbes MD PCP - General Internal [facility] [place] [address] documented as of this encounter
--- OUTSIDE RECORDS SUMMARY | 2021-03-01 11:11 | XMS REPORT | Encounter Summary ---
Author Author [facility] Organization [facility] Address Unknown Phone Unavailable Care Team Providers Care After School Counselor Name Role Phone Mirella Forbes MD PCP Reason for Referral * Radiology Services (Routine) - Authorized Diagnoses / Procedures Referred By [facility] Cirrhosis of liver without ascites, unspecified hepatic cirrhosis type (HCC) Procedures IR TRANSJUGULAR INTRAHEPATIC PORTOSYSTEMIC SHUNT PLACEMENT Lucille Butler MD [address] [address] 2 [address] [address], [address] [facility] [place] [address] Radiology Referral ID Status Reason Start Date Expiration Visits Vi sits Date Requested Authorized [id number] Authorized 01/19/2021 01/19/2022 1 1 Reason for Visit * Radiology Services (Routine) - Authorized Diagnoses / Procedures Referred By Contact [facility] Cirrhosis of liver without ascites, unspecified hepatic cirrhosis type (HCC) Procedures IR TRANSJUGULAR INTRAHEPATIC PORTOSYSTEMIC SHUNT PLACEMENT Lucille Butler MD [address] [address] 2 Ir [address] [address], [address] [facility] [place] [address] Radiology Referral ID Status Reason Start Date Expiration Visits Vi sits Date Requested Authorized [id number] Authorized 01/19/2021 01/19/2022 1 1 Encounter Details Care Team Description Date Type Department Lucille Butler MD 4000 [facility] [id number] [place] [address] [place] [address] [place] [id number] Katie Romero, MAURY Gant, Rogelio, RT(R)(),LRT Cirrhosis of liver without ascites, unsp ecified hepatic cirrhosis type (HCC) 02/03/2021 Hospital Patient Care Unit B H46: - Encounter [facility] 02/04/[address] [place] [phone] Social History Date Tobacco Use Types Packs/Day [...] Signs Reading Time Taken Comments Vital Sign 114/63 02/04/2021 7:53 AM CDT Blood Pressure 101 02/04/2021 7:53 AM CDT Pulse 36.2 C (97.2 F) 02/04/2021 7:53 AM CDT Temperature - - Respiratory Rate 94% 02/04/2021 7:53 AM CDT Oxygen Saturation - - Inhaled Oxygen Concentration - - Weight - - Height - - Body Mass Index documented in this encounter [...] by 0 60 mg capsule mouth daily. 12/18/2020 03/11/2021 ergocalciferol (vitamin Take one 36 capsule 0 D2) (DRISDOL) 1,250 mcg capsule by (50,000 unit) capsule mouth three times weekly for 36 doses. 12/18/2020 vitamin A 10,000 unit Take one 90 capsule 0 capsule capsule by mouth daily. vitamin E 400 unit Take 400 0 capsule Units by mouth daily. documented as of this encounter Discharge Disposition Code Departure Means Destination Disposition Wheelchair Home or Self Care documented in this encounter Progress Notes * Adarsh Dietz RN - 02/04/2021 10:14 AM CDT Shirley Cid discharged on 02/04/2021. . Discharge instructions reviewed with patient. Valuables returned: ADL Belongings at Bedside: Denture(s) Denture(s): Full upper. Home medications: . Functional assessment at discharge complete: Yes . * Roxanne Casillas RN - 02/03/2021 6:10 PM CDT Report given to Shannon Gant RN for [id number] * Roxanne Casillas RN - 02/03/2021 6:[address] Jackson at bedside for anesthesia sign-out. Okay for patient to be transferred to inpatient room. * Bruce Malagon RN - 02/03/2021 2:55 PM CDT Anesthesia consent and H&P in chart. Anesthesia responsible for all cardiac and respiratory monitoring, drugs and treatment. See anesthesia chart for documentation. This RN here to assist. documented in this encounter H&P Notes * Alysia Delgadillo APRN-ARMAAN - 02/03/2021 12:30 PM CDT IR Pre-Procedure History and Physical/Sedation Plan Procedure Date: 02/03/2021 Planned Procedure(s): TIPS, paracentesis Procedural code status: Full Code Indication: End stage liver disease, ascites Chief Complaint: TIPS procedure, ascites History of Present Illness: Shirley Cid is a 60 y.o. female with a histo ry as listed below who presents today for procedure. 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 At that time she underwent treatment with interferon, however was unable to com plete the treatment due to psychosis related issues. She has subsequently devel oped ascites and abdominal distention which is refractory to diuresis with Lasix and spironolactone. Other than abdominal distention and ascites, she states she is relatively active, denies significant abdominal pain. Continues to smoke 1 pack/day and has done so since she was 16 years old. Has not drank any alcohol in 15 years. Does have history of intravenous drug use which she attributes to her diagnosis of HCV. Most recent EGD was performed in 2019 which showed no si gns of esophageal varices. She did have a outside screening ultrasound performe d recently in July, which showed no imaging findings concerning for HCC. Most recent AFP was 3.8. Echocardiogram was performed recently which shows a ri ght ventricular ejection fraction within the lower limits of normal at 55 to 60% . She is alert and orientated today, agreeable to the procedure. No current compla ints. Medical History: Diagnosis Date Anxiety and depression Ascites Breast cancer (HCC) Bilateral Chronic liver disease and cirrhosis (HCC) Cirrhosis (HCC) Diverticulitis Hepatitis C Psoriasis Surgical History: Procedure Laterality Date HX BREAST LUMPECTOMY Left 2003 BREAST LUMPECTOMY Right 06/08/2020 FINGER SURGERY Right Ring finger HX COLON SURGERY for diverticulitis HYSTERECTOMY LUMBAR DISKECTOMY WRIST SURGERY Right Social History Tobacco Use Smoking status: Current Every Day Smoker Packs/day: 1.00 Years: 45.00 Pack years: 45.00 Types: Cigarettes Smokeless tobacco: Never Used Substance Use Topics Alcohol use: Never History reviewed. No pertinent family history. Medications Prior to Admission Medication Sig Dispense Refill Last Dose duloxetine DR (CYMBALTA) 60 mg capsule Take 60 mg by mouth daily. 02/04/20 ergocalciferol (vitamin D2) (DRISDOL) 1,250 mcg (50,000 unit) capsule Take o ne capsule by mouth three times weekly for 36 doses. 36 capsule 0 02/02/2021 vitamin A 10,000 unit capsule Take one capsule by mouth daily. 90 capsule 0 02/02/2021 vitamin E 400 unit capsule Take 400 Units by mouth daily. 02/02/2021 Allergies Allergen Reactions Adhesive Tape (Rosins) SEE COMMENTS Contact dermatitis Review of Systems A comprehensive review of systems was negative. Previous Personal Anesthetic/Sedation History: Denies adverse events related to sedation/anesthesia. Previous Family Anesthetic/Sedation History: Denies adverse events related to se dation/anesthesia. Physical Exam: Vital Signs: Last Filed In 24 Hours Vital Signs: 24 Hour Range BP: 142/92 (02/03 1215) Temp: 36.6 C (97.8 F) (02/03 1215) Pulse: 95 (02/03 1215) Respirations: 21 PER MINUTE (02/03 1215) SpO2: 99 % (02/03 1215) SpO2 Pulse: 95 (02/03 1215) BP: (142)/(92) Temp: [36.6 C (97.8 F)] Pulse: [95] Respirations: [21 PER MINUTE] SpO2: [99 %] General appearance: Alert and no distress noted. Neurologic: Grossly normal. Lungs: Non labored at rest. Heart: Regular rate and rhythm Abdomen: Distended Airway: per Anesthesia Head and Neck: per Anesthesia Mouth: per Anesthesia NPO status: per Anesthesia Status: Not Anesthesia Classification: per Anesthesia Pre-operative anxiolysis Plan: per Anesthesia Sedation/Medication Plan: per Anesthesia Discussion/Reviews: Physician has discussed risks and alternatives of this type of sedation and above planned procedures with patient Lab/Radiology/Other Diagnostic Tests: Labs: 24-hour labs: Pertinent labs reviewed Alysia NICKOLAS Anthony Pager [phone] documented in this encounter Procedure Notes * Demetri Ackerman MD - 02/03/2021 4:57 PM CDT Immediate Post Procedure Note Date: 02/03/2021 Attending Physician: Paul Performing Provider: Demetri Ackerman MD Consent: Consent obtained from patient. Time out performed: Consent obtained, correct patient verified, correct procedur e verified, correct site verified, patient marked as necessary. Pre/Post Procedure Diagnosis: End stage liver disease, refractory ascites Indications: As above Procedure(s): TIPS placement Findings: TIPS placed R hepatic to R portal. Estimated Blood Loss: None/Negligible Specimen(s) Removed/Disposition: None Complications: None Patient Tolerated Procedure: Well Post-Procedure Condition: stable Demetri Ackerman MD Pager [phone] * Demetri Ackerman MD - 02/03/2021 2:06 PM CDT Immediate Post Procedure Note Date: 02/03/2021 Attending Physician: Paul Performing Provider: Demetri Ackerman MD Consent: Consent obtained from patient. Time out performed: Consent obtained, correct patient verified, correct procedur e verified, correct site verified, patient marked as necessary. Pre/Post Procedure Diagnosis: Ascites Indications: Ascites Procedure(s): Paracentesis Findings: Yellow fluid obtained Estimated Blood Loss: None/Negligible Specimen(s) Removed/Disposition: None Complications: None Patient Tolerated Procedure: Well Post-Procedure Condition: stable Demetri Ackerman MD Pager [phone] documented in this encounter Miscellaneous Notes * Care Plan - Adarsh Dietz RN - 02/04/2021 9:50 AM CDT Problem: Discharge Planning Goal: Participation in plan of care Outcome: Goal Achieved Flowsheets (Taken 02/04/2021 09) Participation in Plan of Care: Involve patient/caregiver in care planning decisi on making Goal: Knowledge regarding plan of care Outcome: Goal Achieved Flowsheets (Taken 02/04/2021 09) Knowledge regarding plan of care: Provide admission education to parent/caregiver Provide fall prevention education Provide VTE signs and symptoms education Provide plan of care education Provide infection prevention education Provide pre-operative teaching Provide procedural and treatment education Provide medication management education Goal: Prepared for discharge Outcome: Goal Achieved Flowsheets (Taken 02/04/2021948) Prepared for discharge: Complete ADL ability assessment Provide safe use medical equipment education Provide discharge activity restrictions education Collaborate with multidisciplinary team for hospital discharge coordination Provide diet and oral health education Provide discharge materials appropriate to patient condition Problem: Moderate Fall Risk Goal: Moderate Fall Risk Outcome: Goal Achieved Flowsheets (Taken 02/04/2021948) Moderate Fall Risk: All patients will receive: High fall risk sign, yellow wristband, yellow socks, gait belt, and shower shoes Engage bed/chair alarm Stay with patient while toileting/showering PT/OT consult for fall prevention assessment if scoring in Unsteady Gait or Vis ual or Auditory impairment Remove excess equipment/supplies Educate patient to use call-light if tethered Use shower shoes Use safe patient handling equipment as appropriate Maximize bed functionality (optimize bed height, firm/flat surface) Assess need for bedside commode with drop arm to be available in room * Patient Education - Adarsh Dietz RN - 02/04/2021 9:49 AM CDT Medication Education Shirley Cid accepted counseling and was receptive. She demonstrated und erstanding. The following medications were discussed: Duloxetine Where indicated, Ms. Cid was provided with additional medication and/or dis ease-state information. All patient questions were answered and Ms. Cid ac knowledged understanding of the medications, side effects and other pertinent me dication information. Follow up should occur as needed. Continue to address: indications Adarsh Dietz RN 02/04/2021 * Patient Instructions - Deven Helm RN - 02/03/2021 12:00 PM CDT Images from the original note were not included. TIPS (Transjugular Intrahepatic Portosystemic Shunt) A healthy liver does many important jobs. It processes alcohol, food, and medici meera. It makes digestive juices, helps with blood clotting, and helps your body f ight infection. The portal vein is the large vessel that carries most of the blo od from the intestine to the liver. Certain diseases or a blockage in the portal vein can cause blood pressure to rise in this vein. This often leads to fluid b uildup in the belly (abdomen) and massive bleeding. The TIPS procedure helps eas e the pressure in the portal vein. It also eases pressure in the veins of the st omach, esophagus, and bowel and lowers the risk of bleeding from these veins. Th e procedure is done by a specially trained doctor called aninterventional radi ologist. Although the TIPS procedure can lower portal pressure, it may make liver failure worse in people with severe liver disease. Encephalopathy can happen if too much blood bypasses the liver after a TIPS. Encephalopathy comes from toxins in the bloodstream that are normally filtered by the liver.The toxins build up in the brain. This can cause mental confusion, personality changes, memory loss, and sleepiness. Encephalopathy can be treated by having the stent in the bypass revi sed or completely blocking it off. Getting ready for yourprocedure Follow any instructions you are given to get ready. This includesany direction s youre given for not eating or drinking before the procedure. Tell your healthcare provider if: You are or think you may be You are You are allergic to X-ray dye (contrast medium) or other medicines Tell your provider about all medicines you take. You may need to stop taking katerina e or all of them before the test. This includes: All prescription medicines Utxo-jzl-fklqqhj medicines such as aspirin or ibuprofen Illegal drugs Herbs, vitamins, and other supplements During your procedure TIPS is a complex procedure. Your healthcare provider willexplain it to you. B elow is a summary of what will happen during the procedure. You will be under general anesthesia or conscious sedation. You will have an IV(intravenous) line to give you fluid and medicines. You will also be given medicine through the IV to help you relax. Medical staff will inject a local anesthesia to numb the skin at the incision site. The healthcare provider will make a very small cut (incision) on the right side of your neck. The provider will put a needle with a guide wire attached t hrough the incision into a vein. The provider will inject X-ray dye into the vein. This helps the vein show up clearly on X-ray images. Using these images as a guide, the radiologist moves t he needle into another large vein in the liver (the hepatic vein). The provider will push the needle through the wall of the hepatic vein into t he portal vein. A thin flexible tube (catheter) is threaded over the guide wire. The provider will move a metal mesh cylinder (stent) through the catheter and p lace it over the needle between the hepatic and portal veins. The stent creates a passageway (shunt) between the 2 veins. Blood flows freely through the shunt i nto the hepatic vein. This eases the high pressure in the portal vein. When the procedure is finished, the needle, wire, and catheter are taken out. The stent stays in place to hold the shunt open. After your procedure Your blood pressure and pulse will be watched closely for several hours after the procedure. You will not be able to eat or drink for several hours after the procedure. The catheter in your neck may stay in place for a day or longer. You may have 1 or more ultrasound tests to check how well the shunt is workin g. You will stay in the facility or hospital overnight for observation. Possible risks and complications All procedures have some risk. Possible risks of this procedure include: Pain, bleeding or infection at the injection site Allergic reactions to X-ray dye Liver injury, including internal liver bleeding X-ray radiation exposure Worsening of liver failure Hepatic encephalopathy Blockage of the stent with symptoms returning [employer] last reviewed this educational content on 06/09/201919994977-3898 [employer]. All rights reserved. This information is not intended as a substitute for professional medical care. Always follow your healthcare professional's instructions. documented in this encounter Plan of Treatment Not on filedocumented as of this encounter Procedures Comments Procedure Name Priority Date/Time Associated Diag nosis HC CBC,AUTOMATED Routine 02/04/2021 4:52 AM CDT HC COMPREHENSIVE Routine 02/04/2021 METABOLIC PANEL 4:52 AM CDT IR TRANSJUGULAR Routine 02/03/2021 Cirrhosis of l iver INTRAHEPATIC 3:56 PM CDT without ascites, PORTOSYSTEMIC SHUNT unspecified hepatic PLACEMENT cirrhosis type (HCC) IR PARACENTESIS Routine 02/03/2021 DIAGNOSTIC + THERAPEUTIC 2:49 PM CDT HC NON-HAY STACKER OPERATOR/THIN PREP Routine 02/03/2021 2:15 PM CDT CYTOLOGY SPECIMEN LABEL Routine 02/03/2021 2:10 PM CDT HC BASIC METABOLIC PANEL STAT 02/03/2021 1:35 PM CDT documented in this encounter Results * COMPREHENSIVE METABOLIC PANEL (02/04/2021 4:52 AM CDT) Sodium 134 (L) 137 - 147 MMOL/L [facility] Potassium 4.7 3.5 - 5.1 MMOL/L [facility] Chloride 107 98 - 110 MMOL/L [facility] Glucose 112 (H) 70 - 100 MG/DL [facility] Blood Urea 18 7 - 25 MG/DL [facility] Nitrogen Creatinine 0.69 0.4 - 1.00 MG/DL [facility] Calcium 8.2 (L) 8.5 - 10.6 MG/DL [facility] Total Protein 5.8 (L) 6.0 - 8.0 G/DL [facility] Total Bilirubin 2.3 (H) 0.3 - 1.2 MG/DL [facility] Albumin 2.9 (L) 3.5 - 5.0 G/DL [facility] Alk Phosphatase 90 25 - 110 U/L [facility] AST (SGOT) 49 (H) 7 - 40 U/L [facility] CO2 24 21 - 30 MMOL/L [facility] ALT (SGPT) 19 7 - 56 U/L [facility] Anion Gap 3 3 - 12 [facility] eGFR Non >60 >60 mL/min [facility] Comment: [place] The eGFR is not validated f or use in drug dosing adjustments. Continue to use estimated creatinine clearance per dosing reference text. Please contact the Clinical Pharmacist for questions. eGFR >60 >60 mL/min [facility] [place] Comment: The eGFR is not validated for use in drug dosing adjustments. Continue to use estimated creatinine clearance per dosing reference text. Please contact the Clinical Pharmacist for questions. Specimen Blood Performing Organization Address City/[facility]/ZIP Code P mayank Number [facility] [address] [phone] * CBC (02/04/2021 4:52 AM CDT) White Blood 8.4 4.5 - 11.0 K/UL [facility] Cells RBC 3.48 (L) 4.0 - 5.0 M/UL [facility] Hemoglobin 11.6 (L) 12.0 - 15.0 GM/DL [facility] Hematocrit 33.2 (L) 36 - 45 % [facility] MCV 95.4 80 - 100 FL [facility] MCH 33.3 26 - 34 PG [facility] MCHC 34.9 32.0 - 36.0 G/DL [facility] RDW 16.0 (H) 11 - 15 % [facility] Platelet Count 92 (L) 150 - 400 K/UL [facility] MPV 7.9 7 - 11 FL [facility] Specimen Blood Performing Organization Address City/[facility] P mayank Number [facility] [address] [phone] * IR TRANSJUGULAR INTRAHEPATIC PORTOSYSTEMIC SHUNT PLACEMENT (02/03/2021 3:56 PM CDT) Modality Anatomical Region Laterality X-Ray Angiography Specimen Impressions [facility] RESULTS - 02/04/2021 1:37 PM CDT Successful creation of TIPS from right hepatic vein to right portal vein with a Viatorr stent. The portosystemic gradient was reduced from 15 mm Hg to 3 mmHg. Hamilton Wadsworth M.D., the attending radiologist, was present for the procedure, personally reviewed the images, and formulated the interpretations and opinions expressed in this report. @TT Approved by Demetri Ackerman M.D. on 02/03/2021 5:26 PM By my electronic signature, I attest that I have personally reviewed the images for this examination and formulated the interpretations and opinions expressed in this report Finalized by HAMILTON MILLER on 02/04/2021 1:37 PM. Dictated by Demetri Ackerman M.D. on 02/03/2021 5:00 PM. Narrative [facility] RESULTS - 02/04/2021 1:37 PM CDT PRIMARY TIPS CLINICAL HISTORY: Refractory ascites. End-stage liver disease. OPERATING PHYSICIAN: Demetri Ackerman M.D., HAMILTON MILLER ACCESS SITE: Right internal jugular vein ANESTHESIA: General Anesthesia CONTRAST: 210 mL Omnipaque 300 COMPLICATIONS: None TECHNIQUE/FINDINGS: Following written informed consent, the right neck was prepped and draped in the usual sterile fashion using Betadine. The skin and subcutaneous tissues were locally anesthetized with 2% lidocaine without epinephrine. A small dermatotomy was made. A micropuncture needle was advanced into the right internal jugular vein. An .018 guidewire was advanced through the micropuncture needle. The micropuncture needle was removed and a transition dilator was placed. The .018 wire and inner dilator were removed, and an .035 Amplatz wire was advanced into the inferior vena cava with the aid of a 5 Trinidadian Kumpe catheter. The Kumpe catheter was removed, and the 10 Trinidadian TIPS sheath was then advanced into the inferior vena cava over the wire. Digital subtraction venography was performed which demonstrated a patent inferior vena cava with inflow of the hepatic veins demonstrated. The right hepatic vein was selected with a PHILIP 1 catheter and Glidewire. Pressures were obtained at this point in time with the right atrial pressure measuring 14 mm Hg. A wedge CO2 portogram was then obtained with the aid of a Son balloon. Using a colapinto TIPS set, the right portal vein was accessed, which was confirmed with the hand-injection of contrast. A 0.035" wire was passed into the portal vein, and a marking pigtail catheter was advanced over wire followed by portal venography and pressure measurements. Portal venous pressure measured 29 mmHg. This correlates to a portosystemic gradient of 15 mmHg. The track was then dilated with a 6 mm balloon, and the sheath was then advanced over the wire into the main portal vein. A 7 cm Viatorr was deployed within the TIPS shunt. This was angioplastied to 10 mm. Follow-up portogram demonstrated good flow through the TIPS shunt with a filling umbilical vein and a few small varices as well as clot within the main portal vein. The pressures were then obtained in the right atrial pressure measured 23 mmHg, the main portal vein measured 26 mmHg. The clot within the main portal vein was macerated with balloon angioplasty and follow-up portal venogram demonstrated maceration of this clot. This corresponds to a portosystemic gradient of 3 mm Hg. At the end of the procedure the sheath was removed, and manual pressure was held within the right neck to achieve hemostasis. The patient tolerated the procedure well and there were no immediate complications. Procedure Note Hamilton Miller MD - 02/04/2021 PRIMARY TIPS CLINICAL HISTORY: Refractory ascites. End-stage liver disease. OPERATING PHYSICIAN: Demetri Ackerman M.D., HAMILTON MILLER ACCESS SITE: Right internal jugular vein ANESTHESIA: General Anesthesia CONTRAST: 210 mL Omnipaque 300 COMPLICATIONS: None TECHNIQUE/FINDINGS: Following written informed consent, the right neck was prepped and draped in the usual sterile fashion using Betadine. The skin and subcutaneous tissues were locally anesthetized with 2% lidocaine without epinephrine. A small dermatotomy was made. A micropuncture needle was advanced into the right internal jugular vein. An .018 guidewire was advanced through the micropuncture needle. The micropuncture needle was removed and a transition dilator was placed. The .018 wire and inner dilator were removed, and an .035 Amplatz wire was advanced into the inferior vena cava with the aid of a 5 Trinid[place] Kumpe catheter. The Kumpe cath eter was removed, and the 10 Trin[place] TIPS sheath was then advanced into the inferior vena cava over the wire. Digital subtraction venography was performed which demonstrated a patent inferior vena cava with inflow of the hepatic veins demonstrated. The right hepatic vein was selected with a PHILIP 1 catheter and Glidewire. Pressures were obtained at this point in time with the right atrial pressure measuring 14 mm Hg. A wedge CO2 portogram was then obtained with the aid of a Son balloon. Using a colapinto TIPS set, the right portal vein was accessed, which was confirmed with the hand-injection of contrast. A 0.035" wire was passed into the portal vein, and a marking pigtail catheter was advanced over wire followed by portal venography and pressure measurements. Portal venous pressure measured 29 mmHg. This correlates to a portosystemic gradient of 15 mmHg. The track was then dilated with a 6 mm balloon, and the sheath was then advanced over the wire into the main portal vein. A 7 cm Viatorr was deployed within the TIPS shunt. This was angioplastied to 10 mm. Follow-up portogram demonstrated good flow through the TIPS shunt with a filling umbilical vein and a few small varices as well as clot within the main portal vein. The pressures were then obtained in the right atrial pressure measured 23 mmHg, the main portal vein measured 26 mmHg. The clot within the main portal vein was macerated with balloon angioplasty and follow-up portal venogram demonstrated maceration of this clot. This corresponds to a portosystemic gradient of 3 mm Hg. At the end of the procedure the sheath was removed, and manual pressure was held within the right neck to achieve hemostasis. The patient tolerated the procedure well and there were no immediate complications. IMPRESSION Successful creation of TIPS from right hepatic vein to right portal vein with a Viatorr stent. The portosystemic gradient was reduced from 15 mm Hg to 3 mmHg. Hamilton Wadsworth M.D., the attending radiologist, was present for the procedure, personally reviewed the images, and formulated the interpretations and opinions expressed in this report. @TT Approved by Demetri Ackerman M.D. on 02/03/2021 5:26 PM By my electronic signature, I attest that I have personally reviewed the images for this examination and formulated the interpretations and opinions expressed in this report Finalized by HAMILTON MILLER on 02/04/2021 1:37 PM. Dictated by Demetri Ackerman M.D. on 02/03/2021 5:00 PM. Performing Organization Address City/State/ZIP Code [place] Number [facility] * IR PARACENTESIS DIAGNOSTIC + THERAPEUTIC (02/03/2021 2:49 PM CDT) Modality Anatomical Region Laterality X-Ray Angiography Specimen Impressions [facility] - 02/03/2021 3:23 PM CDT Successful ultrasound guided diagnostic and therapeutic paracentesis. Hamilton Wadsworth M.D, the attending radiologist, was present for the critical and cooper portions of the procedure with a midlevel, resident, and/or fellow participating. Overlapping portions were non cooper and I was immediately available. I interpret the critical and cooper portion of this procedure to have been needle access. @TT Approved by Demetri Ackerman M.D. on 02/03/2021 3:15 PM By my electronic signature, I attest that I have personally reviewed the images for this examination and formulated the interpretations and opinions expressed in this report Finalized by HAMILTON MILLER on 02/03/2021 3:23 PM. Dictated by Demetri Ackerman M.D. on 02/03/2021 3:15 PM. Narrative [facility] - 02/03/2021 3:23 PM CDT Ultrasound-guided diagnostic and therapeutic paracentesis CLINICAL INDICATION: Ascites MEDICATIONS: I was personally responsible for the administration of moderate sedation services during the procedure performed and I confirm requirements described in CPT section on moderate sedation were followed, including the use of an independent trained observer who had no other duties during the procedure. See nursing log for complete details; the drugs utilized were: subcutaneous Lidocaine 2% CAN TECHNICIAN: Demetri Ackerman M.D., HAMILTON MILLER TECHNIQUE: Transverse real time images were obtained through the abdomen. The risks and benefits of this procedure were discussed and informed written consent was obtained prior to performing the procedure. The abdomen was then prepped and draped in usual sterile fashion. Limited ultrasound of the abdomen was performed. Under ultrasound guidance, a 5 Trinidadian centesis needle was advanced into the peritoneal fluid collection and catheter advanced into the collection over the needle, and needle was removed. The catheter was connected to Vacutainer bottles and 14,800 mL fluid was removed, some of which was sent for analysis. There were no immediate complications of the procedure. No significant blood loss. Patient tolerated procedure well. FINDINGS: Free peritoneal fluid demonstrated on ultrasound. Procedure Note Hamilton Miller MD - 02/03/2021 Ultrasound-guided diagnostic and therapeutic paracentesis CLINICAL INDICATION: Ascites MEDICATIONS: I was personally responsible for the administration of moderate sedation services during the procedure performed and I confirm requirements described in CPT section on moderate sedation were followed, including the use of an independent trained observer who had no other duties during the procedure. See nursing log for complete details; the drugs utilized were: subcutaneous Lidocaine 2% CAN TECHNICIAN: Demetri Ackerman M.D., HAMILTON MILLER TECHNIQUE: Transverse real time images were obtained through the abdomen. The risks and benefits of this procedure were discussed and informed written consent was obtained prior to performing the procedure. The abdomen was then prepped and draped in usual sterile fashion. Limited ultrasound of the abdomen was performed. Under ultrasound guidance, a 5 Trinidadian centesis needle was advanced into the peritoneal fluid collection and catheter advanced into the collection over the needle, and needle was removed. The catheter was connected to Vacutainer bottles and 14,800 mL fluid was removed, some of which was sent for analysis. There were no immediate complications of the procedure. No significant blood loss. Patient tolerated procedure well. FINDINGS: Free peritoneal fluid demonstrated on ultrasound. IMPRESSION Successful ultrasound guided diagnostic and therapeutic paracentesis. IHamilton M.D, the attending radiologist, was present for the critical and cooper portions of the procedure with a midlevel, resident, and/or fellow participating. Overlapping portions were non cooper and I was immediately available. I interpret the critical and cooper portion of this procedure to have been needle access. @TT Approved by Demetri Ackerman M.D. on 02/03/2021 3:15 PM By my electronic signature, I attest that I have personally reviewed the images for this examination and formulated the interpretations and opinions expressed in this report Finalized by HAMILTON MILLER on 02/03/2021 3:23 PM. Dictated by Demetri Ackerman M.D. on 02/03/2021 3:15 PM. Performing Organization Address City/State/ZIP Code [place] Number [facility] * CYTOLOGY FLUIDS (02/03/2021 2:15 PM CDT) Cytology [email or web address] Department of Pathology and Laboratory Medicine [address] [place] [id number] Surgical Pathology Office: [phone] CYTOLOGY REPORT NAME: SHIRLEY CIDElvira CYTOLOGY #: [id number] MR #: [id number] ALT ID #: [id number] #: [id number] LOCATION: 46 DATE OF PROCEDURE: 02/03/2021 AGE: 60 SEX: F DATE RECEIVED: 02/03/2021 : 1960 TIME RECEIVED: 15:10 PHYSICIAN: ALYSIA DELGADLILO, ORTHO RN-STEAMBOAT INSPECTOR DATE OF REPORT: 02/04/2021 COPY TO: DATE OF PRINTIN02/04/2021 Material Received: A: Abdominal Fluid History: 60 year old female with a history of end stage liver disease Gross Description: (1 ThinPrep, 1 DQ direct smear) Received 1400mL of turbid, yellow fluid. ############################## ############################## ############ Final Diagnosis: A. Abdominal Fluid: Negative for malignant cells. Attestation: By this signature, I attest that I have personally formulated the final interpretation expressed in this report and that the above diagnosis is based upon my examination of the slides and/or other material indicated in this report. +++Electronically Signed Out By+++ rl/02/04/2021 Interpreted by: MD Tisha Morrison MD, Fellow Specimen Paracentesis Fluid Performing Organization Address City/State/ZIP Code P [place] Number [facility] [address] [place] [address] * CYTOLOGY SPECIMEN LABEL (02/03/2021 2:10 PM CDT) Specimen Other (Specify) Performing Organization Address City/State/ZIP Code [place] Number [facility] * BASIC METABOLIC PANEL (02/03/2021 1:35 PM CDT) Sodium 131 (L) 137 - 147 MMOL/L [facility] Potassium 5.0 3.5 - 5.1 MMOL/L [facility] Chloride 104 98 - 110 MMOL/L [facility] CO2 22 21 - 30 MMOL/L [facility] Anion Gap 5 3 - 12 [facility] Glucose 89 70 - 100 MG/DL [facility] Blood Urea 21 7 - 25 MG/DL [facility] Nitrogen Creatinine 0.73 0.4 - 1.00 MG/DL [facility] Calcium 8.8 8.5 - 10.6 MG/DL [facility] eGFR Non >60 >60 mL/min [facility] Comment: [place] The eGFR is not validated f or use in drug dosing adjustments. Continue to use estimated creatinine clearance per dosing reference text. Please contact the Clinical Pharmacist for questions. eGFR >60 >60 mL/min [facility] [place] Comment: The eGFR is not validated for use in drug dosing adjustments. Continue to use estimated creatinine clearance per dosing reference text. Please contact the Clinical Pharmacist for questions. Specimen Blood Performing Organization Address City/State/ZIP Code P [place] Number [facility] [address] [place] [address] documented in this encounter Visit Diagnoses Diagnosis Cirrhosis of liver without ascites, uns pecified hepatic cirrhosis type (HCC) documented in this encounter Administered Medications Action Date Dose Rate Site Medication Order MAR Action 02/03/2021 2:45 PM CDT 87.5 g albumin 25% injection Given - New INTRA-PROCEDURE MED(CONT), Starting on Bag Mon02/03/21 at 1445, Until Mon 1 at 1445 02/03/2021 2:54 PM CDT 3 g 200 mL/hr ampicillin/sulbactam (UNASYN) 3 g in Given - New sodium chloride 0.9% (NS) 100 mL IVPB Bag (MB+) 3 g, Intravenous, 100 mL, Administer over 30 Minutes, ONCE, 1 dose, On Mon02/03/21 at 1330, IR nurse to administe r within 60 minutes prior to procedure, For high risk patients, Intra-procedure (IR) 02/04/2021 9:00 AM CDT [address] (CYMBALTA) capsule 60 mg Given 60 mg, Oral, DAILY, First dose on Addie 02/04/21 at 0900, Until Discontinued, Admission/Obs/Extended Recovery 02/03/2021 4:57 PM CDT 210 mL iohexol (OMNIPAQUE-300) 300 mg/mL Given injection 210 mL 210 mL, Intravenous, ONCE, 1 dose, On Mon02/03/21 at 1700, NOTE: This is a HIGH ALERT Medication. 02/03/2021 5:40 PM CDT 4 mg ondansetron (ZOFRAN) injection 4 mg Given 4 mg, Intravenous, EVERY 4 HOURS PRN, Starting on Mon02/03/21 at 1519, Until Addie 02/04/21 at 1215, Nausea/Vomiting Injectable, Admission/Obs/Extended Recovery 02/03/2021 8:10 PM CDT 12.5 mg promethazine (PHENERGAN) injection 12.5 Given mg 12.5 mg, Intravenous, EVERY 6 HOURS PRN, Starting on Mon02/03/21 at 1937, Until Addie 02/04/21 at 1215, Nausea/Vomiting Injectable, PROTECT FRO M LIGHT For IV Administration: a. Dilute each dose with 10-20mL NS and administe r each dose slowly over at least 5 min through a running IV. Use lowest effective dose. b. Admin. through a large-bore vein (central venous site preferably). AVOID HAND OR WRIST VEINS UNLESS NO OTHER ALTERNATIVES ARE AVAILABLE. Do NOT administer intra-arterially. c. Check patency of site before admin. Inspect site around catheter tip and extremity for swelling , blanching, bleb formation, stretched an d firm skin or coolness. d. Remain in continual contact with the patient during admin. and for 5 minutes following to observe for adverse reactions and monitor injection site. e. Ask patient to report any burning o r discomfort during infusion. If extravasation is suspected, stop infusion immediately, implement Extravasation Management Protocol, and notify physician. 02/03/2021 8:21 PM CDT 15 mg temazepam (RESTORIL) capsule 15 mg Given 15 mg, Oral, AT BEDTIME PRN, Starting o n Mon02/03/21 at 1519, Until Mon 1 at 1215, Insomnia, Admission/Obs/Extended Recovery documented in this encounter Discontinued Medications Start Date End Date Medication Sig Discontinue Reason 02/03/2021 furosemide (LASIX) 20 mg Take 20 mg Removed from tablet by mouth TEXTURE ARTIST Med List every morning. 02/03/2021 spironolactone Take 100 mg Removed from (ALDACTONE) 100 mg tablet by mouth TEXTURE ARTIST Med List daily. Take with food. documented as of this encounter Active and Recently Administered Medications Times are shown in CDT. 02/03/2021 02/04/2021 Medication Order 02/02/2021 6774 (Given - New Bag - Provider: Bruce Malagon RN) ampicillin/sulbactam (UNASYN) 3 g in sodium chloride 0.9% (NS) 100 mL IVPB (MB+) (COMPLETED) 3 g, Intravenous, 100 mL, Administer over 30 Minutes, ONCE, 1 dose, On Mon02/03/21 at 1330, IR nurse to administe r within 60 minutes prior to procedure, For high risk patients, Intra-procedure (IR) 0900 (Given - Provider: Adarsh Dietz, RN ) duloxetine DR (CYMBALTA) capsule 60 mg 60 mg, Oral, DAILY, First dose on Mon02/04/21 at 0900, Until Discontinued, Admission/Obs/Extended Recovery ergocalciferol (vitamin D2) (DRISDOL) capsule 50,000 Units 50,000 Units, Oral, THREE TIMES WEEKLY (Once per day on Mon), First dose on Mon02/05/21 at 0900, Until Discontinued, Admission/Obs/Extended Recovery 1657 (Given - Provider: Margarita Cordero, RT(R),LRT) iohexol (OMNIPAQUE-300) 300 mg/mL injection 210 mL (COMPLETED) 210 mL, Intravenous, ONCE, 1 dose, On Mon02/03/21 at 1700, NOTE: This is a HIGH ALERT Medication. 02/03/2021 02/04/2021 Medication Order 02/02/2021 acetaminophen (TYLENOL) tablet 650 mg 650 mg, Oral, EVERY 4 HOURS PRN, Starting on Mon02/03/21 at 1519, Until Addie 02/04/21 at 1215, Pain non-opioid: may be used alone or in combination wit h opioid analgesia, TOTAL ACETAMINOPHEN DOSE NOT TO EXCEED 4GM DAILY, Admission/Obs/Extended Recovery 1445 (Given - New Bag - Provider: Bruce Malagon, MAURY) albumin 25% injection (COMPLETED) INTRA-PROCEDURE MED(CONT), Starting on Mon02/03/21 at 1445, Until Mon 1 at 1445 1740 (Given - Provider: Roxanne Casillas , RN) ondansetron (ZOFRAN) injection 4 mg 4 mg, Intravenous, EVERY 4 HOURS PRN, Starting on Mon02/03/21 at 1519, Until Addie 02/04/21 at 1215, Nausea/Vomiting Injectable, Admission/Obs/Extended Recovery oxyCODONE (ROXICODONE) tablet 5 mg 5 mg, Oral, EVERY 4 HOURS PRN, Startin g on Mon02/03/21 at 1519, Until Addie 02/04/21 at 1215, Pain PO, Admission/Obs/Extended Recovery 2009 (Given - Provider: Tosha Colindres RN ) promethazine (PHENERGAN) injection 12.5 mg 12.5 mg, Intravenous, EVERY 6 HOURS PRN, Starting on Mon02/03/21 at 1937, Until Addie 02/04/21 at 1215, Nausea/Vomiting Injectable, PROTECT FRO M LIGHT For IV Administration: a. Dilute each dose with 10-20mL NS and administe r each dose slowly over at least 5 min through a running IV. Use lowest effective dose. b. Admin. through a large-bore vein (central venous site preferably). AVOID HAND OR WRIST VEINS UNLESS NO OTHER ALTERNATIVES ARE AVAILABLE. Do NOT administer intra-arterially. c. Check patency of site before admin. Inspect site around catheter tip and extremity for swelling , blanching, bleb formation, stretched an d firm skin or coolness. d. Remain in continual contact with the patient during admin. and for 5 minutes following to observe for adverse reactions and monitor injection site. e. Ask patient to report any burning o r discomfort during infusion. If extravasation is suspected, stop infusion immediately, implement Extravasation Management Protocol, and notify physician. 2020 (Given - Provider: Tosha Colindres, MAURY ) temazepam (RESTORIL) capsule 15 mg 15 mg, Oral, AT BEDTIME PRN, Starting o n Mon02/03/21 at 1519, Until Addie 1 at 1215, Insomnia, Admission/Obs/Extended Recovery documented in this encounter Orders First Ordered Date Medications Ordered That Might Not Have Count Last Ordered Date Been Administered acetaminophen (TYLENOL) tablet 650 mg 1 02/03/2021 ergocalciferol (vitamin D2) (DRISDOL) 1 02/03/2021 capsule 50,000 Units fentaNYL citrate PF (SUBLIMAZE) 1 2020 injection 25 mcg oxyCODONE (ROXICODONE) tablet 5 mg 1 oxyCODONE (ROXICODONE) tablet 5-10 mg 1 02/03/2021 First Ordered Date Diet Count Last Ordered Date DISCHARGE DIET OTHER 1 02/04/2021 First Ordered Date Nursing Count Last Ordered Date BATHING INSTRUCTIONS 1 02/04/2021 DISCHARGE ACTIVITY DRIVING 1 02/04/2021 DISCHARGE ACTIVITY NORMAL 1 02/04/2021 DISCHARGE ACTIVITY SEXUAL 1 02/04/2021 DISCHARGE COMMENTS 1 02/04/2021 DISCHARGE CONTACT 1 02/04/2021 DISCHARGE SIGNS/SYMPTOMS 1 02/04/2021 DISCHARGE WOUND CARE 1 02/04/2021 First Ordered Date Admission Count Last Ordered Date PLACE PATIENT EXTENDED RECOVERY CLASS 1 02/03/2021 First Ordered Date Discharge Count Last Ordered Date DISCHARGE PATIENT NOW 1 02/04/2021 First Ordered Date Activity Count Last Ordered Date MOBILITY 1 02/03/2021 First Ordered Date Order Set Communication Count Last Ordered D ate VTE DRUG PROPHYLAXIS CONTRAINDICATED 1 1 First Ordered Date Intake & Output Count Last Ordered Date INTAKE AND OUTPUT 1 02/03/[address] & Maintain Count Last Ordered Date PLACE AND MAINTAIN SCD 1 02/03/2021 documented in this encounter Additional Health Concerns Noted Time Assessment 02/04/2021 7:34 AM CDT A fall risk assessment has been complet ed for the patient 08/24/2020 10:33 AM CDT PHQ-2 Depression Total Score: 2 documented as of this encounter Care Teams Start Date End Date After School Counselor Relationship Specialty 07/29/20 Mirella Forbes MD PCP - General Internal [address] [place] [address] [phone] documented as of this encounter
--- OUTSIDE RECORDS SUMMARY | 2021-03-01 11:11 | XMS REPORT | Encounter Summary ---
Author Author [facility] Organization [facility] Address Unknown Phone Unavailable Care Team Providers Care Band Saw Filer Name Role Phone Mirella Forbes MD PCP Encounter Details Care Team Description Date Type Department Beverly Stern MD [address] [place] [address] 02/03/2021 Anesthesia Interventional Radi ology: Event [facility] [address], [address] [place] [address] Anesthesia Record Responsible Anesthesiologist Anesthesia Start Time Anesthesi a Stop Time Procedure Name Beverly Stern MD 02/03/21 1442 02/03/21 1712 IR TRANSJUGULAR INTRAHEPATIC PORTOSYSTEMIC SHUNT PLACEMENT Date Time Event Comment 1441 AN Equip Check 2020 1442 Anes Start 1454 Out of Pre Procedure 1455 In Room 1458 An Start Data 1458 Antibiotic Given 1504 An Induction The patient was ree valuated immediately before moderate or deep sedation use and before anesthesia induction. 1505 An Intubation 1506 Anesthesia Ready 1530 Proc Start 1545 1700 An Extubation 1712 an stop data 1712 Handoff to RN I completed my SBAR handoff to the receiving nurse. 1712 An Stop Meds Name Total fentaNYL PF (SUBLIMAZE) injection 100 mcg lidocaine (2%) 200 mg/10mL Injection 100 mg syringe propofol (DIPRIVAN) 200 mg/ 20 mL 80 mg injection (VIAL) rocuronium (ZEMURON) injection 40 mg ondansetron (ZOFRAN) injection 4 mg dexamethasone (DECADRON) 4 mg/mL 4 mg injection artificial tears (dextran 2 drop 70/hypromellose) ophthalmic drops sodium chloride 0.9% (1000mL) 500 mL * Name O2 N2O Inspired N2O Sevoflurane Inspired Sevoflurane * No blood administrations on file. Removal Type Details Placement Peripheral 02/03/21; 1238; RN; R; Distal; Forearm; 02/03/21 1238 by Wickes, IV 20 G; N/A; 2 MAURY Wilson 02/04/21 1015 by Jed, Model Maker Wounds 02/03/21; 1500; Puncture wound; Right; 02/03/21 1500 by Manas, Abdomen; 02/04/21; 1015 MAURY Barrera 02/03/21 1700 by Wendy Wharton CRNA ETT 02/03/21; 1505; Ventilated by mask with 02/03/21 1505 by oral airway (2); Direct laryngoscopy; Vince Wharton i, CRNA Single-Lumen, Cuffed; ETT Size: 7mm; Mac; Blade Size: 3; Cricoid Pressure: Yes; Oral; 1-Full view of the glottis; 1 insertion attempt; Auscultation, ETCO2 Detector; Vol of Air in Cuff: 5 mL; Taped at Gums: 22 centimeters; atraumatic, dentition unchanged; 02/03/21; 1700 02/03/21 1654 by Bruce Malagon RN Venous 02/03/21; 1530; IR; Correct Patient, 1 1530 by Fatuma Malagon Correct Patient Position, Correct Ernst e, video news editor, Correct Equipment / Implants Available, Marking Waived, Not Side Specific; Hand Hygiene, Sterile Gloves, Full Body Sterile Drape, Cap , Mask, Ey e Protection, Sterile Gown; 10 FR; (continuously monitored by physician ); X-ray; 02/03/21; 1654 02/04/21 1015 by Jed, Model Maker Wounds 02/03/21; 1700; Puncture wound; Right; 02/03/21 1700 by Manas, Neck; 02/04/21; 1015 MAURY Barrera documented in this encounter Social History Date Tobacco Use Types Packs/Day [...] impairment: No documented as of this encounter OR Notes * Anesthesia Postprocedure Evaluation - Kia Jackson MD - 02/03/2021 8:54 PM CDT Post-Anesthesia Evaluation Name: Shirley Cid : 1960 Age: 60 y.o. Sex: female Procedure Information Anesthesia Start Date/Time: 02/03/21 1442 Scheduled providers: Katie Romero RN; Rogelio Gant RT(R)(),LRT; Hamilton Miller MD Procedure: IR TRANSJUGULAR INTRAHEPATIC PORTOSYSTEMIC SHUNT PLACEMENT Location: Interventional Radiology: [facility] Post-Anesthesia Vitals BP: 137/57 (02/04 2000) Temp: 36.3 C (97.4 F) (02/04 2000) Pulse: 103 (02/04 2000) Respirations: 18 PER MINUTE (02/04 2000) SpO2: 96 % (02/04 2000) Vitals Value Taken Time BP 114/62 02/03/21 1823 Temp 36.6 C (97.8 F) 02/03/21 1730 Pulse 100 02/03/21 1823 Respirations 20 PER MINUTE 02/03/21 1823 SpO2 95 % 02/03/21 1823 ABP ART BP Post Anesthesia Evaluation Note Evaluation location: Pre/Post Patient participation: recovered; patient participated in evaluation Level of consciousness: alert Pain management: adequate Hydration: normovolemia Temperature: 36.0C - 38.4C Airway patency: adequate Perioperative Events Post-op nausea and vomiting: nausea; resolved Postoperative Status Cardiovascular status: hemodynamically stable Respiratory status: spontaneous ventilation Follow-up needed: none Perioperative Events Perioperative Event: No Emergency Case Activation: No * Anesthesia Preprocedure Evaluation - Beverly Stern MD - 02/01/2021 8:26 AM CDT Images from the original note were not included. Anesthesia Pre-Procedure Evaluation Name: Shirley Cid : 1960 Age: 60 y.o. Sex: female Procedure Info: Procedure Information Date/Time: 02/03/21 1300 Scheduled providers: Demetri Ackerman MD Procedure: IR TRANSJUGULAR INTRAHEPATIC PORTOSYSTEMIC SHUNT PLACEMENT Location: Interventional Radiology: [facility] Physical Assessment Vital Signs (last filed in past 24 hours): BP: 111/71 (02/03 1430) Temp: 36.6 C (97.8 F) (02/03 1215) Pulse: 93 (02/03 1430) Respirations: 18 PER MINUTE (02/03 1430) SpO2: 98 % (02/03 1430) Patient History Allergies Allergen Reactions Adhesive Tape (Rosins) SEE COMMENTS Contact dermatitis Current Medications Medication Directions duloxetine DR (CYMBALTA) 60 mg capsule Take 60 mg by mouth daily. ergocalciferol (vitamin D2) (DRISDOL) 1,250 mcg (50,000 unit) capsule Take one c apsule by mouth three times weekly for 36 doses. furosemide (LASIX) 20 mg tablet Take 20 mg by mouth every morning. Patient not taking: Reported on 02/01/2021 spironolactone (ALDACTONE) 100 mg tablet Take 100 mg by mouth daily. Take with f ood. Patient not taking: Reported on 02/01/2021 vitamin A 10,000 unit capsule Take one capsule by mouth daily. vitamin E 400 unit capsule Take 400 Units by mouth daily. Review of Systems/Medical History PONV Screening: Female gender No history of anesthetic complications No family history of anesthetic complications Airway - negative Pulmonary Current smoker (45 pack years) tobacco use No recent URI Cardiovascular Exercise tolerance: >4 METS (9.89 METS per DASI questionnaire) Beta Leisa therapy: No Hypertension, poorly controlled No valvular problems/murmurs No past TN, No palpitations No angina Hyperlipidemia No orthopnea No indications/hx of PND No dyspnea on exertion No syncope GI/Hepatic/Renal Liver disease Cirrhosis (2/2 HCV) Ascites (refractory to furosemide and spironolactone) No esophageal varices Hx diverticulitis Hepatitis (diagnosed 2003, underwent tx interferon-Did not complete tx d/t p sychosis; status post Epclusa and Ribavarin 2018 with subsequent SVR ) C Neuro/Psych AlcoholSubstance use: No ETOH in ~ 15 years; H/o IV drug use in past Psychiatric history Depression Bipolar disorder Anxiety C/o Leg cramps at night Musculoskeletal - negative Endocrine/Other Malignancy (Breast Ca s/p R lumpectomy and L lumpectomy, xrt) Obesity (BMI 30) Psoriasis Constitution - negative Physical Exam Airway Findings Mallampati: II TM distance: >3 FB Neck ROM: full Mouth opening: good Airway patency: adequate Dental Findings: Upper dentures and poor dentition Comments: Upper plate Cardiovascular Findings: Rhythm: regular Rate: normal No murmur Pulmonary Findings: Breath sounds clear to auscultation. Neurological Findings: Alert and oriented x 3 Constitutional findings: Negative Diagnostic Tests Hematology: Lab Results Component Value Date HGB 13.5 12/10/2020 HCT 40.1 12/10/2020 PLTCT 105 12/10/2020 WBC 6.0 12/10/2020 NEUT 81 12/10/2020 ANC 4.88 12/10/2020 ALC 0.39 12/10/2020 COSME 11 12/10/2020 AMC 0.66 12/10/2020 EOSA 1 12/10/2020 ABC 0.04 12/10/2020 MCV 95.1 12/10/2020 MCH 32.0 12/10/2020 MCHC 33.7 12/10/2020 MPV 8.1 12/10/2020 RDW 16.3 12/10/2020 General Chemistry: Lab Results Component Value Date NA 132 12/10/2020 K 5.0 12/10/2020 CL 105 12/10/2020 CO2 22 12/10/2020 GAP 5 12/10/2020 BUN 25 12/10/2020 CR 0.97 12/10/2020 GLU 108 12/10/2020 CA 8.1 12/10/2020 ALBUMIN 2.7 12/10/2020 TOTBILI 1.7 12/10/2020 Coagulation: Lab Results Component Value Date INR 1.2 12/10/2020 Echo 12/29/2020 Anesthesia Plan ASA score: 3 Plan: general Induction method: intravenous NPO status: acceptable Informed Consent Anesthetic plan and risks discussed with patient. Labs: PT, CMP, CBC (ordered by Dr. Butler); T&C Plt count 105 on 12/10/2020, Na+ 132, total Bili 2.7, Cr 0.97, K+ 5.0 KVNG: None Consults: Pt's BP rechecked in clinic several times with uncontrolled diastolic BP's. Need to verify with pt's PCP if this is her typical of past BP readings. If it is higher than previous BP's than anesthesia recommends optimizing prior to procedure. Addendum 02/01/2021: See Procedure Pass note. 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 Patient is between PCP (per her old PCP -patient is look ing for a new one currently so prior PCP unavailable to provide BP recommendatio ns) and her procedure was scheduled for 2 days after her PAC visit. At this carolyn e IR and fiberglass boat maker as well as old PCP have been contacted to notify of elevat ed diastolic. Her BP are also done on the leg due to inability to use arms, whi ch may affect the values. Patient may benefit from careful preoperative BP lorraine surement-potentially even one on the arms for baseline comparison to leg and pot ential invasive monitoring during procedure if concern for labile BP intraoperat ively. documented in this encounter Plan of Treatment Not on filedocumented as of this encounter Visit Diagnoses Not on filedocumented in this encounter Administered Medications Action Date Dose Rate Site Medication Order MAR Action 02/03/2021 3:05 PM CDT 2 drops artificial tears single dose ophthalmic Given solution Both Eyes, INTRA-PROCEDURE MED, Startin g on Mon02/03/21 at 1505, Until Mon02/03/21 at 1712, Anesthesia Intra-op 02/03/2021 3:08 PM CDT 4 mg dexamethasone (DECADRON) injection Given Intravenous, INTRA-PROCEDURE MED, Starting on Mon02/03/21 at 1508, Until Mon02/03/21 at 1712, Anesthesia Intra-op 02/03/2021 5:04 PM CDT 50 mcg fentaNYL citrate PF (SUBLIMAZE) Given injection Intravenous, INTRA-PROCEDURE MED, Starting on Mon02/03/21 at 1504, Until Mon02/03/21 at 1712, Anesthesia Intra-op 50 mcg Given 02/03/2021 3:04 PM CDT 02/03/2021 3:04 PM CDT 100 mg lidocaine (PF) injection Given Intravenous, INTRA-PROCEDURE MED, Starting on Mon02/03/21 at 1504, Until Mon02/03/21 at 1712, Anesthesia Intra-op 02/03/2021 3:08 PM CDT 4 mg ondansetron (ZOFRAN) injection Given Intravenous, INTRA-PROCEDURE MED, Starting on Mon02/03/21 at 1508, Until Mon02/03/21 at 1712, Anesthesia Intra-op 02/03/2021 3:04 PM CDT 80 mg propofol (DIPRIVAN) injection Given Intravenous, INTRA-PROCEDURE MED, Starting on Mon02/03/21 at 1504, Until Mon02/03/21 at 1712, Anesthesia Intra-op 02/03/2021 3:04 PM CDT 40 mg rocuronium injection Given Intravenous, INTRA-PROCEDURE MED, Starting on Mon02/03/21 at 1504, Until Mon02/03/21 at 1712, Anesthesia Intra-op 02/03/2021 2:58 PM CDT sodium chloride 0.9 % infusion Given - New Intravenous, INTRA-PROCEDURE MED(CONT), Bag Starting on Mon02/03/21 at 1458, Until Mon02/03/21 at 1713, Anesthesia Intra-op documented in this encounter Additional Health Concerns Noted Time Assessment 02/03/2021 8:00 PM CDT A fall risk assessment has been complet ed for the patient 08/24/2020 10:33 AM CDT PHQ-2 Depression Total Score: 2 documented as of this encounter Care Teams Start Date End Date Band Saw Filer Relationship Specialty 07/29/20 Mirella Forbes MD PCP - General Internal [address] [place] [phone] documented as of this encounter
--- OUTSIDE RECORDS SUMMARY | 2021-03-01 11:11 | XMS REPORT | Encounter Summary ---
Author Author [facility] Organization [facility] Address Unknown Phone Unavailable Care Team Providers Care Business Support Assistant Name Role Phone Mirella Forbes MD PCP Reason for Referral * Radiology Services (Routine) - New Request Diagnoses / Procedures Referred By Contact Referred To Conta ct Specialty Diagnoses Cirrhosis of liver without ascites, unspecified hepatic cirrhosis type (HCC) S/P TIPS (transjugular intrahepatic portosystemic shunt) Procedures US DOPPLER ABD PELV RETROPER COMP Hamilton Miller MD [address] [facility] [address] [place] [address] Referral ID Status Reason Start Date Expiration Visits Vi sits Date Requested Authorized [id number] New Request 02/04/2021 02/04/2022 1 1 Encounter Details Care Team Description Date Type Department Ana Meier RN Cirrhosis of liver without ascites, unsp ecified hepatic cirrhosis type (HCC) (Primary Dx); S/P TIPS (transjugular intrahepatic portosystemic shunt) 02/04/2021 Orders Only Interventional Radi ology: [facility] [place] [address] [facility] [address], [id number] [place] [address] Social History Date Tobacco Use [...] as of this encounter Plan of Treatment Order Schedule Name Type Priority Associated Diag noses Expected: 02/18/2021, Expires: 2 US DOPPLER ABD PELV Imaging Routine Cirrhosis of liver RETROPER COMP without ascites, unspecified hepatic cirrhosis type (HCC) S/P TIPS (transjugular intrahepatic portosystemic shunt) documented as of this encounter Visit Diagnoses Diagnosis Cirrhosis of liver without ascites, uns pecified hepatic cirrhosis type (HCC) - Primary S/P TIPS (transjugular intrahepatic por tosystemic shunt) Other postprocedural status documented in this encounter Additional Health Concerns Noted Time Assessment 02/04/2021 7:34 AM CDT A fall risk assessment has been complet ed for the patient 08/24/2020 10:33 AM CDT PHQ-2 Depression Total Score: 2 documented as of this encounter Care Teams Start Date End Date Business Support Assistant Relationship Specialty 07/29/20 Mirella Forbes MD PCP - General Internal [address] [place] [phone] documented as of this encounter
--- OUTSIDE RECORDS SUMMARY | 2021-03-01 11:11 | XMS REPORT | Clinical Summary ---
Author Author [facility] Organization [facility] Address Unknown Phone Unavailable Care Team Providers Care Flower Shop Manager Name Role Phone Mirella Forbes MD PCP Source Comments Some departments are not documenting in the electronic medical record. If you d o not see the information that you expected, contact Release of Information in [facility] [employer] Information Management department at [phone] for further assistan ce in locating additional records.[facility] Allergies Comments Active Allergy Reactions Severity Noted Date Contact dermatitis Adhesive Tape (Rosins) SEE COMMENTS Low 021 Medications End Date Status Medication Sig Dispensed Refills Start Date Active duloxetine DR (CYMBALTA) Take 60 mg by 0 60 mg capsule mouth daily. 03/11/2021 Active ergocalciferol (vitamin Take one 36 capsule 0 D2) (DRISDOL) 1,250 mcg capsule by 1 (50,000 unit) capsule mouth three times weekly for 36 doses. Active vitamin A 10,000 unit Take one 90 capsule 0 12/09 capsule capsule by 1 mouth daily. Active vitamin E 400 unit Take 400 0 capsule Units by mouth daily. 02/03/2021 Discontinued (Removed from P TA Med List) spironolactone Take 100 mg 0 (ALDACTONE) 100 mg tablet by mouth daily. Take with food. 02/03/2021 Discontinued (Removed from P TA Med List) furosemide (LASIX) 20 mg Take 20 mg by 0 tablet mouth every morning. Active Problems No known active problems Encounters Care Team Description Date Type Specialty Ana Meier RN Results (U/S results) 02/23/2021 Telephone Radiology Ana Meier RN Medical Question 02/15/2021 Telephone Radiology Lucille Butler MD Other 02/12/2021 Telephone Transplant Surgery Lucille Butler MD Other (symptoms) 02/10/2021 Telephone Transplant Surgery Ana Meier RN Follow-up Phone Call (S/P TIPS 02/03) 02/05/2021 Telephone Radiology Ana Meier RN Cirrhosis of liver without ascites, unsp ecified hepatic cirrhosis type (HCC) (Primary Dx); S/P TIPS (transjugular intrahepatic portosystemic shunt) 02/04/2021 Orders Only Radiology Beverly Stern MD Zogleman, Amy C, GASOLINE PUMP INSTALLER-FUEL EFFICIENT AUTOMOBILE DESIGNER 02/03/2021 Anesthesia Radiology Event Lucille Butler MD Alli, Adam S, MD Exline, Carolyn, Rogelio Land, RT(R)(),LRT Cirrhosis of liver without ascites, unsp ecified hepatic cirrhosis type (HCC) 02/03/2021 Hospital - Encounter 02/04/2021 02/03/2021 Travel Hamilton Miller MD Encounter for screening laboratory testi ng for COVID-19 virus in asymptomatic patient 02/01/2021 Nurse Only Urgent Care Lucille Butler MD 02/01/2021 Hospital Radiology Encounter Hamilton Miller MD Encounter for blood typing (Primary Dx); Cirrhosis of liver without ascites, unspecified hepatic cirrhosis type (HCC) 02/01/2021 Ancillary Pre-Admission Testi ng Procedure Sherri Hammond RN 02/01/2021 Pre/Post Radiology Procedure 02/01/2021 Travel 01/28/2021 Travel Sherri Hammond RN 01/27/2021 Pre/Post Radiology Procedure Sherri Hammond RN 01/27/2021 Pre/Post Radiology Procedure Sherri Hammond RN Encounter for screening laboratory testi ng for COVID-19 virus in asymptomatic patient 01/27/2021 Orders Only Radiology Hamilton Miller MD Cirrhosis of liver with ascites, unspeci fied hepatic cirrhosis type (HCC) (Primary Dx) 01/26/2021 Scheduled General Surgery Telephone Sherri Hammond RN Appointment 01/25/2021 Telephone Radiology Lucille Butler MD Follow-up Phone Call 01/20/2021 Telephone Transplant Surgery Sherri Hammond RN [...] Hepatology 12/10/2020 Travel from Last 3 Months Surgical History Surgery Date Site/Laterality Comments BREAST LUMPECTOMY 06/08/2020 Right HX BREAST LUMPECTOMY 04/10/2003 - Left 04/09/2004 HYSTERECTOMY FINGER SURGERY Right Ring finger WRIST SURGERY Right LUMBAR DISKECTOMY HX COLON SURGERY for diverticulitis Medical History Medical History Date Comments Breast cancer (HCC) Bilateral Ascites Diverticulitis Hepatitis C Cirrhosis (HCC) Anxiety and depression Chronic liver disease and cirrhosis (HCC) Psoriasis Social History Date Tobacco Use Types Packs/Day [...] or suspected to have Coronavirus / COVID-19? Last Filed Vital Signs Reading Time Taken Comments Vital Sign 114/63 02/04/2021 7:53 AM CDT Blood Pressure 101 02/04/2021 7:53 AM CDT Pulse 36.2 C (97.2 F) 02/04/2021 7:53 AM CDT Temperature - - Respiratory Rate 94% 02/04/2021 7:53 AM CDT Oxygen Saturation - - Inhaled Oxygen Concentration 91.9 kg (202 lb 9.6 oz) 02/01/2021 8:05 AM CDT Weight 172.7 cm (5' 8") 02/01/2021 8:05 AM CDT Height 30.81 02/01/2021 8:05 AM CDT Body Mass Index Plan of Treatment Health Maintenance Due Date Last Done Comments HIV SCREENING 1974 DTAP/TDAP VACCINES (1 - 1977 Tdap) HEPATITIS C SCREENING 1977 PHYSICAL (COMPREHENSIVE) 1977 EXAM CERVICAL CANCER SCREENING 1980 BREAST CANCER SCREENING 1999 COLORECTAL CANCER 2009 SCREENING SHINGLES RECOMBINANT 2009 VACCINE (1 of 2) INFLUENZA VACCINE 11/08/2020 Implants Device Identifier Shelf Expiration Date Model / Serial / L ot Implanted Type Area Manufactur er [id number] 06/15/2023 [id number] / [id number] / N/A Stent Endoprosthesis Viatorr N/A: Vein W L GORE Controlled Expansion 7cm - and [id number] [employer] Implanted: Qty: 1 on 02/03/2021 by Demetri Mccoy MD at [facility] Procedures Comments Procedure Name Priority Date/Time Associated Diag nosis HC COMPREHENSIVE Routine 02/04/2021 METABOLIC PANEL 4:52 AM CDT HC CBC,AUTOMATED Routine 02/04/2021 4:52 AM CDT IR TRANSJUGULAR Routine 02/03/2021 Cirrhosis of l iver INTRAHEPATIC 3:56 PM CDT without ascites, PORTOSYSTEMIC SHUNT unspecified hepatic PLACEMENT cirrhosis type (HCC) IR PARACENTESIS Routine 02/03/2021 DIAGNOSTIC + THERAPEUTIC 2:49 PM CDT HC NON-ENERGY SCHEDULER/THIN PREP Routine 02/03/2021 2:15 PM CDT CYTOLOGY SPECIMEN LABEL Routine 02/03/2021 2:10 PM CDT HC BASIC METABOLIC PANEL STAT 02/03/2021 1:35 PM CDT COVID-19 (SARS-COV-2) PCR Routine 02/01/2021 Enco unter for screening 11:47 AM CDT laboratory testing for COVID-[address] asymptomatic [address] ABDOMEN WO/W CONTRAST Routine 02/01/2021 Cirrh osis of liver 11:16 AM CDT without ascites, unspecified hepatic cirrhosis type (HCC) HC COMPREHENSIVE 02/01/2021 METABOLIC PANEL 10:26 AM CDT TYPE & CROSSMATCH Routine 02/01/2021 Cirrhosis of liver 9:48 AM CDT without ascites, unspecified hepatic cirrhosis type (HCC) HC PT(INR) 02/01/2021 Cirrhosis of liver 9:48 AM CDT without ascites, unspecified hepatic cirrhosis type (HCC) HC CBC,AUTOMATED 02/01/2021 Cirrhosis of liver 9:48 AM CDT without ascites, unspecified hepatic cirrhosis type (HCC) COMPREHENSIVE METABOLIC 02/01/2021 Cirrhosis of liver PANEL 9:48 AM CDT without ascites, unspecified hepatic cirrhosis type (HCC) 2D + DOPPLER ECHO Routine 12/29/2020 Cirrhosis [...] (HCC) from Last 3 Months Results * CBC (02/04/2021 4:52 AM CDT) Only the most recent of 2 results within the time period is included. White Blood 8.4 4.5 - 11.0 K/UL [...] MAIN LAB Specimen Blood Performing Organization Address City/State/ZIP Code P mayank Number [facility] [address] [place] [address] * COMPREHENSIVE METABOLIC PANEL (02/04/2021 4:52 AM CDT) Only the most recent of 3 results within the time period is included. Sodium 134 (L) 137 - 147 MMOL/L [...] >60 >60 mL/min [facility] Comment: [place] The eGFR is not validated f or use in drug dosing adjustments. Continue to use estimated creatinine clearance per dosing reference text. Please contact the Clinical Pharmacist for questions. eGFR >60 >60 mL/min [facility] [place] Comment: The eGFR is not validated for use in drug dosing adjustments. Continue to use estimated creatinine clearance per dosing reference text. Please contact the Clinical Pharmacist for questions. Specimen Blood Performing Organization Address City/State/ZIP Code P mayank Number [facility] [address] [place] [address] * IR TRANSJUGULAR INTRAHEPATIC PORTOSYSTEMIC SHUNT PLACEMENT (02/03/2021 3:56 PM CDT) Modality Anatomical Region Laterality X-Ray Angiography Specimen Impressions [facility] RAD RESULTS - 02/04/2021 1:37 PM CDT Successful creation of TIPS from right hepatic vein to right portal vein with a Viatorr stent. The portosystemic gradient was reduced from 15 mm Hg to 3 mmHg. I, Hamilton Miller M.D., the attending radiologist, was present for [...] cava with the aid of a 5 Maltese Kumpe catheter. The Kumpe catheter was removed, and the 10 Maltese TIPS sheath was then advanced into the [...] cava with the aid of a 5 Maltese Kumpe catheter. The Kumpe cath eter was removed, and the 10 Maltese TIPS sheath was then advanced into the [...] the drugs utilized were: subcutaneous Lidocaine 2% GIFT OFFICER: Demetri Ackerman M.D., ADAM ALLI TECHNIQUE: Transverse real time images were obtained through the abdomen. The risks and benefits of this procedure were discussed and informed written consent was obtained prior to performing the procedure. The abdomen was then prepped and draped in usual sterile fashion. Limited ultrasound of the abdomen was performed. Under ultrasound guidance, a 5 Maltese centesis needle was advanced into the peritoneal [...] the drugs utilized were: subcutaneous Lidocaine 2% GIFT OFFICER: Demetri Ackerman M.D., ADAM ALLI TECHNIQUE: Transverse real time images were obtained through the abdomen. The risks and benefits of this procedure were discussed and informed written consent was obtained prior to performing the procedure. The abdomen was then prepped and draped in usual sterile fashion. Limited ultrasound of the abdomen was performed. Under ultrasound guidance, a 5 Maltese centesis needle was advanced into the peritoneal [...] Successful ultrasound guided diagnostic and therapeutic paracentesis. I, Hamilton Miller M.D, the attending radiologist, was present for [...] FLUIDS (02/03/2021 2:15 PM CDT) Cytology [facility] [email or web address] Department of Pathology and Laboratory Medicine [address] [place] [id number] Surgical Pathology Office: [phone] CYTOLOGY REPORT NAME: SHIRLEY CID CYTOLOGY #: [id number] MR #: [id number] ALT ID #: [id number] #: [id number] LOCATION: 46 DATE OF PROCEDURE: 02/03/2021 AGE: 60 SEX: F DATE RECEIVED: 02/03/2021 : 1960 TIME RECEIVED: 15:10 PHYSICIAN: NICKOLAS BUI DATE OF REPORT: 02/04/2021 COPY TO: DATE [...] P mayank Number [facility] [address] [place] [address] * CYTOLOGY SPECIMEN LABEL (02/03/2021 2:10 PM CDT) Specimen Other (Specify) Performing Organization Address City/[facility] Code P mayank Number [facility] RESULTS * BASIC METABOLIC PANEL (02/03/2021 1:35 PM CDT) Pathologist [facility] Sodium 131 (L) 137 - 147 MMOL/L [...] >60 >60 mL/min [facility] Comment: [place] The eGFR is not validated f or use in drug dosing adjustments. Continue to use estimated creatinine clearance per dosing reference text. Please contact the Clinical Pharmacist for questions. eGFR >60 >60 mL/min [facility] [place] Comment: The eGFR is not validated for use in drug dosing adjustments. Continue to use estimated creatinine clearance per dosing reference text. Please contact the Clinical Pharmacist for questions. Specimen Blood Performing Organization Address City/[facility]/ZIP [facility] P mayank Number MAIN LAB [address] [place] [address] * COVID-19 (SARS-COV-2) PCR (02/01/2021 11:47 AM CDT) Pathologist [facility] COVID-19 FLOCKED SWAB [facility] (SARS-CoV-2) NASOPHARYNGEAL PCR Source COVID-19 NOT DETECTED DN-NOT DETECTED [facility] (SARS-CoV-2) Comment: PCR This assay [...] test is authorized for use under the [facility] Emergency Use Authorization. Performance characteristics have been verified by the [facility] Clinical Laboratories. Fact sheet for providers: https://www.Media Matchmaker.gov/media/3345 78/download Fact sheet for patients: https://www.fda.gov/media/5632 81/download Specimen Flocked Swab - Nasopharyngeal Performing Organization Address City/State/ZIP Code P mayank Number [facility] [address] [place] [address] * CT ABDOMEN WO/W CONTRAST (02/01/2021 11:16 AM CDT) Modality Anatomical Region Laterality Computed Tomography Abdomen Specimen Impressions [facility] RAD RESULTS - 02/01/2021 11:45 AM CDT 1. No arterial phase hyperenhancing/rapi d washout lesion identified within the liver to suggest the presence of hepatocellular carcinoma. Continued routine imaging surveillance is recommended. 2. Cirrhosis and portal venous hypertens ion with marked abdominopelvic ascites, mild splenomegaly, and portosystemic varices. The major portal veins are patent. 3. Cholelithiasis. Finalized by Manuel Tatum D.O. on 02/01/2021 11:45 AM. Dictated by Manuel Tatum D.O. on 02/01/2021 11:35 AM. Narrative [facility] RAD RESULTS - 02/01/2021 11:[address] scan of the abdomen CLINICAL HISTORY: Cirrhosis of liver without ascites, unspecified hepatic cirrhosis type; end-stage liver disease, TIPS evaluation TECHNIQUE: Multiple contiguous axial images were obtained through the abdomen both before and after the IV administration of Omnipaque 350 contrast material. Image postprocessing coronal and sagittal reconstructions were obtained from the source axial data. COMPARISON: Prior abdominal ultrasound from an outside is July 17, 2020 FINDINGS: Lower thorax: Enlarged pericardial lymph node is seen along the right heart in image 4/34 which is likely reactive in nature. The lung bases are clear. Liver and biliary system: The liver is cirrhotic. The hepatic arterial anatomy is standard. The major portal veins are patent. Note is made of a large, recannulated periumbilical vein. Additional small, portosystemic varices are noted within the upper abdomen. Cholelithiasis is present. There is no biliary ductal dilation. Liver observations: No arterial phase hyperenhancing/rapid washout lesion is identified within the liver to suggest the presence of hepatocellular carcinoma. Spleen: The spleen is mildly enlarged measuring up to 14.3 cm cephalocaudal. Adrenal glands and kidneys: Unremarkable apart from a small hypodensity within the interpolar region of the left kidney which is too small to characterize. No hydronephrosis. Pancreas and retroperitoneum: Pancreas unremarkable. No retroperitoneal lymphadenopathy. Abdominal aorta and major vessels: The abdominal aorta and visualized portions of the common iliac arteries are normal in caliber containing mild atherosclerotic calcification. Bowel, mesentery, and peritoneal space: The visualized bowel loops are nondistended. Marked abdominal ascites is present. Osseous structures and abdominal wall: No destructive osseous lesion. Mild body wall edema. Procedure Note Manuel Tatum, DO - 02/01/2021 CT scan of the abdomen CLINICAL HISTORY: Cirrhosis of liver without ascites, unspecified hepatic cirrhosis type; end-stage liver disease, TIPS evaluation TECHNIQUE: Multiple contiguous axial images were obtained through the abdomen both before and after the IV administration of Omnipaque 350 contrast material. Image postprocessing coronal and sagittal reconstructions were obtained from the source axial data. COMPARISON: Prior abdominal ultrasound from an outside is July 17, 2020 FINDINGS: Lower thorax: Enlarged pericardial lymph node is seen along the right heart in image 4/34 which is likely reactive in nature. The lung bases are clear. Liver and biliary system: The liver is cirrhotic. The hepatic arterial anatomy is standard. The major portal veins are patent. Note is made of a large, recannulated periumbilical vein. Additional small, portosystemic varices are noted within the upper abdomen. Cholelithiasis is present. There is no biliary ductal dilation. Liver observations: No arterial phase hyperenhancing/rapid washout lesion is identified within the liver to suggest the presence of hepatocellular carcinoma. Spleen: The spleen is mildly enlarged measuring up to 14.3 cm cephalocaudal. Adrenal glands and kidneys: Unremarkable apart from a small hypodensity within the interpolar region of the left kidney which is too small to characterize. No hydronephrosis. Pancreas and retroperitoneum: Pancreas unremarkable. No retroperitoneal lymphadenopathy. Abdominal aorta and major vessels: The abdominal aorta and visualized portions of the common iliac arteries are normal in caliber containing mild atherosclerotic calcification. Bowel, mesentery, and peritoneal space: The visualized bowel loops are nondistended. Marked abdominal ascites is present. Osseous structures and abdominal wall: No destructive osseous lesion. Mild body wall edema. IMPRESSION 1. No arterial phase hyperenhancing/rapi d washout lesion identified within the liver to suggest the presence of hepatocellular carcinoma. Continued routine imaging surveillance is recommended. 2. Cirrhosis and portal venous hypertens ion with marked abdominopelvic ascites, mild splenomegaly, and portosystemic varices. The major portal veins are patent. 3. Cholelithiasis. Finalized by Manuel Tatum D.O. on 02/01/2021 11:45 AM. Dictated by Manuel Tatum D.O. on 02/01/2021 11:35 AM. Performing Organization Address City/[facility] Code P mayank Number [facility] RAD RESULTS * POC CREATININE, RAD (02/01/2021 10:26 AM CDT) Creatinine, POC 0.8 0.4 - 1.00 MG/DL [facility] Specimen Performing Organization Address [facility] P mayank Number [facility] [address] [place] [address] * PROTIME INR (PT) (02/01/2021 9:48 AM CDT) Only the most recent of 2 results within the time period is included. INR 1.3 (H) 0.8 - 1.2 [facility] Specimen Performing Organization Address [facility] P mayank Number [facility] [address] [place] [address] * TYPE & CROSSMATCH (02/01/2021 9:48 AM CDT) Units Ordered 0 [facility] Crossmatch 02/04/2021,2359 [facility] Expires Record Check 2ND TYPE REQUIRED MAIN LAB ABO/RH(D) A NEG MAIN LAB Antibody Screen NEG MAIN LAB Specimen Lung RLL Performing Organization Address [facility]/ZIP Code P mayank Number MAIN LAB [address] [place] [address] * 2D + DOPPLER ECHO (12/29/2020) Modality Anatomical Region Laterality Other Specimen Narrative Performing Organization Address [facility]/ZIP Code P mayank Number IN CLINIC * VITAMIN A (12/10/2020 11:08 AM CDT) Vitamin A 9.3 (L) REFERENCE LAB Comment: Reference range: 32.5 to 78.0 Unit: mcg/dL In this sample, the retinol (vitamin A) level indicates a severe deficiency. ADDITIONAL INFORMATION This test was developed and its performance characteristics determined by [facility] in a manner consistent with CLIA requirements. This test has not been cleared or approved by the U.S. Food and Drug Administration. [facility], [address] [address] [facility] [address], [place] [address] Specimen Blood Performing Organization Address [facility] P mayank Number REFERENCE LAB REFERENCE LAB See results for address. * ALPHA FETO PROTEIN (AFP) (12/10/2020 11:08 AM CDT) Alpha Feto 3.8 0.0 - 15.0 NG/ML MAIN LAB Protein Specimen Blood Performing Organization Address City/[facility]/ZIP Code P mayank Number [facility] [address] [place] [address] * 25-OH VITAMIN D (D2 + D3) (12/10/2020 11:08 AM CDT) Vitamin 8.2 (L) 30 - 80 NG/ML MAIN LAB D(25-OH)Total Specimen Blood Performing Organization Address [facility]/ZIP [facility] P mayank Number [facility] [address] [place] [address] * CBC AND DIFF (12/10/2020 11:08 AM [...] mayank Number [facility] [address] [place] [address] from Last 3 Months Insurance Type Payer Benefit Subscriber ID Effective Phone Address Plan / Dates Group [employer] MEDICAID A[employer]NA [id number] 2020- [phone] [address] Present [id number] [place] [phone] Advance Directives Patient Cigarette Machine Filler Explanation Type Date Recorded Advance Directive/DPOA Date Inactivated Comments Code Status Date Activated 02/04/2021 12:20 PM Full Code 02/03/2021 3:19 PM Provider has discussed Code Status Yes w/Patient or Family? 02/03/2021 3:19 PM Full Code 02/03/2021 12:36 PM Provider has discussed Code Status Yes w/Patient or Family? Care Teams Start Date End Date Flower Shop Manager Relationship Specialty 07/29/20 Mirella Forbes MD PCP - General Internal [address] [place] [phone]
--- OUTSIDE RECORDS SUMMARY | 2021-03-01 11:11 | XMS REPORT | Encounter Summary ---
Author Author [facility] Organization [facility] Address Unknown Phone Unavailable Care Team Providers Care Managed Services Sales Consultant Name Role Phone Mirella Forbes MD PCP Reason for Visit * Reason Onset Date Comments Medical Question 02/15/2021 Encounter Details Care Team Description Date Type Department Ana Meier RN Medical Question 02/15/2021 Telephone Interventional Radi ology: [facility], [address], [address] [facility] [place] [id number] Social History Date Tobacco Use Types [...] Telephone Encounter - Ana Meier RN - 02/15/2021 11:01 AM MARQUETRY WORKER Call placed to patient returning VM. She states she is filling up again with flu id and weighed 201 this morning and when left [facility] weighted 185#. Is concerned the TIPS is not working. Has not had her 2 week ultrasound post TIPS placement yet. States she has called and was told there was no order yet. Encouraged to follow up with her physician that does her paracentesis and schedule this. Call placed to [facility] to ensure they have US order. They attempt ed to reach patient on 02/03 to schedule but she has not returned call. Their nu mber is [phone]. Call placed again to patient and educated her they have the order and the schedu ling number given. Will need paracentesis prior to U/S. She will call her physic santy to schedule and call scheduling for her U/S. Educated her these can be done back to back with para first. Patient to contact this [facility] with the dates she is scheduled. Ana Meier RN BSN UETRY WORKER documented in this encounter Plan of Treatment Not on filedocumented as of this encounter Visit Diagnoses Not on filedocumented in this encounter Additional Health Concerns Noted Time Assessment 02/04/2021 7:34 AM CDT A fall risk assessment has been complet ed for the patient 08/24/2020 10:33 AM CDT PHQ-2 Depression Total Score: 2 documented as of this encounter Care Teams Start Date End Date Managed Services Sales Consultant Relationship Specialty 07/29/20 Mirella Forbes MD PCP - General Internal [address] [place] [phone] documented as of this encounter
--- OUTSIDE RECORDS SUMMARY | 2021-03-01 11:12 | XMS REPORT | Encounter Summary ---
Author Author [facility] Address Unknown Phone Unavailable Care Team Providers Care Choirmaster Name Role Phone Mirella Forbes MD PCP Encounter Details Care Team Description Date Type Department Sherri Hammond RN 01/27/2021 Pre/Post Interventional Radi ology: Procedure [facility] [place], [address], [address] [place] [address] Social History Date Tobacco Use [...] Progress Notes * Sherri Hammond RN - 01/27/2021 8:58 AM CDT Images from the original note were not included. Dear Shirley, Thank you for choosing [facility] Interventional Rad iology for your procedure. Your appointment information is listed below: Appointment Date: Monday, February 03, 2021 Appointment Time: 1PM Arrival Time: 11:30AM Location:[facility] [place]: [address] [place] [address] Parking: [address] INTERVENTIONAL RADIOLOGY PRE-PROCEDURE INSTRUCTIONS SEDATION You are scheduled for a TIPS procedure in Interventional Radiology with procedur al sedation. Please follow these instructions and any direction from your Prima ry Care/Managing Physician. If you have questions about your procedure or need to reschedule please call MAURY Polanco @ [phone]. TIPS - Transjugular Intrahepatic Portosystemic Shunt What is the transjugular intrahepatic portosystemic shunt procedure? The transjugular intrahepatic portosystemic shunt (TIPS) is a radiologic pro cedure in which a stent (a tubular device) is placed in the middle of the liver to reroute the blood flow. During the procedure, a radiologist makes a tunnel through the liver with a needle, connecting the portal vein (the vein that carries blood from the digesti ve organs to the liver) to one of the hepatic veins (the three veins that carry blood from the liver). A stent is placed in this tunnel to keep the track open. Why do I need to have the TIPS procedure? Diagnostic tests confirm that you have portal hypertension. Portal hyperten gato is a condition characterized by increased pressure in the portal vein. The increase in pressure is caused by a blockage in the blood flow throughout the l iver. The TIPS procedure is used to manage the complications of portal hypertensio n, including: Varaceal bleeding varices are large veins that develop (usually across the e sophagus and stomach) when there is a blockage in the blood flow throughout the liver. Varices are fragile and can bleed easily. Ascites an accumulation of fluid in the abdomen. The TIPS procedure reroutes blood flow in the liver and reduces pressure in all abnormal veins, not only in the stomach and esophagus, but also in the bowel and the liver. Diagram of Gastroesophageal Varices Fluroscopy of TIPS procedure What are the potential complications of this procedure? Shunt narrowing or occlusion (blockage). Follow-up ultrasounds are performe d frequently after the TIPS procedure to detect these complications. This condi tion can be treated by a radiologist who re-expands the shunt with a balloon or repeats the procedure to place a new stent. Encephalopathy mental changes caused by abnormal functioning of the brai n that occur with severe liver disease. Encephalopathy can be worse when blood flow to the liver is reduced by TIPS, which may result in toxic substances reach ing the brain without being metabolized first by the liver. This condition can be treated with medications, diet or by revising the shunt Medication Instructions: You may take the following medications with a small sip of water: Follow instru ctions provided to you by the anesthesia team Do not take the following medications: Follow instructions provided to you by inna anesthesia team Diet Instructions: a. (8) hours before your procedure, stop your regular diet and start a clear liq uid diet. b. (6) hours before your procedure, discontinue tube feedings and chewing tobacc o. c. (2) hours before your procedure discontinue clear liquids. You should have n othing by mouth. This includes GUM or CANDY. Clear Liquid Diet Water Apple or White Grape Juice Coffee or tea without cream Tea White Cranberry Juice Chicken Bouillon or Broth (no noodles) Soda Pop Popsicles Beef Bouillon or Broth (no noodles) Day of Exam Instructions: 1. Bathe or shower with an antibacterial soap prior to your appointment. 2. If you have a history of Obstructive Sleep Apnea (JAME) bring your CPAP/BIPAP. 3. Bring a list of your current medications and the dosages. 4. Wear comfortable clothing and leave valuables at home. 5. Arrive (90) minutes prior to your appointment. This time will be spent kristen tering, interviewing, assessing, educating and preparing you for the test. 6. You will be admitted to the hospital after your procedure for overnight obser vation. If you are doing well in the morning, you will be discharged home. You will need a delivery route driver to take you home. POST-PROCEDURE ACTIVITY: A responsible adult must drive you home. Do not drive, operate heavy suki ki or do anything that requires concentration for at least 24 hours after recei ving sedation or anesthesia. Do not lift more than 5 lbs. for 1 week. Avoid strenuous activity such as pushing, pulling or straining for 1 week. POST-PROCEDURE SITE CARE: You will have a small bandage over the procedure site on your neck. Keep th is dry. You may remove the bandage after 24 hours. Wash your hands thoroughly before touching near the procedure site. Do not use ointments, creams or powders on the site. You may shower or bathe after the bandage is removed. Wash and dry the site gently. Do not submerge the site underwater for at least 1 week (no swimming, hot tub , etc.) DIET/MEDICATIONS: You may resume your previous diet after the procedure. If you receive sedation or anesthesia, avoid any foods or beverages containin g alcohol for at least 24 hours. Please see the Medication Reconciliation sheet for instructions regarding res uming your home medications. CALL THE DOCTOR IF: Bright red blood has soaked the bandage. You have severe pain at the procedure site, unrelieved by medication. Some soreness or tenderness is to be expected for several days. You have severe or new abdominal pain. You have persistent nausea or vomiting. You have signs of infection such as: Chills, body aches, fever greater than 1 01F, redness, swelling or warmth at the puncture site, drainage or pus from the puncture site. You or your caregiver should call 911 for severe symptoms such as excessive blee ding, severe dizziness, chest pain, shortness of breath or loss of consciousness . For any of the above symptoms or for problems or concerns related to the procedu re, call for Monday-Monday 7-5. After-hours and weekends, ple ase call [phone] and ask for the Interventional Vinyl Flooring Installer on-josselyn ruben. documented in this encounter Plan of Treatment Not on filedocumented as of this encounter Visit Diagnoses Not on filedocumented in this encounter Additional Health Concerns Noted Time Assessment 01/26/2021 2:54 PM CDT A fall risk assessment has been complet ed for the patient 08/24/2020 10:33 AM CDT PHQ-2 Depression Total Score: 2 documented as of this encounter Care Teams Start Date End Date Choirmaster Relationship Specialty 07/29/20 Mirella Forbes MD PCP - General Internal [address] [place] [address] documented as of this encounter
--- OUTSIDE RECORDS SUMMARY | 2021-03-01 11:12 | XMS REPORT | Encounter Summary ---
Author Author [facility] Organization [facility] Address Unknown Phone Unavailable Care Team Providers Care Art Sales Consultant Name Role Phone Mirella Forbes MD PCP Encounter Details Care Team Description Date Type Department Megan Beckett MA Cirrhosis of liver without ascites, unsp ecified hepatic cirrhosis type (HCC) 01/14/2021 Orders Only Transplant: [facility], [facility] [address], [address] [place] [address] Social History Date Tobacco Use [...] Results * 2D + DOPPLER ECHO (12/29/2020) Modality Anatomical Region Laterality Other Specimen Narrative Performing Organization Address City/State/ZIP Code P mayank Number IN CLINIC documented in this encounter Visit Diagnoses Diagnosis Cirrhosis of liver without ascites, uns pecified hepatic cirrhosis type (HCC) documented in this encounter Additional Health Concerns Noted Time Assessment 08/24/2020 10:33 AM CDT A fall risk assessment has been complet ed for the patient 08/24/2020 10:33 AM CDT PHQ-2 Depression Total Score: 2 documented as of this encounter Care Teams Start Date End Date Art Sales Consultant Relationship Specialty 07/29/20 Mirella Forbes MD PCP - General Internal [address] [place] [address] documented as of this encounter
--- OUTSIDE RECORDS SUMMARY | 2021-03-01 11:12 | XMS REPORT | Encounter Summary ---
Author Author [facility] Address Unknown Phone Unavailable Care Team Providers Care Permaculture Contractor Name Role Phone Mirella Forbes MD PCP Reason for Visit * Reason Onset Date Comments Appointment 01/25/2021 Encounter Details Care Team Description Date Type Department Sherri Hammond RN Appointment 01/25/2021 Telephone Interventional Radi ology: [facility], [address], [address] [facility] [place] [phone] Social History Date Tobacco Use Types [...] encounter Miscellaneous Notes * Telephone Encounter - Sherri Hammond RN - 01/25/2021 1:30 PM CDT Phone call made to patient to schedule telephone consult with Dr. Miller to [place] TIPS procedure. Currently scheduled 01/26/21 @ 2:45. LVM with appoi ntment details and call back phone number for this CNC. documented in this encounter Plan of Treatment Not on filedocumented as of this encounter Visit Diagnoses Not on filedocumented in this encounter Additional Health Concerns Noted Time Assessment 08/24/2020 10:33 AM CDT A fall risk assessment has been complet ed for the patient 08/24/2020 10:33 AM CDT PHQ-2 Depression Total Score: 2 documented as of this encounter Care Teams Start Date End Date Permaculture Contractor Relationship Specialty 07/29/20 Mirella Forbes MD PCP - General Internal [address] [place] [phone] documented as of this encounter
--- OUTSIDE RECORDS SUMMARY | 2021-03-01 11:12 | XMS REPORT | Encounter Summary ---
Author Author [facility] Organization [facility] Address Unknown Phone Unavailable Care Team Providers Care Service Employee Name Role Phone Mirella Forbes MD PCP Reason for Referral * Radiology Services (Routine) - Authorized Diagnoses / Procedures [facility]erred [facility] Cirrhosis of liver without ascites, unspecified hepatic cirrhosis type (HCC) Procedures CT ABDOMEN WO/W CONTRAST Lucille Butler MD [address] [place] [address] [place] [address] [place] [address] Radiology Referral ID Status Reason Start Date Expiration Visits Vi sits Date Requested Authorized [id number] Authorized 01/21/2021 01/21/2022 1 1 Reason for Visit * Radiology Services (Routine) - Authorized Diagnoses / Procedures Referred By Contact Referred To Conta ct Specialty Diagnoses Cirrhosis of liver without ascites, unspecified hepatic cirrhosis type (HCC) Procedures CT ABDOMEN WO/W CONTRAST Lucille Butler MD [address] [place] [address] [place] [address] [place], [place] [phone] Radiology Referral ID Status Reason Start Date Expiration Visits Vi sits Date Requested Authorized [id number] Authorized 01/21/2021 01/21/2022 1 1 Encounter Details Care Team Description Date Type Department Lucille Butler MD [address] [facility] [place] [address] 02/01/2021 Hospital Imaging, [facility]: [facility] [facility] [address], [address] [place] [address] Social History Date Tobacco Use Types Packs/Day [...] 0 capsule Units by mouth daily. 02/03/2021 furosemide (LASIX) 20 mg Take 20 mg by 0 tablet mouth every morning. 02/03/2021 spironolactone Take 100 mg 0 (ALDACTONE) 100 mg tablet by mouth daily. Take with food. documented as of this encounter Discharge Disposition Code Departure Means Destination Disposition Home Home or Self Care documented in this encounter Plan of Treatment Not on filedocumented as of this encounter Procedures Comments Procedure Name Priority Date/Time Associated Diag nosis CT ABDOMEN WO/W CONTRAST Routine 02/01/2021 Cirrh osis of liver 11:16 AM CDT without ascites, unspecified hepatic cirrhosis type (HCC) HC COMPREHENSIVE 02/01/2021 METABOLIC PANEL 10:26 AM CDT HC PT(INR) 02/01/2021 Cirrhosis of liver 9:48 AM CDT without ascites, unspecified hepatic cirrhosis type (HCC) HC CBC,AUTOMATED 02/01/2021 Cirrhosis of liver 9:48 AM CDT without ascites, unspecified hepatic cirrhosis type (HCC) COMPREHENSIVE METABOLIC 02/01/2021 Cirrhosis of liver PANEL 9:48 AM CDT without ascites, unspecified hepatic cirrhosis type (HCC) documented in this encounter Results * CT ABDOMEN WO/W CONTRAST (02/01/2021 11:16 [...] on 02/01/2021 11:35 AM. Performing Organization Address City/[facility] Code P mayank Number [facility] RESULTS * POC CREATININE, RAD (02/01/2021 10:26 AM CDT) Creatinine, POC 0.8 0.4 - 1.00 MG/DL [facility] Specimen Performing Organization Address City/[facility]/ZIP Code P mayank Number [facility] [address] [place] [address] * PROTIME INR (PT) (02/01/2021 9:48 AM CDT) INR 1.3 (H) 0.8 - 1.2 [facility] Specimen Performing Organization Address [facility] P mayank Number [facility] [address] [place] [address] * CBC (02/01/2021 9:48 AM CDT) Pathologist [facility] White Blood 6.0 4.5 - 11.0 K/UL [facility] Cells RBC 4.48 4.0 - 5.0 M/UL [facility] Hemoglobin 14.7 12.0 - 15.0 GM/DL [facility] Hematocrit 43.1 36 - 45 % [facility] MCV 96.1 80 - 100 FL [facility] MCH 32.8 26 - 34 PG [facility] MCHC 34.1 32.0 - 36.0 G/DL [facility] RDW 16.6 (H) 11 - 15 % [facility] Platelet Count 136 (L) 150 - 400 K/UL [facility] MPV 8.4 7 - 11 FL [facility] Specimen Performing Organization Address City/[facility] Code P mayank Number [facility] [address] [place] [address] * COMPREHENSIVE METABOLIC PANEL (02/01/2021 9:48 AM CDT) Pathologist [facility] Sodium 130 (L) 137 - 147 MMOL/L [facility] Potassium 5.7 (H)Comment: MODERATE 3.5 - 5.1 MMOL/L [facility] HEMOLYSIS Chloride 102 98 - 110 MMOL/L [facility] Glucose 84 70 - 100 MG/DL [facility] Blood Urea 21 7 - 25 MG/DL [facility] Nitrogen Creatinine 0.77 0.4 - 1.00 MG/DL [facility] Calcium 8.7 8.5 - 10.6 MG/DL [facility] Total Protein 7.6 6.0 - 8.0 G/DL [facility] Total Bilirubin 1.7 (H) 0.3 - 1.2 MG/DL [facility] Albumin 3.1 (L) 3.5 - 5.0 G/DL [facility] Alk Phosphatase 137 (H) 25 - 110 U/L [facility] AST (SGOT) 67 (H) 7 - 40 U/L [facility] CO2 24 21 - 30 MMOL/L [facility] ALT (SGPT) 23 7 - 56 U/L [facility] Anion Gap 4 3 - 12 [facility] eGFR Non >60 >60 mL/min [facility] Comment: Dutch The eGFR is not validated f or use in drug dosing adjustments. Continue to use estimated creatinine clearance per dosing reference text. Please contact the Clinical Pharmacist for questions. eGFR >60 >60 mL/min [facility] Dutch Comment: The eGFR is not validated for use in drug dosing adjustments. Continue to use estimated creatinine clearance per dosing reference text. Please contact the Clinical Pharmacist for questions. Specimen Performing Organization Address City/State/ZIP Code P mayank Number [facility] [address] [place] [address] documented in this encounter Visit Diagnoses Diagnosis Cirrhosis of liver without ascites, uns pecified hepatic cirrhosis type (HCC) documented in this encounter Administered Medications Action Date Dose Rate Site Medication Order MAR Action 02/01/2021 11:11 AM CDT 100 mL iohexoL (OMNIPAQUE-350) 350 mg/mL Given injection 100 mL 100 mL, Intravenous, ONCE, 1 dose, On 02/01/21 at 1015, NOTE: This is a HIGH ALERT Medication. 02/01/2021 11:11 AM CDT 50 mL sodium chloride PF 0.9% injection 50 mL Given 50 mL, Intravenous, ONCE, 1 dose, On Mo n 02/01/21 at 1015, Intra-procedure (IR) documented in this encounter Additional Health Concerns Noted Time Assessment 02/01/2021 8:36 AM CDT A fall risk assessment has been complet ed for the patient 08/24/2020 10:33 AM CDT PHQ-2 Depression Total Score: 2 documented as of this encounter Care Teams Start Date End Date Service Employee Relationship Specialty 07/29/20 Mirella Forbes MD PCP - General Internal [facility] [address] [place] [address] documented as of this encounter
--- OUTSIDE RECORDS SUMMARY | 2021-03-01 11:12 | XMS REPORT | Encounter Summary ---
Author Author [facility] Organization [facility] Address Unknown Phone Unavailable Care Team Providers Care Penal Officer Name Role Phone Mirella Forbes MD PCP Reason for Referral * Radiology Services (Routine) - Authorized Diagnoses / Procedures Referred By Contact Referred To Conta ct Specialty Diagnoses Cirrhosis of liver without ascites, unspecified hepatic cirrhosis type (HCC) Procedures CT ABDOMEN WO/W CONTRAST Lucilel Butler MD [address] [place] [address] [place] [phone] Radiology Referral ID Status Reason Start Date Expiration Visits Vi sits Date Requested Authorized [id number] Authorized 01/21/2021 01/21/2022 1 1 Reason for Visit * Reason Onset Date Comments Follow-up Phone Call 01/20/2021 Encounter Details Care Team Description Date Type Department Lucille Butler MD [address] [place], [place] [address] [place] [address] Follow-up Phone Call 01/20/2021 Telephone Transplant: [facility] [place] [facility], [address], [address] [place] [address] Social History Date Tobacco Use [...] encounter Miscellaneous Notes * Telephone Encounter - Pattie Rincon RN - 01/21/2021 7:01 PM CDT patient needs CT abdomen w/wo prior to TIPS procedure. Orders placed, patient wi ll have at . Patient scheduled 01/28 @ 10:15 [facility] location. LVM asking p atient to return call for appt. instructions. Will continue to follow. * Telephone Encounter - Radha [place] - 01/20/2021 10:00 AM CDT Call from Shirley, relaying information that her last US was done at [facility] in [place], [place] on 07/17/20 in radiology. If there are questions, please call he r. documented in this encounter Plan of Treatment Not on filedocumented as of this encounter Results * CT ABDOMEN WO/W [...] Mild body wall edema. Procedure Note Manuel Tatum DO - 02/01/2021 CT scan of the [...] on 02/01/2021 11:35 AM. Performing Organization Address City/State/ZIP Code P mayank Number [facility] RESULTS documented in this encounter Visit Diagnoses Diagnosis Cirrhosis of liver without ascites, uns pecified hepatic cirrhosis type (HCC) - Primary Cirrhosis of liver without ascites, uns pecified hepatic cirrhosis type (HCC) * Addendum Note - Pattie Rincon RN - 01/21/2021 7:12 PM CDT Addended by: PATTIE RINCON on: 01/21/2021 07:12 PM Modules accepted: Orders documented in this encounter Additional Health Concerns Noted Time Assessment 08/24/2020 10:33 AM CDT A fall risk assessment has been complet ed for the patient 08/24/2020 10:33 AM CDT PHQ-2 Depression Total Score: 2 documented as of this encounter Care Teams Start Date End Date Penal Officer Relationship Specialty 07/29/20 Mirella Forbes MD PCP - General Internal [address] [place] [address] documented as of this encounter
--- OUTSIDE RECORDS SUMMARY | 2021-03-01 11:12 | XMS REPORT | Encounter Summary ---
Author Author [facility] Organization [facility] Address Unknown Phone Unavailable Care Team Providers Care Agency Operator Name Role Phone Mirella Forbes MD PCP Encounter Details Care Team Description Date Type Department Sherri Hammond RN 01/19/2021 Pre/Post Interventional Radi ology: Procedure [facility], [address], [address] [place] [address] Social History Date Tobacco Use [...] Progress Notes * Sherri Hammond, MAURY - 01/19/2021 4:23 PM CDT Received IR [...] encounter Care Teams Start Date End Date Agency Operator Relationship Specialty 07/29/20 Mirella Forbes MD PCP - General Internal [address] [place] [id number] documented as of this encounter
--- OUTSIDE RECORDS SUMMARY | 2021-03-01 11:12 | XMS REPORT | Encounter Summary ---
Author Author [facility] Organization [facility] Address Unknown Phone Unavailable Care Team Providers Care Weapons Officer [employer] Name Role Phone Mirella Forbes MD PCP Encounter Details Care Team Description Date Type Department 01/28/2021 Travel Social History Date Tobacco Use Types Packs/Day Years Used Current Every Day Smoker Smokeless Tobacco: Never Used Sex Assigned at Date Recorded Not on file Date Recorded COVID-19 Exposure Response 01/28/2021 7:48 AM CDT In the last month, have [...] encounter Care Teams Start Date End Date Weapons Officer [employer] Relationship Specialty 07/29/20 Mirella Forbes MD PCP - General Internal Formerly named [facility] [place] [address] documented as of this encounter
--- OUTSIDE RECORDS SUMMARY | 2021-03-01 11:12 | XMS REPORT | Encounter Summary ---
Author Author [facility] Organization [facility] Address Unknown Phone Unavailable Care Team Providers Care Filtration Operator Name Role Phone Mirella Forbes MD PCP Encounter Details Care Team Description Date Type Department Sherri Hammond RN 01/27/2021 Pre/Post Interventional Radi ology: Procedure [facility], [address], [address] [place] [address] Social History Date Tobacco Use [...] Notes * Sherri Hammond RN - 01/27/2021 8:54 AM CDT Pre procedure covid swab order faxed to [facility]. Test ing to be done 01/31 or 02/01, prior to IR procedure 02/03/21. documented in this encounter Plan of Treatment Not on filedocumented as of this encounter Visit Diagnoses Not on filedocumented in this encounter Additional Health Concerns Noted Time Assessment 01/26/2021 2:54 PM CDT A fall risk assessment has been complet ed for the patient 08/24/2020 10:33 AM CDT PHQ-2 Depression Total Score: 2 documented as of this encounter Care Teams Start Date End Date Filtration Operator Relationship Specialty 07/29/20 Mirella Forbes MD PCP - General Internal [address] [place] [address] documented as of this encounter
--- OUTSIDE RECORDS SUMMARY | 2021-03-01 11:12 | XMS REPORT | Encounter Summary ---
Author Author [facility] Organization [facility] Address Unknown Phone Unavailable Care Team Providers Care Returned Case Inspector Name Role Phone Mirella Forbes MD PCP Encounter Details Care Team Description [place] [address] [facility] [address] [place] [address] Encounter for blood typing (Primary Dx); Cirrhosis of liver without ascites, unspecified hepatic cirrhosis type (HCC) 02/01/2021 Ancillary Pre-anesthesia: [facility] Procedure [facility] [address], [address] [place] [address] Anesthesia Record Responsible Anesthesiologist Anesthesia Start Time Anesthesi a Stop Time Procedure Name Beverly Stern MD 02/03/21 1442 02/03/21 1712 IR TRANSJUGULAR INTRAHEPATIC PORTOSYSTEMIC SHUNT PLACEMENT Date Time Event Comment 1441 AN Equip Check 2020 144 Anes Start 1454 Out of Pre Procedure [...] the receiving nurse. 1712 An Stop Meds * No agents on file. * No blood administrations on file. Removal Type Details Placement Peripheral 02/03/21; 1238; RN; R; Distal; Forearm; 02/03/21 1238 by Kelso, IV 20 G; N/A; 2 MAURY Wilson 02/04/21 1015 by Ku, Mid Level Practitioner Wounds 02/03/21; 1500; Puncture wound; Right; 02/03/21 [...] Malagon Correct Patient Position, Correct Ernst e, adventure guide, Correct Equipment / Implants Available, Marking Waived, Not Side Specific; Hand Hygiene, Sterile Gloves, Full Body Sterile Drape, Cap , Mask, Ey e Protection, Sterile Gown; 10 FR; (continuously monitored by physician ); X-ray; 02/03/21; 1654 02/04/21 1015 by Jed, Mid Level Practitioner Wounds 02/03/21; 1700; Puncture wound; Right; 02/03/21 [...] Signs Reading Time Taken Comments Vital Sign 147/112 02/01/2021 9:32 AM CDT Left lower extre mity Blood Pressure 76 02/01/2021 8:05 AM CDT Pulse 36.1 C (96.9 F) 02/01/2021 8:05 AM CDT Temperature - - Respiratory Rate 98% 02/01/2021 8:05 AM CDT Oxygen Saturation - - Inhaled Oxygen Concentration 91.9 kg (202 lb 9.6 oz) 02/01/2021 8:05 AM CDT Weight 172.7 cm (5' 8") 02/01/2021 8:05 AM CDT Height 30.81 02/01/2021 8:05 AM CDT Body Mass Index documented in [...] as of this encounter Miscellaneous Notes * Pre-Anesthesia Medication Instructions - Shruti White, RAFAEL - 02/01/2021 7:50 AM CDT YOUR MEDICATION LIST duloxetine DR (CYMBALTA) 60 mg capsule Take 60 mg by mouth daily. ergocalciferol (vitamin D2) (DRISDOL) 1,250 mcg (50,000 unit) capsule Take o ne capsule by mouth three times weekly for 36 doses. furosemide (LASIX) 20 mg tablet Take 20 mg by mouth every morning. (Patient not taking: Reported on 02/01/2021) spironolactone (ALDACTONE) 100 mg tablet Take 100 mg by mouth daily. Take th food. (Patient not taking: Reported on 02/01/2021) vitamin A 10,000 unit capsule Take one capsule by mouth daily. vitamin E 400 unit capsule Take 400 Units by mouth daily. YOUR MEDICATION INSTRUCTIONS FOR SURGERY Please continue taking your medications as your doctor has told you to UNLESS it is listed to stop below. 14 DAYS BEFORE SURGERY Do not take the following vitamins, herbals, and supplements: Vitamin E Do not start any new vitamins, herbals, or natural supplements before surgery. 7 DAYS BEFORE SURGERY DO NOT TAKE the following anti-inflammatory medications such as ibuprofen (Advil , Motrin) and naproxen (Aleve) You may use acetaminophen (Tylenol) DAY BEFORE SURGERY TAKE your medications the day before surgery as usual unless told differently. MORNING OF SURGERY DO NOT take these medications: Remaining vitamins/supplements Ointments/creams/lotions Vitamin D Vitamin A TAKE these medications with a sip (1-2 ounces) of water: Duloxetine Use all inhalers, nasal sprays, and eye drops as usual May take if needed: Please contact the clinic pharmacist with any changes to your medication list or medication questions before surgery. E-mail: [email or web address] Before going home from the hospital, please ask your doctor when you should re-s tart any medicine that was stopped for surgery. * Pre-Anesthesia Patient Instructions - Elicia Clark RN - 02/01/2021 7:50 AM CDT GENERAL INFORMATION Before you come to the hospital Make arrangements for a responsible adult to drive you home and stay with you for 24 hours following surgery. Bath/Shower Instructions Take a bath or shower using the special soap given to you in PAC. Use half th e bottle the night before, and the other half the morning of your procedure. Use clean towels with each bath or shower. Put on clean clothes after bath or shower. Avoid using lotion and oils. If you are having surgery above the waist, wear a shirt that fastens up the f ront. Sleep on clean sheets if bath or shower is done the night before procedure. Leave money, credit cards, jewelry, and any other valuables at home. The [facility] is not responsible for the loss or breakage of persona l items. Remove nail nepali, makeup and all jewelry (including piercings) before comin g to the hospital. The morning of your procedure: brush your teeth and tongue do not smoke do not shave the area where you will have surgery What to bring to the hospital ID/ Insurance Card Tool Turret Lathe Set Up Operator card Official documents for legal guardianship Copy of your Living Will, Advanced Directives, and/or Durable Power of Attorn ey Small bag with a few personal belongings CPAP/BiPAP machine (including all supplies) Walker,cane, or motorized scooter Cases for glasses/hearing aids/contact lens (bring solutions for contacts) Dress in clean, loose, comfortable clothing Eating or drinking before surgery Do not eat or drink anything after 11:00 p.m. the day before your procedure ( including gum, mints, candy, or chewing tobacco) OR follow the specific instruct ions you were given by your Surgeon. You may have WATER ONLY up to 2 hours before arriving at the hospital. Other instructions Notify your surgeon if: you become ill with a cough, fever, sore throat, nausea, vomiting or flu-like symptoms you have any open wounds/sores that are red, painful, draining, or are new si nce you last saw the doctor you need to cancel your procedure You will receive your day of surgery arrival time from your Surgeon's office. If you have any questions, please contact your Surgeon's office for assistance. Notify us at [facility]: if you need to cancel your procedure if you are going to be late Coronavirus (COVID19) Information If you get sick with fever (100.4F/38C or higher), cough, or have trouble breath ing: Call your primary care physician for questions or health needs. Tell your doctor about any recent travel and your symptoms. Check your MyChart for your COVID swab results. (MyChart notifications are i mmediate and patients are often know their test result before their surgeon is n otified). Notify your surgeon if you are COVID+ positive. If you are COVID+ positive DO NOT come to the hospital for your surgery unti l your surgeon has instructed you on what to do. Wait for instructions to find o ut if you should stay home or if you should still have surgery. Avoid contact with others. For up to date information on the Coronavirus, visit the CDC website at CDC.gov. For the safety of all patients, visitors and staff as we work to contain COVID-1 9, we must restrict patient visitors. Current Visitor Policy (09/30/20): Our current, and ongoing, visitor rules in surgery and procedural areas are: 1 visitor per patient will be allowed to accompany the patient and wait in the W aiting Room No visitors will be allowed into the pre/post areas Patients in inpatient and pediatric units, Emergency Department, ambulatory clin ics and lab appointments may now have two visitors at the same time. For inpatient stays, there is no limit on the amount of visitors per day but onl y two visitors may visit at a time. The policy applies to [facility], In [facility] and [facility] and clinics. Exceptions include: No visitors allowed for patients with active COVID-19 infections. No visitors under the age of 12 for inpatients. Parents or guardians may bring their children to their clinic appointments or br ing siblings to their children's clinic appointment. One visitor allowed during a patients cancer exam appointment; however, no vi sitors allowed during their cancer treatment/infusion appointment; check with st [facility] for exceptions. One visitor allowed in perioperative and procedural waiting rooms; no visitors a llowed in pre/post areas unless a patient becomes an overnight boarder. Two parents/guardians are allowed for surgical or procedural patients younger th an 18 years old. Adult inpatients in semiprivate rooms may have visitors, but visits should be co ordinated so only two total visitors are in a room at a time due to space limita tions. Visitors must be free of fever and symptoms to be in our facilities. We ask visi tors to follow these guidelines: Wear a mask at all times, unless under the age of 2, have trouble breathing or a re unconscious, incapacitated or otherwise unable to remove the cover without as sistance. Go directly to the nursing station in the unit you are visiting and do not linge r in public areas. Check in at the nursing station before going to the patient's room. Maintain a physical distance of six feet from all others. Follow elevator restrictions to four riding at a time - peak times are 6:30-7:30 a.m., noon and 6:30-7:30 p.m. Be aware cafeteria peak times are 11 a.m. - 1 p.m. Wash your hands frequently and cover your coughs and sneezes. It is strongly recommended that all patients undergoing an operation or procedur e have a COVID19 test performed 2-3 days prior to their procedure regardless of vaccination status. Please contact your surgeon to schedule this testing. A vi ral PCR swab test is the best testing method. Rapid COVID testing is not recomm ended. Failure to complete the COVID test could result in delay or cancellation of your procedure. If you are having an outpatient procedure, you will need to arrange for a respon sible ride/person to accompany you home due to sedation or anesthesia with your procedure. A responsible person is a person who has the ability to identify a ch blanca in the patient's status and notify medical personnel. This is typically a family member or friend. Public transportation is permitted if you have a respo nsible person to accompany you. An Uber, taxi or other public transportation dr estrella is not considered a responsible person to accompany you home. Arrival at the [address] [address] Park in the Parking Garage, located directly across from the main entrance to the hospital. Quality Control Engineer parking is available from 7 AM to 4 PM Monday through Monday. Enter through the ground floor [facility] entrance and check in at the Inf ormation Desk in the lobby. They will validate your parking ticket and direct you to the next location. documented in this encounter Plan of Treatment Order Schedule Name Type Priority Associated Diag noses Expected: 02/01/2021, Expires: 2 BLOOD TYPE CONFIRMATION - Blood Bank Routine Cirr hosis of liver ORDER ONLY IF REQUESTED without ascites, BY LAB unspecified hepatic cirrhosis type (HCC) Encounter for blood typing documented as of this encounter Procedures Comments Procedure Name Priority Date/Time Associated Diag nosis TYPE & CROSSMATCH Routine 02/01/2021 Cirrhosis of liver 9:48 AM CDT without ascites, unspecified hepatic cirrhosis type (HCC) documented in this encounter Results * TYPE & CROSSMATCH (02/01/2021 9:48 AM CDT) Units Ordered 0 MAIN LAB Crossmatch 02/04/2021,2359 [facility] Expires Record Check 2ND TYPE REQUIRED [facility] ABO/RH(D) A NEG MAIN LAB Antibody Screen NEG MAIN LAB Specimen Lung RLL Performing Organization Address City/State/ZIP Code P mayank Number MAIN LAB [address] [place] [address] documented in this encounter Visit Diagnoses Diagnosis Encounter for blood typing - Primary Cirrhosis of liver without ascites, uns pecified hepatic cirrhosis type (HCC) documented in this encounter Historical Medications * This list may reflect changes made after this encounter. Start Date End Date Medication Sig Dispensed Refills vitamin E 400 unit Take 400 0 capsule Units by mouth daily. added in this encounter Orders First Ordered Date Lab Orders Without Results Count Last Ordere d Date CBC 1 02/01/2021 COMPREHENSIVE METABOLIC PANEL 1 02/02/20 PROTIME INR (PT) 1 02/01/2021 documented in this encounter Additional Health Concerns Noted Time Assessment 02/01/2021 8:36 AM CDT A fall risk assessment has been complet ed for the patient 08/24/2020 10:33 AM CDT PHQ-2 Depression Total Score: 2 documented as of this encounter Care Teams Start Date End Date Returned Case Inspector Relationship Specialty 07/29/20 Mirella Forbes MD PCP - General Internal [address] [place] [id number] documented as of this encounter
--- OUTSIDE RECORDS SUMMARY | 2021-03-01 11:12 | XMS REPORT | Encounter Summary ---
Author Author [facility] Organization [facility] Address Unknown Phone Unavailable Care Team Providers Care Telephone Station Repairer Name Role Phone Mirella Forbes MD PCP Reason for Visit * Reason Comments Cirrhosis Encounter Details Care Team Description Date [place] [address] [facility] [address] [place] [address] Cirrhosis of liver with ascites, unspeci fied hepatic cirrhosis type (HCC) (Primary Dx) 01/26/2021 Scheduled Surgery: Sami gomes, [facility] [address] [place] [phone] Social History Date Tobacco Use Types Packs/Day [...] as of this encounter Progress Notes * Zack Larry, DO - 01/26/2021 2:45 PM CDT Date of Service: 01/26/2021 Subjective: Shirley Cid is a 60 y.o. female. History of Present Illness This is a 60-year-old female who presents as telephone consultation and is being evaluated for potential TIPS shunt placement. 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 At that time she underwent treatment with interferon, however was unable to c omplete the treatment due to psychosis related issues. She has subsequently dev eloped ascites and abdominal distention which is refractory to diuresis with Las ix and spironolactone. Other than abdominal distention and ascites, she states she is relatively active, denies significant abdominal pain. Continues to smoke 1 pack/day and has done so since she was 16 years old. Has not drank any alcoh ol in 15 years. Does have history of intravenous drug use which she attributes to her diagnosis of HCV. Most recent EGD was performed in 2019 which showed no signs of esophageal varices. She did have a outside screening ultrasound perfor med recently in July, which showed no imaging findings concerning for HCC. Most recent AFP was 3.8. Echocardiogram was performed recently which shows a right ventricular ejection fraction within the lower limits of normal at 55 to 6 0%. Review of Systems Constitutional: Positive for activity change and fatigue. Objective: duloxetine DR (CYMBALTA) 60 mg capsule Take 60 mg by mouth daily. ergocalciferol (vitamin D2) (DRISDOL) 1,250 mcg (50,000 unit) capsule Take o ne capsule by mouth three times weekly for 36 doses. furosemide (LASIX) 20 mg tablet Take 20 mg by mouth every morning. spironolactone (ALDACTONE) 100 mg tablet Take 100 mg by mouth daily. Take food. vitamin A 10,000 unit capsule Take one capsule by mouth daily. There were no vitals filed for this visit. There is no height or weight on file to calculate BMI. Physical Exam; deferred due to telehealth visit. IMAGING: Outside ultrasound dated 07/17/2020 was personally reviewed. My interpre tation of this imaging is a cirrhotic liver with large volume intraperitoneal as cites. The main portal vein is patent and demonstrates normal forward flow towa rds the liver. The hepatic veins are patent. Assessment and Plan: This is a 60-year-old female with history of chronic liver disease resulting in compensated cirrhosis who is presenting for potential TIPS shunt placement. Compensated cirrhosis with findings ascites refractory to diuresis. MELD score is 10. Child Iqbal B Echocardiogram performed 12/29/2020 shows a normal low normal right ventricula r ejection fraction of 55 to 60%. No evidence of esophageal varicosities on recent EGD No evidence of HCC on imaging/AFP screening The patient is a candidate for TIPS shunt placement due to refractory ascites . The procedure, risks, benefits and alternatives were discussed with the patien t who verbalized understanding. Time was provided for potential questions to be asked and all were answered satisfactorily. The risk for potential encephalopathy post intervention was discussed with th e patient who verbalized understanding. The patient will need to be tested for Covid prior to procedure which will th en be scheduled for her. She will then be contacted with further instructions. documented in this encounter Plan of Treatment Not on filedocumented as of this encounter Visit Diagnoses Diagnosis Cirrhosis of liver with ascites, unspec ified hepatic cirrhosis type (HCC) - Primary documented in this encounter Additional Health Concerns Noted Time Assessment 01/26/2021 2:54 PM CDT A fall risk assessment has been complet ed for the patient 08/24/2020 10:33 AM CDT PHQ-2 Depression Total Score: 2 documented as of this encounter Care Teams Start Date End Date Telephone Station Repairer Relationship Specialty 07/29/20 Mirella Forbes MD PCP - General Internal [address] [place] [phone] documented as of this encounter
--- OUTSIDE RECORDS SUMMARY | 2021-03-01 11:12 | XMS REPORT | Encounter Summary ---
Author Author [facility] Organization [facility] Address Unknown Phone Unavailable Care Team Providers Care Regulatory Internship Name Role Phone Mirella Forbes MD PCP Reason for Referral * Radiology Services (Routine) - Authorized Diagnoses / Procedures Referred By [facility] Cirrhosis of liver without ascites, unspecified hepatic cirrhosis type (HCC) Procedures IR TRANSJUGULAR INTRAHEPATIC PORTOSYSTEMIC SHUNT PLACEMENT Lucille Butler MD [address] [place], [place] [address] [place] [address] [facility] Ir [address] [place] [address] [address], [address] [place] [address] Radiology Referral ID Status Reason Start Date Expiration Visits Vi sits Date Requested Authorized [id number] Authorized 01/19/2021 01/19/2022 1 1 Reason for Visit * Reason Onset Date Comments Other 01/13/2021 Encounter Details Care Team Description Date Type Department Lucille Butler MD [address] [place], [place] [id number] [place] [address] Other 01/13/2021 Telephone Transplant: Main Ca mpus, [facility] [address], [address] [place] [address] Social History Date Tobacco Use [...] Miscellaneous Notes * Telephone Encounter - Pattie Saldana RN - 01/19/2021 1:26 PM CDT call returned. Per Dr. Butler, patient to proceed with TIPS. orders placed. * Telephone Encounter - Raphael Jarquin - 01/19/2021 12:48 PM CDT Pt LVM wanting to know the status of her scheduling a TIPS procedure. Please giv e her a call back. * Telephone Encounter - Pattie Sladana RN - 01/15/2021 10:09 AM CDT call [...] echo done on 01/09 or 01/10 at [facility]. * Telephone Encounter - Raphael Jarquin - 01/13/2021 10:39 AM CDT Pt called needing to speak with NC in regards to scheduling an appt for TIPS pro cedure. Please give her a call back. documented in this encounter Plan of Treatment Order Schedule Name Type Priority Associated Diag noses Expected: 01/19/2021 (Approximate), Expi res: 01/19/2022 CBC [...] documented as of this encounter Results * IR TRANSJUGULAR INTRAHEPATIC PORTOSYSTEMIC SHUNT PLACEMENT [...] expressed in this report Finalized by HAMILTON MILES on 02/04/2021 1:37 PM. Dictated by Demetri Ackerman M.D. on 02/03/2021 5:00 PM. Narrative [facility] RAD RESULTS - 02/04/2021 1:37 PM CDT PRIMARY TIPS CLINICAL HISTORY: Refractory ascites. End-stage liver disease. OPERATING PHYSICIAN: Demetri Ackerman M.D., HAMILTON MILES ACCESS SITE: Right internal jugular vein ANESTHESIA: [...] cava with the aid of a 5 Bruneian Kumpe catheter. The Kumpe catheter was removed, and the 10 [place]uneian TIPS sheath was then advanced into the [...] were no immediate complications. Procedure Note Hamilton Miles MD - 02/04/2021 PRIMARY TIPS CLINICAL HISTORY: Refractory ascites. End-stage liver disease. OPERATING PHYSICIAN: Demetri Ackerman M.D., ADAM ALLI ACCESS SITE: Right internal jugular vein ANESTHESIA: [...] cava with the aid of a 5 Bruneian Kumpe catheter. The Kumpe cath eter was removed, and the 10 [place]une[place] TIPS sheath was then advanced into the [...] mm Hg to 3 mmHg. I, Hamilton Miles M.D., the attending radiologist, was present for the procedure, personally reviewed the images, and formulated the interpretations and opinions expressed in this report. @TT Approved by Demetri Ackerman M.D. on 02/03/2021 5:26 PM By my electronic signature, I attest that I have personally reviewed the images for this examination and formulated the interpretations and opinions expressed in this report Finalized by HAMILTON MILES on 02/04/2021 1:37 PM. Dictated by Demetri Ackerman M.D. on 02/03/2021 5:00 PM. Performing Organization Address City/State/ZIP Code P mayank Number [facility] RESULTS documented in this encounter Visit Diagnoses Diagnosis Cirrhosis of liver without ascites, uns pecified hepatic cirrhosis type (HCC) - Primary Cirrhosis of liver without ascites, uns pecified hepatic cirrhosis type (HCC) * Addendum Note - Pattie Saldana RN - 01/19/2021 1:29 PM CDT Addended by: PATTIE SALDANA on: 01/19/2021 01:29 PM Modules accepted: Orders, SmartSet documented in this encounter Additional Health Concerns Noted Time Assessment 08/24/2020 10:33 AM CDT A fall risk assessment has been complet ed for the patient 08/24/2020 10:33 AM CDT PHQ-2 Depression Total Score: 2 documented as of this encounter Care Teams Start Date End Date Regulatory Internship Relationship Specialty 07/29/20 Mirella Forbes MD PCP - General Internal [address] [place] [phone] documented as of this encounter
--- OUTSIDE RECORDS SUMMARY | 2021-03-01 11:12 | XMS REPORT | Encounter Summary ---
Author Author [facility] Organization [facility] Address Unknown Phone Unavailable Care Team Providers Care Director Hospice Operations Name Role Phone Mirella Forbes MD PCP Encounter Details Care Team Description Date Type Department Sherri Hammond RN Encounter for screening laboratory testi ng for COVID-19 virus in asymptomatic patient 01/27/2021 Orders Only Interventional Radi ology: [facility], [address], [address] [facility] [place] [id number] Social History Date Tobacco Use Types [...] filedocumented as of this encounter Results * COVID-19 (SARS-COV-2) PCR (02/01/2021 11:47 AM CDT) COVID-19 FLOCKED SWAB MAIN LAB (SARS-CoV-2) NASOPHARYNGEAL PCR Source COVID-19 NOT DETECTED DN-NOT DETECTED MAIN LAB (SARS-CoV-2) Comment: PCR This assay is [...] test is authorized for use under the [facility] Emergency Use Authorization. Performance characteristics have been verified by the [facility]. Fact sheet for providers: https://www.fda.gov/media/9164 78/download Fact sheet for patients: https://www.fda.gov/media/8986 81/download Specimen Flocked Swab - Nasopharyngeal Performing Organization Address City/State/ZIP Code [place] Number MAIN LAB [address] [place] [address] documented in this encounter Visit Diagnoses Diagnosis [...] encounter Care Teams Start Date End Date Director Hospice Operations Relationship Specialty 07/29/20 Mirella Forbes MD PCP - General Internal [address] [place] [id number] documented as of this encounter
== END 2021-02-26 14:30 | disposition home or self-care (01) ==
LOC: SDC 11:09
PROVIDERS: ATTEND Surgery
DX: R18.8 Other ascites (principal); Z79.899 Other long term (current) drug therapy; Z91.048 Other nonmedicinal substance allergy status
CPT/HCPCS: 49082; 96365; 96366

== ENCOUNTER → 2021-03-12 | Outpatient (CLI) | payer MEDICAID ==
[~2021-03-12] MED LIST changes: +ALBUMIN 25% 25 GM/100 ML 100 ML IV ONE
[2021-03-12 11:00] VITALS: BP 123/87
--- NOTE | 2021-03-12 11:49 | Progress Note-Post Operative ---
Post-Operative Progess Note Surgeon (s)/Client Experience Administrator (s) Surgeon INA MELO DO Client Experience Administrator: none Pre-Operative Diagnosis ascites Post-Operative Diagnosis same Procedure & Operative Findings Date of Procedure 03/12/21 Procedure Performed/Findings Paracentesis The patient was in same day surgery room. The abdomen was then prepped and draped and timeout was performed. Local anesthetic was infiltrated and #11 blade scalpel was used to make a small skin incision. Kqdn-X-Hmlcgudb needle and catheter were then advanced until straw-colored fluid was withdrawn. The catheter was advanced and the needle was removed. A total of 10 L of straw-colored fluid was withdrawn. Once done draining, the catheter was removed and sterile bandage was applied. Pt allowed was given albumin per protocol. The patient tolerated procedure well without any complications. Anesthesia Type local lidocaine Estimated Blood Loss Estimated blood loss (mL): none Specimens/Packing Specimens Removed 10L ascitic fluid INA MELO DO Mar 12, 2021 11:49
--- NOTE | 2021-03-12 11:50 | Discharge Inst-Surgical ---
Discharge Inst-Surgical Depart Medication/Instructions New, Converted or Re-Newed RX: Other (No rx needed) Activity Activity as Tolerated: Yes Driving Instructions: You May Drive Diet Discharge Diet: Low Sodium Diet If Any Problems/Questions/Issu: Contact Your Physician, Go to Emergency Room Skin/Wound Care Infection Signs and Symptoms: Increased Redness, Foul Odor of Wound, Increased Drainage, Skin Itchy or Has a Rash, Increased Swelling, Temperature Above 101 F Bathing Instructions: Shower Stitches/Cristiane/Dermabond Dis: INA Lewis DO Mar 12, 2021 11:50
== END ==
LOC: SDC 11:03
PROVIDERS: ATTEND Surgery
DX: R18.8 Other ascites (principal)
CPT/HCPCS: 49082; 96365; 96366

== ENCOUNTER 2021-03-19 09:39 | Outpatient (CLI) | payer MEDICAID ==
[~2021-03-19 09:39] MED LIST changes: -ALBUMIN 25% 25 GM/100 ML 100 ML IV ONE
[2021-03-19 09:48] VITALS: BP 147/80
[2021-03-19] MEDS ORDERED: ALBUMIN 25% 25 GM/100 ML 100 ML IV ONE (10:30)
--- NOTE | 2021-03-19 11:26 | Progress Note-Pre Operative ---
Pre-Operative Progress Note H&P Reviewed The H&P was reviewed, patient examined and no changes noted. Time Seen by Provider: 10:51 Date H&P Reviewed: Mar 19, 2021 Time H&P Reviewed: 10:51 Pre-Operative Diagnosis: Ascites INA MELO DO Mar 19, 2021 11:26
--- NOTE | 2021-03-19 11:27 | Progress Note-Post Operative ---
Post-Operative Progess Note Surgeon (s)/Resident Programs Assistant (s) Surgeon INA MELO DO Resident Programs Assistant: none Pre-Operative Diagnosis Ascites Post-Operative Diagnosis same Procedure & Operative Findings Date of Procedure 03/19/21 Procedure Performed/Findings Paracentesis The patient was in same day surgery room. The abdomen was then prepped and draped and timeout was performed. Local anesthetic was infiltrated and #11 blade scalpel was used to make a small skin incision. Jqqt-V-Wrybhtga needle and catheter were then advanced until straw-colored fluid was withdrawn. The catheter was advanced and the needle was removed. A total of 10 L of straw-colored fluid was withdrawn. Once done draining, the catheter was removed and sterile bandage was applied. Pt allowed was given albumin per protocol. The patient tolerated procedure well without any complications. Anesthesia Type local lidocaine Estimated Blood Loss Estimated blood loss (mL): scant Specimens/Packing Specimens Removed 10 L of ascitic fluid INA MELO DO Mar 19, 2021 11:27
== END 2021-03-19 13:35 | disposition home or self-care (01) ==
LOC: SDC 09:39
PROVIDERS: ATTEND Surgery
DX: R18.8 Other ascites (principal)
CPT/HCPCS: 49082; 96365; 96366

== ENCOUNTER → 2021-03-24 | Outpatient (CLI) | payer MEDICAID ==
--- NOTE | 2021-03-24 09:19 | Diagnostic Imaging Report ---
PROCEDURE: US DOPPLER ABD/COMPLETE TECHNIQUE: Multiple real-time grayscale images were obtained over the kidneys in various projections. Duplex evaluation of renal arteries was also attempted. INDICATION: Cirrhosis and ascites. Liver is 15.7 cm in length. The spleen is enlarged 14.3 cm in length. Nodular contour to the liver consistent with cirrhosis again noted. There is parenchymal heterogeneity but no discrete liver mass is identified. There appears to be a large amount of ascites present. Tips within the right lobe of the liver is again noted. Tips appears to be patent. A velocity at the portal venous end of the TIPS is 40 cm/s. Mid TIPS velocity is 31 cm/s. Hepatic venous end 67 cm/s. Overall TIPS velocities have decreased since prior study where velocities were 100 cm/s, 201 cm/s and 147 cm/s respectively. Vessel diameters remain stable. Hepatic veins are patent. Hepatic arteries patent. IVC is patent. IMPRESSION: 1 Cirrhosis and ascites. No discrete liver masses detected. 2. Patent TIPS. Overall TIPS velocities have decreased when compared with prior study from 02/19/2021. Continued follow-up is recommended. Dictated by: Dictated on workstation # [id number]
== END ==
LOC: RAD 07:32
PROVIDERS: ATTEND Internal Medicine
DX: K74.60 Unspecified cirrhosis of liver (principal); R18.8 Other ascites
CPT/HCPCS: 93975

== ENCOUNTER → 2021-03-31 | Outpatient (CLI) | payer MEDICAID ==
[~2021-03-31] VITALS: Ht 172.7 cm; Wt 96.8 kg
[~2021-03-31] MED LIST changes: +ALBUMIN 25% 25 GM/100 ML 100 ML IV NR; +ALBUMIN 25% 25 GM/100 ML 100 ML IV ONE
[2021-03-31 15:00] VITALS: BP 111/53
--- NOTE | 2021-03-31 15:44 | Diagnostic Imaging Report ---
INDICATION: Ascites. FINDINGS: Sonographic guidance was provided for Dr. Cassidy for performance of a paracentesis. There is large volume ascites in all 4 quadrants of the abdomen. A marker was placed at the right lower quadrant. IMPRESSION: Large volume ascites. Dictated by: Dictated on workstation # [id number]
--- NOTE | 2021-04-01 19:23 | OPERATIVE REPORT ---
DATE OF SERVICE: 03/31/2021 PREOPERATIVE DIAGNOSIS: Symptomatic ascites. POSTOPERATIVE DIAGNOSIS: Symptomatic ascites. PROCEDURE: Ultrasound-guided paracentesis. SURGEON: Linda Cassidy DO ANESTHESIA: 1% lidocaine 3 mL. COMPLICATIONS: None. INDICATIONS: The patient is a 61-year-old female with recurrent ascites. She understands risks and benefits of procedure and wishes to proceed. Consent was signed in the chart. DESCRIPTION OF PROCEDURE: The patient was taken to the procedure room. Ultrasound was used to isolate the largest pocket. The area was prepped and draped in sterile fashion. Local anesthetic was infiltrated. A #11 blade scalpel was used to make a small skin incision. The Ymix-P-Wwrrieuu needle and catheter were then advanced through the abdominal wall until straw-colored fluid was withdrawn. The catheter was inserted and the needle was removed. A total of 14 L of fluid was withdrawn. The catheter was then removed. Sterile bandage was applied. The patient tolerated procedure well without any complications. Job ID: [id number] DocumentID: [id number] Dictated Date: 04/01/2021 13:46:24 Electrical Engineering Technician Date: 04/01/2021 19:22:00 Dictated By: LINDA CASSIDY DO [facility] CENTERMaureen
== END ==
LOC: RAD 12:33
PROVIDERS: ATTEND Surgery
DX: R18.8 Other ascites (principal)
CPT/HCPCS: 49083

== ENCOUNTER 2021-04-15 10:05 | Outpatient (CLI) | payer MEDICAID ==
[~2021-04-15] VITALS: Ht 172.7 cm; Wt 96.8 kg
[2021-04-15 10:20] VITALS: BP 125/99
[2021-04-15] MEDS: ALBUMIN 25% 25 GM/100 ML 100 ML IV SCH ×2 (12:05→13:50)
--- NOTE | 2021-04-15 12:23 | Progress Note-Pre Operative ---
Pre-Operative Progress Note H&P Reviewed The H&P was reviewed, patient examined and no changes noted. Time Seen by Provider: 10:28 Date H&P Reviewed: Apr 15, 2021 Time H&P Reviewed: 10:28 Pre-Operative Diagnosis: Ascites, liver failure INA MELO DO Apr 15, 2021 12:22
--- NOTE | 2021-04-15 12:26 | Progress Note-Post Operative ---
Post-Operative Progess Note Surgeon (s)/Fluxer (s) Surgeon INA MELO DO Fluxer: none Pre-Operative Diagnosis Ascites, liver failure Post-Operative Diagnosis same Procedure & Operative Findings Date of Procedure 04/15/21 Procedure Performed/Findings Paracentesis The patient was in same day surgery room. The abdomen was then prepped and draped and timeout was performed. Local anesthetic was infiltrated and #11 blade scalpel was used to make a small skin incision. Farf-O-Jfwdrrqg needle and catheter were then advanced until straw-colored fluid was withdrawn. The catheter was advanced and the needle was removed. A total of 12 L of straw-colored fluid was withdrawn. Once done draining, the catheter was removed and sterile bandage was applied. Pt allowed was given albumin per protocol. The patient tolerated procedure well without any complications. Anesthesia Type local lidocaine Estimated Blood Loss Estimated blood loss (mL): none Specimens/Packing Specimens Removed ascitic fluid INA MELO DO Apr 15, 2021 12:26
== END 2021-04-15 16:00 ==
LOC: SDC 10:05
PROVIDERS: ATTEND Surgery
DX: R18.8 Other ascites (principal)
CPT/HCPCS: 49082; 96365; 96366

== ENCOUNTER → 2021-04-15 | Outpatient (CLI) | payer MEDICAID ==
[~2021-04-15] MED LIST changes: -ALBUMIN 25% 25 GM/100 ML 100 ML IV NR; -ALBUMIN 25% 25 GM/100 ML 100 ML IV ONE
[2021-04-15 11:25] LABS: BASOPHILS # (AUTO) 0.1 10^3/uL (0.0-0.1); BASOPHILS % (AUTO) 1 % (0-10); EOSINOPHILS # (AUTO) 0.1 10^3/uL (0.0-0.3); EOSINOPHILS % (AUTO) 2 % (0-10); HEMATOCRIT 39 % (35-52); HEMOGLOBIN 13.4 g/dL (11.5-16.0); LYMPHOCYTES # (AUTO) 0.5 10^3/uL (1.0-4.0); LYMPHOCYTES % (AUTO) 8 % (12-44); MEAN CORPUSCULAR HEMOGLOBIN 34 pg (25-34); MEAN CORPUSCULAR HGB CONC 34 g/dL (32-36); MEAN CORPUSCULAR VOLUME 98 fL (80-99); MEAN PLATELET VOLUME 9.7 fL (9.0-12.2); MONOCYTES # (AUTO) 0.7 10^3/uL (0.0-1.0); MONOCYTES % (AUTO) 12 % (0-12); NEUTROPHILS # (AUTO) 4.8 10^3/uL (1.8-7.8); NEUTROPHILS % (AUTO) 78 % (42-75); PLATELET COUNT 141 10^3/uL (130-400); WHITE BLOOD COUNT 6.2 10^3/uL (4.3-11.0)
[2021-04-15 11:36] LABS: INR 1.3 (0.8-1.4); PROTHROMBIN TIME PATIENT 16.9 SEC (12.2-14.7)
[2021-04-15 11:46] LABS: ALBUMIN 2.6 GM/DL (3.2-4.5); BILIRUBIN,TOTAL 2.3 MG/DL (0.1-1.0); CALCIUM 8.5 MG/DL (8.5-10.1); CREATININE SERUM 1.02 MG/DL (0.60-1.30); POTASSIUM 3.8 MMOL/L (3.6-5.0); TOTAL PROTEIN 7.2 GM/DL (6.4-8.2)
[2021-04-15 12:49] LABS: BODY FLUID APPEARENCE MKD CLDY; BODY FLUID COLOR YELLOW; BODY FLUID RBC COUNT 20 /uL; BODY FLUID SOURCE PERITON; BODY FLUID WBC TOTAL COUNT 26 /uL
[2021-04-15 13:06] LABS: BF OTHER CELLS 80 %; LYMPHOCYTES,BODY FLUID 17 %
== END ==
LOC: SDC 10:53
PROVIDERS: ATTEND Internal Medicine
DX: K74.60 Unspecified cirrhosis of liver (principal); R18.8 Other ascites
CPT/HCPCS: 36415; 80053; 85025; 85610; 89051; 96366

== ENCOUNTER 2021-05-05 08:24 | Outpatient (CLI) | payer MEDICAID ==
[~2021-05-05] VITALS: Ht 172.7 cm; Wt 96.8 kg
[2021-05-05 08:30] VITALS: BP 130/90
[2021-05-05] MEDS ORDERED: ALBUMIN 25% 25 GM/100 ML 100 ML IV ONE ×2 (09:45→10:45)
--- NOTE | 2021-05-05 10:53 | Progress Note-Post Operative ---
Post-Operative Progess Note Surgeon (s)/Assembly Inspector (s) Surgeon NIA MELO DO Assembly Inspector: none Pre-Operative Diagnosis Ascites Post-Operative Diagnosis same Procedure & Operative Findings Date of Procedure 05/05/21 Procedure Performed/Findings Paracentesis The patient was in same day surgery room. The abdomen was then prepped and draped and timeout was performed. Local anesthetic was infiltrated and #11 blade scalpel was used to make a small skin incision. Tvfh-R-Eikgzptv needle and catheter were then advanced until straw-colored fluid was withdrawn. The catheter was advanced and the needle was removed. A total of 11 L of straw-colored fluid was withdrawn. Once done draining, the catheter was removed and sterile bandage was applied. Pt was given albumin per protocol. The patient tolerated procedure well without any complications. Anesthesia Type local lidocaine Estimated Blood Loss Estimated blood loss (mL): none Specimens/Packing Specimens Removed 11 liters of ascitic fluid INA MELO DO May 05, 2021 10:53
== END 2021-05-05 14:10 | disposition home or self-care (01) ==
LOC: RAD 08:24 → SDC 14:10
PROVIDERS: ATTEND Surgery
DX: R18.8 Other ascites (principal)
CPT/HCPCS: 49082; 96365; 96366

== ENCOUNTER 2021-05-24 11:21 | Day surgery (SDC) | payer MEDICAID ==
[~2021-05-24] VITALS: Ht 172.7 cm; Wt 100.9 kg
--- NOTE | 2021-05-24 12:32 | Progress Note-Post Operative ---
Post-Operative Progess Note Surgeon (s)/Field Attendant (s) Surgeon INA MELO DO Field Attendant: NONE Pre-Operative Diagnosis Ascites Post-Operative Diagnosis same Procedure & Operative Findings Date of Procedure 05/24/21 Procedure Performed/Findings Paracentesis The patient was in same day surgery room. The abdomen was then prepped and draped and timeout was performed. Local anesthetic was infiltrated and #11 blade scalpel was used to make a small skin incision. Klxg-U-Rmvjuqou needle and catheter were then advanced until straw-colored fluid was withdrawn. The catheter was advanced and the needle was removed. A total of 10 L of straw-colored fluid was withdrawn. Once done draining, the catheter was removed and sterile bandage was applied. Pt was given albumin per protocol. The patient tolerated procedure well without any complications. Anesthesia Type local lidocaine Estimated Blood Loss Estimated blood loss (mL): scant Specimens/Packing Specimens Removed 10 L of ascitic fluid INA MELO DO May 24, 2021 12:32
[2021-05-24] MEDS ORDERED: ALBUMIN 25% 25 GM/100 ML 100 ML IV ONE (12:45)
[2021-05-24 14:40] VITALS: BP 133/85
== END 2021-05-24 14:40 | disposition home or self-care (01) ==
LOC: SDC 11:21
PROVIDERS: ATTEND Surgery
DX: R18.8 Other ascites (principal)
CPT/HCPCS: 49082; 96365; 96366

== ENCOUNTER 2021-06-09 11:07 | Outpatient (CLI) | payer MEDICAID ==
[~2021-06-09] VITALS: Wt 100.9 kg
[2021-06-09 11:20] VITALS: BP 135/76
[2021-06-09] MEDS ORDERED: ALBUMIN 25% 25 GM/100 ML 100 ML IV ONE (11:45)
--- NOTE | 2021-06-09 13:57 | Progress Note-Post Operative ---
Post-Operative Progess Note Surgeon (s)/Quality Technician (s) Surgeon INA MELO DO Quality Technician: none Pre-Operative Diagnosis Ascites Post-Operative Diagnosis same Procedure & Operative Findings Date of Procedure 06/09/21 Procedure Performed/Findings Paracentesis The patient was in same day surgery room. The abdomen was then prepped and draped and timeout was performed. Local anesthetic was infiltrated and #11 blade scalpel was used to make a small skin incision. Vfib-V-Ekurujuz needle and catheter were then advanced until straw-colored fluid was withdrawn. The catheter was advanced and the needle was removed. A total of 10 L of straw-colored fluid was withdrawn. Once done draining, the catheter was removed and sterile bandage was applied. Pt was given albumin per protocol. The patient tolerated procedure well without any complications. Anesthesia Type local lidocaine Estimated Blood Loss Estimated blood loss (mL): scant Specimens/Packing Specimens Removed 12 L ascitic fluid INA MELO DO Jun 09, 2021 13:57
== END 2021-06-09 16:15 ==
LOC: SDC 11:07
PROVIDERS: ATTEND Surgery
DX: R18.8 Other ascites (principal)
CPT/HCPCS: 49082; 96365; 96366

== ENCOUNTER 2021-06-23 12:13 | Outpatient (CLI) | payer MEDICAID ==
[~2021-06-23] VITALS: Ht 172.7 cm; Wt 106.4 kg
[2021-06-23 12:25] VITALS: BP 163/86
[2021-06-23] MEDS ORDERED: ALBUMIN 25% 25 GM/100 ML 100 ML IV ONE ×2 (13:15→13:45)
--- NOTE | 2021-06-23 18:36 | Progress Note-Post Operative ---
Post-Operative Progess Note Surgeon (s)/Vp Biology (s) Surgeon INA MELO DO Vp Biology: none Pre-Operative Diagnosis Ascites Post-Operative Diagnosis same Procedure & Operative Findings Date of Procedure 06/23/21 Procedure Performed/Findings Paracentesis The patient was in same day surgery room. The abdomen was then prepped and draped and timeout was performed. Local anesthetic was infiltrated and #11 blade scalpel was used to make a small skin incision. Cfim-J-Apvokrhk needle and catheter were then advanced until straw-colored fluid was withdrawn. The catheter was advanced and the needle was removed. A total of 11 L of straw-colored fluid was withdrawn. Once done draining, the catheter was removed and sterile bandage was applied. Pt was given albumin per protocol. The patient tolerated procedure well without any complications. Anesthesia Type local lidocaine Estimated Blood Loss Estimated blood loss (mL): none Specimens/Packing Specimens Removed 11L of ascitic fluid INA MELO DO Jun 23, 2021 18:36
== END 2021-06-23 17:24 | disposition home or self-care (01) ==
LOC: SDC 12:13
PROVIDERS: ATTEND Surgery
DX: R18.8 Other ascites (principal)
CPT/HCPCS: 49082; 96365; 96366

== ENCOUNTER → 2021-07-02 | Outpatient (CLI) | payer MEDICAID ==
[~2021-07-02] MED LIST changes: +ALBUMIN 25% 25 GM/100 ML 100 ML IV ONE; +ALBUMIN 25% 25 GM/100 ML 50 ML IV ONE
[2021-07-02 10:40] VITALS: BP 135/77
--- NOTE | 2021-07-02 11:37 | Diagnostic Imaging Report ---
INDICATION: Ascites. Evaluation of all 4 quadrants of the abdomen was performed. There is a large amount of ascites in all 4 quadrants. Right abdomen was parked for performance of paracentesis by Dr. Cassidy. IMPRESSION: Large abdominal ascites. Dictated by: Dictated on workstation # [id number]
--- NOTE | 2021-07-03 01:49 | OPERATIVE REPORT ---
DATE OF SERVICE: 07/02/2021 PREOPERATIVE DIAGNOSIS: Symptomatic ascites. POSTOPERATIVE DIAGNOSIS: Symptomatic ascites. PROCEDURE: Ultrasound-guided paracentesis. SURGEON: Linda Cassidy DO ANESTHESIA: 3 mL 1% lidocaine. ESTIMATED BLOOD LOSS: None. COMPLICATIONS: None. INDICATIONS: The patient is a 61-year-old female, requiring multiple paracentesis due to symptomatic ascites. She understands risks and benefits of ultrasound-guided paracentesis and wishes to proceed. Consent was signed in the chart. DESCRIPTION OF PROCEDURE: The patient was placed in a supine position. Ultrasound was used to isolate the largest pocket of the abdomen. Once the pocket was easily visualized, the area was prepped and draped in sterile fashion. Timeout was performed. Local anesthetic was infiltrated and an 11-blade scalpel was used to make a small skin incision. Oqow-Y-Bmlnjkli needle and catheter were then advanced through the abdominal wall until straw-colored fluid was withdrawn. The catheter was advanced and the needle was removed. A total of 10 liters of ascitic fluid was removed. Once removed, the catheter was removed and sterile bandage was applied. The patient tolerated the procedure well without any complications and discharged home. Job ID: [id number] DocumentID: [id number] Dictated Date: 07/02/2021 23:17:39 Finance Manager Date: 07/03/2021 01:49:44 Dictated By: LINDA CASSIDY DO
== END ==
LOC: SDC 10:26
PROVIDERS: ATTEND Surgery
DX: R18.8 Other ascites (principal)
CPT/HCPCS: 49082; 76942; 96365; 96366

== ENCOUNTER → 2021-07-06 | Outpatient (CLI) | payer MEDICAID ==
[~2021-07-06] MED LIST changes: -ALBUMIN 25% 25 GM/100 ML 100 ML IV ONE; -ALBUMIN 25% 25 GM/100 ML 50 ML IV ONE
--- NOTE | 2021-07-06 11:28 | Diagnostic Imaging Report ---
PROCEDURE: US DOPPLER ABD/COMPLETE TECHNIQUE: Multiple real-time grayscale images were obtained over the kidneys in various projections. Duplex evaluation of renal arteries was also attempted. INDICATION: Cirrhosis of liver with ascites. COMPARISON: Ultrasound from 07/17/2020. FINDINGS: Unchanged marked nodularity of the liver indicative of cirrhosis. No focal hepatic mass is appreciated. TIPS has been performed, and there is no occlusion of the shunt. The main portal vein remains patent with normal direction of flow. Velocity within the main portal vein measures approximately 20 cm/s. The middle, left, and right hepatic veins all remain patent. The main hepatic artery is patent. Large volume of ascites is noted. Mild gallbladder wall thickening is likely due to chronic liver disease. No cholelithiasis. Common bile duct measures 0.4 cm. The aorta and IVC are normal in caliber. Both kidneys are normal in size without hydronephrosis or concerning mass. The spleen measures 13 cm. Pancreas is normal where seen. IMPRESSION: 1. Cirrhosis without focal mass to suggest hepatocellular carcinoma. 2. Patent TIPS without stenosis in the stent graft. 3. Large-volume ascites. Dictated by: Dictated on workstation # [id number]
== END | disposition still patient (30) ==
LOC: SDC 06-09 11:03 → RAD 08:20
PROVIDERS: ATTEND Internal Medicine
DX: K74.60 Unspecified cirrhosis of liver (principal)
CPT/HCPCS: 93975

== ENCOUNTER → 2021-07-14 | Outpatient (CLI) | payer MEDICAID ==
[~2021-07-14] MED LIST changes: +ALBUMIN 25% 25 GM/100 ML 100 ML IV ONE
[2021-07-14 09:31] VITALS: BP 131/76
--- NOTE | 2021-07-14 11:19 | Progress Note-Pre Operative ---
Pre-Operative Progress Note H&P Reviewed The H&P was reviewed, patient examined and no changes noted. Time Seen by Provider: 10:41 Date H&P Reviewed: Jul 14, 2021 Time H&P Reviewed: 10:41 Pre-Operative Diagnosis: Ascites INA MELO DO Jul 14, 2021 11:19
--- NOTE | 2021-07-14 11:20 | Progress Note-Post Operative ---
Post-Operative Progess Note Surgeon (s)/Garage Construction Equipment Mechanic (s) Surgeon INA MELO DO Garage Construction Equipment Mechanic: none Pre-Operative Diagnosis Ascites Post-Operative Diagnosis same Procedure & Operative Findings Date of Procedure 07/14/21 Procedure Performed/Findings Paracentesis The patient was in same day surgery room. The abdomen was then prepped and draped and timeout was performed. Local anesthetic was infiltrated and #11 blade scalpel was used to make a small skin incision. Oumx-M-Ghvggpkz needle and catheter were then advanced until straw-colored fluid was withdrawn. The catheter was advanced and the needle was removed. Plan is to remove a total of 11 L of straw-colored fluid. Once done draining, the catheter will be removed and sterile bandage applied. Pt will be given albumin per protocol. The patient tolerated procedure well without any complications. Anesthesia Type local lidocaine Estimated Blood Loss Estimated blood loss (mL): scant Specimens/Packing Specimens Removed ascitic fluid INA MELO DO Jul 14, 2021 11:20
== END ==
LOC: SDC 09:16
PROVIDERS: ATTEND Surgery
DX: R18.8 Other ascites (principal)
CPT/HCPCS: 49082; 96365; 96366

== ENCOUNTER 2021-07-26 09:43 | Outpatient (CLI) | payer MEDICAID ==
[~2021-07-26] VITALS: Ht 172.7 cm; Wt 101.4 kg
[~2021-07-26 09:43] MED LIST changes: -ALBUMIN 25% 25 GM/100 ML 100 ML IV ONE
[2021-07-26] MEDS ORDERED: LIDOCAINE PF 1% 5 ML (XYLOCAINE) AMP ONE (10:27)
[2021-07-26] MEDS ORDERED: LIDOCAINE PF 1% 5 ML (XYLOCAINE) AMP INJ ONE (10:30)
[2021-07-26] MEDS ORDERED: ALBUMIN 25% 25 GM/100 ML 100 ML IV ONE (10:30)
--- NOTE | 2021-07-26 11:27 | Progress Note-Post Operative ---
Post-Operative Progess Note Surgeon (s)/User Experience Architect (s) Surgeon INA MELO DO User Experience Architect: RHONDA Chowdary Pre-Operative Diagnosis Ascites Post-Operative Diagnosis same Procedure & Operative Findings Date of Procedure 07/26/21 Procedure Performed/Findings Paracentesis The patient was in same day surgery room. The abdomen was then prepped and draped and timeout was performed. Local anesthetic was infiltrated and #11 blade scalpel was used to make a small skin incision. Mkfz-S-Cyxzokib needle and catheter were then advanced until straw-colored fluid was withdrawn. The catheter was advanced and the needle was removed. Plan is to remove a total of 11 L of straw-colored fluid. Once done draining, the catheter will be removed and sterile bandage applied. Pt will be given albumin per protocol. The patient tolerated procedure well without any complications. Anesthesia Type local lidocaine Estimated Blood Loss Estimated blood loss (mL): scant Specimens/Packing Specimens Removed ascitic fluid INA MELO DO Jul 26, 2021 11:27
[2021-07-26 12:55] VITALS: BP 131/81
== END 2021-07-26 12:55 | disposition home or self-care (01) ==
LOC: SDC 09:43
PROVIDERS: ATTEND Surgery
DX: R18.8 Other ascites (principal)
CPT/HCPCS: 49082; 96365; 96366

== ENCOUNTER → 2021-08-02 | Outpatient (CLI) | payer MEDICAID ==
[2021-08-02 13:06] LABS: INR 1.2 (0.8-1.4); PROTHROMBIN TIME PATIENT 15.4 SEC (12.2-14.7)
[2021-08-02 13:10] LABS: ALBUMIN 2.3 GM/DL (3.2-4.5); BILIRUBIN,TOTAL 1.7 MG/DL (0.1-1.0); CALCIUM 8.1 MG/DL (8.5-10.1); CREATININE SERUM 1.37 MG/DL (0.60-1.30); POTASSIUM 3.9 MMOL/L (3.6-5.0); TOTAL PROTEIN 6.5 GM/DL (6.4-8.2)
== END ==
LOC: LAB 12:25
PROVIDERS: ATTEND Pediatrics
DX: K74.60 Unspecified cirrhosis of liver (principal)
CPT/HCPCS: 36415; 80053; 82105; 85610

== ENCOUNTER → 2021-08-06 | Outpatient (CLI) | payer MEDICAID ==
[~2021-08-06] VITALS: Ht 172.7 cm; Wt 101.4 kg
[~2021-08-06] MED LIST changes: +ALBUMIN 25% 25 GM/100 ML 100 ML IV ONE; +LIDOCAINE 1% INJ 20 ML VIAL INJ ONE; +LIDOCAINE 1% INJ 20 ML VIAL ONE
[2021-08-06 09:45] VITALS: BP 138/82
--- NOTE | 2021-08-06 10:40 | Progress Note-Pre Operative ---
Pre-Operative Progress Note H&P Reviewed The H&P was reviewed, patient examined and no changes noted. Time Seen by Provider: 10:02 Date H&P Reviewed: Aug 06, 2021 Time H&P Reviewed: 10:02 Pre-Operative Diagnosis: Ascites INA MELO DO Aug 06, 2021 10:40
--- NOTE | 2021-08-06 10:43 | Progress Note-Post Operative ---
Post-Operative Progess Note Surgeon (s)/Wood Turner (s) Surgeon INA MELO DO Wood Turner: RHONDA Chowdary Pre-Operative Diagnosis Ascites Post-Operative Diagnosis ascites Procedure & Operative Findings Date of Procedure 08/06/21 Procedure Performed/Findings Paracentesis The patient was in same day surgery room. The abdomen was then prepped and draped and timeout was performed. Local anesthetic was infiltrated and #11 blade scalpel was used to make a small skin incision. Tqsv-S-Lpacnvnu needle and catheter were then advanced until straw-colored fluid was withdrawn. The catheter was advanced and the needle was removed. Plan is to remove a total of 11 L of straw-colored fluid. Once done draining, the catheter will be removed and sterile bandage applied. Pt will be given albumin per protocol. The patient tolerated procedure well without any complications. Anesthesia Type local lidocaine Estimated Blood Loss Estimated blood loss (mL): scant Specimens/Packing Specimens Removed asctitic fluid INA MELO DO Aug 06, 2021 10:42
== END ==
LOC: SDC 09:37
PROVIDERS: ATTEND Surgery
DX: R18.8 Other ascites (principal)
CPT/HCPCS: 49082; 96365; 96366

== ENCOUNTER 2021-08-17 11:01 | Outpatient (CLI) | payer MEDICAID ==
[~2021-08-17] VITALS: Ht 172.7 cm; Wt 101.4 kg
[~2021-08-17 11:01] MED LIST changes: -ALBUMIN 25% 25 GM/100 ML 100 ML IV ONE; -LIDOCAINE 1% INJ 20 ML VIAL INJ ONE; -LIDOCAINE 1% INJ 20 ML VIAL ONE
[2021-08-17] MEDS ORDERED: LIDOCAINE 1% INJ 20 ML VIAL INJ ONE (11:15)
[2021-08-17] MEDS ORDERED: LIDOCAINE 1% INJ 20 ML VIAL ONE (11:16)
[2021-08-17] MEDS ORDERED: ALBUMIN 25% 25 GM/100 ML 100 ML IV ONE (12:00)
[2021-08-17 14:20] VITALS: BP 106/63
--- NOTE | 2021-08-17 15:25 | Progress Note-Pre Operative ---
Pre-Operative Progress Note H&P Reviewed The H&P was reviewed, patient examined and no changes noted. Time Seen by Provider: 11:28 Date H&P Reviewed: August 17, 2021 Time H&P Reviewed: : Pre-Operative Diagnosis: ascites INA MELO DO August 17, 2021 15:25
--- NOTE | 2021-08-17 15:26 | Progress Note-Post Operative ---
Post-Operative Progess Note Surgeon (s)/Marketing Development Manager (s) Surgeon INA MELO DO Marketing Development Manager: none Pre-Operative Diagnosis ascites Post-Operative Diagnosis same Procedure & Operative Findings Date of Procedure 08/17/21 Procedure Performed/Findings Paracentesis The patient was in same day surgery room. The abdomen was then prepped and draped and timeout was performed. Local anesthetic was infiltrated and #11 blade scalpel was used to make a small skin incision. Dyqd-E-Bucwyflw needle and catheter were then advanced until straw-colored fluid was withdrawn. The catheter was advanced and the needle was removed. Plan is to remove a total of 11 L of straw-colored fluid. Once done draining, the catheter will be removed and sterile bandage applied. Pt will be given albumin per protocol. The patient tolerated procedure well without any complications. Anesthesia Type local lidocaine Estimated Blood Loss Estimated blood loss (mL): scant Specimens/Packing Specimens Removed ascitic fluid INA MELO DO August 17, 2021 15:26
== END 2021-08-17 14:20 | disposition home or self-care (01) ==
LOC: SDC 11:01
PROVIDERS: ATTEND Surgery
DX: R18.8 Other ascites (principal)
CPT/HCPCS: 49082; 96365; 96366

== ENCOUNTER → 2021-08-30 | Outpatient (CLI) | payer MEDICAID ==
[~2021-08-30] MED LIST changes: +ALBUMIN 25% 25 GM/100 ML 100 ML IV ONE; +LIDOCAINE 1% INJ 20 ML VIAL INJ ONE
[2021-08-30 11:59] VITALS: BP 127/80
--- NOTE | 2021-08-30 13:31 | Progress Note-Pre Operative ---
Pre-Operative Progress Note H&P Reviewed The H&P was reviewed, patient examined and no changes noted. Time Seen by Provider: 13:22 Date H&P Reviewed: August 30, 2021 Time H&P Reviewed: : Pre-Operative Diagnosis: Ascites INA MELO DO August 30, 2021 13:31
--- NOTE | 2021-08-30 13:32 | Progress Note-Post Operative ---
Post-Operative Progess Note Surgeon (s)/Retail Team Member (s) Surgeon INA MELO DO Retail Team Member: none Pre-Operative Diagnosis Ascites Post-Operative Diagnosis same Procedure & Operative Findings Date of Procedure 08/30/21 Procedure Performed/Findings Paracentesis The patient was in same day surgery room. The abdomen was then prepped and draped and timeout was performed. Local anesthetic was infiltrated and #11 blade scalpel was used to make a small skin incision. Obcc-Z-Yitgvcmx needle and catheter were then advanced until straw-colored fluid was withdrawn. The catheter was advanced and the needle was removed. Plan is to remove a total of 11 L of straw-colored fluid. Once done draining, the catheter will be removed and sterile bandage applied. Pt will be given albumin per protocol. The patient tolerated procedure well without any complications. Anesthesia Type local lidocaine Estimated Blood Loss Estimated blood loss (mL): scant Specimens/Packing Specimens Removed ascitic fluid INA MELO DO August 30, 2021 13:32
== END ==
LOC: SDC 11:32
PROVIDERS: ATTEND Surgery
DX: R18.8 Other ascites (principal)
CPT/HCPCS: 49082

== ENCOUNTER → 2021-09-09 | Outpatient (CLI) | payer MEDICAID ==
[~2021-09-09] VITALS: Ht 172.7 cm; Wt 104.5 kg
[~2021-09-09] MED LIST changes: -LIDOCAINE 1% INJ 20 ML VIAL INJ ONE; +LIDOCAINE 1% INJ 20 ML VIAL ONE
[2021-09-09 09:40] VITALS: BP 134/77
--- NOTE | 2021-09-09 10:09 | Progress Note-Pre Operative ---
Pre-Operative Progress Note H&P Reviewed The H&P was reviewed, patient examined and no changes noted. Time Seen by Provider: 10:07 Date H&P Reviewed: Sep 09, 2021 Time H&P Reviewed: 10:07 Pre-Operative Diagnosis: Ascites INA MELO DO Sep 09, 2021 10:09
--- NOTE | 2021-09-09 12:56 | Progress Note-Post Operative ---
Post-Operative Progess Note Surgeon (s)/Longwall Shearer Operator (s) Surgeon INA MELO DO Longwall Shearer Operator: none Pre-Operative Diagnosis Ascites Post-Operative Diagnosis same Procedure & Operative Findings Date of Procedure 09/09/21 Procedure Performed/Findings Paracentesis The patient was in same day surgery room. The abdomen was then prepped and draped and timeout was performed. Local anesthetic was infiltrated and #11 blade scalpel was used to make a small skin incision. Nhbz-B-Gusvealm needle and catheter were then advanced until straw-colored fluid was withdrawn. The catheter was advanced and the needle was removed. Plan is to remove a total of 11 L of straw-colored fluid. Once done draining, the catheter will be removed and sterile bandage applied. Pt will be given albumin per protocol. The patient tolerated procedure well without any complications. Anesthesia Type local lidocaine Estimated Blood Loss Estimated blood loss (mL): scant Specimens/Packing Specimens Removed ascitic fluid INA MELO DO Sep 09, 2021 12:56
[2021-09-09 14:50] VITALS: BP 134/77
== END ==
LOC: SDC 09:35
PROVIDERS: ATTEND Surgery
DX: R18.8 Other ascites (principal)
CPT/HCPCS: 49082; 96365; 96366

== ENCOUNTER → 2021-09-17 | Outpatient (CLI) | payer MEDICAID ==
[~2021-09-17] MED LIST changes: +LIDOCAINE 1% INJ 20 ML VIAL INJ ONE
[2021-09-17 11:23] VITALS: BP 135/92
--- NOTE | 2021-09-17 12:46 | Diagnostic Imaging Report ---
INDICATION: Ascites. Sonographic interrogation of all 4 quadrants was performed. There is a large volume ascites in all 4 quadrants. Left lower quadrant was marked for Dr. Cassidy for performance of paracentesis. IMPRESSION: Large abdominal ascites. Dictated by: Dictated on workstation # [id number]
--- NOTE | 2021-09-18 01:13 | OPERATIVE REPORT ---
DATE OF SERVICE: 09/17/2021 PREOPERATIVE DIAGNOSIS: Symptomatic ascites. POSTOPERATIVE DIAGNOSIS: Symptomatic ascites. PROCEDURE: Ultrasound-guided paracentesis. SURGEON: Linda Cassidy DO ANESTHESIA: Local anesthetic. ESTIMATED BLOOD LOSS: None. COMPLICATIONS: None. INDICATIONS: The patient is a 61-year-old female with symptomatic ascites. She understands risks and benefits of procedure and wishes to proceed. Consent was signed in the chart. DESCRIPTION OF PROCEDURE: The patient was placed in the supine position. Ultrasound was used to find the largest pocket in the abdomen. This was in the left lower quadrant. The area was prepped and draped in sterile fashion. Timeout was performed. Local anesthetic was infiltrated. An #11 blade scalpel was used to make a small skin incision. Xufr-G-Sqxllntg needle and catheter were then advanced through the abdominal wall until straw colored fluid was withdrawn. The catheter was then inserted and the needle was removed. A total of 11,000 mL of straw-colored fluid was withdrawn. Catheter was then removed and sterile bandage was applied. The patient tolerated the procedure well without any complications. Job ID: [id number] DocumentID: [id number] Dictated Date: 09/17/2021 15:52:02 Telegraphic Typewriter Repairer Date: 09/18/2021 01:13:13 Dictated By: LINDA CASSIDY DO
== END ==
LOC: SDC 10:44
PROVIDERS: ATTEND Surgery
DX: R18.8 Other ascites (principal)
CPT/HCPCS: 49082; 76942; 96365; 96366

== ENCOUNTER → 2021-10-01 | Outpatient (CLI) | payer MEDICAID ==
[~2021-10-01] MED LIST changes: -ALBUMIN 25% 25 GM/100 ML 100 ML IV ONE; +ALBUMIN 25% 25 GM/100 ML 50 ML IV ONE; -LIDOCAINE 1% INJ 20 ML VIAL INJ ONE
[2021-10-01 09:00] VITALS: BP 140/79
--- NOTE | 2021-10-01 09:38 | Progress Note-Post Operative ---
Post-Operative Progess Note Surgeon (s)/Academic Registrar (s) Surgeon INA MELO DO Academic Registrar: none Pre-Operative Diagnosis Ascites Post-Operative Diagnosis same Procedure & Operative Findings Date of Procedure 10/01/21 Procedure Performed/Findings Paracentesis The patient was in same day surgery room. The abdomen was then prepped and draped and timeout was performed. Local anesthetic was infiltrated and #11 blade scalpel was used to make a small skin incision. Xinf-M-Vuhffmdq needle and catheter were then advanced until straw-colored fluid was withdrawn. The catheter was advanced and the needle was removed. Plan is to remove a total of 11 L of straw-colored fluid. Once done draining, the catheter will be removed and sterile bandage applied. Pt will be given albumin per protocol. The patient tolerated procedure well without any complications. Anesthesia Type local lidocaine Estimated Blood Loss Estimated blood loss (mL): scant Specimens/Packing Specimens Removed ascites INA MELO DO Oct 01, 2021 09:38
== END ==
LOC: SDC 08:49
PROVIDERS: ATTEND Surgery
DX: R18.8 Other ascites (principal)
CPT/HCPCS: 49082; 96365; 96366

== ENCOUNTER → 2021-10-05 | Outpatient (CLI) | payer MEDICAID ==
[~2021-10-05] MED LIST changes: -ALBUMIN 25% 25 GM/100 ML 50 ML IV ONE; -LIDOCAINE 1% INJ 20 ML VIAL ONE
[2021-10-05 09:35] LABS: BASOPHILS # (AUTO) 0.1 10^3/uL (0.0-0.1); BASOPHILS % (AUTO) 1 % (0-10); EOSINOPHILS # (AUTO) 0.4 10^3/uL (0.0-0.3); EOSINOPHILS % (AUTO) 6 % (0-10); HEMATOCRIT 32 % (35-52); HEMOGLOBIN 10.6 g/dL (11.5-16.0); LYMPHOCYTES # (AUTO) 0.7 10^3/uL (1.0-4.0); LYMPHOCYTES % (AUTO) 11 % (12-44); MEAN CORPUSCULAR HEMOGLOBIN 33 pg (25-34); MEAN CORPUSCULAR HGB CONC 34 g/dL (32-36); MEAN CORPUSCULAR VOLUME 99 fL (80-99); MEAN PLATELET VOLUME 9.3 fL (9.0-12.2); MONOCYTES # (AUTO) 0.7 10^3/uL (0.0-1.0); MONOCYTES % (AUTO) 11 % (0-12); NEUTROPHILS # (AUTO) 4.4 10^3/uL (1.8-7.8); NEUTROPHILS % (AUTO) 70 % (42-75); PLATELET COUNT 118 10^3/uL (130-400); WHITE BLOOD COUNT 6.3 10^3/uL (4.3-11.0)
[2021-10-05 09:48] LABS: ALBUMIN 2.2 GM/DL (3.2-4.5); POTASSIUM 4.3 MMOL/L (3.6-5.0)
[2021-10-05 09:49] LABS: CALCIUM 7.8 MG/DL (8.5-10.1)
[2021-10-05 09:50] LABS: TOTAL PROTEIN 6.3 GM/DL (6.4-8.2)
[2021-10-05 09:52] LABS: BILIRUBIN,TOTAL 1.9 MG/DL (0.1-1.0)
[2021-10-05 09:54] LABS: CREATININE SERUM 0.98 MG/DL (0.60-1.30)
[2021-10-05 10:00] LABS: INR 1.4 (0.8-1.4); PROTHROMBIN TIME PATIENT 17.1 SEC (12.2-14.7)
== END ==
LOC: LAB 09:05
PROVIDERS: ATTEND Internal Medicine
DX: K74.60 Unspecified cirrhosis of liver (principal); R18.8 Other ascites
CPT/HCPCS: 36415; 80053; 85025; 85610

== ENCOUNTER → 2021-10-13 | Outpatient (CLI) | payer MEDICAID ==
[~2021-10-13] VITALS: Wt 101.6 kg
[~2021-10-13] MED LIST changes: +ALBUMIN 25% 25 GM/100 ML 100 ML IV ONE; +LIDOCAINE 1% INJ 20 ML VIAL INJ ONE; +LIDOCAINE 1% INJ 20 ML VIAL ONE
[2021-10-13 09:56] VITALS: BP 126/89
[2021-10-13 14:03] VITALS: BP 126/89
[2021-10-13 14:47] VITALS: BP 126/89
--- NOTE | 2021-10-13 16:25 | Progress Note-Post Operative ---
Post-Operative Progess Note Surgeon (s)/Vat Operator (s) Surgeon INA MELO DO Vat Operator: none Pre-Operative Diagnosis Ascites Post-Operative Diagnosis same Procedure & Operative Findings Date of Procedure 10/13/21 Procedure Performed/Findings Paracentesis The patient was in same day surgery room. The abdomen was then prepped and draped and timeout was performed. Local anesthetic was infiltrated and #11 blade scalpel was used to make a small skin incision. Ppqf-B-Tjensbsk needle and catheter were then advanced until straw-colored fluid was withdrawn. The catheter was advanced and the needle was removed. Plan is to remove a total of 11 L of straw-colored fluid. Once done draining, the catheter will be removed and sterile bandage applied. Pt will be given albumin per protocol. The patient tolerated procedure well without any complications. Anesthesia Type local lidocaine Estimated Blood Loss Estimated blood loss (mL): scant Specimens/Packing Specimens Removed ascites INA MELO DO Oct 13, 2021 16:24
== END ==
LOC: SDC 09:44
PROVIDERS: ATTEND Surgery
DX: R18.8 Other ascites (principal)
CPT/HCPCS: 49082; 96365; 96366

== ENCOUNTER 2021-10-27 10:43 | Outpatient (CLI) | payer MEDICAID ==
[~2021-10-27] VITALS: Wt 101.6 kg
[~2021-10-27 10:43] MED LIST changes: -ALBUMIN 25% 25 GM/100 ML 100 ML IV ONE; -LIDOCAINE 1% INJ 20 ML VIAL INJ ONE; -LIDOCAINE 1% INJ 20 ML VIAL ONE
[2021-10-27] MEDS ORDERED: LIDOCAINE 1% INJ 20 ML VIAL ONE (11:04)
[2021-10-27] MEDS ORDERED: LIDOCAINE 1% INJ 20 ML VIAL INJ ONE (11:15)
[2021-10-27] MEDS ORDERED: ALBUMIN 25% 25 GM/100 ML 100 ML IV ONE (11:15)
--- NOTE | 2021-10-27 12:52 | Progress Note-Post Operative ---
Post-Operative Progess Note Surgeon (s)/Brand Marketing Coordinator (s) Surgeon INA MELO DO Brand Marketing Coordinator: none Pre-Operative Diagnosis Ascites Post-Operative Diagnosis same Procedure & Operative Findings Date of Procedure 10/27/21 Procedure Performed/Findings Paracentesis The patient was in same day surgery room. The abdomen was then prepped and draped and timeout was performed. Local anesthetic was infiltrated and #11 blade scalpel was used to make a small skin incision. Zqum-D-Tjjufdqv needle and catheter were then advanced until straw-colored fluid was withdrawn. The catheter was advanced and the needle was removed. Plan is to remove a total of 11 L of straw-colored fluid. Once done draining, the catheter will be removed and sterile bandage applied. Pt will be given albumin per protocol. The patient tolerated procedure well without any complications. Anesthesia Type local lidocaine Estimated Blood Loss Estimated blood loss (mL): scant Specimens/Packing Specimens Removed ascitic fluid INA MELO DO Oct 27, 2021 12:52
[2021-10-27 13:40] VITALS: BP 142/87
== END 2021-10-27 14:45 ==
LOC: SDC 10:43
PROVIDERS: ATTEND Surgery
DX: R18.8 Other ascites (principal)
CPT/HCPCS: 49082; 96365; 96366

== ENCOUNTER 2021-11-10 09:04 | Outpatient (CLI) | payer MEDICAID ==
[~2021-11-10] VITALS: Ht 172.7 cm; Wt 104.1 kg
[2021-11-10] MEDS ORDERED: LIDOCAINE 1% INJ 20 ML VIAL ONE (09:45)
[2021-11-10] MEDS ORDERED: ALBUMIN 25% 25 GM/100 ML 100 ML IV ONE (11:45)
[2021-11-10 12:32] VITALS: BP 139/86
--- NOTE | 2021-11-10 15:33 | Diagnostic Imaging Report ---
INDICATION: Ascites. FINDINGS: All 4 quadrants of the abdomen were evaluated with ultrasound. There is a large volume of abdominal ascites involving all 4 quadrants. The left lower quadrant was marked for Dr. Cassidy for performance of paracentesis. IMPRESSION: Large abdominal ascites. Marking was provided in the left lower quadrant for performance of a paracentesis. Dictated by: Dictated on workstation # [id number]
--- NOTE | 2021-11-11 02:26 | OPERATIVE REPORT ---
DATE OF SERVICE: 11/10/2021 PREOPERATIVE DIAGNOSIS: Symptomatic ascites. POSTOPERATIVE DIAGNOSIS: Symptomatic ascites. PROCEDURE: Ultrasound-guided paracentesis. SURGEON: Linda Cassidy DO. ANESTHESIA: 1% lidocaine 4 mL. COMPLICATIONS: None. INDICATIONS: The patient is a 61-year-old female with symptomatic ascites. She understands risks and benefits of procedure and wishes to proceed. Consent was signed in the chart. DESCRIPTION OF PROCEDURE: The patient was placed supine in the room. Ultrasound was used to isolate the largest pocket. The area was prepped and draped in sterile fashion. Local anesthetic was infiltrated. A 11 blade scalpel was used to make a small skin incision. The Drrz-K-Stqbizwj needle and catheter were advanced through the abdominal wall until straw-colored fluid was withdrawn. The catheter was then advanced. The needle was removed. A total of 11,000 mL of straw-colored fluid was withdrawn. The catheter was then removed and sterile bandage was applied. The patient tolerated the procedure well without any complications. She was discharged home in stable condition. Job ID: [id number] DocumentID: [id number] Dictated Date: 11/10/2021 16:46:47 Aviation Safety Equipment Technician Date: 11/11/2021 02:25:33 Dictated By: LINDA CASSIDY DO
== END 2021-11-10 14:15 ==
LOC: SDC 09:04
PROVIDERS: ATTEND Surgery
DX: R18.8 Other ascites (principal)
CPT/HCPCS: 49082; 76942; 96365; 96366

== ENCOUNTER 2021-11-13 14:50 | Emergency (ER) | payer MEDICAID ==
[~2021-11-13] VITALS: Ht 172 cm; Wt 93.0 kg
[2021-11-13 15:00] VITALS: BP 114/55
[2021-11-13] MEDS ORDERED: fentaNYL INJ 100 MCG/2 ML AMP ONE (15:13)
[2021-11-13 15:14] LABS: MEAN PLATELET VOLUME 10.6 fL (9.0-12.2)
[2021-11-13 15:16] LABS: BASOPHILS % (AUTO) 1 % (0-10); EOSINOPHILS % (AUTO) 0 % (0-10); HEMATOCRIT 29 % (35-52); LYMPHOCYTES # (AUTO) 0.2 10^3/uL (1.0-4.0); LYMPHOCYTES % (AUTO) 4 % (12-44); MEAN CORPUSCULAR HEMOGLOBIN 34 pg (25-34); MEAN CORPUSCULAR HGB CONC 35 g/dL (32-36); MEAN CORPUSCULAR VOLUME 99 fL (80-99); MONOCYTES # (AUTO) 0.2 10^3/uL (0.0-1.0); MONOCYTES % (AUTO) 3 % (0-12); NEUTROPHILS % (AUTO) 92 % (42-75); PLATELET COUNT 115 10^3/uL (130-400); WHITE BLOOD COUNT 5.5 10^3/uL (4.3-11.0)
[2021-11-13] MEDS ORDERED: fentaNYL INJ 100 MCG/2 ML AMP IVP STA (15:18)
[2021-11-13 15:21] LABS: ALBUMIN 1.9 GM/DL (3.2-4.5); POTASSIUM 3.9 MMOL/L (3.6-5.0)
[2021-11-13 15:22] LABS: CALCIUM 7.6 MG/DL (8.5-10.1)
[2021-11-13 15:24] LABS: TOTAL PROTEIN 5.3 GM/DL (6.4-8.2)
[2021-11-13 15:25] LABS: BILIRUBIN,TOTAL 2.6 MG/DL (0.1-1.0)
--- NOTE | 2021-11-13 15:25 | ED Abdominal Pain ---
General Chief Complaint: Abdominal/GI Problems Stated Complaint: PAIN,PARACENTESIS Nursing Triage Note: PT STATES SHE HAD A PARACENTESIS DONE BY DR. SEGURA YESTERDAY, CC TODAY OF ABD PAIN AND BLOATING, 3 NORMAL BM'S TODAY, DIFFICULTY URINATING, FEELS LIKE SHE NEEDS TO GO BUT CAN'T. HAS NOT FELT GOOD EVER SINCE IT HAPPENED. HX OF LIVER DISEASE Source of Information: Patient Exam Limitations: No Limitations History of Present Illness Date Seen by Provider: Nov 13, 2021 Time Seen by Provider: 15:23 Initial Comments Patient is a 61-year-old female with a history of hep C, cirrhosis, breast cancer who presents ED with bilateral lower abdominal pain. This started after she had a paracentesis performed by Dr. Segura on the 10 of November that removed 1100 mls. Started having cramping pain lower abdomen that is constant. She states she has some trembling today but denies of any bodyaches fatigue weakness nausea vomiting. She states her abdomen feels hard but denies of increased swelling of the abdomen. Denies taking anything for for pain. She states she has had some mild discomfort with urination today. She reports pressure with urination. Patient history of cirrhosis receives paracentesis few times a month. She reports 3 normal bowel movements today. She states she feels bloated Allergies and Home Medications Allergies Coded Allergies: adhesive tape (Verified Allergy, Mild, RASH, 10/08/20) Patient Home Medication List Home Medication List Reviewed: Yes Acyclovir (Acyclovir) 200 Mg Capsule, 200 MG PO PRN, (Reported) Entered as Reported by: OSWALD CARDENAS on 08/23/19 09 Duloxetine HCl (Cymbalta) 60 Mg Capsule.dr, 60 MG PO DAILY, (Reported) Entered as Reported by: OSWALD CARDENAS on 08/23/19 0900 Duloxetine HCl (Cymbalta) 60 Mg Capsule.dr, 60 MG PO DAILY Prescribed by: TEDDY MORENO on 01/20/21 1213 Furosemide (Furosemide) 20 Mg Tablet, 20 MG PO DAILY PRN, (Reported) Entered as Reported by: OSWALD CARDENAS on 08/23/19 0900 Ribavirin (Ribavirin) 200 Mg Capsule, 600 MG PO BID, (Reported) Entered as Reported by: OSWALD CARDENAS on 08/23/19899 Sofosbuvir/Velpatasvir (Epclusa 400 mg-100 mg Tablet) 1 Each Tablet, 1 EACH PO DAILY, (Reported) Entered as Reported by: OSWALD CARDENAS on 08/23/19899 Review of Systems Review of Systems Constitutional: No chills, No weakness EENTM: No Eye Pain Respiratory: Denies Cough, Denies Orthopnea, Denies SOA With Exertion, Denies SOA at Rest Cardiovascular: Denies Chest Pain Gastrointestinal: Abdomen Distended, Abdominal Pain; Denies Diarrhea, Denies Nausea, Denies Vomiting Genitourinary: Denies Burning, Denies Discharge; Other (discomfort) Musculoskeletal: No joint pain Skin: No change in color, No change in hair/nails All Other Systems Reviewed Negative Unless Noted: Yes Past Rszzzhl-Jvqkns-Biqfyx Hx Patient Social History Tobacco Use?: Yes Tobacco type used: Cigarettes Smoking Status: Current Everyday Smoker Substance use?: No Alcohol Use?: No Seasonal Allergies Seasonal Allergies: Yes Past Medical History Surgery/Hospitalization HX: LIVER DISEASE, SURGERY ON BACK, FX ARM, FX FINGER, BI LAT LUMPECTOMIES, HYSTERECTOMY Surgeries: Yes (LEFT BREAST LUMPECTOMY, ARM FX, FINGER, ) Breast, Hysterectomy Respiratory: No Cardiac: Yes Chronic Edema/Swelling Neurological: No 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 SERVICE 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 History: Hysterectomy Sexually Transmitted Disease: No HIV/AIDS: No Genitourinary: No Gastrointestinal: Yes Diverticulosis, Hepatitis Musculoskeletal: No Endocrine: No HEENT: Yes (READING GLASSES) Loss of Vision: Denies Hearing Impairment: Denies Cancer: Yes Breast Did You Recieve Any Treatments: Yes What Type of Treatment Did You: Radiation, Surgical Intervention Psychosocial: Yes Anxiety, Bipolar, Depression Integumentary: Yes Eczema Blood Disorders: No Adverse Reaction/Blood Tranf: No (N/A) Physical Exam Vital Signs Vital Signs - First Documented 11/13/21 15:00 Temp 36.7 Pulse 137 Resp 20 B/P (MAP) 114/55 (74) Pulse Ox 97 O2 Delivery Room Air Capillary Refill : Less Than 3 Seconds Height/Weight/BMI Height: '" Weight: lbs. oz. kg; 31.00 BMI Method: General Appearance: WD/WN, no apparent distress HEENT: PERRL/EOMI, normal ENT inspection, TMs normal, pharynx normal Neck: non-tender, full range of motion, supple Respiratory: chest non-tender, lungs clear, normal breath sounds, no respiratory distress, no accessory muscle use Cardiovascular: regular rate, rhythm, no edema, no gallop, no JVD Gastrointestinal: normal bowel sounds, soft, no organomegaly, tenderness (Bilateral lower abdominal tenderness. 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 machine operator II-XII nml as tested, no motor/sensory deficits, alert, normal mood/affect, oriented x 3 Skin: normal color, warm/dry Progress/Results/Core Measures Results/Orders Lab Results Laboratory Tests Test 11/13/21 15:05 Range/Units White Blood Count 5.5 4.3-11.0 10^3/uL Red Blood Count 2.94 L 3.80-5.11 10^6/uL Hemoglobin 10.0 L 11.5-16.0 g/dL Hematocrit 29 L 35-52 % Mean Corpuscular Volume 99 80-99 fL Mean Corpuscular Hemoglobin 34 25-34 pg Mean Corpuscular Hemoglobin Concent 35 32-36 g/dL Red Cell Distribution Width 15.7 H 10.0-14.5 % Platelet Count 115 L 130-400 10^3/uL Mean Platelet Volume 10.6 9.0-12.2 fL Immature Granulocyte % (Auto) 0 % Neutrophils (%) (Auto) 92 H 42-75 % Lymphocytes (%) (Auto) 4 L 12-44 % Monocytes (%) (Auto) 3 0-12 % Eosinophils (%) (Auto) 0 0-10 % Basophils (%) (Auto) 1 0-10 % Neutrophils # (Auto) 5.0 1.8-7.8 10^3/uL Lymphocytes # (Auto) 0.2 L 1.0-4.0 10^3/uL Monocytes # (Auto) 0.2 0.0-1.0 10^3/uL Eosinophils # (Auto) 0.0 0.0-0.3 10^3/uL Basophils # (Auto) 0.0 0.0-0.1 10^3/uL Immature Granulocyte # (Auto) 0.0 0.0-0.1 10^3/uL Neutrophils % (Manual) 87 % Lymphocytes % (Manual) 4 % Monocytes % (Manual) 1 % Band Neutrophils 7 % Atypical Lymphocytes 4 % Percent Immature Platelet Fraction 3.1 0.0-7.6 % Mikaela Cells SLIGHT Elliptocytes SLIGHT Prothrombin Time 20.9 H 12.2-14.7 SEC INR Comment 1.8 H 0.8-1.4 Activated Partial Thromboplast Time 47 H 24-35 SEC Sodium Level 131 L 135-145 MMOL/L Potassium Level 3.9 3.6-5.0 MMOL/L Chloride Level 104 98-107 MMOL/L Carbon Dioxide Level 12 L 21-32 MMOL/L Anion Gap 15 H 5-14 MMOL/L Blood Urea Nitrogen 41 H 7-18 MG/DL Creatinine 2.77 H 0.60-1.30 MG/DL Estimat Glomerular Filtration Rate 19 BUN/Creatinine Ratio 15 Glucose Level 155 H 70-105 MG/DL Calcium Level 7.6 L 8.5-10.1 MG/DL Corrected Calcium 9.3 8.5-10.1 MG/DL Magnesium Level 2.0 1.6-2.4 MG/DL Total Bilirubin 2.6 H 0.1-1.0 MG/DL Aspartate Amino Transf (AST/SGOT) 38 H 5-34 U/L Alanine Aminotransferase (ALT/SGPT) 30 0-55 U/L Alkaline Phosphatase 104 40-136 U/L C-Reactive Protein High Sensitivity 13.29 H 0.00-0.50 MG/DL Total Protein 5.3 L 6.4-8.2 GM/DL Albumin 1.9 L 3.2-4.5 GM/DL Lipase 44 8-78 U/L Serum Alcohol < 10 <10 MG/DL My Orders Orders - RAFIA MOSES Cbc With Automated Diff (11/13/21 15:07) Comprehensive Metabolic Panel (11/13/21 15:07) Lipase (11/13/21 15:07) Hs C Reactive Protein (11/13/21 15:07) Partial Thromboplastin Time (11/13/21 15:07) Protime With Inr (11/13/21 15:07) Fentanyl Inj (Sublimaze Injection) (11/13/21 15:13) Manual Differential (11/13/21 15:05) Fentanyl Inj (Sublimaze Injection) (11/13/21 15:18) Ns Iv 1000 Ml (Sodium Chloride 0.9%) (11/13/21 15:41) Magnesium (11/13/21 16:03) Ct Abdomen/Pelvis Wo (11/13/21 15:07) Alcohol (11/13/21 17:01) Ceftriaxone 1 Gm Pre-Mix (Rocephin 1 Gm (11/13/21 17:21) Vital Signs/I&O 11/13/21 15:00 Temp 36.7 Pulse 137 Resp 20 B/P (MAP) 114/55 (74) Pulse Ox 97 O2 Delivery Room Air Blood Pressure Mean: 74 Departure Communication (PCP) Patient is a 61-year-old female who presents the ED for abdominal pain. Paracentesis performed by Dr. Segura 3 days ago. Has had continuous pain. She denies of any increased swelling of her abdomen. Denies any fever, chills, nausea, vomiting, diarrhea. History of hep C. 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 She is not a candidate for liver transplant according to patient. She is tachycardic here. Concerning for hepatic renal failure, bacterial spontaneous peritonitis. She has no erythema warmth noted to the abdomen where paracentesis was performed. She is afebrile with normal white blood count. She had a kidney function at 2.77 GFR 19 sodium 131. She is initially given a small amount of fluids stop at 500 ml as she was tachycardic initially concern for sepsis. Blood cultures were ordered and started on Rocephin prophylactically but did not receive antibiotics as she refused. Consider for spontaneous bacterial peritonitis. CT abd and pelvis did show ascites. Discussed patient with Dr. Urias regarding admission for patient she did not feel comfortable admitting patient secondary to high M ELD score. Did get a score of 29. Recommends transfer to facility with hepatology. This was discussed with patient she refused. Discussed with patient she is likely in hepatic renal failure and will need albumin and vasoconstrictors to help reduce her kidney function. This could be paracentesis induced circulatory dysfunction secondary to rapid loss of extrarenal fluid. I recommended transfer at this time. She refused transfer at this time and was requesting to leave. Discussed the risk potential worsening renal failure resulting in . She acknowledges. She states she will return back tomorrow. Impression Primary Impression: Ascites Additional Impression: Renal failure Disposition: AGAINST MEDICAL ADVICE Condition: Unchanged Departure-Patient Inst. Decision time for Depature: 17:24 Referrals: [facility] (PCP/Family) Primary Care Physician RAFIA MOSES Nov 13, 2021 15:25
[2021-11-13 15:27] LABS: CREATININE SERUM 2.77 MG/DL (0.60-1.30); INR 1.8 (0.8-1.4); PROTHROMBIN TIME PATIENT 20.9 SEC (12.2-14.7)
[2021-11-13] MEDS ORDERED: NS IV 1000 ML 1,000 ML IV STA (15:41)
[2021-11-13 16:07] LABS: ATYPICAL LYMPHOCYTES 4 %; BAND NEUTROPHILS 7 %; LYMPHOCYTES % (MANUAL) 4 %; MONOCYTES % (MANUAL) 1 %; NEUTROPHILS % (MANUAL) 87 %
[2021-11-13 16:09] LABS: BURR CELLS SLIGHT; ELLIPT/OVALOCYTES SLIGHT
--- NOTE | 2021-11-13 16:54 | Diagnostic Imaging Report ---
PROCEDURE: CT abdomen and pelvis without contrast. TECHNIQUE: Multiple contiguous axial images were obtained through the abdomen and pelvis without the use of intravenous contrast. Auto Exposure Controls were utilized during the CT exam to meet ALARA standards for radiation dose reduction. DATE: November 13, 2021. COMPARISON: CT abdomen and pelvis June 21, 2019. INDICATION: 61-year-old female, abdominal pain and bloating. History of recent paracentesis. FINDINGS: There are limitations for evaluation of the abdominal organs, neoplastic processes, abscess, and limited evaluation of the vasculature relating to the lack of intravenous contrast. The visualized portions of the lung bases are clear. The heart is not enlarged. There is no pericardial effusion. The liver is nodular in contour consistent with cirrhosis. There is a TIPS stent. There are likely layering gallstones present on axial image 60. There is no identified intrahepatic or extrahepatic bile duct dilation. Very limited noncontrast assessment of the pancreatic parenchyma is unremarkable. The spleen is normal in size. The adrenal glands are grossly unremarkable. Noncontrast assessment of the renal parenchyma is unremarkable. There is no hydronephrosis. Urinary bladder is not well seen or evaluated. There is questionable wall thickening of the transverse colon. There is questionable wall thickening of the distal stomach. There is no free intraperitoneal air. There is no identified focal well demarcated drainable fluid collection. There is large volume ascites. There is prominent diffuse subcutaneous edema in the anterior abdominal wall. There is no identified sizable hematoma. Attenuation of the ascitic fluid is 3 Hounsfield units compatible with simple fluid. There are atherosclerotic calcifications. There are chronic appearing left rib deformities. There are degenerative changes of the spine. There is no identified acute bony abnormality. IMPRESSION: 1. Large volume ascites. No evidence of hemoperitoneum. 2. Prominent nonspecific subcutaneous edema in the anterior abdominal wall without identified focal fluid collection. 3. Questionable wall thickening of the transverse colon and distal stomach which could relate to cirrhosis and a hypoalbuminemic state or it could relate to a nonspecific gastritis or colitis. Dictated by: Dictated on workstation # [id number]
[2021-11-13] MEDS ORDERED: cefTRIAXone 1 GM PRE-MIX 50 ML IV STA (17:21)
== END 2021-11-13 17:25 | disposition left against medical advice (07) ==
LOC: EDUNIT# 14:50 → ER 14:52
DX: N19 Unspecified kidney failure (principal); R18.8 Other ascites; F17.210 Nicotine dependence, cigarettes, uncomplicated; Z28.310 Unvaccinated for COVID-19
CPT/HCPCS: 36415; 74176; 80053; 80320; 83690; 83735; 85007; 85027; 85610; 85730; 86141

== ENCOUNTER 2021-11-14 11:59 | Emergency (ER) | payer MEDICAID ==
--- NOTE | 2021-11-14 12:20 | ED General ---
General Chief Complaint: General Problems/Pain Stated Complaint: LIVER FAILURE Nursing Triage Note: PT TO ER BY [facility] WITH C/O BEING IN LIVER FAILURE, FLUID RETENTION AND BILAT LEG PAIN. PT STATES SHE HAS NOT TAKEN MEDS IN AT LEAST 3 DAYS. PT DOES NOT WANT TRANSFERED OR TO BE ON HOSPICE. Source of Information: Patient, Family (sister and patient's daughter) Exam Limitations: Physical Impairments History of Present Illness Date Seen by Provider: Nov 14, 2021 Time Seen by Provider: 12:00 Initial Comments Patient is a 61-year-old female with long history of cirrhosis, hepatitis C who presents to the emergency department with a chief complaint of bilateral lower extremity pain and swelling. Patient was seen in this emergency department yesterday and noted to have acute kidney injury. She had minimal labs done as s he became upset with the midlevel practitioner when he suggested that she be transferred to a higher level of care such as where she has previously been seen and evaluated by the chemical mixer. Patient is an established patient at and is being worked up for liver transplant. At the point of her last visit according to medical records in September and October her meld score was 13. They deemed that she was "not sick enough" for consideration of liver transplant. The patient's sister is here as is the patient's daughter and they state that over the last week or so the patient has started to look more sick. She told her sister that she quit taking her medications over the last 3 or 4 days. She denies fevers or chills or productive cough. According to her sister she is has not had much appetite. She has been under increased stress recently as the sister is moving her into a new apartment. Patient is adamant about not being hospitalized at presentation. She will not even consider comfort care measures or hospice. With her sister and daughter in the room however the patient became much more agreeable. She is alert to person, place and year although she misspoke 2020 instead of 2021. When I articulated the risk of nontreatment to her specifically that she would without any treatment she indicated to me multiple times that she absolutely wanted to be treated. I advised her that after I spoke with the chemical mixer on-call, Dr. Lange, that his precaution was that he did not want to accept her if there was a risk that she would just sign out AMA when she arrived at . The patient insist that she would like treatment and transfer. Sister states the only medications she is aware the patient is supposed to be taking are [place] and Spironolactone. Timing/Duration: Constant, Getting Worse Severity: Severe Associated Systoms: Malaise, Weakness, Other (leg pain and swelling) Allergies and Home Medications Allergies Coded Allergies: adhesive tape (Verified Allergy, Mild, RASH, 10/08/20) Patient Home Medication List Home Medication List Reviewed: Yes Acyclovir (Acyclovir) 200 Mg Capsule, 200 MG PO PRN, (Reported) Entered as Reported by: OSWALD CARDENAS on 08/23/19899 Duloxetine HCl (Cymbalta) 60 Mg Capsule.dr, 60 MG PO DAILY, (Reported) Entered as Reported by: OSWALD CARDENAS on 08/23/19899 Duloxetine HCl (Cymbalta) 60 Mg Capsule.dr, 60 MG PO DAILY Prescribed by: TEDDY MORENO on 01/20/21 1213 Furosemide (Furosemide) 20 Mg Tablet, 20 MG PO DAILY PRN, (Reported) Entered as Reported by: OSWALD CARDENAS on 08/23/19899 Ribavirin (Ribavirin) 200 Mg Capsule, 600 MG PO BID, (Reported) Entered as Reported by: OSWALD CARDENAS on 08/23/19899 Sofosbuvir/Velpatasvir (Epclusa 400 mg-100 mg Tablet) 1 Each Tablet, 1 EACH PO DAILY, (Reported) Entered as Reported by: OSWALD CARDENAS on 08/23/19899 Review of Systems Review of Systems Constitutional: see HPI, malaise, weakness EENTM: no symptoms reported Respiratory: no symptoms reported Cardiovascular: no symptoms reported Gastrointestinal: no symptoms reported Genitourinary: no symptoms reported Musculoskeletal: joint swelling, muscle cramps Skin: no symptoms reported All Other Systems Reviewed Negative Unless Noted: Yes Past Irpxcuj-Iggbqw-Ejitsr Hx Patient Social History Tobacco Use?: No Use of E-Cig and/or Vaping dev: No Substance use?: No Alcohol Use?: No Pt feels they are or have been: No Immunizations Up To Date Influenza Vaccine Up-to-Date: No; Not Current Seasonal Allergies Seasonal Allergies: Yes Past Medical History Surgery/Hospitalization HX: LIVER DISEASE, SURGERY ON BACK, FX ARM, FX FINGER, BI LAT LUMPECTOMIES, HYSTERECTOMY Surgeries: Yes (LEFT BREAST LUMPECTOMY, ARM FX, FINGER, ) Breast, Hysterectomy Respiratory: No Cardiac: Yes Chronic Edema/Swelling Neurological: No [employer]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 Sexually Transmitted Disease: No HIV/AIDS: No Genitourinary: No Gastrointestinal: Yes Diverticulosis, Hepatitis Musculoskeletal: No Endocrine: No HEENT: Yes (READING GLASSES) Loss of Vision: Denies Hearing Impairment: Denies Cancer: Yes Breast Did You Recieve Any Treatments: Yes What Type of Treatment Did You: Radiation, Surgical Intervention Psychosocial: Yes Anxiety, Bipolar, Depression Integumentary: Yes Eczema Blood Disorders: No Adverse Reaction/Blood Tranf: No (N/A) Physical Exam Vital Signs Vital Signs - First Documented 11/14/21 11/14/21 12:02 14:12 Temp 36.0 Pulse 102 Resp 20 B/P (MAP) 90/56 (67) Pulse Ox 99 O2 Delivery Room Air Capillary Refill : Height, Weight, BMI Height: '" Weight: lbs. oz. kg; 31.00 BMI Method: General Appearance: WD/WN, Anxious, Chronically ill Eyes: Bilateral Eye Scleral Icterus HEENT: PERRL/EOMI, Other (very dry oral mucosa) Neck: Normal Inspection Respiratory: Lungs Clear, Normal Breath Sounds, No Accessory Muscle Use, No Respiratory Distress Cardiovascular: Regular Rate, Rhythm, Tachycardia (100; BP 109/56) Gastrointestinal: Soft, Abnormal Bowel Sounds (hypoactive), Distended, Tenderness Extremity: Normal Range of Motion, Pedal Edema (3+ bilateral) Neurologic/Psychiatric: Alert, Oriented x3, No Motor/Sensory Deficits, Depressed Affect Skin: Warm/Dry, Jaundice, Other (diffuse confluent petechial rashes over the entireity of the skin surfaces) Progress/Results/Core Measures Suspected Sepsis SIRS Temperature: Pulse: 102 Respiratory Rate: 20 Laboratory Tests 11/14/21 14:22: White Blood Count 7.6 Blood Pressure 90 /56 Mean: 67 Laboratory Tests 11/14/21 14:22: Creatinine 3.67#H, Platelet Count 63L, Total Bilirubin 3.8H 11/14/21 14:28: INR Comment 2.6H Results/Orders Lab Results Laboratory Tests Test 11/14/21 14:22 11/14/21 14:28 11/14/21 15:05 11/14/21 15:52 Range/Units White Blood Count 7.6 4.3-11.0 10^3/uL Red Blood Count 3.04 L 3.80-5.11 10^6/uL Hemoglobin 10.1 L 11.5-16.0 g/dL Hematocrit 31 L 35-52 % Mean Corpuscular Volume 101 H 80-99 fL Mean Corpuscular Hemoglobin 33 25-34 pg Mean Corpuscular Hemoglobin Concent 33 32-36 g/dL Red Cell Distribution Width 16.0 H 10.0-14.5 % Platelet Count 63 L 130-400 10^3/uL Mean Platelet Volume 12.1 9.0-12.2 fL Immature Granulocyte % (Auto) 4 % Neutrophils (%) (Auto) 85 H 42-75 % Lymphocytes (%) (Auto) 3 L 12-44 % Monocytes (%) (Auto) 4 0-12 % Eosinophils (%) (Auto) 2 0-10 % Basophils (%) (Auto) 1 0-10 % Neutrophils # (Auto) 6.5 1.8-7.8 10^3/uL Lymphocytes # (Auto) 0.2 L 1.0-4.0 10^3/uL Monocytes # (Auto) 0.3 0.0-1.0 10^3/uL Eosinophils # (Auto) 0.2 0.0-0.3 10^3/uL Basophils # (Auto) 0.1 0.0-0.1 10^3/uL Immature Granulocyte # (Auto) 0.3 H 0.0-0.1 10^3/uL Neutrophils % (Manual) 40 % Lymphocytes % (Manual) 5 % Monocytes % (Manual) 2 % Eosinophils % (Manual) 0 % Basophils % (Manual) 0 % Metamyelocytes % 1 % Band Neutrophils 52 % Percent Immature Platelet Fraction 10.2 H 0.0-7.6 % Anisocytosis SLIGHT Mikaela Cells MODERATE Elliptocytes SLIGHT Sodium Level 127 L 135-145 MMOL/L Potassium Level 4.3 3.6-5.0 MMOL/L Chloride Level 101 98-107 MMOL/L Carbon Dioxide Level 6 *L 21-32 MMOL/L Anion Gap 20 H 5-14 MMOL/L Blood Urea Nitrogen 44 H 7-18 MG/DL Creatinine 3.67 #H 0.60-1.30 MG/DL Estimat Glomerular Filtration Rate 13 BUN/Creatinine Ratio 12 Glucose Level 10 *L 70-105 MG/DL Calcium Level 7.8 L 8.5-10.1 MG/DL Corrected Calcium 9.6 8.5-10.1 MG/DL Total Bilirubin 3.8 H 0.1-1.0 MG/DL Aspartate Amino Transf (AST/SGOT) 302 H 5-34 U/L Alanine Aminotransferase (ALT/SGPT) 87 H 0-55 U/L Alkaline Phosphatase 81 40-136 U/L Total Protein 4.9 L 6.4-8.2 GM/DL Albumin 1.7 L 3.2-4.5 GM/DL Salicylates Level < 5.0 L 5.0-20.0 MG/DL Acetaminophen Level < 10 L 10-30 UG/ML Serum Alcohol < 10 <10 MG/DL Prothrombin Time 28.4 H 12.2-14.7 SEC INR Comment 2.6 H 0.8-1.4 Activated Partial Thromboplast Time 57 H 24-35 SEC Ammonia 109 H 11-32 UMOL/L Glucometer 52 *L 70-110 MG/DL Test 11/14/21 16:26 11/14/21 16:54 11/14/21 17:01 11/14/21 17:53 Range/Units Urine Color DARK YELLOW Urine Clarity CLOUDY Urine pH 5.5 5-9 Urine Specific [place] 1.025 H 1.016-1.022 Urine Protein 3+ H NEGATIVE Urine Glucose (UA) TRACE H NEGATIVE Urine Ketones TRACE H NEGATIVE Urine Nitrite POSITIVE H NEGATIVE Urine Bilirubin 2+ H NEGATIVE Urine Urobilinogen 1.0 < = 1.0 MG/DL Urine Leukocyte Esterase TRACE H NEGATIVE Urine RBC (Auto) 3+ H NEGATIVE Urine RBC 25-50 H /HPF Urine WBC 25-50 H /HPF Urine Squamous Epithelial Cells 10-25 H /HPF Urine Crystals NONE /LPF Urine Bacteria LARGE H /HPF Urine Casts NONE /LPF Urine Mucus NEGATIVE /LPF Urine Culture Indicated YES Urine Opiates Screen NEGATIVE NEGATIVE Urine Oxycodone Screen NEGATIVE NEGATIVE Urine Methadone Screen NEGATIVE NEGATIVE Urine Propoxyphene Screen NEGATIVE NEGATIVE Urine Barbiturates Screen NEGATIVE NEGATIVE Ur Tricyclic Antidepressants Screen NEGATIVE NEGATIVE Urine Phencyclidine Screen NEGATIVE NEGATIVE Urine Amphetamines Screen NEGATIVE NEGATIVE Urine Methamphetamines Screen NEGATIVE NEGATIVE Urine Benzodiazepines Screen NEGATIVE NEGATIVE Urine Cocaine Screen NEGATIVE NEGATIVE Urine Cannabinoids Screen POSITIVE H NEGATIVE Glucometer 18 *L 77 70-110 MG/DL Bedside Blood Gas pH (LAB) 7.090 *L 7.310-7.410 Bedside Blood Gas pCO2 (LAB) 23.7 L 41.0-51.0 mmHg Bedside Blood Gas pO2 (LAB) 49 L 80-105 mmHg Bedside Blood Gas HCO3 (LAB) 7.2 *L 23.0-28.0 mmol/L POC Blood Gas Total CO2 Calc 8 *L 24-29 mmol/L Bedside Bl Gas O2 Saturation (Calc) 70 L 95-98 % Bedside Arterial Blood Base Excess -23 L -2-3 mmol/L My Orders Orders - HENRI VENTURA MD Oxycodone Immediate Rel Tablet (Oxyir Ta (11/14/21 12:30) Ed Iv/Invasive Line Start (11/14/21 14:28) Cbc With Automated Diff (11/14/21 14:28) Comprehensive Metabolic Panel (11/14/21 14:28) Protime With Inr (11/14/21 14:28) Partial Thromboplastin Time (11/14/21 14:28) Nicotine Patch (Nicoderm Patch) (11/14/21 14:30) Manual Differential (11/14/21 14:22) Ammonia (11/14/21 15:03) D50w (Emergency) Syringe (Dextrose 50% 5 (11/14/21 15:15) D50w (Emergency) Syringe (Dextrose 50% 5 (11/14/21 15:07) Heart Healthy (11/14/21 Dinner) Alcohol (11/14/21 16:13) Acetaminophen (11/14/21 16:13) Salicylate (11/14/21 16:13) Arterial Blood Gas (11/14/21 16:13) Drug Screen Stat (Urine) (11/14/21 16:14) Ua Culture If Indicated (11/14/21 16:14) Accucheck Prn (11/14/21 16:36) Lactulose Oral Solution (Enulose Oral So (11/14/21 17:00) D50w (Emergency) Syringe (Dextrose 50% 5 (11/14/21 17:00) Dextrose 10% Iv Solution (D10w 1000 Ml I (11/14/21 17:00) Urine Culture (11/14/21 16:26) Sodium Bicarbonate 8.4% Syr (Sodium Bica (11/14/21 17:15) Oxycodone Immediate Rel Tablet (Oxyir Ta (11/14/21 17:45) Medications Given in ED Current Medications Medications Dose Ordered Sig/Jose Route Start Time Stop Time Status Last Admin Dose Admin Dextrose 50 ml ONCE ONCE IV 11/14/21 15:15 11/14/21 15:16 DC 11/14/21 15:12 50 ML Dextrose 50 ml ONCE ONCE IV 11/14/21 17:00 11/14/21 17:01 DC 11/14/21 16:59 50 ML Nicotine 21 mg ONCE ONCE TD 11/14/21 14:30 11/14/21 14:31 DC 11/14/21 14:55 21 MG Oxycodone HCl 5 mg ONCE ONCE PO 11/14/21 12:30 11/14/21 12:31 DC 11/14/21 12:33 5 MG Oxycodone HCl 5 mg ONCE ONCE PO 11/14/21 17:45 11/14/21 17:46 DC 11/14/21 17:47 5 MG Sodium Bicarbonate 50 meq ONCE ONCE IV 11/14/21 17:15 11/14/21 17:16 DC 11/14/21 17:20 50 MEQ Vital Signs/I&O 11/14/21 11/14/21 12:02 14:12 Temp 36.0 Pulse 102 99 Resp 20 14 B/P (MAP) 90/56 (67) 101/62 Pulse Ox 99 O2 Delivery Room Air Capillary Refill : Blood Pressure Mean: 67 Progress Note #1: Time: 13:02 Progress Note Patient states pain is improving Progress Note #2: Time: 15:08 Progress Note notified by lab of critical Glucose = 10. amp of D50 given. (patient in the meantime is awake and talking...) lab reported ammonia of 98 Progress Note #3: Time: 16:56 Progress Note Patient still awake and alert - BP systolic 90. repeat blood sugar no *18*. pushing another amp of D50 and starting D10W at 60ml/hr. She is currently eat ing fruit. Small amount of urine output. consideration for ware - but this can be done at . She has poor peripheral access, will try and obtain U/S guided larger one priot to transport - do not want to attempt central venous access with her liver failure and coagulopathy at this stage. lactulose ordered. SHe is in significant metabolic acidosis - suspect from Uremia. giving 1-2 amps of bicarb prior to transport. Would not give fluid boluses at this time unless she becomes severely hypotense. Then would prophylactically intubate prior to transport because of risk of volume overload and possible worsening resp compromise on the trip... right now she is in no resp distress. pressure is decent. US used to place a 20g right AC (medial) Departure Impression Primary Impression: Hepatorenal failure Additional Impressions: Cirrhosis of liver with ascites Qualified Codes: K74.60 - Unspecified cirrhosis of liver; R18.8 - Other ascites Hypoglycemia Metabolic acidosis Disposition: XFER SHT-TRM HOSP Condition: Stable Transfer Transfer Reason: Exceeds level of care Time Spoke to Accepting Phy: 17:00 Transfer Progress Notes accepted by Dr Pedraza - through transfer center Transfer Time: 18:00 Transfer Facility: Method of Transfer: EMS Departure-Patient Inst. Referrals: [facility] (PCP/Family) Primary Care Physician HENRI VENTRUA MD Nov 14, 2021 12:20
[2021-11-14] MEDS ORDERED: NICOTINE 21 MG (NICODERM) PATCH TD ONE (14:30)
[2021-11-14 14:35] LABS: BASOPHILS # (AUTO) 0.1 10^3/uL (0.0-0.1); BASOPHILS % (AUTO) 1 % (0-10); PLATELET COUNT 63 10^3/uL (130-400)
[2021-11-14 14:37] LABS: EOSINOPHILS # (AUTO) 0.2 10^3/uL (0.0-0.3); EOSINOPHILS % (AUTO) 2 % (0-10); HEMATOCRIT 31 % (35-52); HEMOGLOBIN 10.1 g/dL (11.5-16.0); LYMPHOCYTES # (AUTO) 0.2 10^3/uL (1.0-4.0); LYMPHOCYTES % (AUTO) 3 % (12-44); MEAN CORPUSCULAR HEMOGLOBIN 33 pg (25-34); MEAN CORPUSCULAR HGB CONC 33 g/dL (32-36); MEAN CORPUSCULAR VOLUME 101 fL (80-99); MEAN PLATELET VOLUME 12.1 fL (9.0-12.2); MONOCYTES # (AUTO) 0.3 10^3/uL (0.0-1.0); MONOCYTES % (AUTO) 4 % (0-12); NEUTROPHILS # (AUTO) 6.5 10^3/uL (1.8-7.8); NEUTROPHILS % (AUTO) 85 % (42-75); WHITE BLOOD COUNT 7.6 10^3/uL (4.3-11.0)
[2021-11-14 14:38] LABS: ALBUMIN 1.7 GM/DL (3.2-4.5); POTASSIUM 4.3 MMOL/L (3.6-5.0)
[2021-11-14 14:40] LABS: CALCIUM 7.8 MG/DL (8.5-10.1)
[2021-11-14 14:41] LABS: TOTAL PROTEIN 4.9 GM/DL (6.4-8.2)
[2021-11-14 14:43] LABS: BILIRUBIN,TOTAL 3.8 MG/DL (0.1-1.0)
[2021-11-14 14:44] LABS: CREATININE SERUM 3.67 MG/DL (0.60-1.30)
[2021-11-14 14:52] LABS: INR 2.6 (0.8-1.4); PROTHROMBIN TIME PATIENT 28.4 SEC (12.2-14.7)
[2021-11-14] MEDS ORDERED: DEXTROSE 50% 50 ML (IMS) SYR ONE (15:07)
[2021-11-14] MEDS ORDERED: DEXTROSE 50% 50 ML (IMS) SYR IV ONE ×2 (15:15→17:00)
[2021-11-14 15:57] LABS: ANISOCYTOSIS SLIGHT; BAND NEUTROPHILS 52 %; BASOPHILS % (MANUAL) 0 %; BURR CELLS MODERATE; ELLIPT/OVALOCYTES SLIGHT; EOSINOPHILS % (MANUAL) 0 %; LYMPHOCYTES % (MANUAL) 5 %; METAMYELOCYTES % 1 %; MONOCYTES % (MANUAL) 2 %; NEUTROPHILS % (MANUAL) 40 %
[2021-11-14 16:29] LABS: SALICYLATE < 5.0 MG/DL (5.0-20.0)
[2021-11-14 16:31] LABS: ACETAMINOPHEN < 10 UG/ML (10-30)
[2021-11-14 16:34] LABS: CLARITY,URINE CLOUDY; COLOR,URINE DARK YELLOW; GLUCOSE, URINE (UA) TRACE (NEGATIVE); KETONES,URINE TRACE (NEGATIVE); LEUKOCYTE ESTERASE ,URINE TRACE (NEGATIVE); NITRITE,URINE POSITIVE (NEGATIVE); PH,URINE 5.5 (5-9); PROTEIN,URINE 3+ (NEGATIVE)
[2021-11-14 17:00] LABS: BACTERIA,URINE LARGE /HPF; RBC,URINE 25-50 /HPF; WBC,URINE 25-50 /HPF
[2021-11-14] MEDS ORDERED: LACTULOSE SYRUP 10GM/15ML (ENULOSE) 30ML UDC PO ONE (17:00)
[2021-11-14] MEDS ORDERED: DEXTROSE 10% IV SOLUTION 1,000 ML IV SCH (17:00)
[2021-11-14 17:01] LABS: BILIRUBIN,URINE 2+ (NEGATIVE)
[2021-11-14 17:02] LABS: AMPHETAMINE SCREEN, URINE NEGATIVE (NEGATIVE); BARBITURATE SCREEN URINE NEGATIVE (NEGATIVE); BENZODIAZEPINES SCREEN URINE NEGATIVE (NEGATIVE); CANNABINOID SCREEN, URINE POSITIVE (NEGATIVE); COCAINE SCREEN URINE NEGATIVE (NEGATIVE); METHADONE STAT NEGATIVE (NEGATIVE); OPIATE SCREEN URINE NEGATIVE (NEGATIVE); OXYCODONE STAT NEGATIVE (NEGATIVE); PROPOXYPHENE STAT NEGATIVE (NEGATIVE); TRICYCLIC ANTIDEPRESSANTS SCRE NEGATIVE (NEGATIVE)
[2021-11-14] MEDS ORDERED: SODIUM BICARB 8.4% 50 MEQ/50 ML (ABBOTT) SYR IV ONE (17:15)
[2021-11-14 18:14] VITALS: BP 107/42
== END 2021-11-14 18:15 | disposition short-term general hospital (02) ==
LOC: EDUNIT# 11:59 → ER 12:00
DX: K74.60 Unspecified cirrhosis of liver (principal); E16.2 Hypoglycemia, unspecified; E87.2 Acidosis; K76.7 Hepatorenal syndrome; R18.8 Other ascites; Z28.310 Unvaccinated for COVID-19
CPT/HCPCS: 36415; 80053; 80306; 80320; 80329; 81000; 82140; 82805; 82947; 85007; 85027; 85610; 85730; 87077; 87088; 87186; 99291